=== PATIENT | female | born 1935 | race African-American/Black ===

== ENCOUNTER 2016-12-09 16:32 | Inpatient (IN) | payer MEDICARE, MEDICAID ==
[~2016-12-09] VITALS: Ht 152.4 cm; Wt 72.6 kg
[~2016-12-09 16:32] MED LIST: ALBUTEROL SULF8.5 GM INH; ALLERGY4 MG PO; AMLODIPINE BESYL5 MG ORAL; AZITHROMYCIN250 MG ORAL; BP MED; CALCIUM500 M2 PO; FLONASE1 SPRAYS NASAL; IBUPROFEN400 MG ORAL; METFORMIN HCL500 M1 ORAL; PROMETH-CODEIN 65 ML PO; ROBITUSSIN DM5 ML PO; SIMVASTATIN40 MG ORAL; TENORMIN25 MG ORAL; TRAMADOL HCL50 MG ORAL; VITAMIN D1000 UNI1 ORAL
[2016-12-09 16:50] VITALS: BP 156/46
--- NOTE | 2016-12-09 16:56 | Emergency Room Report ---
History of Present Illness General Chief Complaint: Vomiting Source: Patient Present Illness HPI Patient is a 81-year-old female who presented after having increased nausea and vomiting. Patient states over the past 2 days she's had increased spinning sensation worse with head movement. Patient stated that she felt like she was given a fall down. Patient denied any recent head trauma. She stated that she' s not had any previous history of strokes. Patient is type II diabetic. She denies any feeling of lightheadedness. She denied black or bloody stools she denied hematemesis. Allergies: Coded Allergies: No Known Allergies (Verified Allergy, Unknown, 06/05/11) Patient History Past Medical History: see triage record Now: No Reviewed Nursing Documentation: PMH: Agreed, PSxH: Agreed Nursing Documentation-PMH Past Medical History: No History, Except For Hx Hypertension: Yes Hx Diabetes: Yes - Type II Hx Cancer: No Hx Gastrointestinal Problems: No Hx Neurological Problems: No Review of Systems All Other Systems: negative except mentioned in HPI Physical Exam Vital Signs Date Time Temp Pulse Resp B/P Pulse Ox O2 Delivery O2 Flow Rate FiO2 12/09/16 16:38 98.1 68 16 129/64 100 Room Air Sp02 EP Interpretation: reviewed, normal General Appearance: normal inspection, well appearing, no apparent distress, alert, GCS 15 Head: atraumatic ENT: normal ENT inspection, hearing grossly normal, normal voice Neck: normal inspection, full range of motion, supple, no bony tend Respiratory: normal inspection, lungs clear, normal breath sounds, no respiratory distress, no retraction, no wheezing Cardiovascular #1: regular rate, rhythm, no edema Gastrointestinal: normal inspection, normal bowel sounds, non tender, soft, no guarding, no hernia Genitourinary: no CVA tenderness Musculoskeletal: normal inspection, back normal, normal range of motion Neurologic: normal inspection, alert, oriented x3, responsive, regulatory compliance director III-XII nml as tested, motor strength/tone normal, speech normal Psychiatric: normal inspection, judgement/insight normal, mood/affect normal Skin: normal inspection, normal color, no rash Medical Decision Making Diagnostic Impression: Primary Impression: Generalized weakness Additional Impressions: Unsteady gait Dehydration UTI (urinary tract infection) ER Course Patient presented for vertigo. Differential diagnosis included was not limited to CVA, vertebrobasilar insufficiency, myocardial infarction, benign positional vertigo, labyrinthitis, aspirin overdose among others. Because of complexity of patient's case laboratory testing and imaging studies were ordered. The patient was given IV Zofran as well as oral meclizine. A CT imaging of the head was ordered to exclude CVA.CT the head read by radiology showed atrophic changes without evident stroke. The patient was given antibiotics today urinary tract infection. Dr. Monica Degroot was contacted for inpatient management Labs Test 12/09/16 17:00 White Blood Count 3.8 K/UL (4.8-10.8) Red Blood Count 4.07 M/UL (4.20-5.40) Hemoglobin 12.0 G/DL (12.0-16.0) Hematocrit 37.2 % (37.0-47.0) Mean Corpuscular Volume 91 FL (80-99) Mean Corpuscular Hemoglobin 29.6 PG (27.0-31.0) Mean Corpuscular Hemoglobin Concent 32.4 G/DL (32.0-36.0) Red Cell Distribution Width 14.6 % (11.6-14.8) Platelet Count 173 K/UL (150-450) Mean Platelet Volume 9.0 FL (6.5-10.1) Neutrophils (%) (Auto) % (45.0-75.0) Lymphocytes (%) (Auto) % (20.0-45.0) Monocytes (%) (Auto) % (1.0-10.0) Eosinophils (%) (Auto) % (0.0-3.0) Basophils (%) (Auto) % (0.0-2.0) Differential Total Cells Counted 100 Neutrophils % (Manual) 48 % (45-75) Lymphocytes % (Manual) 27 % (20-45) Monocytes % (Manual) 24 % (1-10) Eosinophils % (Manual) 1 % (0-3) Basophils % (Manual) 0 % (0-2) Band Neutrophils 0 % (0-8) Platelet Estimate Adequate Platelet Morphology Normal Red Blood Cell Morphology Normal Urine Color Pale yellow Urine Appearance Clear Urine pH 5 (4.5-8.0) Urine Specific [place] 1.025 (1.005-1.035) Urine Protein 2+ (NEGATIVE) Urine Glucose (UA) Negative (NEGATIVE) Urine Ketones Negative (NEGATIVE) Urine Occult Blood 3+ (NEGATIVE) Urine Nitrite Negative (NEGATIVE) Urine Bilirubin Negative (NEGATIVE) Urine Urobilinogen Normal MG/DL (0.0-1.0) Urine Leukocyte Esterase 1+ (NEGATIVE) Urine RBC 2-4 /HPF (0 - 2) Urine WBC 2-4 /HPF (0 - 2) Urine Squamous Epithelial Cells Few /LPF (NONE/OCC) Urine Bacteria Few /HPF (NONE) Sodium Level 138 mEQ/L (135-145) Potassium Level 4.2 mEQ/L (3.4-4.9) Chloride Level 95 mEQ/L (98-107) Carbon Dioxide Level 28 mEQ/L (20-30) Anion Gap 15 (5-15) Blood Urea Nitrogen 20 mg/dL (7-23) Creatinine 0.7 mg/dL (0.5-0.9) Estimat Glomerular Filtration Rate mL/min (>60) Glucose Level 167 mg/dL (74-106) Calcium Level 9.6 mg/dL (8.6-10.2) Total Bilirubin 0.2 mg/dL (0.0-1.2) Aspartate Amino Transf (AST/SGOT) 17 U/L (5-40) Alanine Aminotransferase (ALT/SGPT) 11 U/L (3-33) Alkaline Phosphatase 67 U/L (35-104) Troponin I < 0.30 ng/mL (<=0.30) Total Protein 7.5 g/dL (6.6-8.7) Albumin 4.8 g/dL (3.5-5.2) Globulin 2.7 g/dL Albumin/Globulin Ratio 1.7 (1.0-2.7) Lipase 26 U/L (< 60) EKG Diagnostic Results Rate: normal Rhythm: NSR ST Segments: no acute changes Last Vital Signs Date Time Temp Pulse Resp B/P Pulse Ox O2 Delivery O2 Flow Rate FiO2 12/09/16 16:38 98.1 68 16 129/64 100 Room Air Status: unchanged Disposition: ADMITTED INPATIENT Condition: Magdaleno Rich Dec 09, 2016 16:56
[2016-12-09] MEDS ORDERED: NS 250 ML IVPB ONE (17:00)
[2016-12-09] MEDS ORDERED: Meclizine 25mg tab ORAL ONE (17:00)
[2016-12-09 17:41] LABS: MEAN CORPUSCULAR HEMOGLOBIN 29.6 PG (27.0-31.0); MEAN CORPUSCULAR HGB CONC 32.4 G/DL (32.0-36.0); MEAN CORPUSCULAR VOLUME 91 FL (80-99); PLATELET COUNT 173 K/UL (150-450); RED BLOOD COUNT 4.07 M/UL (4.20-5.40); RED CELL DISTRIBUTION WIDTH 14.6 % (11.6-14.8); WHITE BLOOD COUNT 3.8 K/UL (4.8-10.8)
[2016-12-09 17:44] LABS: APPEARANCE,URINE CLEAR; KETONES,URINE NEGATIVE (NEGATIVE); LEUKOCYTE ESTERASE ,URINE 1+ (NEGATIVE); NITRITE,URINE NEGATIVE (NEGATIVE); PH,URINE 5 (4.5-8.0); PROTEIN,URINE 2+ (NEGATIVE); UROBILINOGEN,URINE NORMAL MG/DL (0.0-1.0)
[2016-12-09 17:50] LABS: TROPONIN I < 0.30 ng/mL (<=0.30)
[2016-12-09 17:53] LABS: ALANINE AMINOTRANSFERASE 11 U/L (3-33); ALBUMIN/GLOBULIN RATIO 1.7 (1.0-2.7); ANION GAP 15 (5-15); ASPARTATE AMINO TRANSFERASE 17 U/L (5-40); BACTERIA,URINE FEW /HPF; CALCIUM 9.6 mg/dL (8.6-10.2); CARBON DIOXIDE 28 mEQ/L (20-30); CHLORIDE 95 mEQ/L (98-107); CREATININE 0.7 mg/dL (0.5-0.9); HEMOLYSIS 6; LIPASE 26 U/L (< 60); POTASSIUM 4.2 mEQ/L (3.4-4.9); SODIUM 138 mEQ/L (135-145); SQUAMOUS EPITHELIAL CELL,UR FEW /LPF (NONE/OCC); TOTAL PROTEIN 7.5 g/dL (6.6-8.7)
[2016-12-09 18:20] VITALS: BP 110/76
[2016-12-09 18:23] LABS: BAND NEUTROPHILS % (MANUAL) 0 % (0-8); BASOPHILS % (MANUAL) 0 % (0-2); EOSINOPHILS % (MANUAL) 1 % (0-3); LYMPHOCYTES % (MANUAL) 27 % (20-45); NEUTROPHILS % (MANUAL) 48 % (45-75); PLATELET ESTIMATE ADEQUATE; PLATELET MORPHOLOGY NORMAL; TOTAL CELLS COUNTED 100
[2016-12-09 20:15] VITALS: BP 145/64
[2016-12-09 21:25] VITALS: BP 129/51
[2016-12-09] MEDS ORDERED: LORazepam Inj 2mg/ml 1ml IV PRN (21:45)
[2016-12-09] MEDS ORDERED: Mylanta II UD 30ml ORAL PRN (21:45)
[2016-12-09] MEDS ORDERED: Miralax 17gm pkt ORAL PRN (21:45)
[2016-12-09] MEDS ORDERED: Morphine Sulfate 2mg/ml Inj IVP PRN (21:45)
[2016-12-09] MEDS ORDERED: Albuterol 90mcg Inhaler 8gm INH SCH (21:45)
[2016-12-09] MEDS ORDERED: Zolpidem 5mg tab ORAL PRN (21:45)
[2016-12-09 22:40] VITALS: BP 122/48
[2016-12-09] MEDS: Albuterol 90mcg Inhaler 8gm INH SCH (23:30)
[2016-12-10] VITALS: BP 109/51
[2016-12-10 04:00] VITALS: BP 115/55
[2016-12-10] MEDS: Albuterol 90mcg Inhaler 8gm INH SCH ×3 (05:30→17:30)
[2016-12-10 07:57] VITALS: BP 115/53
[2016-12-10] MEDS: Atenolol 25mg tab ORAL SCH (08:49)
[2016-12-10] MEDS: Heparin 5000 units/ml inj SUBQ SCH ×2 (08:53→20:14)
[2016-12-10] MEDS ORDERED: Atenolol 25mg tab ORAL SCH (09:00)
[2016-12-10 10:41] LABS: MEAN CORPUSCULAR HEMOGLOBIN 29.5 PG (27.0-31.0); MEAN CORPUSCULAR HGB CONC 32.3 G/DL (32.0-36.0); MEAN CORPUSCULAR VOLUME 92 FL (80-99); MEAN PLATELET VOLUME 8.9 FL (6.5-10.1); PLATELET COUNT 160 K/UL (150-450); RED BLOOD COUNT 3.67 M/UL (4.20-5.40); RED CELL DISTRIBUTION WIDTH 14.4 % (11.6-14.8); WHITE BLOOD COUNT 3.1 K/UL (4.8-10.8)
[2016-12-10 10:43] LABS: HEMOGLOBIN A1C 7.2 % (< 6.0)
[2016-12-10 10:44] LABS: ALANINE AMINOTRANSFERASE 10 U/L (3-33); ALBUMIN/GLOBULIN RATIO 1.6 (1.0-2.7); ANION GAP 14 (5-15); ASPARTATE AMINO TRANSFERASE 15 U/L (5-40); CALCIUM 8.9 mg/dL (8.6-10.2); CARBON DIOXIDE 26 mEQ/L (20-30); CHLORIDE 100 mEQ/L (98-107); CHOLESTEROL 166 mg/dL (< 200); CHOLESTEROL/HDL RATIO 2.1 (3.3-4.4); CREATININE 0.7 mg/dL (0.5-0.9); HEMOLYSIS 10; LDL CHOLESTEROL (CALC.) 71 mg/dL (60-99); POTASSIUM 3.9 mEQ/L (3.4-4.9); SODIUM 140 mEQ/L (135-145); TOTAL PROTEIN 6.5 g/dL (6.6-8.7)
--- NOTE | 2016-12-10 10:59 | Diagnostic Imaging Report ---
Indication: Headache Technique: Contiguous 5 mm thick transaxial imaging of the head obtained in a Siemens Sensation [address] scanner. Soft tissue and bone windows generated. Total Dose length Product (DLP): Of [address] Dose Index Volume (CTDIvol): 70.38 mGy Comparison: 06/05/11 Findings: There is mild prominence of the ventricles, basal cisterns, and cerebral sulci consistent with atrophy. Mild, nonspecific, white matter hypoattenuation is noted throughout the brain consistent with chronic small vessel disease. There is no midline shift, edema, acute hemorrhage, mass effect, or abnormal extra-axial fluid collections. Bones and extra osseous soft tissues are unremarkable. Impression: No acute intracranial bleed, mass effect or edema. Mild atrophy of the brain. Nonspecific white matter hypoattenuation probably due to chronic small vessel disease. [facility] has communicated the preliminary results to the Emergency Department. Their findings are largely concordant with this report. The CT scanner at [facility] is accredited by the [employer] and the scans are performed using protocols designed to limit radiation exposure to as low as reasonably achievable to attain images of sufficient resolution adequate for diagnostic evaluation.
--- NOTE | 2016-12-10 11:18 | History and Physical Report ---
DATE OF ADMISSION: 12/09/2016 Time: 7:00 a.m. CONSULTANTS: 1. Freddie Denney M.D. 2. Katie Neal M.D. 3. Ervin Gonsalez M.D. CHIEF COMPLAINT: Weakness and unsteady gait. HISTORY OF PRESENT ILLNESS: The patient is an 81-year-old female who lives at home presented to [place] ER last night with increased weakness and unsteady gait. She does have some dizziness and some vomiting and was diagnosed with above plus UTI and admitted to medical floor for further treatment. Currently, calm sitting in bed, not talking much. PAST MEDICAL HISTORY: Hypertension and diabetes. PAST SURGICAL HISTORY: Unknown. MEDICATIONS: Heparin, Norvasc, Tenormin , Proventil, Tylenol, morphine, Zofran, Mylanta, Ativan, Ambien, and MiraLAX. ALLERGIES: Denies. SOCIAL HISTORY: No smoking. No alcohol. No intravenous drug abuse. FAMILY HISTORY: Noncontributory. REVIEW OF SYSTEMS: Not available. PHYSICAL EXAMINATION: GENERAL: The patient is calm in bed, oriented x3, no acute distress. VITAL SIGNS: Temperature 97 degrees, pulse 69, respirations 18, and blood pressure 115/55. CARDIOVASCULAR: No murmur. LUNGS: Poor exchange. ABDOMEN: Positive bowel sounds. Nontender and nondistended. EXTREMITIES: No cyanosis, clubbing or edema. NEUROLOGIC: The patient moves all extremities, but slightly weak. LABORATORY DATA: White count 3.8, otherwise CBC is normal. BMP shows chloride 95 and glucose 167, otherwise BMP normal. Urinalysis, 3+ occult blood and 1+ leukocyte esterase. ASSESSMENT: 1. Weakness. 2. Unsteady gait. 3. Vomiting. 4. Vertigo. 5. Urinary tract infection. 6. Diabetes. 7. Hypertension. PLAN: Continue premedications. OT/PT and dietary evaluation. CBC and BMP in the morning. Blood pressure and blood sugar control. Antibiotics per Infectious Disease. Dr. Neal, Dr. Denney, and Dr. Gonsalez to consult. We will continue to follow this patient. Cj Degroot D.O. DR: Margarito JOB#: [id number] CC:
[2016-12-10 11:23] LABS: ANISOCYTOSIS 1+; BAND NEUTROPHILS % (MANUAL) 0 % (0-8); BASOPHILS % (MANUAL) 0 % (0-2); EOSINOPHILS % (MANUAL) 0 % (0-3); HYPOCHROMASIA 1+; LYMPHOCYTES % (MANUAL) 32 % (20-45); NEUTROPHILS % (MANUAL) 42 % (45-75); PLATELET ESTIMATE ADEQUATE; PLATELET MORPHOLOGY NORMAL; TOTAL CELLS COUNTED 100
[2016-12-10 11:48] VITALS: BP 103/59
--- NOTE | 2016-12-10 12:59 | Consultation ---
History of Present Illness General Date patient seen: Dec 10, 2016 Time patient seen: 12:30 Chief Complaint: Vomiting Referring physician: dr Degroot Reason for Consultation: in pt management Present Illness HPI 81-year-old female presented after having nausea with episode of vomiting. Emesis described by patient as food particles, no blood Vomiting happened after food intake denies diarrhea, abdominal pain, blood in stool Patient states over the past 2 days she's had increased spinning sensation worse with head movement., feels lightheaded Patient with hx of HTN and DM, Patient denied any recent head trauma, injury, falls Denied blackouts, loss of consciousness, denied chest pain, SOB reported cough for about a month using Albuterol without much relief no diagnosis of asthma, no hx of smoking no wheezing, no hemoptysis denied fevers, chills . Allergies: Coded Allergies: No Known Allergies (Verified Allergy, Unknown, 06/05/11) Medication History Scheduled Albuterol Sulfate* (Albuterol Sulfate Mdi*), 2 PUFF INH Q6H Amlodipine Besylate* (Amlodipine Besylate*), 5 MG ORAL DAILY Atenolol (Tenormin), 25 MG ORAL DAILY, (Reported) Chlorpheniramine Maleate (Allergy), 4 MG PO EVERY 6 HOURS Fluticasone Propionate (Fluticasone Propionate), 1 SPRAY NASAL TWICE A DAY Ibuprofen* (Motrin*), 400 MG ORAL THREE TIMES A DAY Metformin Hcl* (Metformin Hcl*), 500 MG ORAL DAILY, (Reported) Metformin Hcl* (Metformin Hcl*), 500 MG ORAL TWICE A DAY Promethazine HCl/Codeine (Prometh-Codein 6.25-10 mg/5 ml), 5 ML PO HS Simvastatin (Zocor), 40 MG ORAL BEDTIME, (Reported) Simvastatin (Zocor), 40 MG ORAL BEDTIME Tramadol Hcl* (Ultram*), 50 MG ORAL DAILY, (Reported) Scheduled PRN Guaifenesin/Dextromethorphan (Guaifenesin Dm Syrup), 5 ML PO Q8HR PRN for For Cough Miscellaneous Medications Calcium Carbonate (Calcium), 1 TAB PO, (Reported) [Bp Med], (Reported) Patient History Healthcare decision maker Resuscitation status Full Code Advanced Directive on File Review of Systems Constitutional: Reports: weakness Eye: Reports: no symptoms ENT: Reports: no symptoms Respiratory: Reports: see HPI Cardiovascular: Reports: other - HTN Gastrointestinal: Reports: constipation Genitourinary: Reports: no symptoms Musculoskeletal: Reports: muscle stiffness Skin: Reports: dryness Psychiatric: Reports: no symptoms Neurological: Reports: dizziness Endocrine: Reports: other - DM Hematologic/Lymphatic: Reports: no symptoms Physical Exam General Appearance: WD/WN, no apparent distress, alert Lines, tubes and drains: peripheral HEENT: normocephalic, atraumatic, anicteric, mucous membranes moist Neck: non-tender, supple Respiratory/Chest: chest wall non-tender, normal breath sounds - with moderate air exchange , no respiratory distress, no accessory muscle use Cardiovascular/Chest: normal rate, regular rhythm, no JVD Abdomen: normal bowel sounds, non tender, soft Extremities: no calf tenderness, normal capillary refill Neurologic: abnormal gait - unsteady , alert, responsive, normal mood/affect Musculoskeletal: normal muscle bulk Last 24 Hour Vital Signs Date Time Temp Pulse Resp B/P Pulse Ox O2 Delivery O2 Flow Rate FiO2 12/10/16 11:48 97.9 63 14 103/59 98 Room Air 12/10/16 11:41 68 18 98 Room Air 21 12/10/16 11:39 63 18 98 Room Air 21 12/10/16 09:57 Room Air 12/10/16 09:56 Room Air 12/10/16 08:49 75 115/53 12/10/16 08:49 75 115/53 12/10/16 07:57 97.5 75 15 115/53 96 Room Air 12/10/16 04:00 97.2 69 18 115/55 97 Room Air 12/10/16 00:00 97.7 69 20 109/51 96 Room Air 12/09/16 23:11 74 20 122/48 94 Room Air 12/09/16 22:40 98.3 74 20 122/48 94 Room Air 12/09/16 21:25 71 22 129/51 94 Room Air 12/09/16 20:15 98.3 75 29 145/64 98 Room Air 12/09/16 18:20 70 12 110/76 98 Room Air 12/09/16 16:50 65 23 156/46 98 Room Air 12/09/16 16:38 98.1 68 16 129/64 100 Room Air Intake and Output 12/09/16 12/10/16 19:00 07:00 Intake Total 250 ml 250 ml Balance 250 ml 250 ml Intake Oral 250 ml IV Total 250 ml # Voids 1 2 # Bowel Movements 1 Laboratory Tests Test 12/09/16 17:00 12/10/16 09:10 White Blood Count 3.8 K/UL (4.8-10.8) L 3.1 K/UL (4.8-10.8) L Red Blood Count 4.07 M/UL (4.20-5.40) L 3.67 M/UL (4.20-5.40) L Hemoglobin 12.0 G/DL (12.0-16.0) 10.8 G/DL (12.0-16.0) L Hematocrit 37.2 % (37.0-47.0) 33.5 % (37.0-47.0) L Mean Corpuscular Volume 91 FL (80-99) 92 FL (80-99) Mean Corpuscular Hemoglobin 29.6 PG (27.0-31.0) 29.5 PG (27.0-31.0) Mean Corpuscular Hemoglobin Concent 32.4 G/DL (32.0-36.0) 32.3 G/DL (32.0-36.0) Red Cell Distribution Width 14.6 % (11.6-14.8) 14.4 % (11.6-14.8) Platelet Count 173 K/UL (150-450) 160 K/UL (150-450) Mean Platelet Volume 9.0 FL (6.5-10.1) 8.9 FL (6.5-10.1) Neutrophils (%) (Auto) % (45.0-75.0) % (45.0-75.0) Lymphocytes (%) (Auto) % (20.0-45.0) % (20.0-45.0) Monocytes (%) (Auto) % (1.0-10.0) % (1.0-10.0) Eosinophils (%) (Auto) % (0.0-3.0) % (0.0-3.0) Basophils (%) (Auto) % (0.0-2.0) % (0.0-2.0) Differential Total Cells Counted 100 100 Neutrophils % (Manual) 48 % (45-75) 42 % (45-75) L Lymphocytes % (Manual) 27 % (20-45) 32 % (20-45) Monocytes % (Manual) 24 % (1-10) H 26 % (1-10) H Eosinophils % (Manual) 1 % (0-3) 0 % (0-3) Basophils % (Manual) 0 % (0-2) 0 % (0-2) Band Neutrophils 0 % (0-8) 0 % (0-8) Platelet Estimate Adequate Adequate Platelet Morphology Normal Normal Red Blood Cell Morphology Normal Urine Color Pale yellow Urine Appearance Clear Urine pH 5 (4.5-8.0) Urine Specific [place] 1.025 (1.005-1.035) Urine Protein 2+ (NEGATIVE) H Urine Glucose (UA) Negative (NEGATIVE) Urine Ketones Negative (NEGATIVE) Urine Occult Blood 3+ (NEGATIVE) H Urine Nitrite Negative (NEGATIVE) Urine Bilirubin Negative (NEGATIVE) Urine Urobilinogen Normal MG/DL (0.0-1.0) Urine Leukocyte Esterase 1+ (NEGATIVE) H Urine RBC 2-4 /HPF (0 - 2) H Urine WBC 2-4 /HPF (0 - 2) Urine Squamous Epithelial Cells Few /LPF (NONE/OCC) Urine Bacteria Few /HPF (NONE) Sodium Level 138 mEQ/L (135-145) 140 mEQ/L (135-145) Potassium Level 4.2 mEQ/L (3.4-4.9) 3.9 mEQ/L (3.4-4.9) Chloride Level 95 mEQ/L (98-107) L 100 mEQ/L (98-107) Carbon Dioxide Level 28 mEQ/L (20-30) 26 mEQ/L (20-30) Anion Gap 15 (5-15) 14 (5-15) Blood Urea Nitrogen 20 mg/dL (7-23) 19 mg/dL (7-23) Creatinine 0.7 mg/dL (0.5-0.9) 0.7 mg/dL (0.5-0.9) Estimat Glomerular Filtration Rate mL/min (>60) mL/min (>60) Glucose Level 167 mg/dL (74-106) H 176 mg/dL (74-106) H Calcium Level 9.6 mg/dL (8.6-10.2) 8.9 mg/dL (8.6-10.2) Total Bilirubin 0.2 mg/dL (0.0-1.2) 0.3 mg/dL (0.0-1.2) Aspartate Amino Transf (AST/SGOT) 17 U/L (5-40) 15 U/L (5-40) Alanine Aminotransferase (ALT/SGPT) 11 U/L (3-33) 10 U/L (3-33) Alkaline Phosphatase 67 U/L (35-104) 57 U/L (35-104) Troponin I < 0.30 ng/mL (<=0.30) Total Protein 7.5 g/dL (6.6-8.7) 6.5 g/dL (6.6-8.7) L Albumin 4.8 g/dL (3.5-5.2) 4.0 g/dL (3.5-5.2) Globulin 2.7 g/dL 2.5 g/dL Albumin/Globulin Ratio 1.7 (1.0-2.7) 1.6 (1.0-2.7) Lipase 26 U/L (< 60) Hypochromasia 1+ Anisocytosis 1+ Hemoglobin A1c 7.2 % (< 6.0) H Triglycerides Level 82 mg/dL (< 150) Cholesterol Level 166 mg/dL (< 200) LDL Cholesterol 71 mg/dL (60-99) HDL Cholesterol 79 mg/dL (> 60) H Cholesterol/HDL Ratio 2.1 (3.3-4.4) L Thyroid Stimulating Hormone (TSH) 1.030 uIU/mL (0.300-4.500) Height (Feet): 5 Height (Inches): 0.00 Weight (Pounds): 160 Medications Current Medications Medications (Trade) Dose Ordered Sig/Elva Route PRN Reason Start Time Stop Time Status Last Admin Dose Admin Acetaminophen (Tylenol) 650 mg Q4H PRN ORAL fever 12/09/16 21:45 01/08/17 21:44 Al Hydroxide/Mg Hydroxide (Mylanta II) 30 ml Q6H PRN ORAL dyspepsia 12/09/16 21:45 01/08/17 21:44 Albuterol Sulfate (Proventil MDI) 2 puff Q6H INH 12/09/16 23:30 01/08/17 21:44 12/10/16 11:39 Amlodipine Besylate (Norvasc) 5 mg DAILY ORAL 12/10/16 09:00 01/09/17 08:59 12/10/16 08:49 Atenolol (Tenormin) 25 mg DAILY ORAL 12/10/16 09:00 01/09/17 08:59 12/10/16 08:49 Dextrose (Dextrose 50%) STAT PRN IV Hypoglycemia 12/09/16 21:45 01/08/17 21:44 Heparin Sodium (Porcine) (Heparin 5000 units/ml) 5,000 units EVERY 12 HOURS SUBQ 12/10/16 09:00 01/09/17 08:59 12/10/16 08:53 Lorazepam (Ativan 2mg/ml 1ml) 0.5 mg Q4H PRN IV For Anxiety 12/09/16 21:45 12/16/16 21:44 Morphine Sulfate (Morphine Sulfate) 1 mg Q4H PRN IVP For Pain 12/09/16 21:45 12/16/16 21:44 Ondansetron HCl (Zofran) 4 mg Q6H PRN IVP Nausea & Vomiting 12/09/16 21:45 01/08/17 21:44 Polyethylene Glycol (Miralax) 17 gm HSPRN PRN ORAL Constipation 12/09/16 21:45 01/08/17 21:44 Zolpidem Tartrate (Ambien) 5 mg HSPRN PRN ORAL Insomnia 12/09/16 21:45 01/08/17 21:44 Assessment/Plan Assessment/Plan ASSESSMENT dehydration generalized weakness bronchitis, r/o PNA vertigo HTN DM mild anemia PLAN OF CARE MS floor VF O2 HHN prn CXR empiric abx sputum cx if able antitussive as need no evidence of UTI on UA Meclizine prn CT head negative BP management with CCB and BB, optimize as needed orthostatic BP in am consider neuro eval as per PMD discretion BS management with SS of insulin, [id number] at goal PT/OT/ST DVT prophylaxis pain management bowel regimen monitor HH if trend down, will initiate anemia workup case discussed and evaluated by supervising physician Hudson Fritz)Anais NP Dec 10, 2016 12:59
[2016-12-10 16:26] VITALS: BP 122/56
[2016-12-10] MEDS ORDERED: DuoNeb 0.5-3(2.5)mg/3ml neb HHN PRN (17:45)
[2016-12-10] MEDS ORDERED: Meclizine 25mg tab ORAL PRN (18:15)
[2016-12-10] MEDS: Promethazine/Codeine 5ml UD ORAL PRN (18:29)
[2016-12-10] MEDS ORDERED: Levofloxacin 500mg tab ORAL ONE (19:00)
[2016-12-10 20:00] VITALS: BP 101/50
[2016-12-10] MEDS: NovoLOG Insulin Flexpen SUBQ SCH (21:10)
[2016-12-11] VITALS: BP 111/58
[2016-12-11] MEDS: Promethazine/Codeine 5ml UD ORAL PRN ×2 (01:08→19:33)
[2016-12-11] MEDS: NovoLOG Insulin Flexpen SUBQ SCH ×4 (06:25→21:48)
[2016-12-11 06:31] LABS: MEAN CORPUSCULAR HGB CONC 32.8 G/DL (32.0-36.0); MEAN CORPUSCULAR VOLUME 91 FL (80-99); MEAN PLATELET VOLUME 8.6 FL (6.5-10.1); PLATELET COUNT 158 K/UL (150-450); RED BLOOD COUNT 3.63 M/UL (4.20-5.40); RED CELL DISTRIBUTION WIDTH 14.8 % (11.6-14.8); WHITE BLOOD COUNT 3.8 K/UL (4.8-10.8)
[2016-12-11 07:03] LABS: ANION GAP 13 (5-15); CALCIUM 9.1 mg/dL (8.6-10.2); CARBON DIOXIDE 30 mEQ/L (20-30); CHLORIDE 100 mEQ/L (98-107); CREATININE 0.8 mg/dL (0.5-0.9); HEMOLYSIS 11; POTASSIUM 4.4 mEQ/L (3.4-4.9); SODIUM 143 mEQ/L (135-145)
[2016-12-11 08:07] VITALS: BP 139/66
[2016-12-11] MEDS: Atenolol 25mg tab ORAL SCH (09:04)
[2016-12-11] MEDS: Heparin 5000 units/ml inj SUBQ SCH ×2 (09:10→21:49)
[2016-12-11 11:13] LABS: OTHERS PATHOLOGIST COMMENT
[2016-12-11 11:50] VITALS: BP 123/61
--- NOTE | 2016-12-11 11:59 | Neurology Progress Note ---
Objective Physical Exam Last Vital Signs Date Time Temp Pulse Resp B/P Pulse Ox O2 Delivery O2 Flow Rate FiO2 12/11/16 11:50 98.2 66 19 123/61 96 Room Air 12/10/16 19:16 21 Laboratory Tests Test 12/11/16 04:50 White Blood Count 3.8 K/UL (4.8-10.8) L Red Blood Count 3.63 M/UL (4.20-5.40) L Hemoglobin 10.9 G/DL (12.0-16.0) L Hematocrit 33.2 % (37.0-47.0) L Mean Corpuscular Volume 91 FL (80-99) Mean Corpuscular Hemoglobin 30.0 PG (27.0-31.0) Mean Corpuscular Hemoglobin Concent 32.8 G/DL (32.0-36.0) Red Cell Distribution Width 14.8 % (11.6-14.8) Platelet Count 158 K/UL (150-450) Mean Platelet Volume 8.6 FL (6.5-10.1) Neutrophils (%) (Auto) % (45.0-75.0) Lymphocytes (%) (Auto) % (20.0-45.0) Monocytes (%) (Auto) % (1.0-10.0) Eosinophils (%) (Auto) % (0.0-3.0) Basophils (%) (Auto) % (0.0-2.0) Sodium Level 143 mEQ/L (135-145) Potassium Level 4.4 mEQ/L (3.4-4.9) Chloride Level 100 mEQ/L (98-107) Carbon Dioxide Level 30 mEQ/L (20-30) Anion Gap 13 (5-15) Blood Urea Nitrogen 18 mg/dL (7-23) Creatinine 0.8 mg/dL (0.5-0.9) Estimat Glomerular Filtration Rate mL/min (>60) Glucose Level 154 mg/dL (74-106) H Calcium Level 9.1 mg/dL (8.6-10.2) Impression/Recommendations Problems: (1) Vertigo, benign positional Recommendations # [id number] DANICA MCCRACKEN Dec 11, 2016 11:59
--- NOTE | 2016-12-11 12:45 | Diagnostic Imaging Report ---
Indication: SOB Technique: One view of the chest Comparison: 07/21/2016 Findings: No acute infiltrates, effusions, or congestion. Tortuous calcified aorta. Normal heart size. Upper mediastinum unremarkable. There are mild degenerative changes right shoulder again demonstrated Impression: No acute process.
--- NOTE | 2016-12-11 14:14 | General Progress Note ---
Assessment/Plan Problem List: (1) Unsteady gait ICD Codes: R26.81 - Unsteadiness on feet SNOMED: 66906896, 520780647 (2) Vomiting ICD Codes: R11.10 - Vomiting, unspecified SNOMED: 925286628 (3) UTI (urinary tract infection) ICD Codes: N39.0 - Urinary tract infection, site not specified SNOMED: 10744355 (4) Diabetes mellitus ICD Codes: E11.9 - Type 2 diabetes mellitus without complications SNOMED: 46631999 (5) vertigo Status: stable, progressing, tolerating diet Assessment/Plan ot pt diet abx cbc bmp am Subjective Constitutional: Reports: weakness Allergies: Coded Allergies: No Known Allergies (Verified Allergy, Unknown, 06/05/11) All Systems: reviewed and negative except above Subjective calm in bed Objective Last 24 Hour Vital Signs Date Time Temp Pulse Resp B/P Pulse Ox O2 Delivery O2 Flow Rate FiO2 12/11/16 11:50 98.2 66 19 123/61 96 Room Air 12/11/16 09:04 74 139/66 12/11/16 09:03 74 139/66 12/11/16 08:07 98.1 74 19 139/66 96 Room Air 12/11/16 07:55 66 14 Room Air 12/11/16 05:50 70 72 78 12/11/16 04:00 Room Air 12/11/16 00:00 97.1 72 18 111/58 95 Room Air 12/10/16 20:00 98.1 66 19 101/50 96 Room Air 12/10/16 19:18 64 14 Room Air 12/10/16 19:17 Room Air 12/10/16 19:16 Room Air 21 12/10/16 16:26 99.7 67 15 122/56 98 Room Air Intake and Output 12/10/16 12/11/16 19:00 07:00 Intake Total 1450 ml 902 ml Balance 1450 ml 902 ml Intake Oral 1400 ml 352 ml IV Total 50 ml 550 ml # Voids 2 5 Laboratory Tests 12/11/16 04:50: White Blood Count 3.8L, Red Blood Count 3.63L, Hemoglobin 10.9L, Hematocrit 33.2L, Mean Corpuscular Volume 91, Mean Corpuscular Hemoglobin 30.0, Mean Corpuscular Hemoglobin Concent 32.8, Red Cell Distribution Width 14.8, Platelet Count 158, Mean Platelet Volume 8.6, Neutrophils (%) (Auto) , Lymphocytes (%) ( Auto) , Monocytes (%) (Auto) , Eosinophils (%) (Auto) , Basophils (%) (Auto) , Sodium Level 143, Potassium Level 4.4, Chloride Level 100, Carbon Dioxide Level 30, Anion Gap 13, Blood Urea Nitrogen 18, Creatinine 0.8, Estimat Glomerular Filtration Rate , Glucose Level 154H, Calcium Level 9.1 Height (Feet): 5 Height (Inches): 0.00 Weight (Pounds): 160 General Appearance: alert EENT: normal ENT inspection Neck: normal alignment Cardiovascular: normal peripheral pulses, normal rate, regular rhythm Respiratory/Chest: chest wall non-tender, lungs clear, normal breath sounds Abdomen: normal bowel sounds, non tender, soft Extremities: normal inspection Edema: no edema noted Arm (L), no edema noted Arm (R), no edema noted Leg (L), no edema noted Leg (R), no edema noted Pedal (L), no edema noted Pedal (R), no edema noted Generalized Neurologic: responsive, motor weakness Skin: normal pigmentation, warm/dry BRIDGET MORENO Dec 11, 2016 14:14
[2016-12-11 16:00] VITALS: BP 124/65
--- NOTE | 2016-12-11 16:44 | Pulmonology Progress Note ---
Assessment/Plan Problems: (1) vertigo (2) Unsteady gait (3) Vomiting (4) Diabetes mellitus Assessment/Plan improving pt/ot neuro evaluation all noted, meds, labs reveiwed dc planning Subjective ROS Limited/Unobtainable: No Interval Events: no new complains Allergies: Coded Allergies: No Known Allergies (Verified Allergy, Unknown, 06/05/11) Objective Last 24 Hour Vital Signs Date Time Temp Pulse Resp B/P Pulse Ox O2 Delivery O2 Flow Rate FiO2 12/11/16 16:00 98.1 67 20 124/65 97 Room Air 12/11/16 11:50 98.2 66 19 123/61 96 Room Air 12/11/16 09:04 74 139/66 12/11/16 09:03 74 139/66 12/11/16 08:07 98.1 74 19 139/66 96 Room Air 12/11/16 07:55 66 14 Room Air 12/11/16 05:50 70 72 78 12/11/16 04:00 Room Air 12/11/16 00:00 97.1 72 18 111/58 95 Room Air 12/10/16 20:00 98.1 66 19 101/50 96 Room Air 12/10/16 19:18 64 14 Room Air 12/10/16 19:17 Room Air 12/10/16 19:16 Room Air 21 Intake and Output 12/10/16 12/11/16 19:00 07:00 Intake Total 1450 ml 902 ml Balance 1450 ml 902 ml Intake Oral 1400 ml 352 ml IV Total 50 ml 550 ml # Voids 2 5 Objective General Appearance: WD/WN, no apparent distress, alert Lines, tubes and drains: peripheral HEENT: normocephalic, atraumatic, anicteric, mucous membranes moist Neck: non-tender, supple Respiratory/Chest: chest wall non-tender, normal breath sounds - with moderate air exchange , no respiratory distress, no accessory muscle use Cardiovascular/Chest: normal rate, regular rhythm, no JVD Abdomen: normal bowel sounds, non tender, soft Extremities: no calf tenderness, normal capillary refill Neurologic: abnormal gait - unsteady , alert, responsive, normal mood/affect Musculoskeletal: normal muscle bulk Laboratory Tests 12/11/16 04:50: White Blood Count 3.8L, Red Blood Count 3.63L, Hemoglobin 10.9L, Hematocrit 33.2L, Mean Corpuscular Volume 91, Mean Corpuscular Hemoglobin 30.0, Mean Corpuscular Hemoglobin Concent 32.8, Red Cell Distribution Width 14.8, Platelet Count 158, Mean Platelet Volume 8.6, Neutrophils (%) (Auto) , Lymphocytes (%) ( Auto) , Monocytes (%) (Auto) , Eosinophils (%) (Auto) , Basophils (%) (Auto) , Sodium Level 143, Potassium Level 4.4, Chloride Level 100, Carbon Dioxide Level 30, Anion Gap 13, Blood Urea Nitrogen 18, Creatinine 0.8, Estimat Glomerular Filtration Rate , Glucose Level 154H, Calcium Level 9.1 Current Medications Medications (Trade) Dose Ordered Sig/Elva Route PRN Reason Start Time Stop Time Status Last Admin Dose Admin Acetaminophen (Tylenol) 650 mg Q4H PRN ORAL fever 12/09/16 21:45 01/08/17 21:44 Al Hydroxide/Mg Hydroxide (Mylanta II) 30 ml Q6H PRN ORAL dyspepsia 12/09/16 21:45 01/08/17 21:44 Albuterol/ Ipratropium (DuoNeb 0.5-3(2.5)mg/3ml) 3 ml Q4H PRN HHN Shortness of Breath 12/10/16 17:45 12/15/16 17:44 Amlodipine Besylate (Norvasc) 5 mg DAILY ORAL 12/10/16 09:00 01/09/17 08:59 12/11/16 09:03 Atenolol 25 mg 25 mg DAILY ORAL 12/10/16 09:00 01/09/17 08:59 12/11/16 09:04 Dextrose (Dextrose 50%) STAT PRN IV Hypoglycemia 12/09/16 21:45 01/08/17 21:44 Heparin Sodium (Porcine) (Heparin 5000 units/ml) 5,000 units EVERY 12 HOURS SUBQ 12/10/16 09:00 01/09/17 08:59 12/11/16 09:10 Insulin Aspart (NovoLOG) BEFORE MEALS AND HS SUBQ 12/10/16 21:00 01/09/17 20:59 12/11/16 12:19 Levofloxacin (Levaquin) 250 mg Q24H ORAL 12/11/16 19:00 12/18/16 18:59 Lorazepam (Ativan 2mg/ml 1ml) 0.5 mg Q4H PRN IV For Anxiety 12/09/16 21:45 12/16/16 21:44 Meclizine HCl (Antivert) 25 mg Q6H PRN ORAL for dizziness 12/10/16 18:15 01/09/17 18:14 Morphine Sulfate (Morphine Sulfate) 1 mg Q4H PRN IVP For Pain 12/09/16 21:45 12/16/16 21:44 Ondansetron HCl (Zofran) 4 mg Q6H PRN IVP Nausea & Vomiting 12/09/16 21:45 01/08/17 21:44 Polyethylene Glycol (Miralax) 17 gm HSPRN PRN ORAL Constipation 12/09/16 21:45 01/08/17 21:44 Promethazine HCl/ Codeine (Phenergan with Codeine) 5 ml Q6H PRN ORAL For Cough 12/10/16 17:45 01/09/17 17:44 12/11/16 01:08 Sodium Chloride (0.45% NS 1000ml) 1,000 ml @ 50 mls/hr Q20H IV 12/10/16 18:00 01/09/17 17:59 12/10/16 18:26 Zolpidem Tartrate (Ambien) 5 mg HSPRN PRN ORAL Insomnia 12/09/16 21:45 01/08/17 21:44 CT CALLEJAS Dec 11, 2016 16:44
[2016-12-11 19:00] VITALS: BP 126/63
--- NOTE | 2016-12-11 20:48 | Consultation ---
DATE OF CONSULTATION: 12/11/2016 NEUROLOGICAL CONSULTATION: REQUESTING PHYSICIAN: Cj Degroot D.O. HISTORY OF PRESENT ILLNESS: The patient is an 81-year-old female seen in neurological consultation to evaluate new onset of intractable nausea, vomiting, and vertigo. The patient informed me that the last week, she noted when she turns her head to the side, she feels slight vertigo. She was not paying attention to this, but on day of admission, while walking with a friend she started developed nausea, she started developed vomiting, acute vertigo, unstable gait, pressure sensation in her head, and blurriness of vision. She had to lie down in bed felt slight improvement, but become extremely concerned that this may represent a stroke and with this she was sent into emergency room. On admission, vital signs were stable. She was afebrile with blood pressure 129/64. The patient was indicating in the emergency room that for the past two days she was increased spinning sensation, worse with head movement. She mentioned that she actually felt like she is going to fall down. She was given IV Zofran. Imaging studies included CT of the brain, which revealed no acute abnormalities. No midline shift. There was evidence of chronic small vessel disease and atrophy. The comparison with the previous study was done on 06/05/2011. Laboratory studies included CBC study with WBC 3.8, otherwise normal. Chemistry panel unremarkable except elevated blood sugar 167. Hemoglobin A1c was 7.2. Normal TSH, lipid panel, and liver function. The patient indicated that her symptoms actually resolved within one to two hours. The patient now recalled that she had a very similar episode six months ago when she developed vertigo, nausea, vomiting with symptoms subsiding while she is in still position. She was hospitalized, causes of her condition was not detected. PAST MEDICAL HISTORY: The patient has history of hypertension, diabetes, hyperlipidemia, and " allergic, cough". MEDICATIONS: The patient indicated treatment now include amlodipine, atenolol, ibuprofen, metformin, promethazine, simvastatin, and tramadol p.r.n. ALLERGIES: None reported. SOCIAL HISTORY: The patient is a . She lives alone in a supportive family. No alcohol. No drug abuse. Nonsmoker. FAMILY HISTORY: Noncontributory. REVIEW OF SYMPTOMS: Dry cough. Currently, no headache, no dizziness, no chest pain, no palpitations, no difficulties in ambulation. PHYSICAL EXAMINATION: GENERAL: The patient is a well-developed, well-nourished, pleasant lady, not in acute distress, lying comfortably in bed. VITAL SIGNS: Blood pressure 128/80 and respirations 14. HEENT: Head, normocephalic. No evidence of trauma. Eyes, ears, and throat are clear. NECK: Supple. No meningeal signs. MUSCULOSKELETAL: Examination unremarkable. There is no deformities. PERIPHERAL PULSES: A 1+ symmetric. MENTAL STATUS: Alert and oriented x3. Speech is fluent. No evidence of aphasia or apraxia. Cognition is normal. CRANIAL NERVES II: Pupils both responding to light and accommodation. Extraocular movement intact. No nystagmus. CRANIAL NERVES V: Normal corneal responses. CRANIAL NERVES VII: No facial asymmetry. CRANIAL NERVES VIII: Normal hearing. No positional vertigo with head turn. CRANIAL NERVES IX THROUGH XII: Tongue is in midline. Symmetric palate elevation. MOTOR EXAMINATION: Motor examination, normal muscle tone. Strength 5/5 in all extremities. No involuntary movement. Deep reflexes 1+ symmetric with downgoing toes on both sides. SENSORY EXAM: Normal in all modalities. Gait is slow, but stable. The patient indicates she is using cane for slight instability. IMPRESSION: 1. Recurrent benign positional vertigo. 2. 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 3. Hypertension. 4. Diabetes type 2. 5. Hyperlipidemia. DISCUSSION: The patient describes events which compatible with benign positional vertigo spontaneously resolving. Currently, she has no focal neurological deficit except mild ataxia very likely result of small vessel disease. The patient to use Antivert 12.5 mg p.r.n. only for vertigo. If symptoms persist, may need additional diagnostic studies including MRI of internal auditory canals. At this time, the patient is neurological stable and will be able to be discharged home. Thank you for allowing me to see this interesting patient in neurological consultation. Freddie Denney M.D. DR: Jeyson JOB#: [id number] CC:
[2016-12-12] VITALS: BP 121/79
[2016-12-12 04:00] VITALS: BP 137/60
[2016-12-12] MEDS: NovoLOG Insulin Flexpen SUBQ SCH ×3 (06:22→16:34)
[2016-12-12 07:06] LABS: ANION GAP 11 (5-15); CALCIUM 9.2 mg/dL (8.6-10.2); CARBON DIOXIDE 29 mEQ/L (20-30); CHLORIDE 101 mEQ/L (98-107); CREATININE 0.6 mg/dL (0.5-0.9); HEMOLYSIS 0; POTASSIUM 4.1 mEQ/L (3.4-4.9); SODIUM 141 mEQ/L (135-145)
[2016-12-12 07:15] LABS: MEAN CORPUSCULAR HEMOGLOBIN 29.8 PG (27.0-31.0); MEAN CORPUSCULAR HGB CONC 32.6 G/DL (32.0-36.0); MEAN CORPUSCULAR VOLUME 91 FL (80-99); MEAN PLATELET VOLUME 8.2 FL (6.5-10.1); PLATELET COUNT 162 K/UL (150-450); RED BLOOD COUNT 3.66 M/UL (4.20-5.40); RED CELL DISTRIBUTION WIDTH 14.7 % (11.6-14.8); WHITE BLOOD COUNT 3.8 K/UL (4.8-10.8)
[2016-12-12 08:02] VITALS: BP 147/55
[2016-12-12] MEDS: Heparin 5000 units/ml inj SUBQ SCH (08:37)
[2016-12-12] MEDS: Atenolol 25mg tab ORAL SCH (08:37)
[2016-12-12 08:54] LABS: BAND NEUTROPHILS % (MANUAL) 0 % (0-8); BASOPHILS % (MANUAL) 1 % (0-2); EOSINOPHILS % (MANUAL) 0 % (0-3); LYMPHOCYTES % (MANUAL) 63 % (20-45); NEUTROPHILS % (MANUAL) 21 % (45-75); PLATELET ESTIMATE ADEQUATE; PLATELET MORPHOLOGY NORMAL; TOTAL CELLS COUNTED 100
[2016-12-12 11:28] VITALS: BP 117/52
--- NOTE | 2016-12-12 11:33 | Cardiology Report ---
APPROVED REPORT EKG Measurement Heart [id number] Normal sinus rhythm Normal ECG
--- NOTE | 2016-12-12 13:09 | General Progress Note ---
Assessment/Plan Problem List: (1) Unsteady gait ICD Codes: R26.81 - Unsteadiness on feet SNOMED: 06190302, 147736575 (2) Vomiting ICD Codes: R11.10 - Vomiting, unspecified SNOMED: 461969995 (3) UTI (urinary tract infection) ICD Codes: N39.0 - Urinary tract infection, site not specified SNOMED: 69692402 (4) Diabetes mellitus ICD Codes: E11.9 - Type 2 diabetes mellitus without complications SNOMED: 93960174 (5) vertigo Status: stable, progressing, tolerating diet Assessment/Plan ot pt diet abx dc home w hh Subjective Constitutional: Reports: weakness Allergies: Coded Allergies: No Known Allergies (Verified Allergy, Unknown, 06/05/11) All Systems: reviewed and negative except above Subjective calm in bed feeling better wants to go home Objective Last 24 Hour Vital Signs Date Time Temp Pulse Resp B/P Pulse Ox O2 Delivery O2 Flow Rate FiO2 12/12/16 11:28 98.6 61 19 117/52 97 Room Air 12/12/16 08:37 71 147/55 12/12/16 08:37 71 147/55 12/12/16 08:02 98.2 71 19 147/55 98 Room Air 12/12/16 07:36 76 14 Room Air 12/12/16 04:00 97.7 65 20 137/60 96 Room Air 12/12/16 00:00 98.2 64 20 121/79 97 Room Air 12/11/16 19:00 98.1 66 20 126/63 94 Room Air 12/11/16 19:00 68 14 Room Air 12/11/16 16:00 98.1 67 20 124/65 97 Room Air Intake and Output 12/11/16 12/12/16 19:00 07:00 Intake Total 810 ml 490 ml Balance 810 ml 490 ml Intake Oral 560 ml 240 ml IV Total 250 ml 250 ml # Voids 3 7 # Bowel Movements 1 1 Laboratory Tests 12/12/16 06:00: White Blood Count 3.8L, Red Blood Count 3.66L, Hemoglobin 10.9L, Hematocrit 33.4L, Mean Corpuscular Volume 91, Mean Corpuscular Hemoglobin 29.8, Mean Corpuscular Hemoglobin Concent 32.6, Red Cell Distribution Width 14.7, Platelet Count 162, Mean Platelet Volume 8.2, Neutrophils (%) (Auto) , Lymphocytes (%) ( Auto) , Monocytes (%) (Auto) , Eosinophils (%) (Auto) , Basophils (%) (Auto) , Differential Total Cells Counted 100, Neutrophils % (Manual) 21L, Lymphocytes % (Manual) 63H, Monocytes % (Manual) 15H, Eosinophils % (Manual) 0, Basophils % ( Manual) 1, Band Neutrophils 0, Platelet Estimate Adequate, Platelet Morphology Normal, Red Blood Cell Morphology Normal, Sodium Level 141, Potassium Level 4.1 , Chloride Level 101, Carbon Dioxide Level 29, Anion Gap 11, Blood Urea Nitrogen 15, Creatinine 0.6, Estimat Glomerular Filtration Rate , Glucose Level 165H, Calcium Level 9.2 Height (Feet): 5 Height (Inches): 0.00 Weight (Pounds): 160 General Appearance: alert EENT: normal ENT inspection Neck: normal alignment Cardiovascular: normal peripheral pulses, normal rate, regular rhythm Respiratory/Chest: chest wall non-tender, lungs clear, normal breath sounds Abdomen: normal bowel sounds, non tender, soft Extremities: normal inspection Edema: no edema noted Arm (L), no edema noted Arm (R), no edema noted Leg (L), no edema noted Leg (R), no edema noted Pedal (L), no edema noted Pedal (R), no edema noted Generalized Neurologic: responsive, motor weakness Skin: normal pigmentation, warm/dry BRIDGET MORENO Dec 12, 2016 13:09
[2016-12-12 16:00] VITALS: BP 118/58
[2016-12-12] MEDS: Promethazine/Codeine 5ml UD ORAL PRN (16:29)
[2016-12-12] MEDS ORDERED: 1/2 NS 1000ml IV ONE ×2 (16:32→17:38)
--- NOTE | 2016-12-12 16:33 | Pulmonology Progress Note ---
Assessment/Plan Problems: (1) vertigo (2) Unsteady gait (3) Vomiting (4) Diabetes mellitus Assessment/Plan improving pt/ot neuro evaluation all noted, meds, labs reveiwed dc planning going home today Subjective ROS Limited/Unobtainable: No Constitutional: Reports: no symptoms HEENT: Repors: no symptoms Allergies: Coded Allergies: No Known Allergies (Verified Allergy, Unknown, 06/05/11) Objective Last 24 Hour Vital Signs Date Time Temp Pulse Resp B/P Pulse Ox O2 Delivery O2 Flow Rate FiO2 12/12/16 11:28 98.6 61 19 117/52 97 Room Air 12/12/16 08:37 71 147/55 12/12/16 08:37 71 147/55 12/12/16 08:02 98.2 71 19 147/55 98 Room Air 12/12/16 07:36 76 14 Room Air 12/12/16 04:00 97.7 65 20 137/60 96 Room Air 12/12/16 00:00 98.2 64 20 121/79 97 Room Air 12/11/16 19:00 98.1 66 20 126/63 94 Room Air 12/11/16 19:00 68 14 Room Air Intake and Output 12/11/16 12/12/16 19:00 07:00 Intake Total 810 ml 490 ml Balance 810 ml 490 ml Intake Oral 560 ml 240 ml IV Total 250 ml 250 ml # Voids 3 7 # Bowel Movements 1 1 Objective General Appearance: WD/WN, no apparent distress, alert Lines, tubes and drains: peripheral HEENT: normocephalic, atraumatic, anicteric, mucous membranes moist Neck: non-tender, supple Respiratory/Chest: chest wall non-tender, normal breath sounds - with moderate air exchange , no respiratory distress, no accessory muscle use Cardiovascular/Chest: normal rate, regular rhythm, no JVD Abdomen: normal bowel sounds, non tender, soft Extremities: no calf tenderness, normal capillary refill Neurologic: abnormal gait - unsteady , alert, responsive, normal mood/affect Musculoskeletal: normal muscle bulk Laboratory Tests 12/12/16 06:00: White Blood Count 3.8L, Red Blood Count 3.66L, Hemoglobin 10.9L, Hematocrit 33.4L, Mean Corpuscular Volume 91, Mean Corpuscular Hemoglobin 29.8, Mean Corpuscular Hemoglobin Concent 32.6, Red Cell Distribution Width 14.7, Platelet Count 162, Mean Platelet Volume 8.2, Neutrophils (%) (Auto) , Lymphocytes (%) ( Auto) , Monocytes (%) (Auto) , Eosinophils (%) (Auto) , Basophils (%) (Auto) , Differential Total Cells Counted 100, Neutrophils % (Manual) 21L, Lymphocytes % (Manual) 63H, Monocytes % (Manual) 15H, Eosinophils % (Manual) 0, Basophils % ( Manual) 1, Band Neutrophils 0, Platelet Estimate Adequate, Platelet Morphology Normal, Red Blood Cell Morphology Normal, Sodium Level 141, Potassium Level 4.1 , Chloride Level 101, Carbon Dioxide Level 29, Anion Gap 11, Blood Urea Nitrogen 15, Creatinine 0.6, Estimat Glomerular Filtration Rate , Glucose Level 165H, Calcium Level 9.2 Current Medications Medications (Trade) Dose Ordered Sig/Elva Route PRN Reason Start Time Stop Time Status Last Admin Dose Admin Acetaminophen (Tylenol) 650 mg Q4H PRN ORAL fever 12/09/16 21:45 01/08/17 21:44 Al Hydroxide/Mg Hydroxide (Mylanta II) 30 ml Q6H PRN ORAL dyspepsia 12/09/16 21:45 01/08/17 21:44 Albuterol/ Ipratropium (DuoNeb 0.5-3(2.5)mg/3ml) 3 ml Q4H PRN HHN Shortness of Breath 12/10/16 17:45 12/15/16 17:44 Amlodipine Besylate (Norvasc) 5 mg DAILY ORAL 12/10/16 09:00 01/09/17 08:59 12/12/16 08:37 Atenolol 25 mg 25 mg DAILY ORAL 12/10/16 09:00 01/09/17 08:59 12/12/16 08:37 Dextrose (Dextrose 50%) STAT PRN IV Hypoglycemia 12/09/16 21:45 01/08/17 21:44 Heparin Sodium (Porcine) (Heparin 5000 units/ml) 5,000 units EVERY 12 HOURS SUBQ 12/10/16 09:00 01/09/17 08:59 12/12/16 08:37 Insulin Aspart (NovoLOG) BEFORE MEALS AND HS SUBQ 12/10/16 21:00 01/09/17 20:59 12/12/16 12:22 Levofloxacin (Levaquin) 250 mg Q24H ORAL 12/11/16 19:00 12/18/16 18:59 12/11/16 19:32 Lorazepam (Ativan 2mg/ml 1ml) 0.5 mg Q4H PRN IV For Anxiety 12/09/16 21:45 12/16/16 21:44 Meclizine HCl (Antivert) 25 mg Q6H PRN ORAL for dizziness 12/10/16 18:15 01/09/17 18:14 Morphine Sulfate (Morphine Sulfate) 1 mg Q4H PRN IVP For Pain 12/09/16 21:45 12/16/16 21:44 Ondansetron HCl (Zofran) 4 mg Q6H PRN IVP Nausea & Vomiting 12/09/16 21:45 01/08/17 21:44 Polyethylene Glycol (Miralax) 17 gm HSPRN PRN ORAL Constipation 12/09/16 21:45 01/08/17 21:44 Promethazine HCl/ Codeine (Phenergan with Codeine) 5 ml Q6H PRN ORAL For Cough 12/10/16 17:45 01/09/17 17:44 12/12/16 16:29 Sodium Chloride (0.45% NS 1000ml) 1,000 ml @ 50 mls/hr Q20H IV 12/10/16 18:00 01/09/17 17:59 12/12/16 02:00 Zolpidem Tartrate (Ambien) 5 mg HSPRN PRN ORAL Insomnia 12/09/16 21:45 01/08/17 21:44 [address] CALLEJAS Dec 12, 2016 16:33
[2016-12-12] MEDS ORDERED: LEVAQUIN250 M1 ORAL (18:03)
--- NOTE | 2016-12-14 15:13 | Discharge Summary ---
Discharge Summary Hospital Course Date of Admission Dec 09, 2016 at 19:35 Date of Discharge Dec 12, 2016 at 18:45 Admitting Diagnosis generalized weakness, unsteady gait HPI Emma Arellano is a 81 year old female who was admitted on Dec 09, 2016 at 19:35 for Generalized Weakness, Unsteady Gait Hospital Course [id number] Discharge Discharge Disposition Patient was discharged to Home with Home Health(06) Discharge Diagnoses: Shagufta Casiano NP Dec 14, 2016 15:13
--- NOTE | 2016-12-14 23:58 | Discharge Summary 2 SIG ---
DATE OF ADMISSION: 12/09/2016 DATE OF DISCHARGE: 12/12/2016 CONSULTANTS: 1. Katie Neal M.D. 2. Freddie Denney M.D. BRIEF HOSPITAL COURSE: The patient is an 81-year-old female who presented to ED after increased nausea and vomiting over the past two days, and had increased spinning sensation, worse with head movement. On evaluation at ED, CT of the head showed no acute intracranial bleed, mass effect, or edema with mild atrophy of the brain and nonspecific chronic small vessel disease. Chest x-ray showed no acute process. Urinalysis showed +1 leukocyte esterase, 2 to 4 RBCs, and 2 to 4 WBC. The patient was placed on physical therapy and occupational therapy. Dr. Denney was consulted. The patient was assessed to have recurrent benign positional vertigo and was given Antivert 12.5 mg p.r.n. There was no focal neurological deficit except mild ataxia, which is very likely a result of small vessel disease. The patient felt better and was eventually discharged home with home health. FINAL DIAGNOSES: 1. Acute vertigo. 2. Vomiting. 3. Urinary tract infection. 4. Diabetes mellitus. 5. Hyperlipidemia. 6. Diabetes, type 2. 7. Hypertension. 8. Ischemic cerebrovascular disease with mild abnormal gait. 9. Recurrent benign positional vertigo. Cj Degroot D.O. I have been assigned to dictate discharge summary on this account and I was not involved in the patient's management. Shagufta Casiano N.P. DR: JEANNIE JOB#: [id number] CC: TADEO
== END 2016-12-12 18:45 | disposition home health service (06) | DRG 149 ==
LOC: EMR 17:12 → 4E 19:35 → EDBEDREQSVC 22:11 → EDBEDREQ 22:53 → EMR 23:17
DX: H81.10 Benign paroxysmal vertigo, unspecified ear (principal); N39.0 Urinary tract infection, site not specified; I67.82 Cerebral ischemia; D64.9 Anemia, unspecified; I10 Essential (primary) hypertension; E11.9 Type 2 diabetes mellitus without complications; E86.0 Dehydration; E78.5 Hyperlipidemia, unspecified; R27.0 Ataxia, unspecified
CPT/HCPCS: 36415; 70450; 71010; 80048; 80053; 80061; 81003; 82962; 83036; 83690; 84443; 84484; 85007; 85025; 93005; 94640; 94664; 97803; J1815; J2405

== ENCOUNTER 2017-05-14 16:11 | Inpatient (IN) | payer MEDICARE, MEDICAID ==
[~2017-05-14] VITALS: Ht 154.9 cm; Wt 72.6 kg
[~2017-05-14 16:11] MED LIST changes: +LEVAQUIN250 M1 ORAL
[2017-05-14 16:30] VITALS: BP 144/65
--- NOTE | 2017-05-14 16:44 | Emergency Room Report ---
History of Present Illness General Chief Complaint: Dizziness Source: Patient Present Illness HPI The patient presents with a headache that is severe. Began on Sunday. Last night she says that she couldn't see with her eyes. The headache is somewhat better today and also the visual disturbances still present but somewhat better. She states she is having difficulty seeing things on her right. The headache is on the left side of her head and is 8-10/10, pressure and sharp. Radiates towards the back of her head. She also feels tingling down the back of her neck. She has slight left leg weakness that she feels has been present before this event (H/O back surgery and walks with cane). She also has been vomiting and has nausea. The onset was acute and sudden. The patient has a history of vertigo. When she was seen for the in the past she didn't have a severe headache like she does now have. H/O HTN. Denies DM. High lipids. No CP, palpitations, URI, fever, dysuria, change in bowels, rashes. Allergies: Coded Allergies: No Known Allergies (Verified Allergy, Unknown, 06/05/11) Patient History Past Medical History: see triage record Past Surgical History: yoni, , other - back surgery Social History: Denies: smoking Social History Narrative at home by herself Last Menstrual Period: na Reviewed Nursing Documentation: PMH: Agreed, PSxH: Agreed Nursing Documentation-PM Past Medical History: No History, Except For Hx Hypertension: Yes Hx Diabetes: Yes Hx Cancer: No Hx Gastrointestinal Problems: No Hx Neurological Problems: No Review of Systems All Other Systems: negative except mentioned in HPI Physical Exam Vital Signs Date Time Temp Pulse Resp B/P Pulse Ox O2 Delivery O2 Flow Rate FiO2 05/14/17 16:20 98.8 55 18 144/65 98 Room Air Sp02 EP Interpretation: reviewed, normal General Appearance: well appearing, no apparent distress, GCS 15 Head: normocephalic, atraumatic Eyes: bilateral eye EOMI, bilateral eye PERRL, bilateral eye normal inspection , bilateral eye other - R visual field hemianopsia ENT: moist mucus membranes Neck: supple, no carotid bruits Respiratory: lungs clear, normal breath sounds Cardiovascular #1: regular rate, rhythm, no edema, other - no temporal artery tenderness Cardiovascular #2: 2+ radial (R) Gastrointestinal: normal inspection, normal bowel sounds, non tender, no mass, non-distended, overweight Musculoskeletal: back normal, gait/station normal - with limp, normal range of motion Neurologic: alert, oriented x3, grain elevator motor starter III-XII nml as tested, DTRs symmetric, sensory intact, cerebellar normal, speech normal, motor weakness - slight L lower leg, other - R visual field defect Psychiatric: mood/affect normal, anxious Reflexes: 2+ knee (R), 2+ knee (L) Skin: normal inspection, warm/dry Medical Decision Making Diagnostic Impression: Primary Impression: Occipital cortex infarction Additional Impressions: Headache Qualified Codes: R51 - Headache Vomiting Qualified Codes: R11.2 - Nausea with vomiting, unspecified Right homonymous hemianopsia ER Course Patient presents with severe headache since Sunday with a visual field cut. Differential includes bleed, mass, migraine variants, vasculitis, infarct amongst others. Evaluation will be with CT scan, labs including sedimentation rate from EKG. The patient will be on a airplane captain receive gentle IV hydration Zofran and fentanyl. EKG unremarkable. Labs unremarkable. CT with atrophy without bleed or mass. Patient presented to [facility] @ 17:50. Suggested MRI. Based on MRI with + infarct, cancel plan for transfer. Admit telemetry Dr. Degroot. Aspirin given. Repeated analgesia. Laboratory Tests Test 05/14/17 16:45 05/14/17 18:40 White Blood Count 4.3 K/UL (4.8-10.8) L Red Blood Count 3.66 M/UL (4.20-5.40) L Hemoglobin 11.7 G/DL (12.0-16.0) L Hematocrit 35.1 % (37.0-47.0) L Mean Corpuscular Volume 96 FL (80-99) Mean Corpuscular Hemoglobin 32.0 PG (27.0-31.0) H Mean Corpuscular Hemoglobin Concent 33.4 G/DL (32.0-36.0) Red Cell Distribution Width 13.2 % (11.6-14.8) Platelet Count 161 K/UL (150-450) Mean Platelet Volume 8.9 FL (6.5-10.1) Neutrophils (%) (Auto) % (45.0-75.0) Lymphocytes (%) (Auto) % (20.0-45.0) Monocytes (%) (Auto) % (1.0-10.0) Eosinophils (%) (Auto) % (0.0-3.0) Basophils (%) (Auto) % (0.0-2.0) Differential Total Cells Counted 100 Neutrophils % (Manual) 37 % (45-75) L Lymphocytes % (Manual) 45 % (20-45) Monocytes % (Manual) 15 % (1-10) H Eosinophils % (Manual) 2 % (0-3) Basophils % (Manual) 1 % (0-2) Band Neutrophils 0 % (0-8) Platelet Estimate Adequate Platelet Morphology Normal Hypochromasia 1+ Anisocytosis 1+ Erythrocyte Sedimentation Rate 34 MM/HR (0-42) Prothrombin Time 11.0 SEC (9.30-11.50) Prothrombin Time INR 1.1 (0.9-1.1) PTT 25 SEC (23-33) Sodium Level 139 mEQ/L (135-145) Potassium Level 3.8 mEQ/L (3.4-4.9) Chloride Level 99 mEQ/L (98-107) Carbon Dioxide Level 29 mEQ/L (20-30) Anion Gap 11 (5-15) Blood Urea Nitrogen 10 mg/dL (7-23) Creatinine 0.8 mg/dL (0.5-0.9) Estimate Glomerular Filtration Rate mL/min (>60) Glucose Level 167 mg/dL (74-106) H Calcium Level 9.5 mg/dL (8.6-10.2) Total Bilirubin 0.4 mg/dL (0.0-1.2) Aspartate Amino Transferase (AST) 18 U/L (5-40) Alanine Aminotransferase (ALT) 13 U/L (3-33) Alkaline Phosphatase 53 U/L (35-104) Total Creatine Kinase 58 U/L (26-140) Troponin I < 0.30 ng/mL (<=0.30) Pro-B-Type Natriuretic Peptide 171 pg/mL (0-450) Total Protein 7.5 g/dL (6.6-8.7) Albumin 4.9 g/dL (3.5-5.2) Globulin 2.6 g/dL Albumin/Globulin Ratio 1.8 (1.0-2.7) Urine Color Pale yellow Urine Appearance Clear Urine pH 5 (4.5-8.0) Urine Specific [place] 1.010 (1.005-1.035) Urine Protein Negative (NEGATIVE) Urine Glucose (UA) Negative (NEGATIVE) Urine Ketones Negative (NEGATIVE) Urine Occult Blood Negative (NEGATIVE) Urine Nitrite Negative (NEGATIVE) Urine Bilirubin Negative (NEGATIVE) Urine Urobilinogen Normal MG/DL (0.0-1.0) Urine Leukocyte Esterase 2+ (NEGATIVE) H Urine RBC 0-2 /HPF (0 - 2) Urine WBC 2-4 /HPF (0 - 2) Urine Squamous Epithelial Cells Few /LPF (NONE/OCC) Urine Bacteria Few /HPF (NONE) EKG Diagnostic Results Rate: bradycardiac ST Segments: no acute changes Rhythm Strip Diag. Results EP Interpretation: yes Rhythm: no PVC's, no ectopy, other - una Chest X-Ray Diagnostic Results Chest X-Ray Diagnostic Results : Chest X-Ray Ordered: Yes # of Views/Limited/Complete: 1 View Indication: Other EP Interpretation: Yes Interpretation: no consolidation, no effusion, no pneumothorax, other - scarring Impression: No acute disease Interpreting ER Provider: Electronically signed by Jimmy Myers MD CT/MRI/US Diagnostic Results CT/MRI/US Diagnostic Results #1: Imaging Test Ordered: head Impression no bleed, mass or edema CT/MRI/US Diagnostic Results #2: Imaging Test Ordered: MRI Impression L occipital lacunar infarct Last Vital Signs Date Time Temp Pulse Resp B/P Pulse Ox O2 Delivery O2 Flow Rate FiO2 05/14/17 22:47 52 22 143/45 95 Room Air 05/14/17 22:20 97.9 Status: improved Disposition: ADMITTED INPATIENT Condition: Serious Jimmy Myers M.D. May 14, 2017 16:44
[2017-05-14] MEDS ORDERED: fentaNYL 100 mcg/2 mL IV ONE ×3 (16:45→23:15)
[2017-05-14 17:10] LABS: MEAN CORPUSCULAR HGB CONC 33.4 G/DL (32.0-36.0); MEAN CORPUSCULAR VOLUME 96 FL (80-99); MEAN PLATELET VOLUME 8.9 FL (6.5-10.1); PLATELET COUNT 161 K/UL (150-450); RED BLOOD COUNT 3.66 M/UL (4.20-5.40); RED CELL DISTRIBUTION WIDTH 13.2 % (11.6-14.8); WHITE BLOOD COUNT 4.3 K/UL (4.8-10.8)
[2017-05-14 17:11] LABS: INR 1.1 (0.9-1.1)
[2017-05-14 17:21] LABS: ALANINE AMINOTRANSFERASE 13 U/L (3-33); ALBUMIN/GLOBULIN RATIO 1.8 (1.0-2.7); ANION GAP 11 (5-15); ASPARTATE AMINO TRANSFERASE 18 U/L (5-40); CALCIUM 9.5 mg/dL (8.6-10.2); CARBON DIOXIDE 29 mEQ/L (20-30); CHLORIDE 99 mEQ/L (98-107); CREATININE 0.8 mg/dL (0.5-0.9); HEMOLYSIS 3; POTASSIUM 3.8 mEQ/L (3.4-4.9); SODIUM 139 mEQ/L (135-145); TOTAL PROTEIN 7.5 g/dL (6.6-8.7)
[2017-05-14 17:30] VITALS: BP 135/55
[2017-05-14 17:30] LABS: TROPONIN I < 0.30 ng/mL (<=0.30)
[2017-05-14 17:50] LABS: ANISOCYTOSIS 1+; BASOPHILS % (MANUAL) 1 % (0-2); EOSINOPHILS % (MANUAL) 2 % (0-3); HYPOCHROMASIA 1+; LYMPHOCYTES % (MANUAL) 45 % (20-45); NEUTROPHILS % (MANUAL) 37 % (45-75); TOTAL CELLS COUNTED 100
[2017-05-14 17:51] LABS: BAND NEUTROPHILS % (MANUAL) 0 % (0-8); PLATELET ESTIMATE ADEQUATE; PLATELET MORPHOLOGY NORMAL
[2017-05-14 18:18] LABS: ERYTHROCYTE SEDIMENTATION RATE 34 MM/HR (0-42)
[2017-05-14 18:30] VITALS: BP 145/67
[2017-05-14 19:07] LABS: APPEARANCE,URINE CLEAR; KETONES,URINE NEGATIVE (NEGATIVE); LEUKOCYTE ESTERASE ,URINE 2+ (NEGATIVE); NITRITE,URINE NEGATIVE (NEGATIVE); PH,URINE 5 (4.5-8.0); PROTEIN,URINE NEGATIVE (NEGATIVE); UROBILINOGEN,URINE NORMAL MG/DL (0.0-1.0)
[2017-05-14 19:21] LABS: RBC,URINE 0-2 /HPF (0 - 2); SQUAMOUS EPITHELIAL CELL,UR FEW /LPF (NONE/OCC)
[2017-05-14 19:22] LABS: BACTERIA,URINE FEW /HPF
[2017-05-14 19:38] VITALS: BP 142/47
[2017-05-14] MEDS ORDERED: Mylanta II UD 30ml ORAL PRN (22:15)
[2017-05-14] MEDS ORDERED: LORazepam Inj 2mg/ml 1ml IV PRN (22:15)
[2017-05-14] MEDS ORDERED: Miralax 17gm pkt ORAL PRN (22:15)
[2017-05-14] MEDS ORDERED: Zolpidem 5mg tab ORAL PRN (22:15)
[2017-05-14 22:20] VITALS: BP 143/45
[2017-05-15 04:00] VITALS: BP 126/78
[2017-05-15] MEDS: NovoLOG Insulin Flexpen SUBQ SCH ×4 (06:45→21:25)
[2017-05-15 07:51] LABS: MEAN CORPUSCULAR HEMOGLOBIN 31.5 PG (27.0-31.0); MEAN CORPUSCULAR HGB CONC 32.6 G/DL (32.0-36.0); MEAN CORPUSCULAR VOLUME 97 FL (80-99); MEAN PLATELET VOLUME 8.4 FL (6.5-10.1); PLATELET COUNT 135 K/UL (150-450); RED BLOOD COUNT 3.47 M/UL (4.20-5.40); RED CELL DISTRIBUTION WIDTH 13.1 % (11.6-14.8); WHITE BLOOD COUNT 3.3 K/UL (4.8-10.8)
[2017-05-15 08:07] VITALS: BP 141/60
[2017-05-15 08:16] LABS: ALANINE AMINOTRANSFERASE 10 U/L (3-33); ALBUMIN/GLOBULIN RATIO 1.8 (1.0-2.7); ANION GAP 10 (5-15); ASPARTATE AMINO TRANSFERASE 15 U/L (5-40); CALCIUM 8.8 mg/dL (8.6-10.2); CARBON DIOXIDE 27 mEQ/L (20-30); CHLORIDE 107 mEQ/L (98-107); CHOLESTEROL 167 mg/dL (< 200); CHOLESTEROL/HDL RATIO 2.5 (3.3-4.4); CREATININE 0.6 mg/dL (0.5-0.9); HEMOLYSIS 5; LDL CHOLESTEROL (CALC.) 77 mg/dL (60-99); SODIUM 144 mEQ/L (135-145); TOTAL PROTEIN 6.2 g/dL (6.6-8.7)
[2017-05-15 10:15] LABS: BASOPHILS % (MANUAL) 1 % (0-2)
[2017-05-15 10:16] LABS: BAND NEUTROPHILS % (MANUAL) 0 % (0-8); EOSINOPHILS % (MANUAL) 0 % (0-3); LYMPHOCYTES % (MANUAL) 51 % (20-45); NEUTROPHILS % (MANUAL) 27 % (45-75); PLATELET ESTIMATE DECREASED; PLATELET MORPHOLOGY NORMAL; TOTAL CELLS COUNTED 100
[2017-05-15] MEDS: Atenolol 25mg tab ORAL SCH (10:41)
--- NOTE | 2017-05-15 10:49 | Diagnostic Imaging Report ---
Indications: Headache, dizziness Technique: Sagittal and axial T1 weighted FLAIR, axial T2-weighted fat saturated fast spin echo propeller, T2-weighted FLAIR, T2*-weighted gradient echo, and diffusion sequences of the brain were performed without IV gadolinium administration. Findings: Comparison: Noncontrast CT head 05/14/17 Questionable 5 mm focus of restricted diffusion subcortical white matter left occipital lobe (5-14). No associated T1 or T2 signal change. The millimeters circumscribed focus of signal change in or directly adjacent to right superior colliculus, T1 hypointense, T2 spin echo hypointense, T2 FLAIR hyperintense, prominent gradient echo susceptibility artifact, no restricted diffusion. Confluent T2 signal hyperintensity bilateral periventricular white matter. Multiple additional foci of similar signal change scattered throughout bilateral deep and subcortical white matter, without associated restricted diffusion. Ventricles, cisterns, sulci are mildly, diffusely prominent. No evidence of mass effect, midline shift, hydrocephalus, or increased intracranial pressure. No additional restricted diffusion. Central vascular flow voids are preserved. IMPRESSION: Small lesion in/adjacent to right superior colliculus as described, most likely dermoid or lipoma. Very questionable acute to subacute lacunar infarct left occipital lobe Multifocal bilateral cerebral periventricular and deepwhite matter T2 signal hyperintensity, nonspecific, likely chronic microvascular ischemic in nature Atrophy This correlates with Dr. Mahmood's preliminary report.
[2017-05-15] MEDS: Heparin 5000 units/ml inj SUBQ SCH ×2 (10:57→21:24)
--- NOTE | 2017-05-15 11:35 | Diagnostic Imaging Report ---
Indications: Headache, dizziness Technique: Continuous helical CT imaging of the brain was performed with automatic exposure control on a Siemens sensation [address] scanner. Axial and coronal images were reconstructed at 5 mm slice thickness and interval. CTDI volume(s): 70 mGy Total DLP: 1245 mGy-cm Findings: Comparison: None Confluent low attenuation is present in the bilateral periventricular white matter. Millimeters circumscribed fat attenuation nodule is present in the right paramesencephalic cistern adjacent to the right superior colliculus. There is suggestion of a punctate calcific focus in its periphery. Ventricles, cisterns, and sulci are diffusely prominent. No evidence of mass or hemorrhage, mass effect, midline shift, hydrocephalus, or increased intracranial pressure. Bone window images are unremarkable. Visualized paranasal sinuses and mastoid air cells are clear. IMPRESSION: No evidence of acute intracranial pathology . Early/subtle acute abnormalities may be missed, however. If clinically indicated, MRI of the brain without and with gadolinium may be of benefit in further evaluation. Small dermoid versus lipoma adjacent to right superior colliculus. Bilateral cerebral periventricular white matter low attenuation, nonspecific, likely chronic microvascular ischemic in nature Atrophy This correlates with preliminary report generated overnight by Dr. Mahmood. The CT scanner at [facility] is accredited by the [employer] and the scans are performed using protocols designed to limit radiation exposure to as low as reasonably achievable to attain images of sufficient resolution adequate for diagnostic evaluation.
[2017-05-15 11:45] VITALS: BP 164/76
--- NOTE | 2017-05-15 12:24 | Consultation ---
History of Present Illness General Date patient seen: May 15, 2017 Chief Complaint: Dizziness Reason for Consultation: inpatient management Present Illness HPI 81 year old female with Hx of HTN, vertigo presented with a headache that is severe. Last night she says that she couldn't see with her eyes. The headache is on the left side of her head and is 8-10/10, pressure and sharp. Radiates towards the back of her head. She also feels tingling down the back of her neck. She also has been vomiting and has nausea. She had a MRI of brain showing occipital infarct. She is admitted for further work up. Allergies: Coded Allergies: No Known Allergies (Verified Allergy, Unknown, 06/05/11) Medication History Scheduled Albuterol Sulfate* (Albuterol Sulfate Mdi*), 2 PUFF INH Q6H Amlodipine Besylate* (Amlodipine Besylate*), 5 MG ORAL DAILY Atenolol (Tenormin), 25 MG ORAL DAILY, (Reported) Chlorpheniramine Maleate (Allergy), 4 MG PO EVERY 6 HOURS Fluticasone Propionate (Fluticasone Propionate), 1 SPRAY NASAL TWICE A DAY Ibuprofen* (Motrin*), 400 MG ORAL THREE TIMES A DAY Levofloxacin* (Levaquin*), 250 MG ORAL DAILY, (Reported) Metformin Hcl* (Metformin Hcl*), 500 MG ORAL DAILY, (Reported) Metformin Hcl* (Metformin Hcl*), 500 MG ORAL TWICE A DAY Promethazine HCl/Codeine (Prometh-Codein 6.25-10 mg/5 ml), 5 ML PO HS Simvastatin (Zocor), 40 MG ORAL BEDTIME, (Reported) Simvastatin (Zocor), 40 MG ORAL BEDTIME Tramadol Hcl* (Ultram*), 50 MG ORAL DAILY, (Reported) Scheduled PRN Guaifenesin/Dextromethorphan (Guaifenesin Dm Syrup), 5 ML PO Q8HR PRN for For Cough Miscellaneous Medications Calcium Carbonate (Calcium), 1 TAB PO, (Reported) [Bp Med], (Reported) Patient History Healthcare decision maker Resuscitation status Full Code Advanced Directive on File Past Medical/Surgical History Past Medical/Surgical History: (1) HTN (hypertension) (2) Unsteady gait Review of Systems All Other Systems: negative except mentioned in HPI Physical Exam General Appearance: WD/WN Lines, tubes and drains: peripheral HEENT: normocephalic, atraumatic Neck: non-tender, normal alignment Respiratory/Chest: chest wall non-tender, lungs clear Cardiovascular/Chest: normal peripheral pulses, normal rate Abdomen: normal bowel sounds, non tender Genitourinary/Rectal: normal genital exam Extremities: normal range of motion Skin Exam: normal pigmentation Last 24 Hour Vital Signs Date Time Temp Pulse Resp B/P Pulse Ox O2 Delivery O2 Flow Rate FiO2 05/15/17 11:45 97.5 73 18 164/76 97 Room Air 05/15/17 10:50 70 141/60 05/15/17 10:41 70 141/60 05/15/17 08:07 97.7 70 18 141/60 95 Room Air 05/15/17 04:00 97.3 55 20 126/78 95 Room Air 05/15/17 04:00 54 05/14/17 22:47 52 22 143/45 95 Room Air 05/14/17 22:20 97.9 52 143/45 22 Room Air 05/14/17 21:40 98.0 05/14/17 19:38 98.0 66 17 142/47 97 Room Air 05/14/17 18:30 58 19 145/67 97 Room Air 05/14/17 17:55 98.8 05/14/17 17:30 60 20 135/55 95 Room Air 05/14/17 16:30 98.8 55 18 144/65 98 Room Air 05/14/17 16:20 98.8 55 18 144/65 98 Room Air Intake and Output 05/14/17 05/15/17 19:00 07:00 Intake Total 300 ml Output Total 0 ml Balance 300 ml IV Total 300 ml Output Urine Total 0 ml # Voids 3 # Bowel Movements 1 Laboratory Tests Test 05/14/17 16:45 05/14/17 18:40 05/15/17 07:05 White Blood Count 4.3 K/UL (4.8-10.8) L 3.3 K/UL (4.8-10.8) L Red Blood Count 3.66 M/UL (4.20-5.40) L 3.47 M/UL (4.20-5.40) L Hemoglobin 11.7 G/DL (12.0-16.0) L 11.0 G/DL (12.0-16.0) L Hematocrit 35.1 % (37.0-47.0) L 33.6 % (37.0-47.0) L Mean Corpuscular Volume 96 FL (80-99) 97 FL (80-99) Mean Corpuscular Hemoglobin 32.0 PG (27.0-31.0) H 31.5 PG (27.0-31.0) H Mean Corpuscular Hemoglobin Concent 33.4 G/DL (32.0-36.0) 32.6 G/DL (32.0-36.0) Red Cell Distribution Width 13.2 % (11.6-14.8) 13.1 % (11.6-14.8) Platelet Count 161 K/UL (150-450) 135 K/UL (150-450) L Mean Platelet Volume 8.9 FL (6.5-10.1) 8.4 FL (6.5-10.1) Neutrophils (%) (Auto) % (45.0-75.0) % (45.0-75.0) Lymphocytes (%) (Auto) % (20.0-45.0) % (20.0-45.0) Monocytes (%) (Auto) % (1.0-10.0) % (1.0-10.0) Eosinophils (%) (Auto) % (0.0-3.0) % (0.0-3.0) Basophils (%) (Auto) % (0.0-2.0) % (0.0-2.0) Differential Total Cells Counted 100 100 Neutrophils % (Manual) 37 % (45-75) L 27 % (45-75) L Lymphocytes % (Manual) 45 % (20-45) 51 % (20-45) H Monocytes % (Manual) 15 % (1-10) H 21 % (1-10) H Eosinophils % (Manual) 2 % (0-3) 0 % (0-3) Basophils % (Manual) 1 % (0-2) 1 % (0-2) Band Neutrophils 0 % (0-8) 0 % (0-8) Platelet Estimate Adequate Decreased L Platelet Morphology Normal Normal Hypochromasia 1+ Anisocytosis 1+ Erythrocyte Sedimentation Rate 34 MM/HR (0-42) Prothrombin Time 11.0 SEC (9.30-11.50) Prothromb Time International Ratio 1.1 (0.9-1.1) Activated Partial Thromboplast Time 25 SEC (23-33) Sodium Level 139 mEQ/L (135-145) 144 mEQ/L (135-145) Potassium Level 3.8 mEQ/L (3.4-4.9) 4.0 mEQ/L (3.4-4.9) Chloride Level 99 mEQ/L (98-107) 107 mEQ/L (98-107) Carbon Dioxide Level 29 mEQ/L (20-30) 27 mEQ/L (20-30) Anion Gap 11 (5-15) 10 (5-15) Blood Urea Nitrogen 10 mg/dL (7-23) 13 mg/dL (7-23) Creatinine 0.8 mg/dL (0.5-0.9) 0.6 mg/dL (0.5-0.9) Estimat Glomerular Filtration Rate mL/min (>60) mL/min (>60) Glucose Level 167 mg/dL (74-106) H 156 mg/dL (74-106) H Calcium Level 9.5 mg/dL (8.6-10.2) 8.8 mg/dL (8.6-10.2) Total Bilirubin 0.4 mg/dL (0.0-1.2) 0.2 mg/dL (0.0-1.2) Aspartate Amino Transf (AST/SGOT) 18 U/L (5-40) 15 U/L (5-40) Alanine Aminotransferase (ALT/SGPT) 13 U/L (3-33) 10 U/L (3-33) Alkaline Phosphatase 53 U/L (35-104) 47 U/L (35-104) Total Creatine Kinase 58 U/L (26-140) Troponin I < 0.30 ng/mL (<=0.30) Pro-B-Type Natriuretic Peptide 171 pg/mL (0-450) Total Protein 7.5 g/dL (6.6-8.7) 6.2 g/dL (6.6-8.7) L Albumin 4.9 g/dL (3.5-5.2) 4.0 g/dL (3.5-5.2) Globulin 2.6 g/dL 2.2 g/dL Albumin/Globulin Ratio 1.8 (1.0-2.7) 1.8 (1.0-2.7) Urine Color Pale yellow Urine Appearance Clear Urine pH 5 (4.5-8.0) Urine Specific [place] 1.010 (1.005-1.035) Urine Protein Negative (NEGATIVE) Urine Glucose (UA) Negative (NEGATIVE) Urine Ketones Negative (NEGATIVE) Urine Occult Blood Negative (NEGATIVE) Urine Nitrite Negative (NEGATIVE) Urine Bilirubin Negative (NEGATIVE) Urine Urobilinogen Normal MG/DL (0.0-1.0) Urine Leukocyte Esterase 2+ (NEGATIVE) H Urine RBC 0-2 /HPF (0 - 2) Urine WBC 2-4 /HPF (0 - 2) Urine Squamous Epithelial Cells Few /LPF (NONE/OCC) Urine Bacteria Few /HPF (NONE) Red Blood Cell Morphology Normal Triglycerides Level 117 mg/dL (< 150) Cholesterol Level 167 mg/dL (< 200) LDL Cholesterol 77 mg/dL (60-99) HDL Cholesterol 67 mg/dL (> 60) H Cholesterol/HDL Ratio 2.5 (3.3-4.4) L Height (Feet): 5 Height (Inches): 1.00 Weight (Pounds): 160 Medications Current Medications Medications (Trade) Dose Ordered Sig/Elva Route PRN Reason Start Time Stop Time Status Last Admin Dose Admin Acetaminophen (Tylenol) 650 mg Q4H PRN ORAL fever 05/14/17 22:15 06/13/17 22:14 Al Hydroxide/Mg Hydroxide (Mylanta II) 30 ml Q6H PRN ORAL dyspepsia 05/14/17 22:15 06/13/17 22:14 Amlodipine Besylate (Norvasc) 5 mg DAILY ORAL 05/15/17 09:00 06/14/17 08:59 05/15/17 10:50 Atenolol (Tenormin) 25 mg DAILY ORAL 05/15/17 09:00 06/14/17 08:59 05/15/17 10:41 Dextrose (Dextrose 50%) STAT PRN IV Hypoglycemia 05/14/17 22:15 06/13/17 22:14 Heparin Sodium (Porcine) (Heparin 5000 units/ml) 5,000 units EVERY 12 HOURS SUBQ 05/15/17 09:00 9/21/17 08:59 05/15/17 10:57 Insulin Aspart (NovoLOG) BEFORE MEALS AND HS SUBQ 05/15/17 06:30 06/14/17 06:29 05/15/17 06:45 Lorazepam (Ativan 2mg/ml 1ml) 0.5 mg Q4H PRN IV For Anxiety 05/14/17 22:15 05/21/17 22:14 Morphine Sulfate (Morphine Sulfate) 1 mg Q4H PRN IVP For Pain 05/14/17 22:15 05/21/17 22:14 Ondansetron HCl (Zofran) 4 mg Q6H PRN IVP Nausea & Vomiting 05/14/17 22:15 06/13/17 22:14 Polyethylene Glycol (Miralax) 17 gm HSPRN PRN ORAL Constipation 05/14/17 22:15 06/13/17 22:14 Sodium Chloride (Sodium Chloride 1000ml bag) 1,000 ml @ 150 mls/hr Q6H40M IV 05/14/17 16:45 06/13/17 16:44 05/15/17 06:41 Zolpidem Tartrate (Ambien) 5 mg HSPRN PRN ORAL Insomnia 05/14/17 22:15 06/13/17 22:14 Assessment/Plan Problem List: (1) Occipital cortex infarction ICD Codes: I63.9 - Cerebral infarction, unspecified SNOMED: 142088140 (2) HTN (hypertension) ICD Codes: I10 - Essential (primary) hypertension SNOMED: 55569895 (3) Dizziness ICD Codes: R42 - Dizziness and giddiness SNOMED: 493188965, 189059649 (4) vertigo Assessment/Plan neuro evaluation monitor bp pt/ot adjust BP meds dvt prophylaxis echo doppler of carotid artery CT CALLEJAS May 15, 2017 12:24
[2017-05-15 15:43] VITALS: BP 120/55
--- NOTE | 2017-05-15 17:17 | Neurology Progress Note ---
Objective Physical Exam Last Vital Signs Date Time Temp Pulse Resp B/P Pulse Ox O2 Delivery O2 Flow Rate FiO2 05/15/17 15:43 97.2 56 18 120/55 96 Room Air Laboratory Tests Test 05/14/17 18:40 05/15/17 07:05 Urine Color Pale yellow Urine Appearance Clear Urine pH 5 (4.5-8.0) Urine Specific [place] 1.010 (1.005-1.035) Urine Protein Negative (NEGATIVE) Urine Glucose (UA) Negative (NEGATIVE) Urine Ketones Negative (NEGATIVE) Urine Occult Blood Negative (NEGATIVE) Urine Nitrite Negative (NEGATIVE) Urine Bilirubin Negative (NEGATIVE) Urine Urobilinogen Normal MG/DL (0.0-1.0) Urine Leukocyte Esterase 2+ (NEGATIVE) H Urine RBC 0-2 /HPF (0 - 2) Urine WBC 2-4 /HPF (0 - 2) Urine Squamous Epithelial Cells Few /LPF (NONE/OCC) Urine Bacteria Few /HPF (NONE) White Blood Count 3.3 K/UL (4.8-10.8) L Red Blood Count 3.47 M/UL (4.20-5.40) L Hemoglobin 11.0 G/DL (12.0-16.0) L Hematocrit 33.6 % (37.0-47.0) L Mean Corpuscular Volume 97 FL (80-99) Mean Corpuscular Hemoglobin 31.5 PG (27.0-31.0) H Mean Corpuscular Hemoglobin Concent 32.6 G/DL (32.0-36.0) Red Cell Distribution Width 13.1 % (11.6-14.8) Platelet Count 135 K/UL (150-450) L Mean Platelet Volume 8.4 FL (6.5-10.1) Neutrophils (%) (Auto) % (45.0-75.0) Lymphocytes (%) (Auto) % (20.0-45.0) Monocytes (%) (Auto) % (1.0-10.0) Eosinophils (%) (Auto) % (0.0-3.0) Basophils (%) (Auto) % (0.0-2.0) Differential Total Cells Counted 100 Neutrophils % (Manual) 27 % (45-75) L Lymphocytes % (Manual) 51 % (20-45) H Monocytes % (Manual) 21 % (1-10) H Eosinophils % (Manual) 0 % (0-3) Basophils % (Manual) 1 % (0-2) Band Neutrophils 0 % (0-8) Platelet Estimate Decreased L Platelet Morphology Normal Red Blood Cell Morphology Normal Sodium Level 144 mEQ/L (135-145) Potassium Level 4.0 mEQ/L (3.4-4.9) Chloride Level 107 mEQ/L (98-107) Carbon Dioxide Level 27 mEQ/L (20-30) Anion Gap 10 (5-15) Blood Urea Nitrogen 13 mg/dL (7-23) Creatinine 0.6 mg/dL (0.5-0.9) Estimat Glomerular Filtration Rate mL/min (>60) Glucose Level 156 mg/dL (74-106) H Calcium Level 8.8 mg/dL (8.6-10.2) Total Bilirubin 0.2 mg/dL (0.0-1.2) Aspartate Amino Transf (AST/SGOT) 15 U/L (5-40) Alanine Aminotransferase (ALT/SGPT) 10 U/L (3-33) Alkaline Phosphatase 47 U/L (35-104) Total Protein 6.2 g/dL (6.6-8.7) L Albumin 4.0 g/dL (3.5-5.2) Globulin 2.2 g/dL Albumin/Globulin Ratio 1.8 (1.0-2.7) Triglycerides Level 117 mg/dL (< 150) Cholesterol Level 167 mg/dL (< 200) LDL Cholesterol 77 mg/dL (60-99) HDL Cholesterol 67 mg/dL (> 60) H Cholesterol/HDL Ratio 2.5 (3.3-4.4) L Impression/Recommendations Recommendations # [id number] DANICA MCCRACKEN May 15, 2017 17:17
[2017-05-15 17:51] LABS: URIC ACID 3.9 mg/dL (3.0-7.5)
[2017-05-15 17:52] LABS: HEMOLYSIS 2; IRON 65 ug/dL (37-145); TOTAL IRON BINDING CAPACITY 392 ug/dL (250-400)
[2017-05-15 18:01] LABS: FERRITIN 12 ng/mL (13-150)
[2017-05-15 20:00] VITALS: BP 146/64
[2017-05-15 21:18] LABS: PATH BLOOD SMEAR/OMC SENT TO PATHOLOGIST
--- NOTE | 2017-05-15 22:25 | Infectious Diseases Prog Note ---
Assessment/Plan Problems: (1) UTI (urinary tract infection) Assessment & Plan: will send urine culture, hold off antibiotics, since she is not symptomatic (2) Right homonymous hemianopsia Assessment & Plan: due to occipital infarcts, neurology is following (3) Occipital cortex infarction Assessment & Plan: continue aspirin, check lipid panel, neurology is following Subjective Allergies: Coded Allergies: No Known Allergies (Verified Allergy, Unknown, 06/05/11) Objective Vital Signs Last 24 Hour Vital Signs Date Time Temp Pulse Resp B/P Pulse Ox O2 Delivery O2 Flow Rate FiO2 05/15/17 20:00 97.7 65 20 146/64 94 Room Air 05/15/17 16:00 56 05/15/17 15:43 97.2 56 18 120/55 96 Room Air 05/15/17 12:00 56 05/15/17 11:45 97.5 73 18 164/76 97 Room Air 05/15/17 10:50 70 141/60 05/15/17 10:41 70 141/60 05/15/17 08:07 97.7 70 18 141/60 95 Room Air 05/15/17 08:00 54 05/15/17 04:00 97.3 55 20 126/78 95 Room Air 05/15/17 04:00 54 05/14/17 22:47 52 22 143/45 95 Room Air Height (Feet): 5 Height (Inches): 1.00 Weight (Pounds): 160 Laboratory Tests Test 05/15/17 07:05 05/15/17 17:10 White Blood Count 3.3 K/UL (4.8-10.8) L Red Blood Count 3.47 M/UL (4.20-5.40) L Hemoglobin 11.0 G/DL (12.0-16.0) L Hematocrit 33.6 % (37.0-47.0) L Mean Corpuscular Volume 97 FL (80-99) Mean Corpuscular Hemoglobin 31.5 PG (27.0-31.0) H Mean Corpuscular Hemoglobin Concent 32.6 G/DL (32.0-36.0) Red Cell Distribution Width 13.1 % (11.6-14.8) Platelet Count 135 K/UL (150-450) L Mean Platelet Volume 8.4 FL (6.5-10.1) Neutrophils (%) (Auto) % (45.0-75.0) Lymphocytes (%) (Auto) % (20.0-45.0) Monocytes (%) (Auto) % (1.0-10.0) Eosinophils (%) (Auto) % (0.0-3.0) Basophils (%) (Auto) % (0.0-2.0) Differential Total Cells Counted 100 Neutrophils % (Manual) 27 % (45-75) L Lymphocytes % (Manual) 51 % (20-45) H Monocytes % (Manual) 21 % (1-10) H Eosinophils % (Manual) 0 % (0-3) Basophils % (Manual) 1 % (0-2) Band Neutrophils 0 % (0-8) Platelet Estimate Decreased L Platelet Morphology Normal Red Blood Cell Morphology Normal Sodium Level 144 mEQ/L (135-145) Potassium Level 4.0 mEQ/L (3.4-4.9) Chloride Level 107 mEQ/L (98-107) Carbon Dioxide Level 27 mEQ/L (20-30) Anion Gap 10 (5-15) Blood Urea Nitrogen 13 mg/dL (7-23) Creatinine 0.6 mg/dL (0.5-0.9) Estimat Glomerular Filtration Rate mL/min (>60) Glucose Level 156 mg/dL (74-106) H Calcium Level 8.8 mg/dL (8.6-10.2) Total Bilirubin 0.2 mg/dL (0.0-1.2) < 0.2 mg/dL (0.0-1.2) Aspartate Amino Transf (AST/SGOT) 15 U/L (5-40) Alanine Aminotransferase (ALT/SGPT) 10 U/L (3-33) Alkaline Phosphatase 47 U/L (35-104) Total Protein 6.2 g/dL (6.6-8.7) L Albumin 4.0 g/dL (3.5-5.2) Globulin 2.2 g/dL Albumin/Globulin Ratio 1.8 (1.0-2.7) Triglycerides Level 117 mg/dL (< 150) Cholesterol Level 167 mg/dL (< 200) LDL Cholesterol 77 mg/dL (60-99) HDL Cholesterol 67 mg/dL (> 60) H Cholesterol/HDL Ratio 2.5 (3.3-4.4) L Haptoglobin < 29 mg/dL (30-200) L Fibrinogen 371 mg/dL (200-400) Uric Acid 3.9 mg/dL (3.0-7.5) Iron Level 65 ug/dL (37-145) Total Iron Binding Capacity 392 ug/dL (250-400) Percent Iron Saturation 17 % (15-50) Unsaturated Iron Binding 327 ug/dL (112-346) Ferritin 12 ng/mL (13-150) L Vitamin B12 Level 533 pg/mL (211-946) Thyroid Stimulating Hormone (TSH) 0.910 uIU/mL (0.300-4.500) Heparin-PF4 Antibody Screen Pending Hepatitis A IgM Antibody Pending Hepatitis B Surface Antigen Pending Hepatitis B Core IgM Antibody Pending Hepatitis C Antibody Pending HIV (1&2) Antibody Rapid Negative (NEGATIVE) Current Medications Medications (Trade) Dose Ordered Sig/Elva Route PRN Reason Start Time Stop Time Status Last Admin Dose Admin Acetaminophen (Tylenol) 650 mg Q4H PRN ORAL fever 05/14/17 22:15 06/13/17 22:14 Al Hydroxide/Mg Hydroxide (Mylanta II) 30 ml Q6H PRN ORAL dyspepsia 05/14/17 22:15 06/13/17 22:14 Amlodipine Besylate (Norvasc) 5 mg DAILY ORAL 05/15/17 09:00 06/14/17 08:59 05/15/17 10:50 Atenolol (Tenormin) 25 mg DAILY ORAL 05/15/17 09:00 06/14/17 08:59 05/15/17 10:41 Dextrose (Dextrose 50%) STAT PRN IV Hypoglycemia 05/14/17 22:15 06/13/17 22:14 Heparin Sodium (Porcine) (Heparin 5000 units/ml) 5,000 units EVERY 12 HOURS SUBQ 05/15/17 09:00 06/14/17 08:59 05/15/17 21:24 Insulin Aspart (NovoLOG) BEFORE MEALS AND HS SUBQ 05/15/17 06:30 06/14/17 06:29 05/15/17 21:25 Lorazepam (Ativan 2mg/ml 1ml) 0.5 mg Q4H PRN IV For Anxiety 05/14/17 22:15 05/21/17 22:14 Morphine Sulfate (Morphine Sulfate) 1 mg Q4H PRN IVP For Pain 05/14/17 22:15 05/21/17 22:14 Ondansetron HCl (Zofran) 4 mg Q6H PRN IVP Nausea & Vomiting 05/14/17 22:15 06/13/17 22:14 Polyethylene Glycol (Miralax) 17 gm HSPRN PRN ORAL Constipation 05/14/17 22:15 06/13/17 22:14 Zolpidem Tartrate (Ambien) 5 mg HSPRN PRN ORAL Insomnia 05/14/17 22:15 06/13/17 22:14 Ervin Gonsalez M.D. May 15, 2017 22:25
--- NOTE | 2017-05-15 23:30 | History and Physical Report ---
DATE OF ADMISSION: 05/14/2017 TIME SEEN: At 3 p.m. ATTENDING PHYSICIAN: Cj Degroot D.O. CONSULTANTS: 1. Katie Neal M.D. 2. Freddie Denney M.D. 3. . CHIEF COMPLAINT: Headache x2 days with blurry vision. BRIEF HISTORY: This is an 81-year-old female who lives at home, presents to [facility] with a history of increased headache for two days, getting worse, blurry vision both sides, diagnosed with occipital infarct, admitted to the telemetry for further care. Currently, calm in bed, slight headaches, slight blurry vision, no complaints. REVIEW OF SYSTEMS: No chest pain. No shortness of breath. No nausea, vomiting, or diarrhea. PAST MEDICAL HISTORY: Diabetes and hypertension. PAST SURGICAL HISTORY: Gallbladder. ALLERGIES: Denied. MEDICATIONS: Include Norvasc, Tenormin, NovoLog, Tylenol, morphine, MiraLax, Zofran, Ambien, Ativan, and Mylanta. SOCIAL HISTORY: No smoking. No alcohol. No intravenous drug use. FAMILY HISTORY: Noncontributory. PHYSICAL EXAMINATION: GENERAL: Calm in bed, oriented x3, no acute distress. VITAL SIGNS: Temperature is 97 degrees, pulse 56, respirations 18, and blood pressure 120/55. CARDIOVASCULAR: No murmur. LUNGS: Distant and clear. ABDOMEN: Positive bowel sounds. Nontender and nondistended. EXTREMITIES: No cyanosis, clubbing, or edema. NEUROLOGIC: The patient moves all extremities, slightly weak. LABORATORY DATA: Labs at this time show a white count of 3.3, hemoglobin and hematocrit 11/33, and platelets 135,000. BMP shows glucose 156, otherwise normal. INR is 1.1. Urinalysis, 2+ leukocyte esterase. ASSESSMENT: 1. Headache. 2. Occipital infarct. 3. Blurry vision. 4. Diabetes. 5. Hypertension. 6. Pancytopenia. 7. Urinary tract infection. PLAN: Continue premedications. OT/PT and dietary evaluation. CBC and BMP in the morning. Resume home medications. Blood pressure and blood sugar control. Pain control. Dr. Neal, Dr. Denney, , and Dr. Cochran to consult. We will continue to follow this patient. Cj Degroot D.O. DR: CRISTOBAL JOB#: [id number] CC:
[2017-05-16] VITALS (7 sets, daily range): BP systolic 117–133; BP diastolic 40–66
--- NOTE | 2017-05-16 01:00 | Consultation ---
DATE OF CONSULTATION: 05/15/2017 NEUROLOGICAL CONSULTATION CONSULTING PHYSICIAN: Freddie Denney M.D. REQUESTING PHYSICIAN: Cj Degroot D.O. HISTORY OF PRESENT ILLNESS: This is an 81-year-old female seen in neurological consultation to evaluate new onset of a visual abnormalities, severe headache, and possible stroke. According to the patient, a few days ago on Sunday, she developed rapidly progressive severe headaches mainly in the vertex region but in addition she developed a significant blurriness in her right eye, she was testing herself and was noted that her left eye was seeing well, but right eye she could see a shadow only. This was gradually improving but still remaining with residual blurriness to right eye. Headaches, she was brought to the emergency room complaining of severe headache which was on a scale of 1 to 10 from 8 to 10, the patient also complained of tingling sensation down the occipital region, she suspected slight left lower extremity weakness, which she dates back to the time of her low back surgery since then occasionally using cane. She was admitted and she also complains of nausea and episodes of vomiting. The patient denies any previous similar episodes. Her blood pressure on admission 144/65, heart rate of 56. During examination, I felt that the patient had a right homonymous hemianopsia. CAT scan of the brain revealed ischemic cerebrovascular disease. Then MRI of the brain was requested, this revealed what seems minor acute lacunar infarct, left occipital lobe with a multifocal bilateral cerebral periventricular and deep white matter signal hyperintensities compatible with chronic microvascular ischemic disease. There was a small lesion probable dermoid or lipoma on the right superior area. No mass effect. Laboratory work included mild anemia, hemoglobin 11.7, hematocrit 35.1. Coagulation panel was normal. Urinalysis 2+ leukocyte esterase. Chemistry panel was unremarkable except blood sugar 167. PAST MEDICAL HISTORY: Hypertension, poorly controlled, diabetes, hyperlipidemia, coronary artery disease, and chronic low back pain required surgical treatment, unaware of having previous strokes or transient ischemic attack. MEDICATIONS: Treatment prior to admission included amlodipine, albuterol, calcium, ibuprofen, Levaquin, metformin, Promethazine, Zocor, and tramadol. FAMILY HISTORY: Noncontributory. SOCIAL HISTORY: Lives alone and her daughter helping her. Although, the patient states that she is able to take care of herself with all activities of daily living, using cane when necessary. REVIEW OF SYSTEMS: Blurriness of right eye, mild headache. Headache is now stopped. She denies chest pain or palpitations. No respiratory difficulties. Denies abdominal pain or discomfort. No urine or bowel incontinence. Admits somewhat wobbly gait chronic. PHYSICAL EXAMINATION: GENERAL: A well-developed, moderately obese, healthy-appearing lady not in acute distress. VITAL SIGNS: Now stable. Blood pressure 120/55 and temperature 97.2. HEENT: Head, normocephalic. No evidence of trauma. Eyes, ears, and throat are clear. NECK: Supple. No meningeal signs. MUSCULOSKELETAL: Unremarkable. No deformities. Peripheral pulses 1+ symmetric. MENTAL STATUS: She is full alert and oriented x3 with no evidence of aphasia or apraxia. Cognitive function normal. CRANIAL NERVE II: Pupils both responding to light and accommodation, visual acuity, reduced in the right, visual gurrola blurry outlines. Unable to identify hemianopia. CRANIAL NERVE V: Normal corneal responses. CRANIAL NERVE VII: No facial asymmetry. CRANIAL NERVE VIII: Normal hearing. MENTAL STATUS: Within normal limits. MOTOR EXAMINATION: Normal muscle tone and strength 5/5 in all extremities. No involuntary movements. Deep tendon reflexes 1+ symmetric with downgoing toes on both sides. SENSORY EXAMINATION: Normal to pinprick light touch. Gait appears stable, but somewhat wobbly on turns. IMPRESSION: 1. Acute left cerebellar lacunar stroke with an initial right homonymous hemianopia and severe headache. Sarcoma, improving. 2. Extensive ischemic cerebrovascular disease, probably hypertensive angiopathy. 3. Hypertension. 4. Diabetes type 2. 5. Hyperlipidemia. 6. Status post lumbar spine surgery. RECOMMENDATIONS: 1. Start on aspirin 81 mg daily. 2. Carotid duplex study. 3. Continue with statins. 4. Use of cane for ambulation. 5. Ophthalmology evaluation as outpatient. Thank you for allowing me to see this interesting patient in neurological consultation. Freddie Denney M.D. DR: HUMAIRA JOB#: [id number] CC:
--- NOTE | 2017-05-16 04:21 | Consultation ---
DATE OF CONSULTATION: 05/15/2017 HEMATOLOGY/ONCOLOGY CONSULTATION CONSULTING PHYSICIAN: Nakul Tejeda M.D. REQUESTING PHYSICIAN: Cj Degroot D.O. REASON FOR CONSULTATION: Management of pancytopenia. IDENTIFICATION DATA: Dear Dr. Cj Degroot: The patient is a pleasant 81-year-old female with a past medical history significant for hypertension, history of vertigo, at this time presents with headache, which is severe. She states that she could not see with her eyes. Headache is left-sided, 8/10. Feels tightening on the back of her back. She has been having some nausea and vomiting. MRI showed occipital infarct. Neurology service was consulted. The patient has been to [facility] since 2008. I have reviewed her record and noted to be pancytopenic at this time. Therefore, Hematology service was consulted. She has never had a hepatitis or HIV panel sent, which have been ordered at this time. She is currently without any fevers or chills. PAST MEDICAL HISTORY: Hypertension, headache, thrombocytopenia as noted in the past. The patient has 08 had leukopenia since 2009. The patient's platelet count has decreased to 135,000. This is only recent change and hemoglobin has been between 10 and 12. MEDICATIONS: , metformin, simvastatin, and tramadol. ALLERGIES: No known drug allergies. REVIEW OF SYSTEMS: Constitutional: No fever, chills, or night sweats. Skin: No rash, bumps, or itching. HEENT: No headache, hearing or vision changes. Breasts: No lumps, pain, or discharge. Pulmonary: No cough, sputum, or shortness of breath. Gastrointestinal: No nausea, vomiting, or diarrhea. Genitourinary: No dysuria, frequency, or urgency. Musculoskeletal: No joint swelling, muscle pain, or trauma. PHYSICAL EXAMINATION: GENERAL: The patient is in no acute distress. VITAL SIGNS: Temperature 98 degrees Fahrenheit, pulse of 82, respiratory rate 12, blood pressure 164/76, and pulse oximetry 97% on room air. PULMONARY: Decreased breath sounds. CARDIOVASCULAR: Regular rhythm and rate . No S3 or S4. ABDOMEN: Soft, nontender, and nondistended. EXTREMITIES: There is 1+ edema. LABORATORY DATA: WBC of 6.3, hemoglobin 11, hematocrit 35, and platelet count 135,000. IMAGING: Head and brain MRI have been reviewed. Brain MRI shows small lesion adjacent to superior likely lipoma. ASSESSMENT AND PLAN: 1. Pancytopenia. Given the patient's age, this is concerning for potential myelodysplastic syndrome. The patient's thrombocytopenia is new onset as is leukopenia. The patient may benefit from bone marrow biopsy, however, this can be done as an outpatient and we will schedule outpatient followup. Bone marrow biopsy can be scheduled as an outpatient. 2. Anemia secondary to chronic disease. Anemia workup has been ordered. 3. infarction, treating by Neurology service. 4. Hypertension, currently better controlled. 5. Dizziness and vertigo, potentially secondary to stroke. I appreciate the consultation. Nakul Tejeda M.D. DR: REX JOB#: [id number] CC:
[2017-05-16] MEDS: NovoLOG Insulin Flexpen SUBQ SCH ×4 (06:14→21:12)
[2017-05-16 07:33] LABS: MEAN CORPUSCULAR HEMOGLOBIN 31.9 PG (27.0-31.0); MEAN CORPUSCULAR HGB CONC 33.6 G/DL (32.0-36.0); MEAN CORPUSCULAR VOLUME 95 FL (80-99); MEAN PLATELET VOLUME 8.5 FL (6.5-10.1); PLATELET COUNT 160 K/UL (150-450); RED BLOOD COUNT 3.82 M/UL (4.20-5.40); WHITE BLOOD COUNT 3.3 K/UL (4.8-10.8)
[2017-05-16 07:38] LABS: ANION GAP 11 (5-15); CALCIUM 9.6 mg/dL (8.6-10.2); CARBON DIOXIDE 30 mEQ/L (20-30); CHLORIDE 101 mEQ/L (98-107); CREATININE 0.6 mg/dL (0.5-0.9); HEMOLYSIS 5; POTASSIUM 3.6 mEQ/L (3.4-4.9); SODIUM 142 mEQ/L (135-145)
--- NOTE | 2017-05-16 07:48 | Diagnostic Imaging Report ---
Indications: Shortness of breath Technique: Portable AP chest Findings: Comparison: 12/11/2016 Cardiac silhouette remains normal in size. Pulmonary vasculature remains within normal limits. Linear densities persist in both lung bases. Lungs and pleura remain otherwise clear. Mild calcification of the aortic arch, thoracic vertebral osteophytes again noted. IMPRESSION: No evidence of acute disease, unchanged Stable chronic changes as described
[2017-05-16] MEDS: Atenolol 25mg tab ORAL SCH (08:18)
[2017-05-16] MEDS: Heparin 5000 units/ml inj SUBQ SCH ×2 (08:20→21:11)
[2017-05-16 08:55] LABS: BAND NEUTROPHILS % (MANUAL) 1 % (0-8); BASOPHILS % (MANUAL) 0 % (0-2); EOSINOPHILS % (MANUAL) 0 % (0-3); LYMPHOCYTES % (MANUAL) 65 % (20-45); NEUTROPHILS % (MANUAL) 21 % (45-75); PLATELET ESTIMATE ADEQUATE; PLATELET MORPHOLOGY NORMAL; TOTAL CELLS COUNTED 100
--- NOTE | 2017-05-16 12:21 | Pulmonology Progress Note ---
Assessment/Plan Problems: (1) Occipital cortex infarction (2) HTN (hypertension) (3) Dizziness (4) vertigo Assessment/Plan Neuro and Ophthalmology consult pt/ot monitor BP telemetry pt/ot Subjective ROS Limited/Unobtainable: No Constitutional: Reports: no symptoms Allergies: Coded Allergies: No Known Allergies (Verified Allergy, Unknown, 06/05/11) Objective Last 24 Hour Vital Signs Date Time Temp Pulse Resp B/P (MAP) Pulse Ox O2 Delivery O2 Flow Rate FiO2 05/16/17 11:29 97.7 54 18 123/51 95 Room Air 05/16/17 08:18 69 133/57 05/16/17 08:18 69 133/57 05/16/17 08:00 66 05/16/17 07:52 97.7 69 18 133/57 96 Room Air 05/16/17 04:00 97.0 60 19 120/40 99 Room Air 05/16/17 04:00 66 05/16/17 00:00 97.0 61 20 122/41 95 Room Air 05/16/17 00:00 59 05/15/17 20:00 58 05/15/17 20:00 97.7 65 20 146/64 94 Room Air 05/15/17 16:00 56 05/15/17 15:43 97.2 56 18 120/55 96 Room Air Intake and Output 05/16/17 05/17/17 19:00 07:00 Intake Total 120 ml Balance 120 ml Intake Oral 120 ml # Voids 1 General Appearance: WD/WN, no acute distress HEENT: normocephalic, atraumatic Respiratory/Chest: chest wall non-tender, lungs clear Breasts: no masses Cardiovascular: normal peripheral pulses, no JVD Abdomen: normal bowel sounds, soft, non tender Genitourinary: normal external genitalia Extremities: no cyanosis Skin: no lesions Neurologic/Psychiatric: manager business systems II-XII grossly normal Laboratory Tests 05/15/17 17:10: Haptoglobin < 29L, Fibrinogen 371, Uric Acid 3.9, Iron Level 65, Total Iron Binding Capacity 392, Percent Iron Saturation 17, Unsaturated Iron Binding 327, Ferritin 12L, Total Bilirubin < 0.2, Vitamin B12 Level 533, Thyroid Stimulating Hormone (TSH) 0.910, Heparin-PF4 Antibody Screen [Pending], Hepatitis A IgM Antibody Negative, Hepatitis B Surface Antigen Negative, Hepatitis B Core IgM Antibody Negative, Hepatitis C Antibody <0.1, HIV (1&2) Antibody Rapid Negative 05/16/17 06:50: White Blood Count 3.3L, Red Blood Count 3.82L, Hemoglobin 12.2, Hematocrit 36.4L , Mean Corpuscular Volume 95, Mean Corpuscular Hemoglobin 31.9H, Mean Corpuscular Hemoglobin Concent 33.6, Red Cell Distribution Width 13.0, Platelet Count 160, Mean Platelet Volume 8.5, Neutrophils (%) (Auto) , Lymphocytes (%) ( Auto) , Monocytes (%) (Auto) , Eosinophils (%) (Auto) , Basophils (%) (Auto) , Differential Total Cells Counted 100, Neutrophils % (Manual) 21L, Lymphocytes % (Manual) 65H, Monocytes % (Manual) 13H, Eosinophils % (Manual) 0, Basophils % ( Manual) 0, Band Neutrophils 1, Platelet Estimate Adequate, Platelet Morphology Normal, Red Blood Cell Morphology Normal, Sodium Level 142, Potassium Level 3.6 , Chloride Level 101, Carbon Dioxide Level 30, Anion Gap 11, Blood Urea Nitrogen 9, Creatinine 0.6, Estimat Glomerular Filtration Rate , Glucose Level 143H, Calcium Level 9.6 Current Medications Medications (Trade) Dose Ordered Sig/Elva Route PRN Reason Start Time Stop Time Status Last Admin Dose Admin Acetaminophen (Tylenol) 650 mg Q4H PRN ORAL fever 05/14/17 22:15 06/13/17 22:14 Al Hydroxide/Mg Hydroxide (Mylanta II) 30 ml Q6H PRN ORAL dyspepsia 05/14/17 22:15 06/13/17 22:14 Amlodipine Besylate (Norvasc) 5 mg DAILY ORAL 05/15/17 09:00 06/14/17 08:59 05/16/17 08:18 Atenolol (Tenormin) 25 mg DAILY ORAL 05/15/17 09:00 06/14/17 08:59 05/16/17 08:18 Dextrose (Dextrose 50%) STAT PRN IV Hypoglycemia 05/14/17 22:15 06/13/17 22:14 Heparin Sodium (Porcine) (Heparin 5000 units/ml) 5,000 units EVERY 12 HOURS SUBQ 05/15/17 09:00 06/14/17 08:59 05/16/17 08:20 Insulin Aspart (NovoLOG) BEFORE MEALS AND HS SUBQ 05/15/17 06:30 06/14/17 06:29 05/16/17 11:00 Lorazepam (Ativan 2mg/ml 1ml) 0.5 mg Q4H PRN IV For Anxiety 05/14/17 22:15 05/21/17 22:14 Morphine Sulfate (Morphine Sulfate) 1 mg Q4H PRN IVP For Pain 05/14/17 22:15 05/21/17 22:14 Ondansetron HCl (Zofran) 4 mg Q6H PRN IVP Nausea & Vomiting 05/14/17 22:15 06/13/17 22:14 Polyethylene Glycol (Miralax) 17 gm HSPRN PRN ORAL Constipation 05/14/17 22:15 06/13/17 22:14 Zolpidem Tartrate (Ambien) 5 mg HSPRN PRN ORAL Insomnia 05/14/17 22:15 06/13/17 22:14 CT CALLEJAS May 16, 2017 12:21
--- NOTE | 2017-05-16 13:13 | Consultation ---
Consult Note Consult Note Ophthalmology Inpatient Consultation Referring Physician: Cj Degroot Reason for Consultation: blurred vision History of the present illness: The patient is an 81-year-old woman who reports a headache and right sided blurring of her vision beginning Sunday05/12/17. This continued the following day prompting her to present to the Emergency Room. She notes that her vision and headache have improved since being admitted to the hospital, though her vision is not yet back to her baseline. Past medical Hx: Type 2 Diabetes mellitus Hx of cataract surgery OU Current Medications Medications (Trade) Dose Ordered Sig/Elva Route PRN Reason Start Time Stop Time Status Last Admin Dose Admin Acetaminophen (Tylenol) 650 mg Q4H PRN ORAL fever 05/14/17 22:15 06/13/17 22:14 Al Hydroxide/Mg Hydroxide (Mylanta II) 30 ml Q6H PRN ORAL dyspepsia 05/14/17 22:15 06/13/17 22:14 Amlodipine Besylate (Norvasc) 5 mg DAILY ORAL 05/15/17 09:00 06/14/17 08:59 05/16/17 08:18 Atenolol (Tenormin) 25 mg DAILY ORAL 05/15/17 09:00 06/14/17 08:59 05/16/17 08:18 Dextrose (Dextrose 50%) STAT PRN IV Hypoglycemia 05/14/17 22:15 06/13/17 22:14 Heparin Sodium (Porcine) (Heparin 5000 units/ml) 5,000 units EVERY 12 HOURS SUBQ 05/15/17 09:00 06/14/17 08:59 05/16/17 08:20 Insulin Aspart (NovoLOG) BEFORE MEALS AND HS SUBQ 05/15/17 06:30 06/14/17 06:29 05/16/17 11:00 Lorazepam (Ativan 2mg/ml 1ml) 0.5 mg Q4H PRN IV For Anxiety 05/14/17 22:15 05/21/17 22:14 Morphine Sulfate (Morphine Sulfate) 1 mg Q4H PRN IVP For Pain 05/14/17 22:15 05/21/17 22:14 Ondansetron HCl (Zofran) 4 mg Q6H PRN IVP Nausea & Vomiting 05/14/17 22:15 06/13/17 22:14 Polyethylene Glycol (Miralax) 17 gm HSPRN PRN ORAL Constipation 05/14/17 22:15 06/13/17 22:14 Zolpidem Tartrate (Ambien) 5 mg HSPRN PRN ORAL Insomnia 05/14/17 22:15 06/13/17 22:14 Allergies: NKDA Family History: non-contributory Social 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 Visual Acuity at near with correction: OD: J3 = ~20/40 OS: J5 = ~20/50 Intraocular pressure (Schiotz): OD: 12 mmHg OS: 12 mmHg Pupils: equal, round and reactive to light, without afferent pupillary defect in either eye Extra-ocular motility: full OU Confrontational visual gurrola: full to finger counting OU Anterior Segments: External: normal lids and orbits OU Conjunctivae: white and quiet OU Cornea: Clear OU Anterior Chambers: Deep and Quiet OU Irides: Round and flat OU Lenses: posterior chamber intraocular lens implant OU Dilated Fundus Examination (phenylephrine 2.5%/tropicamide 1%): Vitreous: Araya ring OD, Clear OS Optic Nerves: Sharp OU, C/D 0.6 OU Vessels: Normal course and caliber OU Maculae: Flat OU Periphery: Few peripheral drusen noted OD; normal OS Extended Ophthalmoscopy was performed documenting the above retinal findings. Studies: MRI brain - left cerebellar lacunar stroke . Assessment/Plan Impression: 1. left cerebellar lacunar stroke 2. Posterior vitreous detachment OD, likely chronic 3. Pseudophakia OU Assessment and Plan: Ms. Arellano is an 81-year-old woman admitted for management of an acute stroke. She initially had experienced visual changes on her right side which have improved. This is likely explained by her stroke. There were no Hollenhorst plaques noted on fundus examination. - management of stroke per neurology - Recommend outpatient Ophthalmology follow-up upon discharge - please call with any questions Thank you very much for this consultation Chris Blanca M.D. [phone] CHRIS BLANCA May 16, 2017 13:13
--- NOTE | 2017-05-16 15:07 | General Progress Note ---
Assessment/Plan Problem List: (1) HTN (hypertension) ICD Codes: I10 - Essential (primary) hypertension SNOMED: 98801425 (2) Diabetes mellitus ICD Codes: E11.9 - Type 2 diabetes mellitus without complications SNOMED: 87410996 (3) vertigo (4) Headache ICD Codes: R51 - Headache SNOMED: 72361098 Qualifiers: Qualified Codes: R51 - Headache (5) UTI (urinary tract infection) ICD Codes: N39.0 - Urinary tract infection, site not specified SNOMED: 79140859 Status: stable, progressing, tolerating diet Assessment/Plan ot pt diet abx cbc bmp am aru eval Subjective Constitutional: Reports: weakness Allergies: Coded Allergies: No Known Allergies (Verified Allergy, Unknown, 06/05/11) All Systems: reviewed and negative except above Subjective sleepy calm Objective Last 24 Hour Vital Signs Date Time Temp Pulse Resp B/P (MAP) Pulse Ox O2 Delivery O2 Flow Rate FiO2 05/16/17 12:00 69 05/16/17 11:29 97.7 54 18 123/51 95 Room Air 05/16/17 08:18 69 133/57 05/16/17 08:18 69 133/57 05/16/17 08:00 66 05/16/17 07:52 97.7 69 18 133/57 96 Room Air 05/16/17 04:00 97.0 60 19 120/40 99 Room Air 05/16/17 04:00 66 05/16/17 00:00 97.0 61 20 122/41 95 Room Air 05/16/17 00:00 59 05/15/17 20:00 58 05/15/17 20:00 97.7 65 20 146/64 94 Room Air 05/15/17 16:00 56 05/15/17 15:43 97.2 56 18 120/55 96 Room Air Intake and Output 05/16/17 05/17/17 19:00 07:00 Intake Total 120 ml Balance 120 ml Intake Oral 120 ml # Voids 1 Laboratory Tests 05/15/17 17:10: Haptoglobin < 29L, Fibrinogen 371, Uric Acid 3.9, Iron Level 65, Total Iron Binding Capacity 392, Percent Iron Saturation 17, Unsaturated Iron Binding 327, Ferritin 12L, Total Bilirubin < 0.2, Vitamin B12 Level 533, Thyroid Stimulating Hormone (TSH) 0.910, Heparin-PF4 Antibody Screen [Pending], Hepatitis A IgM Antibody Negative, Hepatitis B Surface Antigen Negative, Hepatitis B Core IgM Antibody Negative, Hepatitis C Antibody <0.1, HIV (1&2) Antibody Rapid Negative 05/16/17 06:50: White Blood Count 3.3L, Red Blood Count 3.82L, Hemoglobin 12.2, Hematocrit 36.4L , Mean Corpuscular Volume 95, Mean Corpuscular Hemoglobin 31.9H, Mean Corpuscular Hemoglobin Concent 33.6, Red Cell Distribution Width 13.0, Platelet Count 160, Mean Platelet Volume 8.5, Neutrophils (%) (Auto) , Lymphocytes (%) ( Auto) , Monocytes (%) (Auto) , Eosinophils (%) (Auto) , Basophils (%) (Auto) , Differential Total Cells Counted 100, Neutrophils % (Manual) 21L, Lymphocytes % (Manual) 65H, Monocytes % (Manual) 13H, Eosinophils % (Manual) 0, Basophils % ( Manual) 0, Band Neutrophils 1, Platelet Estimate Adequate, Platelet Morphology Normal, Red Blood Cell Morphology Normal, Sodium Level 142, Potassium Level 3.6 , Chloride Level 101, Carbon Dioxide Level 30, Anion Gap 11, Blood Urea Nitrogen 9, Creatinine 0.6, Estimat Glomerular Filtration Rate , Glucose Level 143H, Calcium Level 9.6 Height (Feet): 5 Height (Inches): 1.00 Weight (Pounds): 160 General Appearance: lethargic EENT: normal ENT inspection Neck: normal alignment Cardiovascular: normal peripheral pulses, normal rate, regular rhythm Respiratory/Chest: chest wall non-tender, lungs clear, normal breath sounds Abdomen: normal bowel sounds, non tender, soft Extremities: normal inspection Edema: no edema noted Arm (L), no edema noted Arm (R), no edema noted Leg (L), no edema noted Leg (R), no edema noted Pedal (L), no edema noted Pedal (R), no edema noted Generalized Neurologic: responsive, motor weakness Skin: normal pigmentation, warm/dry BRIDGET MORENO May 16, 2017 15:07
--- NOTE | 2017-05-16 15:38 | Cardiology Report ---
APPROVED REPORT EKG Measurement Heart [id number] Sinus bradycardia Low voltage QRS Borderline ECG
--- NOTE | 2017-05-16 20:19 | General Progress Note ---
Assessment/Plan Assessment/Plan 1. Pancytopenia. Given the patient's age, this is concerning for potential myelodysplastic syndrome. The patient's thrombocytopenia is new onset as is leukopenia. --> recommend bone marrow biopsy as outpatient. 2. Anemia secondary to chronic disease. --> resolved 4. Hypertension, currently better controlled. 5. Dizziness and vertigo --> neurology service following Subjective Constitutional: Reports: no symptoms HEENT: Reports: no symptoms Cardiovascular: Reports: no symptoms Respiratory: Reports: no symptoms Gastrointestinal/Abdominal: Reports: no symptoms Genitourinary: Reports: no symptoms Neurologic/Psychiatric: Reports: no symptoms Endocrine: Reports: no symptoms Hematologic/Lymphatic: Reports: no symptoms Allergies: Coded Allergies: No Known Allergies (Verified Allergy, Unknown, 06/05/11) Subjective sleepy Objective Last 24 Hour Vital Signs Date Time Temp Pulse Resp B/P (MAP) Pulse Ox O2 Delivery O2 Flow Rate FiO2 05/16/17 19:49 98.6 64 18 117/54 98 Room Air 05/16/17 16:00 57 05/16/17 15:41 98.1 51 18 130/66 97 Room Air 05/16/17 12:00 69 05/16/17 11:29 97.7 54 18 123/51 95 Room Air 05/16/17 08:18 69 133/57 05/16/17 08:18 69 133/57 05/16/17 08:00 66 05/16/17 07:52 97.7 69 18 133/57 96 Room Air 05/16/17 04:00 97.0 60 19 120/40 99 Room Air 05/16/17 04:00 66 05/16/17 00:00 97.0 61 20 122/41 95 Room Air 05/16/17 00:00 59 Intake and Output 05/16/17 05/17/17 19:00 07:00 Intake Total 360 ml Balance 360 ml Intake Oral 360 ml # Voids 3 Laboratory Tests 05/16/17 06:50: White Blood Count 3.3L, Red Blood Count 3.82L, Hemoglobin 12.2, Hematocrit 36.4L , Mean Corpuscular Volume 95, Mean Corpuscular Hemoglobin 31.9H, Mean Corpuscular Hemoglobin Concent 33.6, Red Cell Distribution Width 13.0, Platelet Count 160, Mean Platelet Volume 8.5, Neutrophils (%) (Auto) , Lymphocytes (%) ( Auto) , Monocytes (%) (Auto) , Eosinophils (%) (Auto) , Basophils (%) (Auto) , Differential Total Cells Counted 100, Neutrophils % (Manual) 21L, Lymphocytes % (Manual) 65H, Monocytes % (Manual) 13H, Eosinophils % (Manual) 0, Basophils % ( Manual) 0, Band Neutrophils 1, Platelet Estimate Adequate, Platelet Morphology Normal, Red Blood Cell Morphology Normal, Sodium Level 142, Potassium Level 3.6 , Chloride Level 101, Carbon Dioxide Level 30, Anion Gap 11, Blood Urea Nitrogen 9, Creatinine 0.6, Estimat Glomerular Filtration Rate , Glucose Level 143H, Calcium Level 9.6 Height (Feet): 5 Height (Inches): 1.00 Weight (Pounds): 160 General Appearance: no apparent distress Neck: normal inspection Cardiovascular: normal peripheral pulses Respiratory/Chest: no accessory muscle use Neurologic: normal mood/affect Nakul Tejeda May 16, 2017 20:19
[2017-05-17 03:46] VITALS: BP 131/45
[2017-05-17] MEDS: NovoLOG Insulin Flexpen SUBQ SCH ×4 (06:11→21:14)
--- NOTE | 2017-05-17 06:15 | Consultation ---
DATE OF CONSULTATION: INFECTIOUS DISEASE CONSULTATION REQUESTING PHYSICIAN: Cj Degroot D.O. REASON FOR CONSULTATION: Possible urinary tract infection, recommendation for antibiotics treatment. HISTORY OF PRESENT ILLNESS: The patient is an 81-year-old female with past medical history of hypertension and hyperlipidemia, presented to [facility] with severe headache, which started on Sunday. The patient also had blurry vision and were unable to see with her eyes. Headache became worse with visual disturbance, so she was brought in to the [facility] emergency room for evaluation since she was having difficulty seeing things on her right side. Her headache was improving at the time when she presented. The patient had workup including head CT, which was negative for any bleeding. Urinalysis showed possible infection. So, I was consulted by the primary provider for antibiotics treatment and further management. PAST MEDICAL HISTORY: Significant for hypertension, diabetes, and hyperlipidemia. PAST SURGICAL HISTORY: She had cholecystectomy and and back surgery. MEDICATIONS: She is on Norvasc, atenolol, NovoLog, Tylenol, MiraLAX, Zofran, Ambien, and Ativan. ALLERGIES: No known drug allergy. 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 Denied using any drugs, tobacco, or alcohol. REVIEW OF SYSTEMS: A 12-point system reviewed were all negative. PHYSICAL EXAMINATION: GENERAL: The patient is an elderly female, up in bed, dizzy, lightheaded, not in acute distress. VITAL SIGNS: Temperature 97.7 degrees, pulse 54, respirations 18, blood pressure 123/51, and saturation 95% on room air. HEENT: Normocephalic and atraumatic. Pupils are reactive to light. Moist oral mucosa. NECK: Supple. No lymphadenopathy. CARDIOVASCULAR: Regular rate and rhythm. LUNGS: Clear bilaterally. ABDOMEN: Soft, nontender, and nondistended. EXTREMITIES: No edema or cyanosis. LABORATORY AND DIAGNOSTIC DATA: Labs showed white count of 3.3, hemoglobin of 12.2, and platelet count of 160,000. BUN of 9 and creatinine of 0.6. Urinalysis showed +2 leukocyte esterase, WBC 2-4, and few bacteria. Serology was negative for hepatitis and HIV. Imaging, MRI of the brain showed acute versus subacute lacunar infarct, left occipital lobe, multifocal bilateral cerebral periventricular and deep white matter T2 signal hyperintensity, nonspecific, likely chronic microvascular ischemic in nature, and atrophy. Chest x-ray showed no evidence of acute disease. Head CT showed no evidence of acute intracranial pathology, early subtle acute abnormalities may be missed, however, if clinically indicated MRI of the brain maybe beneficial. ASSESSMENT AND RECOMMENDATION: 1. Possible urinary tract infection. We will send urine culture. Keep off antibiotics for now since she is not symptomatic. 2. 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 Recommend aspirin and statins. Neurology is following. 3. Occipital stroke. Continue aspirin and statin. Neurology is following. Ervin Gonsalez M.D. DR: DIRK JOB#: [id number] CC:
[2017-05-17 07:03] LABS: ANION GAP 13 (5-15); CALCIUM 9.4 mg/dL (8.6-10.2); CARBON DIOXIDE 29 mEQ/L (20-30); CHLORIDE 95 mEQ/L (98-107); CREATININE 0.7 mg/dL (0.5-0.9); HEMOLYSIS 1; POTASSIUM 3.5 mEQ/L (3.4-4.9); SODIUM 137 mEQ/L (135-145)
[2017-05-17 07:10] LABS: BASOPHILS % (AUTO) 0.5 % (0.0-2.0); LYMPHOCYTES % (AUTO) 4.3 % (20.0-45.0); MEAN CORPUSCULAR HEMOGLOBIN 31.1 PG (27.0-31.0); MEAN CORPUSCULAR HGB CONC 32.9 G/DL (32.0-36.0); MEAN CORPUSCULAR VOLUME 95 FL (80-99); MEAN PLATELET VOLUME 9.9 FL (6.5-10.1); MONOCYTES % (AUTO) 14.3 % (1.0-10.0); NEUTROPHILS % (AUTO) 80.9 % (45.0-75.0); PLATELET COUNT 167 K/UL (150-450); RED BLOOD COUNT 3.89 M/UL (4.20-5.40); RED CELL DISTRIBUTION WIDTH 13.1 % (11.6-14.8); WHITE BLOOD COUNT 12.6 K/UL (4.8-10.8)
[2017-05-17 08:04] VITALS: BP 113/48
[2017-05-17] MEDS: Atenolol 25mg tab ORAL SCH (08:23)
[2017-05-17] MEDS: Heparin 5000 units/ml inj SUBQ SCH ×2 (08:28→21:13)
[2017-05-17] MEDS: Morphine Sulfate 2mg/ml Inj IVP PRN ×2 (10:51→18:36)
[2017-05-17 12:12] VITALS: BP 144/56
--- NOTE | 2017-05-17 13:22 | Pulmonology Progress Note ---
Assessment/Plan Problems: (1) Occipital cortex infarction (2) HTN (hypertension) (3) Dizziness (4) vertigo Assessment/Plan still c/o head ache med/surg Neuro and Ophthalmology consult pt/ot monitor BP dc to acute rehab. pt/ot Subjective ROS Limited/Unobtainable: No Constitutional: Reports: no symptoms HEENT: Repors: no symptoms Allergies: Coded Allergies: No Known Allergies (Verified Allergy, Unknown, 06/05/11) Objective Last 24 Hour Vital Signs Date Time Temp Pulse Resp B/P (MAP) Pulse Ox O2 Delivery O2 Flow Rate FiO2 05/17/17 12:12 98.4 63 21 144/56 95 Room Air 05/17/17 12:00 61 05/17/17 11:21 97.7 05/17/17 08:23 70 113/48 05/17/17 08:23 80 113/48 05/17/17 08:04 97.7 80 20 113/48 97 Room Air 05/17/17 08:00 83 05/17/17 04:00 76 05/17/17 03:46 98.8 68 18 131/45 94 Room Air 05/17/17 00:00 60 05/16/17 23:50 98.4 57 19 124/51 97 Room Air 05/16/17 20:00 62 05/16/17 19:49 98.6 64 18 117/54 98 Room Air 05/16/17 16:00 57 05/16/17 15:41 98.1 51 18 130/66 97 Room Air Intake and Output 05/17/17 05/18/17 19:00 07:00 Intake Total 480 ml Balance 480 ml Intake Oral 480 ml General Appearance: WD/WN HEENT: normocephalic, atraumatic Respiratory/Chest: chest wall non-tender, lungs clear Breasts: no masses Cardiovascular: normal peripheral pulses Abdomen: normal bowel sounds, soft, non tender Extremities: no clubbing Skin: no lesions Neurologic/Psychiatric: necktie turner II-XII grossly normal Laboratory Tests 05/17/17 06:00: White Blood Count 12.6#H, Red Blood Count 3.89L, Hemoglobin 12.1, Hematocrit 36.8L, Mean Corpuscular Volume 95, Mean Corpuscular Hemoglobin 31.1H, Mean Corpuscular Hemoglobin Concent 32.9, Red Cell Distribution Width 13.1, Platelet Count 167, Mean Platelet Volume 9.9, Neutrophils (%) (Auto) 80.9H, Lymphocytes ( %) (Auto) 4.3L, Monocytes (%) (Auto) 14.3H, Eosinophils (%) (Auto) 0.0, Basophils (%) (Auto) 0.5, Sodium Level 137, Potassium Level 3.5, Chloride Level 95L, Carbon Dioxide Level 29, Anion Gap 13, Blood Urea Nitrogen 14, Creatinine 0.7, Estimat Glomerular Filtration Rate , Glucose Level 190H, Calcium Level 9.4 Current Medications Medications (Trade) Dose Ordered Sig/Elva Route PRN Reason Start Time Stop Time Status Last Admin Dose Admin Acetaminophen (Tylenol) 650 mg Q4H PRN ORAL fever 05/14/17 22:15 06/13/17 22:14 05/16/17 21:22 Al Hydroxide/Mg Hydroxide (Mylanta II) 30 ml Q6H PRN ORAL dyspepsia 05/14/17 22:15 06/13/17 22:14 Amlodipine Besylate (Norvasc) 5 mg DAILY ORAL 05/15/17 09:00 06/14/17 08:59 05/17/17 08:23 Atenolol (Tenormin) 25 mg DAILY ORAL 05/15/17 09:00 06/14/17 08:59 05/17/17 08:23 Dextrose (Dextrose 50%) STAT PRN IV Hypoglycemia 05/14/17 22:15 06/13/17 22:14 Heparin Sodium (Porcine) (Heparin 5000 units/ml) 5,000 units EVERY 12 HOURS SUBQ 05/15/17 09:00 06/14/17 08:59 05/17/17 08:28 Insulin Aspart (NovoLOG) BEFORE MEALS AND HS SUBQ 05/15/17 06:30 06/14/17 06:29 05/17/17 11:39 Lorazepam (Ativan 2mg/ml 1ml) 0.5 mg Q4H PRN IV For Anxiety 05/14/17 22:15 05/21/17 22:14 Morphine Sulfate (Morphine Sulfate) 1 mg Q4H PRN IVP For Pain 05/14/17 22:15 05/21/17 22:14 05/17/17 10:51 Ondansetron HCl (Zofran) 4 mg Q6H PRN IVP Nausea & Vomiting 05/14/17 22:15 06/13/17 22:14 Polyethylene Glycol (Miralax) 17 gm HSPRN PRN ORAL Constipation 05/14/17 22:15 06/13/17 22:14 05/16/17 21:09 Zolpidem Tartrate (Ambien) 5 mg HSPRN PRN ORAL Insomnia 05/14/17 22:15 06/13/17 22:14 CT CALLEJAS May 17, 2017 13:22
--- NOTE | 2017-05-17 13:39 | Diagnostic Imaging Report ---
APPROVED REPORT CPT Code: 06907 Vascular Symptoms Sensory Deficit, Comments: Left-sided headache, visual disturbances, especially on the right side. Brain MRI 05/14/2017. Doppler Spectral Velocity Analysis RightLeft dICA82/23 cm/otCOJ177/25 cm/s mICA89/20 cm/oeCKI707/24 cm/s pICA92/19 cm/yhXVU503/25 cm/s ECA82/4 cm/oAZZ534/8 cm/s dCCA81/13 cm/nnWVL548/27 cm/s mCCA95/13 cm/smCCA84/15 cm/s sGVE307/16 cm/spCCA94/14 cm/s Vert.52/8 cm/sVert.75/26 cm/s Right ICA/CCA ratio0.7Left ICA/CCA ratio0.9 RIGHT SIDE: CCA/BULB- Imaging reveals irregular, minimal plaque in the carotid bulb and carotid artery, extending into the proximal ICA. The degree of stenosis is minimal (20%-30%). ECA - Imaging reveals no significant plaque in the mid to distal internal and external carotid arteries. VERTEBRAL - The vertebral artery is patent, without evidence of stenosis or steal. The right proximal CCA shows tortuosity. LEFT SIDE: CCA/BULB- Imaging reveals irregular, minimal plaque in the carotid bulb and external carotid arteries. VERTEBRAL - The vertebral artery is patent, without evidence of stenosis or steal. The left CCA, carotid bifurcation, ICA and ECA vessels are tortuous.
--- NOTE | 2017-05-17 14:44 | Diagnostic Imaging Report ---
Indication: Dyspnea Comparison: 05/14/17 A single view chest radiograph was obtained. Findings: The lungs are clear. The heart is borderline enlarged. Bones are slightly osteopenic. Aorta is mildly calcified. Impression: No acute disease
--- NOTE | 2017-05-17 14:49 | General Progress Note ---
Assessment/Plan Problem List: (1) HTN (hypertension) ICD Codes: I10 - Essential (primary) hypertension SNOMED: 36696825 (2) Diabetes mellitus ICD Codes: E11.9 - Type 2 diabetes mellitus without complications SNOMED: 98542846 (3) vertigo (4) Headache ICD Codes: R51 - Headache SNOMED: 20959989 Qualifiers: Qualified Codes: R51 - Headache (5) UTI (urinary tract infection) ICD Codes: N39.0 - Urinary tract infection, site not specified SNOMED: 12871591 Status: stable, progressing, tolerating diet Assessment/Plan ot pt diet abx cbc bmp am aru eval Subjective Constitutional: Reports: weakness Allergies: Coded Allergies: No Known Allergies (Verified Allergy, Unknown, 06/05/11) All Systems: reviewed and negative except above Subjective sleepy calm weak Objective Last 24 Hour Vital Signs Date Time Temp Pulse Resp B/P (MAP) Pulse Ox O2 Delivery O2 Flow Rate FiO2 05/17/17 12:12 98.4 63 21 144/56 95 Room Air 05/17/17 12:00 61 05/17/17 11:21 97.7 05/17/17 08:23 70 113/48 05/17/17 08:23 80 113/48 05/17/17 08:04 97.7 80 20 113/48 97 Room Air 05/17/17 08:00 83 05/17/17 04:00 76 05/17/17 03:46 98.8 68 18 131/45 94 Room Air 05/17/17 00:00 60 05/16/17 23:50 98.4 57 19 124/51 97 Room Air 05/16/17 20:00 62 05/16/17 19:49 98.6 64 18 117/54 98 Room Air 05/16/17 16:00 57 05/16/17 15:41 98.1 51 18 130/66 97 Room Air Intake and Output 05/17/17 05/18/17 19:00 07:00 Intake Total 480 ml Balance 480 ml Intake Oral 480 ml Laboratory Tests 05/17/17 06:00: White Blood Count 12.6#H, Red Blood Count 3.89L, Hemoglobin 12.1, Hematocrit 36.8L, Mean Corpuscular Volume 95, Mean Corpuscular Hemoglobin 31.1H, Mean Corpuscular Hemoglobin Concent 32.9, Red Cell Distribution Width 13.1, Platelet Count 167, Mean Platelet Volume 9.9, Neutrophils (%) (Auto) 80.9H, Lymphocytes ( %) (Auto) 4.3L, Monocytes (%) (Auto) 14.3H, Eosinophils (%) (Auto) 0.0, Basophils (%) (Auto) 0.5, Sodium Level 137, Potassium Level 3.5, Chloride Level 95L, Carbon Dioxide Level 29, Anion Gap 13, Blood Urea Nitrogen 14, Creatinine 0.7, Estimat Glomerular Filtration Rate , Glucose Level 190H, Calcium Level 9.4 Height (Feet): 5 Height (Inches): 1.00 Weight (Pounds): 160 General Appearance: lethargic EENT: normal ENT inspection Neck: normal alignment Cardiovascular: normal peripheral pulses, normal rate, regular rhythm Respiratory/Chest: chest wall non-tender, lungs clear, normal breath sounds Abdomen: normal bowel sounds, non tender, soft Extremities: normal inspection Edema: no edema noted Arm (L), no edema noted Arm (R), no edema noted Leg (L), no edema noted Leg (R), no edema noted Pedal (L), no edema noted Pedal (R), no edema noted Generalized Neurologic: responsive, motor weakness Skin: normal pigmentation, warm/dry BRIDGET MORENO May 17, 2017 14:49
--- NOTE | 2017-05-17 15:52 | Infectious Diseases Prog Note ---
Assessment/Plan Problems: (1) Sepsis Assessment & Plan: with fever and leukocytosis, unclear source, will send blood culture and urine culture, and start cefepime with vancomycin empirically (2) UTI (urinary tract infection) Assessment & Plan: will send urine culture, and start cefepime empiricaly (3) Right homonymous hemianopsia Assessment & Plan: due to occipital infarcts, neurology is following (4) Occipital cortex infarction Assessment & Plan: continue aspirin, check lipid panel, neurology is following Subjective Constitutional: Reports: fever, chills, fatigue HEENT: Reports: no symptoms Respiratory: Reports: no symptoms Breasts: Reports: no symptoms Cardiovascular: Reports: no symptoms Gastrointestinal/Abdominal: Reports: no symptoms Genitourinary: Reports: no symptoms Neurologic: Reports: weakness, other - blurry vision Psychiatric: Reports: no symptoms Skin: Reports: no symptoms Endocrine: Reports: no symptoms Hematologic: Reports: no symptoms Allergies: Coded Allergies: No Known Allergies (Verified Allergy, Unknown, 06/05/11) Objective Vital Signs Last 24 Hour Vital Signs Date Time Temp Pulse Resp B/P (MAP) Pulse Ox O2 Delivery O2 Flow Rate FiO2 05/17/17 12:12 98.4 63 21 144/56 95 Room Air 05/17/17 12:00 61 05/17/17 11:21 97.7 05/17/17 08:23 70 113/48 05/17/17 08:23 80 113/48 05/17/17 08:04 97.7 80 20 113/48 97 Room Air 05/17/17 08:00 83 05/17/17 04:00 76 05/17/17 03:46 98.8 68 18 131/45 94 Room Air 05/17/17 00:00 60 05/16/17 23:50 98.4 57 19 124/51 97 Room Air 05/16/17 20:00 62 05/16/17 19:49 98.6 64 18 117/54 98 Room Air 05/16/17 16:00 57 Height (Feet): 5 Height (Inches): 1.00 Weight (Pounds): 160 General Appearance: WD/WN, no acute distress HEENT: normocephalic, atraumatic, anicteric, mucous membranes moist, PERRL Respiratory/Chest: chest wall non-tender, lungs clear, normal breath sounds, no respiratory distress, no accessory muscle use Cardiovascular: normal peripheral pulses, normal rate, regular rhythm Abdomen: normal bowel sounds, soft, non tender, no organomegaly, non distended Extremities: no cyanosis, no clubbing Skin: no rash, no lesions Laboratory Tests Test 05/17/17 06:00 White Blood Count 12.6 K/UL (4.8-10.8) #H Red Blood Count 3.89 M/UL (4.20-5.40) L Hemoglobin 12.1 G/DL (12.0-16.0) Hematocrit 36.8 % (37.0-47.0) L Mean Corpuscular Volume 95 FL (80-99) Mean Corpuscular Hemoglobin 31.1 PG (27.0-31.0) H Mean Corpuscular Hemoglobin Concent 32.9 G/DL (32.0-36.0) Red Cell Distribution Width 13.1 % (11.6-14.8) Platelet Count 167 K/UL (150-450) Mean Platelet Volume 9.9 FL (6.5-10.1) Neutrophils (%) (Auto) 80.9 % (45.0-75.0) H Lymphocytes (%) (Auto) 4.3 % (20.0-45.0) L Monocytes (%) (Auto) 14.3 % (1.0-10.0) H Eosinophils (%) (Auto) 0.0 % (0.0-3.0) Basophils (%) (Auto) 0.5 % (0.0-2.0) Sodium Level 137 mEQ/L (135-145) Potassium Level 3.5 mEQ/L (3.4-4.9) Chloride Level 95 mEQ/L (98-107) L Carbon Dioxide Level 29 mEQ/L (20-30) Anion Gap 13 (5-15) Blood Urea Nitrogen 14 mg/dL (7-23) Creatinine 0.7 mg/dL (0.5-0.9) Estimat Glomerular Filtration Rate mL/min (>60) Glucose Level 190 mg/dL (74-106) H Calcium Level 9.4 mg/dL (8.6-10.2) Current Medications Medications (Trade) Dose Ordered Sig/Elva Route PRN Reason Start Time Stop Time Status Last Admin Dose Admin Acetaminophen (Tylenol) 650 mg Q4H PRN ORAL fever 05/14/17 22:15 06/13/17 22:14 05/16/17 21:22 Al Hydroxide/Mg Hydroxide (Mylanta II) 30 ml Q6H PRN ORAL dyspepsia 05/14/17 22:15 06/13/17 22:14 Amlodipine Besylate (Norvasc) 5 mg DAILY ORAL 05/15/17 09:00 06/14/17 08:59 05/17/17 08:23 Atenolol (Tenormin) 25 mg DAILY ORAL 05/15/17 09:00 06/14/17 08:59 05/17/17 08:23 Dextrose (Dextrose 50%) STAT PRN IV Hypoglycemia 05/14/17 22:15 06/13/17 22:14 Heparin Sodium (Porcine) (Heparin 5000 units/ml) 5,000 units EVERY 12 HOURS SUBQ 05/15/17 09:00 06/14/17 08:59 05/17/17 08:28 Insulin Aspart (NovoLOG) BEFORE MEALS AND HS SUBQ 05/15/17 06:30 06/14/17 06:29 05/17/17 11:39 Lorazepam (Ativan 2mg/ml 1ml) 0.5 mg Q4H PRN IV For Anxiety 05/14/17 22:15 05/21/17 22:14 Morphine Sulfate (Morphine Sulfate) 1 mg Q4H PRN IVP For Pain 05/14/17 22:15 05/21/17 22:14 05/17/17 10:51 Ondansetron HCl (Zofran) 4 mg Q6H PRN IVP Nausea & Vomiting 05/14/17 22:15 06/13/17 22:14 Polyethylene Glycol (Miralax) 17 gm HSPRN PRN ORAL Constipation 05/14/17 22:15 06/13/17 22:14 05/16/17 21:09 Zolpidem Tartrate (Ambien) 5 mg QHS ORAL 05/17/17 21:00 05/24/17 20:59 Ervin Gonsalez M.D. May 17, 2017 15:52
[2017-05-17] MEDS ORDERED: Cefepime HCl 2 GM in D5W 110 ML IVPB ONE (17:30)
[2017-05-17] MEDS ORDERED: Vancomycin 1gm in D5W 275ml IVPB ONE (18:00)
[2017-05-17] MEDS ORDERED: Vancomycin 1gm in D5W 275ml IVPB SCH (18:00)
--- NOTE | 2017-05-17 18:23 | General Progress Note ---
Assessment/Plan Assessment/Plan 1. Pancytopenia. Given the patient's age, this is concerning for potential myelodysplastic syndrome. --> recommend bone marrow biopsy as outpatient. 2. Anemia secondary to chronic disease. --> resolved 3. Leukocytosis 2/2 sepsis 4. Hypertension, currently better controlled. 5. Carotid artery plaques --> outpatient vascular surgery follow up 6. Dizziness and vertigo --> neurology service following Subjective Constitutional: Reports: no symptoms HEENT: Reports: no symptoms Cardiovascular: Reports: no symptoms Respiratory: Reports: no symptoms Gastrointestinal/Abdominal: Reports: no symptoms Genitourinary: Reports: no symptoms Neurologic/Psychiatric: Reports: no symptoms Endocrine: Reports: no symptoms Hematologic/Lymphatic: Reports: no symptoms Allergies: Coded Allergies: No Known Allergies (Verified Allergy, Unknown, 06/05/11) Subjective febrile, sleepy Objective Last 24 Hour Vital Signs Date Time Temp Pulse Resp B/P (MAP) Pulse Ox O2 Delivery O2 Flow Rate FiO2 05/17/17 12:12 98.4 63 21 144/56 95 Room Air 05/17/17 12:00 61 05/17/17 11:21 97.7 05/17/17 08:23 70 113/48 05/17/17 08:23 80 113/48 05/17/17 08:04 97.7 80 20 113/48 97 Room Air 05/17/17 08:00 83 05/17/17 04:00 76 05/17/17 03:46 98.8 68 18 131/45 94 Room Air 05/17/17 00:00 60 05/16/17 23:50 98.4 57 19 124/51 97 Room Air 05/16/17 20:00 62 05/16/17 19:49 98.6 64 18 117/54 98 Room Air Intake and Output 05/17/17 05/18/17 19:00 07:00 Intake Total 480 ml Balance 480 ml Intake Oral 480 ml Laboratory Tests 05/17/17 06:00: White Blood Count 12.6#H, Red Blood Count 3.89L, Hemoglobin 12.1, Hematocrit 36.8L, Mean Corpuscular Volume 95, Mean Corpuscular Hemoglobin 31.1H, Mean Corpuscular Hemoglobin Concent 32.9, Red Cell Distribution Width 13.1, Platelet Count 167, Mean Platelet Volume 9.9, Neutrophils (%) (Auto) 80.9H, Lymphocytes ( %) (Auto) 4.3L, Monocytes (%) (Auto) 14.3H, Eosinophils (%) (Auto) 0.0, Basophils (%) (Auto) 0.5, Sodium Level 137, Potassium Level 3.5, Chloride Level 95L, Carbon Dioxide Level 29, Anion Gap 13, Blood Urea Nitrogen 14, Creatinine 0.7, Estimat Glomerular Filtration Rate , Glucose Level 190H, Calcium Level 9.4 Height (Feet): 5 Height (Inches): 1.00 Weight (Pounds): 160 General Appearance: no apparent distress EENT: normal ENT inspection Neck: normal alignment Respiratory/Chest: chest wall non-tender Neurologic: labeler II-XII grossly normal Nakul Tejeda May 17, 2017 18:23
[2017-05-17] MEDS ORDERED: Morphine Sulfate 2mg/ml Inj IVP PRN (19:30)
[2017-05-17] MEDS ORDERED: LORazepam Inj 2mg/ml 1ml IV PRN (19:30)
[2017-05-17] MEDS ORDERED: Mylanta II UD 30ml ORAL PRN (19:30)
[2017-05-17] MEDS ORDERED: Miralax 17gm pkt ORAL PRN (19:30)
[2017-05-17 20:25] VITALS: BP 131/54
[2017-05-17] MEDS ORDERED: Zolpidem 5mg tab ORAL SCH ×2 (21:00)
[2017-05-18 00:22] VITALS: BP 104/45
[2017-05-18 04:00] VITALS: BP 110/70
[2017-05-18 06:10] LABS: MEAN CORPUSCULAR HEMOGLOBIN 32.6 PG (27.0-31.0); MEAN CORPUSCULAR HGB CONC 34.3 G/DL (32.0-36.0); MEAN CORPUSCULAR VOLUME 95 FL (80-99); MEAN PLATELET VOLUME 10.4 FL (6.5-10.1); PLATELET COUNT 154 K/UL (150-450); RED BLOOD COUNT 3.63 M/UL (4.20-5.40); RED CELL DISTRIBUTION WIDTH 13.2 % (11.6-14.8); WHITE BLOOD COUNT 6.2 K/UL (4.8-10.8)
[2017-05-18] MEDS: NovoLOG Insulin Flexpen SUBQ SCH ×3 (06:28→16:30)
[2017-05-18 06:35] LABS: ANION GAP 14 (5-15); CALCIUM 9.1 mg/dL (8.6-10.2); CARBON DIOXIDE 26 mEQ/L (20-30); CHLORIDE 99 mEQ/L (98-107); CREATININE 0.8 mg/dL (0.5-0.9); HEMOLYSIS 1; POTASSIUM 3.8 mEQ/L (3.4-4.9); SODIUM 139 mEQ/L (135-145)
[2017-05-18 08:00] VITALS: BP 99/52
--- NOTE | 2017-05-18 08:10 | Pulmonology Progress Note ---
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 OU PLAN OF CARE [facility] floor transferred from [facility] CT head no acute IC pathology but MRI brain c/w acute left lacunar stroke neuro follows Carotid duplex 20-30% on the right side no plague ECG SR Lipid panel stable continue ASA and statin PT/OT fall precautions leukocytosis resolved, fever last night, but currently;y afebrile empiric abx urine cx pending, CXR no acute cardiopulmonary disease DVT prophylaxis ophth eval noted and appreciated ; outpt fup with tank setter BP management with CCB and BB, stable BS management with SS of insulin acute ARU eval case discussed and evaluated by supervising physician Subjective Allergies: Coded Allergies: No Known Allergies (Verified Allergy, Unknown, 06/05/11) Subjective fever last night-102.6, currently afebrile denies cough, SOB. burning on urination ambulated with PT with cane Objective Last 24 Hour Vital Signs Date Time Temp Pulse Resp B/P (MAP) Pulse Ox O2 Delivery O2 Flow Rate FiO2 05/18/17 04:00 98.2 70 18 110/70 98 Room Air 05/18/17 00:22 98.5 65 18 104/45 99 Room Air 05/17/17 22:11 99.7 05/17/17 22:11 99.7 05/17/17 20:25 102.6 71 19 131/54 94 Room Air 05/17/17 12:12 98.4 63 21 144/56 95 Room Air 05/17/17 12:00 61 05/17/17 11:21 97.7 05/17/17 08:23 70 113/48 05/17/17 08:23 80 113/48 05/17/17 08:04 97.7 80 20 113/48 97 Room Air General Appearance: WD/WN, no acute distress, other - A/A/O x 4 AA female in NAD HEENT: normocephalic, atraumatic, anicteric Respiratory/Chest: lungs clear, chest wall tender Cardiovascular: normal rate, regular rhythm, no JVD Abdomen: normal bowel sounds, soft, non tender, non distended Genitourinary: normal external genitalia Extremities: no edema, pedal pulses normal Neurologic/Psychiatric: no motor/sensory deficits, abnormal gait - unsteady , alert, oriented x 3, responsive Musculoskeletal: atrophy - BLE Laboratory Tests 05/18/17 05:10: White Blood Count 6.2#, Red Blood Count 3.63L, Hemoglobin 11.8L, Hematocrit 34.5L, Mean Corpuscular Volume 95, Mean Corpuscular Hemoglobin 32.6H, Mean Corpuscular Hemoglobin Concent 34.3, Red Cell Distribution Width 13.2, Platelet Count 154, Mean Platelet Volume 10.4H, Neutrophils (%) (Auto) , Lymphocytes (%) (Auto) , Monocytes (%) (Auto) , Eosinophils (%) (Auto) , Basophils (%) (Auto) , Sodium Level 139, Potassium Level 3.8, Chloride Level 99, Carbon Dioxide Level 26, Anion Gap 14, Blood Urea Nitrogen 13, Creatinine 0.8, Estimat Glomerular Filtration Rate , Glucose Level 141H, Calcium Level 9.1 Current Medications Medications (Trade) Dose Ordered Sig/Elva Route PRN Reason Start Time Stop Time Status Last Admin Dose Admin Acetaminophen (Tylenol) 650 mg Q4H PRN ORAL fever 05/17/17 19:30 06/13/17 19:29 05/17/17 21:12 Al Hydroxide/Mg Hydroxide (Mylanta II) 30 ml Q6H PRN ORAL dyspepsia 05/17/17 19:30 06/13/17 19:29 Amlodipine Besylate (Norvasc) 5 mg DAILY ORAL 05/18/17 09:00 06/14/17 08:59 Atenolol (Tenormin) 25 mg DAILY ORAL 05/18/17 09:00 06/14/17 08:59 Cefepime HCl 1 gm/ Dextrose 55 ml @ 110 mls/hr Q24H IVPB 05/18/17 18:00 05/25/17 17:59 Dextrose (Dextrose 50%) STAT PRN IV Hypoglycemia 05/17/17 19:30 06/13/17 19:29 Heparin Sodium (Porcine) (Heparin 5000 units/ml) 5,000 units EVERY 12 HOURS SUBQ 05/17/17 21:00 06/14/17 08:59 05/17/17 21:13 Insulin Aspart (NovoLOG) BEFORE MEALS AND HS SUBQ 05/17/17 21:00 06/14/17 06:29 05/18/17 06:28 Lorazepam (Ativan 2mg/ml 1ml) 0.5 mg Q4H PRN IV For Anxiety 05/17/17 19:30 05/21/17 19:29 Morphine Sulfate (Morphine Sulfate) 1 mg Q4H PRN IVP For Pain 05/17/17 19:30 05/21/17 19:29 Ondansetron HCl (Zofran) 4 mg Q6H PRN IVP Nausea & Vomiting 05/17/17 19:30 06/13/17 19:29 Polyethylene Glycol (Miralax) 17 gm HSPRN PRN ORAL Constipation 05/17/17 19:30 06/13/17 19:29 Vancomycin HCl (Vanco rx to dose) 1 ea DAILY PRN MISC Per rx protocol 05/18/17 09:00 06/16/17 15:59 Vancomycin/Sodium Chloride 250 ml @ 166.667 mls/hr Q24H IVPB 05/18/17 18:00 05/23/17 17:59 Zolpidem Tartrate (Ambien) 5 mg QHS ORAL 05/17/17 21:00 05/24/17 20:59 05/17/17 22:21 Hudson (Nate)Anais NP May 18, 2017 08:10
[2017-05-18] MEDS: Heparin 5000 units/ml inj SUBQ SCH (09:00)
[2017-05-18] MEDS ORDERED: Atenolol 25mg tab ORAL SCH (09:00)
[2017-05-18 11:27] LABS: OTHERS PATHOLOGIST COMMENT
[2017-05-18 11:27] LABS: OTHERS PATHOLOGIST COMMENT
[2017-05-18 12:00] VITALS: BP 107/50
--- NOTE | 2017-05-18 14:46 | General Progress Note ---
Assessment/Plan Problem List: (1) HTN (hypertension) ICD Codes: I10 - Essential (primary) hypertension SNOMED: 91768607 (2) Diabetes mellitus ICD Codes: E11.9 - Type 2 diabetes mellitus without complications SNOMED: 36661665 (3) vertigo (4) Headache ICD Codes: R51 - Headache SNOMED: 96628778 Qualifiers: Qualified Codes: R51 - Headache (5) UTI (urinary tract infection) ICD Codes: N39.0 - Urinary tract infection, site not specified SNOMED: 45076028 Status: stable, progressing, tolerating diet Assessment/Plan ot pt diet abx brot aru transfer Subjective Constitutional: Reports: weakness Allergies: Coded Allergies: No Known Allergies (Verified Allergy, Unknown, 06/05/11) All Systems: reviewed and negative except above Subjective sleepy calm weak Objective Last 24 Hour Vital Signs Date Time Temp Pulse Resp B/P (MAP) Pulse Ox O2 Delivery O2 Flow Rate FiO2 05/18/17 12:00 99.1 64 20 107/50 98 Room Air 05/18/17 09:00 73 99/52 05/18/17 09:00 73 99/52 05/18/17 08:00 99.2 73 18 99/52 96 Room Air 05/18/17 04:00 98.2 70 18 110/70 98 Room Air 05/18/17 00:22 98.5 65 18 104/45 99 Room Air 05/17/17 22:11 99.7 05/17/17 22:11 99.7 05/17/17 20:25 102.6 71 19 131/54 94 Room Air Intake and Output 05/18/17 05/19/17 19:00 07:00 Intake Total 240 ml Balance 240 ml Intake Oral 240 ml # Voids 1 # Bowel Movements 1 Laboratory Tests 05/18/17 05:10: White Blood Count 6.2#, Red Blood Count 3.63L, Hemoglobin 11.8L, Hematocrit 34.5L, Mean Corpuscular Volume 95, Mean Corpuscular Hemoglobin 32.6H, Mean Corpuscular Hemoglobin Concent 34.3, Red Cell Distribution Width 13.2, Platelet Count 154, Mean Platelet Volume 10.4H, Neutrophils (%) (Auto) , Lymphocytes (%) (Auto) , Monocytes (%) (Auto) , Eosinophils (%) (Auto) , Basophils (%) (Auto) , Sodium Level 139, Potassium Level 3.8, Chloride Level 99, Carbon Dioxide Level 26, Anion Gap 14, Blood Urea Nitrogen 13, Creatinine 0.8, Estimat Glomerular Filtration Rate , Glucose Level 141H, Calcium Level 9.1 Height (Feet): 5 Height (Inches): 1.00 Weight (Pounds): 160 General Appearance: lethargic EENT: normal ENT inspection Neck: normal alignment Cardiovascular: normal peripheral pulses, normal rate, regular rhythm Respiratory/Chest: chest wall non-tender, lungs clear, normal breath sounds Abdomen: normal bowel sounds, non tender, soft Extremities: normal inspection Edema: no edema noted Arm (L), no edema noted Arm (R), no edema noted Leg (L), no edema noted Leg (R), no edema noted Pedal (L), no edema noted Pedal (R), no edema noted Generalized Neurologic: responsive, motor weakness Skin: normal pigmentation, warm/dry BRIDGET MORENO May 18, 2017 14:46
[2017-05-18 16:00] VITALS: BP 133/46
--- NOTE | 2017-05-18 17:22 | General Progress Note ---
Assessment/Plan Assessment/Plan 1. Pancytopenia. Given the patient's age, this is concerning for potential myelodysplastic syndrome. --> recommend bone marrow biopsy as outpatient. 2. Anemia secondary to chronic disease. --> continue to monitor counts 3. Leukocytosis 2/2 sepsis 4. Hypertension, currently better controlled. 5. Carotid artery plaques --> outpatient vascular surgery follow up 6. Dizziness and vertigo --> neurology service following Subjective Constitutional: Reports: no symptoms HEENT: Reports: no symptoms Cardiovascular: Reports: no symptoms Respiratory: Reports: no symptoms Gastrointestinal/Abdominal: Reports: no symptoms Genitourinary: Reports: no symptoms Neurologic/Psychiatric: Reports: no symptoms Endocrine: Reports: no symptoms Hematologic/Lymphatic: Reports: no symptoms Allergies: Coded Allergies: No Known Allergies (Verified Allergy, Unknown, 06/05/11) Subjective fever last night Objective Last 24 Hour Vital Signs Date Time Temp Pulse Resp B/P (MAP) Pulse Ox O2 Delivery O2 Flow Rate FiO2 05/18/17 16:00 99.7 66 20 133/46 99 Room Air 05/18/17 12:00 99.1 64 20 107/50 98 Room Air 05/18/17 09:00 73 99/52 05/18/17 09:00 73 99/52 05/18/17 08:00 99.2 73 18 99/52 96 Room Air 05/18/17 04:00 98.2 70 18 110/70 98 Room Air 05/18/17 00:22 98.5 65 18 104/45 99 Room Air 05/17/17 22:11 99.7 05/17/17 22:11 99.7 05/17/17 20:25 102.6 71 19 131/54 94 Room Air Intake and Output 05/18/17 05/19/17 19:00 07:00 Intake Total 420 ml Balance 420 ml Intake Oral 420 ml # Voids 3 # Bowel Movements 1 Laboratory Tests 05/18/17 05:10: White Blood Count 6.2#, Red Blood Count 3.63L, Hemoglobin 11.8L, Hematocrit 34.5L, Mean Corpuscular Volume 95, Mean Corpuscular Hemoglobin 32.6H, Mean Corpuscular Hemoglobin Concent 34.3, Red Cell Distribution Width 13.2, Platelet Count 154, Mean Platelet Volume 10.4H, Neutrophils (%) (Auto) , Lymphocytes (%) (Auto) , Monocytes (%) (Auto) , Eosinophils (%) (Auto) , Basophils (%) (Auto) , Sodium Level 139, Potassium Level 3.8, Chloride Level 99, Carbon Dioxide Level 26, Anion Gap 14, Blood Urea Nitrogen 13, Creatinine 0.8, Estimat Glomerular Filtration Rate , Glucose Level 141H, Calcium Level 9.1 Height (Feet): 5 Height (Inches): 1.00 Weight (Pounds): 160 General Appearance: no apparent distress EENT: normal ENT inspection Neck: normal alignment Cardiovascular: regular rhythm Neurologic: hypoid gear tester II-XII grossly normal Skin: warm/dry Nakul Tejeda May 18, 2017 17:22
[2017-05-18] MEDS ORDERED: Vancomycin 750mg/NS 250ml 250 ML IVPB SCH (18:00)
[2017-05-18] MEDS ORDERED: Vancomycin 750mg/NS 250ml IVPB SCH (18:00)
[2017-05-18] MEDS ORDERED: Cefepime 1gm in D5W 55ml IVPB SCH (18:00)
[2017-05-18] MEDS ORDERED: Cefepime HCl 1 GM in D5W 55 ML IVPB SCH (18:00)
[2017-05-18] MEDS ORDERED: Vancomycin 1 GM in D5W 275 ML IVPB ONE (18:00)
--- NOTE | 2017-05-18 18:24 | Infectious Diseases Prog Note ---
Assessment/Plan Problems: (1) Sepsis Assessment & Plan: with fever and leukocytosis, unclear source, await blood culture and urine culture, and continue cefepime with vancomycin empirically (2) UTI (urinary tract infection) Assessment & Plan: await urine culture, and continue cefepime empiricaly (3) Right homonymous hemianopsia Assessment & Plan: due to occipital infarcts, neurology is following (4) Occipital cortex infarction Assessment & Plan: continue aspirin, check lipid panel, neurology is following Subjective Constitutional: Reports: fever HEENT: Reports: visual change Respiratory: Reports: no symptoms Breasts: Reports: no symptoms Cardiovascular: Reports: no symptoms Gastrointestinal/Abdominal: Reports: no symptoms Genitourinary: Reports: no symptoms Neurologic: Reports: headache, weakness Psychiatric: Reports: no symptoms Skin: Reports: no symptoms Endocrine: Reports: no symptoms Hematologic: Reports: no symptoms Allergies: Coded Allergies: No Known Allergies (Verified Allergy, Unknown, 06/05/11) Objective Vital Signs Last 24 Hour Vital Signs Date Time Temp Pulse Resp B/P (MAP) Pulse Ox O2 Delivery O2 Flow Rate FiO2 05/18/17 16:00 99.7 66 20 133/46 99 Room Air 05/18/17 12:00 99.1 64 20 107/50 98 Room Air 05/18/17 09:00 73 99/52 05/18/17 09:00 73 99/52 05/18/17 08:00 99.2 73 18 99/52 96 Room Air 05/18/17 04:00 98.2 70 18 110/70 98 Room Air 05/18/17 00:22 98.5 65 18 104/45 99 Room Air 05/17/17 22:11 99.7 05/17/17 22:11 99.7 05/17/17 20:25 102.6 71 19 131/54 94 Room Air Height (Feet): 5 Height (Inches): 1.00 Weight (Pounds): 160 General Appearance: WD/WN, no acute distress HEENT: normocephalic, atraumatic, anicteric, mucous membranes moist, PERRL Respiratory/Chest: chest wall non-tender, lungs clear, normal breath sounds, no respiratory distress, no accessory muscle use Cardiovascular: normal peripheral pulses, normal rate, regular rhythm, regularly irregular, no gallop/murmur, no JVD Abdomen: normal bowel sounds, soft, non tender, no organomegaly, non distended , no mass Extremities: no cyanosis, no clubbing Skin: no rash, no lesions Microbiology Date/Time Source Procedure Growth Status 05/17/17 14:50 Urine,Clean Catch Urine Culture - Preliminary Resulted Laboratory Tests Test 05/18/17 05:10 White Blood Count 6.2 K/UL (4.8-10.8) # Red Blood Count 3.63 M/UL (4.20-5.40) L Hemoglobin 11.8 G/DL (12.0-16.0) L Hematocrit 34.5 % (37.0-47.0) L Mean Corpuscular Volume 95 FL (80-99) Mean Corpuscular Hemoglobin 32.6 PG (27.0-31.0) H Mean Corpuscular Hemoglobin Concent 34.3 G/DL (32.0-36.0) Red Cell Distribution Width 13.2 % (11.6-14.8) Platelet Count 154 K/UL (150-450) Mean Platelet Volume 10.4 FL (6.5-10.1) H Neutrophils (%) (Auto) % (45.0-75.0) Lymphocytes (%) (Auto) % (20.0-45.0) Monocytes (%) (Auto) % (1.0-10.0) Eosinophils (%) (Auto) % (0.0-3.0) Basophils (%) (Auto) % (0.0-2.0) Sodium Level 139 mEQ/L (135-145) Potassium Level 3.8 mEQ/L (3.4-4.9) Chloride Level 99 mEQ/L (98-107) Carbon Dioxide Level 26 mEQ/L (20-30) Anion Gap 14 (5-15) Blood Urea Nitrogen 13 mg/dL (7-23) Creatinine 0.8 mg/dL (0.5-0.9) Estimat Glomerular Filtration Rate mL/min (>60) Glucose Level 141 mg/dL (74-106) H Calcium Level 9.1 mg/dL (8.6-10.2) Current Medications Medications (Trade) Dose Ordered Sig/Elva Route PRN Reason Start Time Stop Time Status Last Admin Dose Admin Acetaminophen (Tylenol) 650 mg Q4H PRN ORAL fever 05/17/17 19:30 06/13/17 19:29 05/17/17 21:12 Al Hydroxide/Mg Hydroxide (Mylanta II) 30 ml Q6H PRN ORAL dyspepsia 05/17/17 19:30 06/13/17 19:29 Amlodipine Besylate (Norvasc) 5 mg DAILY ORAL 05/18/17 09:00 06/14/17 08:59 Atenolol (Tenormin) 25 mg DAILY ORAL 05/18/17 09:00 06/14/17 08:59 Cefepime HCl 1 gm/ Dextrose 55 ml @ 110 mls/hr Q24H IVPB 05/18/17 18:00 05/25/17 17:59 05/18/17 17:08 Dextrose (Dextrose 50%) STAT PRN IV Hypoglycemia 05/17/17 19:30 06/13/17 19:29 Heparin Sodium (Porcine) (Heparin 5000 units/ml) 5,000 units EVERY 12 HOURS SUBQ 05/17/17 21:00 06/14/17 08:59 05/17/17 21:13 Insulin Aspart (NovoLOG) BEFORE MEALS AND HS SUBQ 05/17/17 21:00 06/14/17 06:29 05/18/17 12:04 Lorazepam (Ativan 2mg/ml 1ml) 0.5 mg Q4H PRN IV For Anxiety 05/17/17 19:30 05/21/17 19:29 Morphine Sulfate (Morphine Sulfate) 1 mg Q4H PRN IVP For Pain 05/17/17 19:30 05/21/17 19:29 Ondansetron HCl (Zofran) 4 mg Q6H PRN IVP Nausea & Vomiting 05/17/17 19:30 06/13/17 19:29 Polyethylene Glycol (Miralax) 17 gm HSPRN PRN ORAL Constipation 05/17/17 19:30 06/13/17 19:29 Vancomycin HCl (Vanco rx to dose) 1 ea DAILY PRN MISC Per rx protocol 05/18/17 09:00 06/16/17 15:59 Vancomycin/Sodium Chloride 250 ml @ 166.667 mls/hr Q24H IVPB 05/18/17 18:00 05/23/17 17:59 Zolpidem Tartrate (Ambien) 5 mg QHS ORAL 05/17/17 21:00 05/24/17 20:59 05/17/17 22:21 Ervin Gonsalez M.D. May 18, 2017 18:24
[2017-05-18] MEDS ORDERED: TYLENOL650 MG/20. ORAL (18:51)
[2017-05-18] MEDS ORDERED: MYLANTA II30 ML ORAL (18:53)
[2017-05-18] MEDS ORDERED: MYLANTA30 M1 ORAL (18:55)
[2017-05-18] MEDS ORDERED: HEPARIN SO5000 UNIT2 SUBQ (18:56)
[2017-05-18] MEDS ORDERED: CEFEPIME-D1 GM/50 ML IVPB (18:56)
[2017-05-18] MEDS ORDERED: LORAZEPAM2 MG/1 M3 IV ×2 (18:58→18:59)
[2017-05-18] MEDS ORDERED: MORPHINE 22 MG/1 ML IV (19:00)
[2017-05-18] MEDS ORDERED: ZOFRAN4 M1 ORAL (19:01)
[2017-05-18] MEDS ORDERED: AMBIEN5 MG ORAL (19:02)
[2017-05-18] MEDS ORDERED: MIRALAX17 G2 ORAL (19:02)
[2017-05-18] MEDS ORDERED: VANCOMYCIN1 GM/2502 IVPB (19:06)
[2017-05-18] MEDS ORDERED: NOVOLOG100 UNIT/4 SQ (19:10)
[2017-05-21] MEDS ORDERED: LIPITOR10 MG ORAL (10:54)
--- NOTE | 2017-05-21 10:54 | Discharge Summary ---
Discharge Summary Hospital Course Date of Admission May 14, 2017 at 21:45 Date of Discharge May 18, 2017 at 20:05 Admitting Diagnosis occipital CVA HPI Emma Arellano is a 81 year old female who was admitted on May 14, 2017 at 21:45 for Occipital Cerebrovascular Accident Hospital Course dc summary #[id number] Discharge Medications New Medications: Atorvastatin Calcium* (Lipitor*) 10 Mg Tablet 10 MG ORAL BEDTIME, #30 TAB Continued Medications: Acetaminophen (Acetaminophen) 650 Mg/20.3 Ml Solution 650 MG ORAL Q4HR PRN for Prn Headache/Temp > 101, ML 0 Refills Al Hydroxide/mg Hydroxide (Mag-Al Liquid) 30 Ml Oral.susp 30 ML ORAL Q6HR PRN for prn for dyspepsia, ML Amlodipine Besylate* (Amlodipine Besylate*) 5 Mg Tablet 5 MG ORAL DAILY, #30 TAB Atenolol (Tenormin) 25 Mg Tab 25 MG ORAL DAILY, TAB Heparin Sod (Porcine) (Heparin Sodium*) 5 000/1 Ml Vial 5000 UNITS SUBQ EVERY 12 HOURS, VIAL Insulin Aspart (Novolog) 100 Unit/1 Ml Cartridge 100 UNIT SQ AC+HS Levofloxacin* (Levaquin*) 250 Mg Tablet 250 MG ORAL DAILY for 5 Days, TAB Lorazepam (Lorazepam) 2 Mg/1 Ml Syringe 0.5 MG IV Q4H PRN for prn for anxiety, EA Morphine Sulfate* (Morphine Sulfate*) 2 Mg/1 Ml Cartridge 1 MG IV PRN PRN for q4h for pain, EA Ondansetron (Zofran) 4 Mg Tablet 4 MG ORAL Q6H PRN for Nausea & Vomiting, TAB Polyethylene Glycol 3350* (Miralax*) 17 Gm Powd.pack 17 GM ORAL DAILY for prn for constipation, PACKET Zolpidem Tartrate* (Ambien*) 5 Mg Tablet 5 MG ORAL BEDTIME, TAB Discharge Condition Upon Discharge: stable Discharge Disposition Patient was discharged to SNF/Subacute Facility(03) Discharge Diagnoses: Hudson (Vanchtein)Anais NP May 21, 2017 10:54
== END 2017-05-18 20:05 | disposition short-term general hospital (02) | DRG 65 ==
LOC: EMR 16:45 → 2E 21:45 → EDBEDREQ 21:52 → 2E 23:36 → 3E 05-17 17:40
DX: I63.8 Other cerebral infarction (principal); D61.818 Other pancytopenia; N39.0 Urinary tract infection, site not specified; H43.811 Vitreous degeneration, right eye; H53.461 Homonymous bilateral field defects, right side; I10 Essential (primary) hypertension; R11.2 Nausea with vomiting, unspecified; D46.9 Myelodysplastic syndrome, unspecified; R51 Headache; R42 Dizziness and giddiness; E78.5 Hyperlipidemia, unspecified; E11.9 Type 2 diabetes mellitus without complications; I25.10 Atherosclerotic heart disease of native coronary artery without angina pectoris; I99.8 Other disorder of circulatory system; D63.8 Anemia in other chronic diseases classified elsewhere; Z96.1 Presence of intraocular lens; H53.9 Unspecified visual disturbance
CPT/HCPCS: 36415; 70450; 70551; 71010; 80048; 80053; 80061; 81003; 82247; 82550; 82607; 82728; 82962; 83010; 83540; 83550; 83880; 84443; 84484; 84550; 85007; 85025; 85060; 85384; 85610; 85651; 85730; 86703; 86705; 86709; 86803; 87040; 87086; 87340; 93005; 93880; 97803; J1815; J2405

== ENCOUNTER 2018-09-08 13:17 | Emergency (ER) | payer MEDICARE, MEDICAID ==
[~2018-09-08] VITALS: Ht 152.4 cm; Wt 70.3 kg
[~2018-09-08 13:17] MED LIST changes: +AMBIEN5 MG ORAL; +CEFEPIME-D1 GM/50 ML IVPB; +HEPARIN SO5000 UNIT2 SUBQ; +LIPITOR10 MG ORAL; +LORAZEPAM2 MG/1 M3 IV; +MIRALAX17 G2 ORAL; +MORPHINE 22 MG/1 ML IV; +MYLANTA II30 ML ORAL; +MYLANTA30 M1 ORAL; +NOVOLOG100 UNIT/4 SQ; +TYLENOL650 MG/20. ORAL; +VANCOMYCIN1 GM/2502 IVPB; +ZOFRAN4 M1 ORAL
[2018-09-08 13:34] VITALS: BP 177/73
[2018-09-08] MEDS ORDERED: BANOPHEN50 MG PO (13:34)
[2018-09-08] MEDS ORDERED: ASPIRIN81 MG ORAL (13:34)
--- NOTE | 2018-09-08 14:01 | Emergency Room Report ---
History of Present Illness General Chief Complaint: Pain Source: Patient Present Illness HPI 83-year-old female with significant history of hypertension and diabetes controlled with amlodipine, atenolol, metformin, here complaining of not taking her blood pressure medication or diabetes medication for whole month as [place] was [place] of state. She denies chest pain, dizziness, vision changes, headache, nausea or vomiting. She further reports she was sitting in a class for 10 hours and was unable to elevate her leg. She does have chronic leg pain. Denies injury or fall. She complains of 10 out of 10 pain in left hip and left upper thigh muscle radiating all the way down to her left foot. Ice tingling and numbness. Has taken her tramadol with minimal improvement. Denies tenderness and feeling of heavy legs. Able to move her toes however with change of position her pain worsens. Patient reports the only way that she does not feel the pain is when she is supine. Walking, changing position from standing to sitting, sitting can increase her pain.denies bowel or bladder incontinence. Denies saddle paresthesia Allergies: Coded Allergies: No Known Allergies (Verified Allergy, Unknown, 06/05/11) Patient History Past Medical History: see triage record Past Surgical History: unable to obtain Pertinent Family History: none Now: No Immunizations: UTD Reviewed Nursing Documentation: PMH: Agreed; PSxH: Agreed Nursing Documentation-PM Past Medical History: No History, Except For Hx Hypertension: Yes Hx Diabetes: Yes Hx Cancer: No Hx Gastrointestinal Problems: No Hx Neurological Problems: No Hx Dizziness: Yes Review of Systems All Other Systems: negative except mentioned in HPI Physical Exam Vital Signs Date Time Temp Pulse Resp B/P (MAP) Pulse Ox O2 Delivery O2 Flow Rate FiO2 09/08/18 13:24 99.3 64 18 177/73 98 Room Air Sp02 EP Interpretation: reviewed, normal General Appearance: normal inspection, well appearing, no apparent distress, alert Head: normocephalic Eyes: bilateral eye normal inspection, bilateral eye PERRL ENT: normal ENT inspection, normal pharynx Neck: normal inspection, full range of motion, supple Respiratory: normal inspection, lungs clear, no rhonchi, no wheezing Cardiovascular #1: normal inspection, no edema, no gallop, no murmur, no rub Cardiovascular #2: 2+ femoral (R), 2+ femoral (L), 2+ dorsalis pedis (R), 2+ dorsalis pedis (L) Gastrointestinal: normal inspection, non tender, soft Rectal: deferred Genitourinary: deferred Musculoskeletal: digits/nails normal, non-tender, no calf tenderness, pelvis stable, decreased range of motion - left pelvic and left thigh, tender - left thigh muscle Neurologic: normal inspection, alert, oriented x3, responsive Psychiatric: normal inspection, judgement/insight normal Skin: normal inspection, normal color, no rash, warm/dry Lymphatic: normal inspection, no adenopathy Medical Decision Making PA Attestation All diagnoses and treatment plans were reviewed and discussed with supervising physician Lucia Diagnostic Impression: Primary Impression: Sciatica Additional Impressions: HTN (hypertension) Diabetes Medication refill ER Course 83-year-old female with significant history of hypertension and diabetes controlled with amlodipine, atenolol, metformin, here complaining of not taking her blood pressure medication or diabetes medication for whole month as she was traveling out of state. She denies chest pain, dizziness, vision changes, headache, nausea or vomiting. She further reports she was sitting in a class for 10 hours and was unable to elevate her leg. She does have chronic leg pain. Denies injury or fall. She complains of 10 out of 10 pain in left hip and left upper thigh muscle radiating all the way down to her left foot. Ice tingling and numbness. Has taken her tramadol with minimal improvement. Denies tenderness and feeling of heavy legs. Able to move her toes however with change of position her pain worsens. Patient reports the only way that she does not feel the pain is when she is supine. Walking, changing position from standing to sitting, sitting can increase her pain.denies bowel or bladder incontinence. Denies saddle paresthesia Ddx considered but are not limited to sciatica, hip compression, uncontrolled hypertension, uncontrolled diabetes, [place] Vital signs: are WNL, pt. is afebrile H&PE are most consistent with uncontrolled hypertension, uncontrolled diabetes, sciatica ORDERS: CBC, CMP, UA, Accu-Chek, EKG, CT of pelvic contrast, d-dimer ED INTERVENTIONS: None required at this time. DISCHARGE: At this time pt. is stable for d/c to home. Will provide printed patient care instructions, and any necessary prescriptions. Care plan and follow up instructions have been discussed with the patient prior to discharge. accu check: 99, D-dimber 0.72 EKG Diagnostic Results Rate: bradycardiac ST Segments: no acute changes ASA given to the pt in ED: No CT/MRI/US Diagnostic Results CT/MRI/US Diagnostic Results : Imaging Test Ordered: CT pelvis no contrast, LLE venous doppler Impression CT PELVIS Without Contrast: Comparison made to CT of the hips and pelvis dated 01/20/16 No evidence of acute fracture or dislocation in hips or pelvis. Mild degenerative narrowing in bilateral hip joints. Degenerative changes in bilateral SI joints. Incidental note of subcentimeter pneumocysts adjacent to bilateral SI joints. Degenerative disc space loss, vacuum disc phenomenon, and endplate osteophytes in the lower lumbar spine and lumbosacral junction. Stable appearance of a 2.3 x 1.2 cm sclerotic lesion in the right iliac bone, likely a bone island. Atherosclerotic calcifications throughout the abdominal aorta and its proximal branches. No abnormal dilatation. No acute intrapelvic findings. US VENOUS LEFT LOWER EXTREMITY: No evidence of DVT in the left lower extremity Last Vital Signs Date Time Temp Pulse Resp B/P (MAP) Pulse Ox O2 Delivery O2 Flow Rate FiO2 09/08/18 13:34 99.3 18 177/73 98 Room Air 09/08/18 13:24 64 Disposition: HOME, SELF-CARE Condition: Stable Scripts Acetaminophen* (TYLENOL EXTRA STRENGTH*) 500 Mg Tablet 500 MG ORAL Q6H PRN for Mild Pain/Temp > 100.5, #30 TAB 0 Refills Prov: Hipolito Slater 09/08/18 Metformin Hcl* (METFORMIN HCL*) 500 Mg Tablet 500 MG ORAL TWICE A DAY, #60 TAB Prov: Hipolito Slater 09/08/18 Amlodipine Besylate (Norvasc) 5 Mg Tablet 5 MG ORAL DAILY, #30 TAB Prov: Hipolito Slater 09/08/18 Atenolol* (TENORMIN*) 25 Mg Tablet 25 MG ORAL DAILY, #30 TAB Prov: Hipolito Slater 09/08/18 Patient Instructions: Diabetes Mellitus and Food, Hypertension, [id number], Sciatica, [id number] Additional Instructions: take medication as directed, follow with primary care provider for further assessment and refill of medication, avoid strenuous physical activity, Hipolito Slater Sep 08, 2018 14:01
[2018-09-08 14:20] LABS: HEMOGLOBIN 11.7 G/DL (12.0-16.0); MEAN CORPUSCULAR VOLUME 88 FL (80-99); PLATELET COUNT 150 K/UL (150-450); RED BLOOD COUNT 3.85 M/UL (4.20-5.40); RED CELL DISTRIBUTION WIDTH 12.6 % (11.6-14.8); WHITE BLOOD COUNT 3.1 K/UL (4.8-10.8)
[2018-09-08 14:32] LABS: ANION GAP 9 mmol/L (5-15); BLOOD UREA NITROGEN 12 mg/dL (7-18); CALCIUM 9.5 MG/DL (8.5-10.1); CARBON DIOXIDE 30 MMOL/L (21-32); CHLORIDE 104 MMOL/L (98-107); CREATININE 0.6 MG/DL (0.55-1.30); POTASSIUM 3.8 MMOL/L (3.5-5.1); SODIUM 143 MMOL/L (136-145)
[2018-09-08 14:36] LABS: ALANINE AMINOTRANSFERASE 18 U/L (12-78); ALBUMIN 4.1 G/DL (3.4-5.0); ALKALINE PHOSPHATASE 65 U/L (46-116); ASPARTATE AMINO TRANSFERASE 17 U/L (15-37); BILIRUBIN,TOTAL 0.4 MG/DL (0.2-1.0)
[2018-09-08 14:43] LABS: APPEARANCE,URINE CLEAR; BILIRUBIN, URINE NEGATIVE (NEGATIVE); COLOR,URINE PALE YELLOW; GLUCOSE, URINE (UA) NEGATIVE (NEGATIVE); KETONES,URINE NEGATIVE (NEGATIVE); LEUKOCYTE ESTERASE ,URINE 2+ (NEGATIVE); NITRITE,URINE NEGATIVE (NEGATIVE); PH,URINE 8 (4.5-8.0); PROTEIN,URINE NEGATIVE (NEGATIVE); UROBILINOGEN,URINE NORMAL MG/DL (0.0-1.0)
[2018-09-08] MEDS ORDERED: TYLENOL EXTRA500 MG ORAL (16:35)
[2018-09-08] MEDS ORDERED: NORVASC5 MG ORAL (16:35)
[2018-09-08] MEDS ORDERED: METFORMIN HCL500 M1 ORAL (16:35)
[2018-09-08] MEDS ORDERED: ATENOLOL25 MG ORAL (16:35)
[2018-09-08 16:45] VITALS: BP 161/76
--- NOTE | 2018-09-09 08:48 | Diagnostic Imaging Report ---
Indication: 10 out of 10 pain in the left hip Technique: Noncontrast spiral acquisitions obtained through the pelvis. Multiplanar reconstructions generated. Total dose length product 492.26 mGycm. CTDIvol(s) 14.93 mGy. Dose reduction achieved using automated exposure control Comparison: 01/20/2016 Findings: There are degenerative changes of the lumbosacral junction as well as of the bilateral sacroiliac joints. The hip joint spaces are preserved. A lucent lesion is seen in the left posterior acetabulum. This measures 17 mm in diameter. 2.4 cm diameter osteosclerotic lesion is seen in the right iliac wing. Smaller sclerotic lesions are seen in the left side of the sacrum and in the right ischium. All of these findings are evident on the previous exam. No acute fractures. No dislocations. The pelvic viscera are unremarkable. Impression: No evidence of acute bony trauma Multiple osteosclerotic lesions, unchanged from 01/12/2016 and therefore presumably representing benign bone islands Lucency in the posterior left acetabulum, unchanged and most likely an area of physiologic rarefaction related to osteoporotic change Degenerative changes, as described This agrees with the preliminary interpretation provided overnight by [facility]. The CT scanner at [facility] is accredited by the [employer] and the scans are performed using protocols designed to limit radiation exposure to as low as reasonably achievable to attain images of sufficient resolution adequate for diagnostic evaluation.
--- NOTE | 2018-09-09 09:23 | Diagnostic Imaging Report ---
Indication: Left lower extremity pain Technique: Grayscale duplex images of the left lower extremity veins Comparison: none Findings: Grayscale and duplex images demonstrate no evidence of intraluminal thrombus. Normal phasic Doppler waveforms, demonstrating no evidence of valvular insufficiency. Normal compressibility of all deep veins. Impression: Negative for deep venous thrombosis This agrees with the preliminary interpretation provided overnight by [facility].
== END 2018-09-08 16:45 | disposition home or self-care (01) ==
LOC: EMR 14:22
DX: M54.32 Sciatica, left side (principal); E11.9 Type 2 diabetes mellitus without complications; I10 Essential (primary) hypertension; M79.605 Pain in left leg; Z76.0 Encounter for issue of repeat prescription
CPT/HCPCS: 36415; 72192; 80053; 81001; 82962; 85007; 85025; 85379; 93005; 93971; 99284

== ENCOUNTER 2019-03-01 13:52 | Inpatient (IN) | payer MEDICARE, MEDICAID ==
[~2019-03-01] VITALS: Ht 152.4 cm; Wt 66.5 kg
[~2019-03-01 13:52] MED LIST changes: +ASPIRIN81 MG ORAL; +ATENOLOL25 MG ORAL; +BANOPHEN50 MG PO; +NORVASC5 MG ORAL; +TYLENOL EXTRA500 MG ORAL
[2019-03-01 14:00] VITALS: BP 129/60
[2019-03-01] MEDS ORDERED: UNOBMED (14:00)
--- NOTE | 2019-03-01 14:00 | NUR ---
ED Nurse Note: pt walked in to ER c/o dizziness and weakness. pt denied pain. pt aao x4 and ambulatory with a cane. skin clean and intact. calm and cooperative. pt denied N/V/D. per pt, she has had vertigo in the past. pt stated "the world is spinning."
[2019-03-01] MEDS ORDERED: Meclizine 25mg tab ORAL ONE (14:30)
--- NOTE | 2019-03-01 14:34 | Emergency Room Report ---
History of Present Illness General Chief Complaint: Dizziness Source: Patient, Medical Record Present Illness HPI Patient is an 83-year-old female presents after increased dizziness. Patient reports having increased nausea and vomiting worsening with head movements. She is reports having similar episodes in the past. She reports having some increased nausea as well as vomiting without any blood. Patient states that she had an episode similarly in the past but had run out of the medication that she was using. She reports having worsening dizziness after moving her head. Patient reports having some epigastric discomfort. She denies any fever. Allergies: Coded Allergies: No Known Allergies (Verified Allergy, Unknown, 06/05/11) Patient History Reviewed Nursing Documentation: PMH: Agreed; PSxH: Agreed Nursing Documentation-PMH Past Medical History: No History, Except For Hx Hypertension: Yes Hx Diabetes: Yes Hx Cancer: No Hx Gastrointestinal Problems: No Hx Neurological Problems: No Hx Dizziness: Yes Review of Systems All Other Systems: negative except mentioned in HPI Physical Exam Vital Signs Date Time Temp Pulse Resp B/P (MAP) Pulse Ox O2 Delivery O2 Flow Rate FiO2 03/01/19 13:58 98.2 87 18 134/52 (79) 96 Room Air Sp02 EP Interpretation: reviewed, normal General Appearance: normal inspection, well appearing, no apparent distress, alert, GCS 15 Head: atraumatic ENT: normal ENT inspection, hearing grossly normal, normal voice Neck: normal inspection, full range of motion, supple, no bony tend Respiratory: normal inspection, lungs clear, normal breath sounds, no respiratory distress, no retraction, no wheezing Cardiovascular #1: regular rate, rhythm, no edema Gastrointestinal: normal inspection, normal bowel sounds, non tender, soft, no guarding, no hernia Genitourinary: no CVA tenderness Musculoskeletal: normal inspection, back normal, normal range of motion Neurologic: normal inspection, alert, responsive, speech normal Psychiatric: normal inspection, judgement/insight normal, mood/affect normal Skin: normal inspection, normal color, no rash Medical Decision Making Diagnostic Impression: Primary Impression: Sinusitis, acute Additional Impressions: Vertigo, benign positional Bilateral arm weakness ER Course Patient presented for increased dizziness. Differential diagnosis include was not limited to arrhythmia, benign positional vertigo, myocardial infarction, among others. Because of complexity of patient's case laboratory testing and imaging studies were ordered. CT imaging of the head read by radiology showed partial sinus opacification. Patient was noted to have no evidence of acute CVA or intracranial hemorrhage. EKG interpreted by me showed sinus bradycardia without acute ST or T wave changes. Patient was noted to have bilateral arm paresthesias. She does not have any evidence of acute CVA on physical exam. Patient was noted to have persistent paresthesias. Dr. Cj prieto was contacted for inpatient management due to primary care physician Labs Test 03/01/19 15:00 03/01/19 17:00 White Blood Count 3.7 K/UL (4.8-10.8) Red Blood Count 3.59 M/UL (4.20-5.40) Hemoglobin 11.1 G/DL (12.0-16.0) Hematocrit 33.2 % (37.0-47.0) Mean Corpuscular Volume 93 FL (80-99) Mean Corpuscular Hemoglobin 30.9 PG (27.0-31.0) Mean Corpuscular Hemoglobin Concent 33.4 G/DL (32.0-36.0) Red Cell Distribution Width 13.0 % (11.6-14.8) Platelet Count 130 K/UL (150-450) Mean Platelet Volume 8.8 FL (6.5-10.1) Neutrophils (%) (Auto) 38.4 % (45.0-75.0) Lymphocytes (%) (Auto) 41.2 % (20.0-45.0) Monocytes (%) (Auto) 17.3 % (1.0-10.0) Eosinophils (%) (Auto) 0.4 % (0.0-3.0) Basophils (%) (Auto) 2.8 % (0.0-2.0) Sodium Level 139 MMOL/L (136-145) Potassium Level 4.7 MMOL/L (3.5-5.1) Chloride Level 104 MMOL/L (98-107) Carbon Dioxide Level 26 MMOL/L (21-32) Anion Gap 9 mmol/L (5-15) Blood Urea Nitrogen 20 mg/dL (7-18) Creatinine 0.7 MG/DL (0.55-1.30) Estimat Glomerular Filtration Rate mL/min (>60) Glucose Level 103 MG/DL (74-106) Calcium Level 9.2 MG/DL (8.5-10.1) Total Bilirubin 0.4 MG/DL (0.2-1.0) Aspartate Amino Transf (AST/SGOT) 30 U/L (15-37) Alanine Aminotransferase (ALT/SGPT) 20 U/L (12-78) Alkaline Phosphatase 53 U/L (46-116) Troponin I 0.000 ng/mL (0.000-0.056) Total Protein 7.3 G/DL (6.4-8.2) Albumin 3.9 G/DL (3.4-5.0) Globulin 3.4 g/dL Albumin/Globulin Ratio 1.1 (1.0-2.7) Lipase 98 U/L (73-393) Thyroid Stimulating Hormone (TSH) 1.833 uiU/mL (0.358-3.740) Last Vital Signs Date Time Temp Pulse Resp B/P (MAP) Pulse Ox O2 Delivery O2 Flow Rate FiO2 03/01/19 13:58 98.2 87 18 134/52 (79) 96 Room Air Status: improved Disposition: ADMITTED INPATIENT Condition: Stable Magdaleno Barnes MD Mar 01, 2019 14:34
--- NOTE | 2019-03-01 14:45 | NUR ---
ED Nurse Note: pt went down to CT scan in stable condition.
--- NOTE | 2019-03-01 15:01 | NUR ---
ED Nurse Note: pt came back from CT scan in stable condition.
[2019-03-01 15:13] LABS: BASOPHILS % (AUTO) 2.8 % (0.0-2.0); EOSINOPHILS % (AUTO) 0.4 % (0.0-3.0); HEMATOCRIT 33.2 % (37.0-47.0); HEMOGLOBIN 11.1 G/DL (12.0-16.0); LYMPHOCYTES % (AUTO) 41.2 % (20.0-45.0); MEAN CORPUSCULAR VOLUME 93 FL (80-99); MONOCYTES % (AUTO) 17.3 % (1.0-10.0); NEUTROPHILS % (AUTO) 38.4 % (45.0-75.0); PLATELET COUNT 130 K/UL (150-450); RED BLOOD COUNT 3.59 M/UL (4.20-5.40); WHITE BLOOD COUNT 3.7 K/UL (4.8-10.8)
[2019-03-01 15:41] LABS: ANION GAP 9 mmol/L (5-15); BLOOD UREA NITROGEN 20 mg/dL (7-18); CALCIUM 9.2 MG/DL (8.5-10.1); CARBON DIOXIDE 26 MMOL/L (21-32); CHLORIDE 104 MMOL/L (98-107); CREATININE 0.7 MG/DL (0.55-1.30); POTASSIUM 4.7 MMOL/L (3.5-5.1); SODIUM 139 MMOL/L (136-145)
--- NOTE | 2019-03-01 15:43 | Diagnostic Imaging Report ---
History: DIZZY Exam: CT HEAD Without Contrast Technique more: CTDI is 70.38 mGy and DLP is 1333 mGy-cm. Technique more: One or more of the following dose reduction techniques were used: automated exposure control, adjustment of the mA and/or kV according to patient size, use of iterative reconstruction technique. Comparison: None available FINDINGS: No intracranial hemorrhage, mass effect or CT evidence of acute infarct. The ventricles are within limits and midline. Mild patchy white matter low attenuation may represent chronic small vessel ischemic change. Partially imaged right maxillary sinus incompletely filled by air-fluid level with appearance of some inspissated partially imaged material. The mastoids and orbits appear within limits. Bilateral parasellar carotid heavy calcification. IMPRESSION: No intracranial hemorrhage, mass effect or CT evidence of acute infarct. May follow-up with nonemergent MRI as warranted. Air-fluid level near completely opacifying partially imaged right maxillary sinus, correlate for possible acute on chronic sinusitis.
[2019-03-01 15:50] LABS: ALANINE AMINOTRANSFERASE 20 U/L (12-78); ALBUMIN 3.9 G/DL (3.4-5.0); ALBUMIN/GLOBULIN RATIO 1.1 (1.0-2.7); ALKALINE PHOSPHATASE 53 U/L (46-116); ASPARTATE AMINO TRANSFERASE 30 U/L (15-37); BILIRUBIN,TOTAL 0.4 MG/DL (0.2-1.0)
[2019-03-01 16:00] VITALS: BP 122/71
[2019-03-01 17:49] VITALS: BP 104/72
[2019-03-01 17:56] LABS: APPEARANCE,URINE CLEAR; BILIRUBIN, URINE NEGATIVE (NEGATIVE); GLUCOSE, URINE (UA) NEGATIVE (NEGATIVE); KETONES,URINE NEGATIVE (NEGATIVE); LEUKOCYTE ESTERASE ,URINE 3+ (NEGATIVE); NITRITE,URINE NEGATIVE (NEGATIVE); PH,URINE 6 (4.5-8.0); PROTEIN,URINE NEGATIVE (NEGATIVE); UROBILINOGEN,URINE 1 MG/DL (0.0-1.0)
[2019-03-01 17:58] LABS: COLOR,URINE YELLOW
--- NOTE | 2019-03-01 18:46 | NUR ---
ED Nurse Note: Report given to Ziggy. Doctor to doctor report not done. will transfer pt after doctor report.
--- NOTE | 2019-03-01 19:05 | NUR ---
ED Nurse Note: per ERMD, pt can be transferred now.
--- NOTE | 2019-03-01 19:15 | NUR ---
ED Nurse Note: pt left unit with 2 RNs in stable condition.
--- NOTE | 2019-03-01 19:45 | NUR ---
NURSE NOTES: Received patient from Al Chavez RN. Patient on room air with no signs of distress. Patient is talking and sitting up in bed. Bed is at its lowest portion and call light is in reach. Will continue to monitor.
[2019-03-01 20:00] VITALS: BP 114/59
[2019-03-01] MEDS ORDERED: LORazepam Inj 2mg/ml 1ml IV PRN (20:00)
[2019-03-01] MEDS ORDERED: Morphine Sulfate 2mg/ml Inj(IV/IM USE ONLY) IVP PRN (20:00)
[2019-03-01] MEDS ORDERED: Miralax 17gm pkt ORAL PRN (20:00)
[2019-03-01] MEDS: LORazepam Inj 2mg/ml 1ml IV SCH (20:40)
[2019-03-01] MEDS: Heparin 5000 units/ml inj SUBQ SCH (20:41)
[2019-03-01] MEDS: NovoLOG Insulin Flexpen SUBQ SCH (21:37)
[2019-03-02] MEDS: LORazepam Inj 2mg/ml 1ml IV SCH ×6 (00:19→20:00)
--- NOTE | 2019-03-02 04:30 | NUR ---
NURSE NOTES: Lorazepam late because the medication refrigerator is empty. [employer] notified and waiting for reply.
[2019-03-02] MEDS: NovoLOG Insulin Flexpen SUBQ SCH ×4 (06:22→21:00)
[2019-03-02 07:13] LABS: HEMATOCRIT 32.1 % (37.0-47.0); HEMOGLOBIN 10.8 G/DL (12.0-16.0); MEAN CORPUSCULAR VOLUME 93 FL (80-99); PLATELET COUNT 132 K/UL (150-450); RED BLOOD COUNT 3.46 M/UL (4.20-5.40); RED CELL DISTRIBUTION WIDTH 13.2 % (11.6-14.8)
--- NOTE | 2019-03-02 07:32 | NUR ---
HAND-OFF: Report given to Ivory SULLIVAN.
[2019-03-02 07:35] LABS: ALANINE AMINOTRANSFERASE 13 U/L (12-78); ALBUMIN 3.5 G/DL (3.4-5.0); ALBUMIN/GLOBULIN RATIO 1.1 (1.0-2.7); ALKALINE PHOSPHATASE 61 U/L (46-116); ANION GAP 6 mmol/L (5-15); ASPARTATE AMINO TRANSFERASE 12 U/L (15-37); BILIRUBIN,TOTAL 0.2 MG/DL (0.2-1.0); BLOOD UREA NITROGEN 19 mg/dL (7-18); CARBON DIOXIDE 30 MMOL/L (21-32); CHLORIDE 106 MMOL/L (98-107); CHOLESTEROL 154 MG/DL (< 200); CREATININE 0.6 MG/DL (0.55-1.30); HDL CHOLESTEROL 69 MG/DL (40-60); POTASSIUM 3.6 MMOL/L (3.5-5.1); SODIUM 142 MMOL/L (136-145); TRIGLYCERIDES 64 MG/DL (30-150)
--- NOTE | 2019-03-02 07:59 | NUR ---
NURSE NOTES: Patient is alert and oriented. No reports of discomfort. Patient is on room air. Patient assisted with breakfast set up. Will continue to monitor.
[2019-03-02 08:00] VITALS: BP_SYST 129; BP_SYST 137; BP_DIAS 59; BP_DIAS 60
[2019-03-02] MEDS: Heparin 5000 units/ml inj SUBQ SCH ×2 (09:00→20:45)
[2019-03-02] MEDS: Atenolol 25mg tab ORAL SCH (09:16)
[2019-03-02 12:00] VITALS: BP 129/59
[2019-03-02] MEDS: Aspirin EC 81mg tab ORAL SCH (13:23)
--- NOTE | 2019-03-02 14:25 | Consultation ---
History of Present Illness General Date patient seen: Mar 02, 2019 Chief Complaint: Dizziness Present Illness HPI 83-year-old female with PMHx of HTN, DM, presented to ER with CC of dizziness, nausea and vomiting worsening with head movements. Patient states that she had an episode similarly in the past but had run out of the medication that she was using. She reports having worsening dizziness after moving her head. Patient reports having some epigastric discomfort. She is admitted to telemetry for further evaluation. Allergies: Coded Allergies: No Known Allergies (Verified Allergy, Unknown, 06/05/11) Medication History Scheduled Al Hydroxide/mg Hydroxide (Mag-Al Plus Suspension), 30 ML ORAL Q6HR, (Reported) Albuterol Sulfate* (Albuterol Sulfate Mdi*), 2 PUFF INH Q6H Amlodipine Besylate (Norvasc), 5 MG ORAL DAILY Amlodipine Besylate* (Amlodipine Besylate*), 5 MG ORAL DAILY Aspirin* (Aspirin*), 81 MG ORAL DAILY, (Reported) Atenolol (Tenormin), 25 MG ORAL DAILY, (Reported) Atenolol* (Tenormin*), 25 MG ORAL DAILY Atorvastatin Calcium* (Lipitor*), 10 MG ORAL BEDTIME Chlorpheniramine Maleate (Allergy), 4 MG PO EVERY 6 HOURS Fluticasone Propionate (Fluticasone Propionate), 1 SPRAY NASAL TWICE A DAY Heparin Sod (Porcine) (Heparin Sodium*), 5,000 UNITS SUBQ EVERY 12 HOURS, ( Reported) Ibuprofen* (Motrin*), 400 MG ORAL THREE TIMES A DAY Insulin Aspart (Novolog), 100 UNIT SQ AC+HS, (Reported) Levofloxacin* (Levaquin*), 250 MG ORAL DAILY, (Reported) Lorazepam (Lorazepam), 0.5 MG IV Q4H, (Reported) Metformin Hcl* (Metformin Hcl*), 500 MG ORAL DAILY, (Reported) Metformin Hcl* (Metformin Hcl*), 500 MG ORAL TWICE A DAY Metformin Hcl* (Metformin Hcl*), 500 MG ORAL TWICE A DAY Polyethylene Glycol 3350* (Miralax*), 17 GM ORAL DAILY, (Reported) Promethazine HCl/Codeine (Prometh-Codein 6.25-10 mg/5 ml), 5 ML PO HS Simvastatin (Zocor), 40 MG ORAL BEDTIME, (Reported) Simvastatin (Zocor), 40 MG ORAL BEDTIME Tramadol Hcl* (Ultram*), 50 MG ORAL DAILY, (Reported) Zolpidem Tartrate* (Ambien*), 5 MG ORAL BEDTIME, (Reported) Scheduled PRN Acetaminophen (Acetaminophen), 650 MG ORAL Q4HR PRN for Prn Headache/Temp > 101, (Reported) Acetaminophen* (Tylenol Extra Strength*), 500 MG ORAL Q6H PRN for Mild Pain/ Temp > 100.5 Al Hydroxide/mg Hydroxide (Mag-Al Liquid), 30 ML ORAL Q6HR PRN for prn for dyspepsia, (Reported) Guaifenesin/Dextromethorphan (Guaifenesin Dm Syrup), 5 ML PO Q8HR PRN for For Cough Lorazepam (Lorazepam), 0.5 MG IV Q4H PRN for prn for anxiety, (Reported) Morphine Sulfate* (Morphine Sulfate*), 1 MG IV PRN PRN for q4h for pain, ( Reported) Ondansetron (Zofran), 4 MG ORAL Q6H PRN for Nausea & Vomiting, (Reported) Miscellaneous Medications Calcium Carbonate (Calcium), 1 TAB PO, (Reported) Diphenhydramine Hcl (Banophen), 50 MG PO, (Reported) Unable to Obtain Medications (Unable To Obtain Meds), (Reported) [Bp Med], (Reported) Patient History Healthcare decision maker Emma Arellano Resuscitation status Full Code Advanced Directive on File Past Medical/Surgical History Past Medical/Surgical History: (1) Vertigo, benign positional (2) HTN (hypertension) (3) Diabetes mellitus (4) Unsteady gait Review of Systems All Other Systems: negative except mentioned in HPI Physical Exam General Appearance: WD/WN Lines, tubes and drains: peripheral HEENT: normocephalic, atraumatic Neck: non-tender, normal alignment, limited range of motion Respiratory/Chest: chest wall non-tender, lungs clear Breasts: no masses Abdomen: normal bowel sounds Genitourinary/Rectal: normal genital exam Extremities: normal range of motion 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 grossly normal Last 24 Hour Vital Signs Date Time Temp Pulse Resp B/P (MAP) Pulse Ox O2 Delivery O2 Flow Rate FiO2 03/02/19 12:00 98.4 60 18 129/59 (82) 99 03/02/19 09:16 71 137/60 03/02/19 09:16 71 137/60 03/02/19 08:30 Room Air 03/02/19 08:00 72 03/02/19 08:00 98.8 71 18 137/60 (85) 95 03/02/19 04:00 59 03/01/19 20:00 Room Air 03/01/19 20:00 98.8 67 18 114/59 (77) 98 03/01/19 19:15 97.8 73 18 122/84 98 Room Air 03/01/19 17:49 97.6 85 18 104/72 96 Room Air 03/01/19 16:00 98.0 82 18 122/71 96 Room Air Intake and Output 03/01/19 03/02/19 19:00 07:00 Intake Total 1250 ml 0 ml Balance 1250 ml 0 ml Intake Oral 250 ml 0 ml IV Total 1000 ml # Voids 1 1 Laboratory Tests Test 03/01/19 15:00 03/01/19 17:00 03/02/19 05:31 White Blood Count 3.7 K/UL (4.8-10.8) L 3.0 K/UL (4.8-10.8) L Red Blood Count 3.59 M/UL (4.20-5.40) L 3.46 M/UL (4.20-5.40) L Hemoglobin 11.1 G/DL (12.0-16.0) L 10.8 G/DL (12.0-16.0) L Hematocrit 33.2 % (37.0-47.0) L 32.1 % (37.0-47.0) L Mean Corpuscular Volume 93 FL (80-99) 93 FL (80-99) Mean Corpuscular Hemoglobin 30.9 PG (27.0-31.0) 31.1 PG (27.0-31.0) H Mean Corpuscular Hemoglobin Concent 33.4 G/DL (32.0-36.0) 33.6 G/DL (32.0-36.0) Red Cell Distribution Width 13.0 % (11.6-14.8) 13.2 % (11.6-14.8) Platelet Count 130 K/UL (150-450) L 132 K/UL (150-450) L Mean Platelet Volume 8.8 FL (6.5-10.1) 9.1 FL (6.5-10.1) Neutrophils (%) (Auto) 38.4 % (45.0-75.0) L % (45.0-75.0) Lymphocytes (%) (Auto) 41.2 % (20.0-45.0) % (20.0-45.0) Monocytes (%) (Auto) 17.3 % (1.0-10.0) H % (1.0-10.0) Eosinophils (%) (Auto) 0.4 % (0.0-3.0) % (0.0-3.0) Basophils (%) (Auto) 2.8 % (0.0-2.0) H % (0.0-2.0) Sodium Level 139 MMOL/L (136-145) 142 MMOL/L (136-145) Potassium Level 4.7 MMOL/L (3.5-5.1) 3.6 MMOL/L (3.5-5.1) Chloride Level 104 MMOL/L (98-107) 106 MMOL/L (98-107) Carbon Dioxide Level 26 MMOL/L (21-32) 30 MMOL/L (21-32) Anion Gap 9 mmol/L (5-15) 6 mmol/L (5-15) Blood Urea Nitrogen 20 mg/dL (7-18) H 19 mg/dL (7-18) H Creatinine 0.7 MG/DL (0.55-1.30) 0.6 MG/DL (0.55-1.30) Estimat Glomerular Filtration Rate mL/min (>60) mL/min (>60) Glucose Level 103 MG/DL (74-106) 95 MG/DL (74-106) Calcium Level 9.2 MG/DL (8.5-10.1) 9.0 MG/DL (8.5-10.1) Total Bilirubin 0.4 MG/DL (0.2-1.0) 0.2 MG/DL (0.2-1.0) Aspartate Amino Transf (AST/SGOT) 30 U/L (15-37) 12 U/L (15-37) L Alanine Aminotransferase (ALT/SGPT) 20 U/L (12-78) 13 U/L (12-78) Alkaline Phosphatase 53 U/L (46-116) 61 U/L (46-116) Troponin I 0.000 ng/mL (0.000-0.056) 0.000 ng/mL (0.000-0.056) Total Protein 7.3 G/DL (6.4-8.2) 6.7 G/DL (6.4-8.2) Albumin 3.9 G/DL (3.4-5.0) 3.5 G/DL (3.4-5.0) Globulin 3.4 g/dL 3.2 g/dL Albumin/Globulin Ratio 1.1 (1.0-2.7) 1.1 (1.0-2.7) Lipase 98 U/L (73-393) Thyroid Stimulating Hormone (TSH) 1.833 uiU/mL (0.358-3.740) Urine Color Yellow Urine Appearance Clear Urine pH 6 (4.5-8.0) Urine Specific [place] 1.015 (1.005-1.035) Urine Protein Negative (NEGATIVE) Urine Glucose (UA) Negative (NEGATIVE) Urine Ketones Negative (NEGATIVE) Urine Blood Negative (NEGATIVE) Urine Nitrite Negative (NEGATIVE) Urine Bilirubin Negative (NEGATIVE) Urine Urobilinogen 1 MG/DL (0.0-1.0) H Urine Leukocyte Esterase 3+ (NEGATIVE) H Urine RBC 0-2 /HPF (0 - 2) Urine WBC 2-4 /HPF (0 - 2) Urine Squamous Epithelial Cells Few /LPF (NONE/OCC) Urine Bacteria Occasional /HPF (NONE) Differential Total Cells Counted 100 Neutrophils % (Manual) 27 % (45-75) L Lymphocytes % (Manual) 57 % (20-45) H Monocytes % (Manual) 16 % (1-10) H Eosinophils % (Manual) 0 % (0-3) Basophils % (Manual) 0 % (0-2) Band Neutrophils 0 % (0-8) Platelet Estimate Decreased L Platelet Morphology Normal Red Blood Cell Morphology Normal Triglycerides Level 64 MG/DL (30-150) Cholesterol Level 154 MG/DL (< 200) LDL Cholesterol 69 mg/dL (<100) HDL Cholesterol 69 MG/DL (40-60) H Cholesterol/HDL Ratio 2.2 (3.3-4.4) L Height (Feet): 5 Weight (Pounds): 147 Medications Current Medications Medications (Trade) Dose Ordered Sig/Elva Route PRN Reason Start Time Stop Time Status Last Admin Dose Admin Acetaminophen (Tylenol) 650 mg Q4H PRN ORAL fever 03/01/19 20:00 03/31/19 19:59 Amlodipine Besylate (Norvasc) 5 mg DAILY ORAL 03/02/19 09:00 04/01/19 08:59 03/02/19 09:16 Aspirin (Ecotrin) 81 mg DAILY ORAL 03/02/19 13:00 04/01/19 12:59 03/02/19 13:23 Atenolol (Tenormin) 25 mg DAILY ORAL 03/02/19 09:00 04/01/19 08:59 03/02/19 09:16 Atorvastatin Calcium (Lipitor) 20 mg BEDTIME ORAL 03/02/19 21:00 04/01/19 20:59 Dextrose (Dextrose 50%) 25 ml Q30M PRN IV Hypoglycemia 03/01/19 20:00 03/31/19 19:59 Dextrose (Dextrose 50%) 50 ml Q30M PRN IV Hypoglycemia 03/01/19 20:00 03/31/19 19:59 Heparin Sodium (Porcine) (Heparin 5000 units/ml) 5,000 units EVERY 12 HOURS SUBQ 03/01/19 21:00 03/31/19 20:59 03/01/19 20:41 Insulin Aspart (NovoLOG) BEFORE MEALS AND HS SUBQ 03/01/19 21:00 03/31/19 20:59 03/02/19 12:06 Lorazepam (Ativan 2mg/ml 1ml) 0.5 mg Q4H IV 03/01/19 20:00 03/08/19 19:59 03/02/19 12:05 Lorazepam (Ativan 2mg/ml 1ml) 0.5 mg Q4H PRN IV For Anxiety 03/01/19 20:00 03/08/19 19:59 Morphine Sulfate (Morphine Sulfate) 1 mg Q4H PRN IVP For Pain 03/01/19 20:00 03/08/19 19:59 Ondansetron HCl (Zofran) 4 mg Q6H PRN IVP Nausea & Vomiting 03/01/19 20:00 03/31/19 19:59 Polyethylene Glycol (Miralax) 17 gm HSPRN PRN ORAL Constipation 03/01/19 20:00 03/31/19 19:59 Zolpidem Tartrate (Ambien) 5 mg HSPRN PRN ORAL Insomnia 03/01/19 20:00 03/08/19 19:59 Assessment/Plan Problem List: (1) Vertigo, benign positional ICD Codes: H81.10 - Benign paroxysmal vertigo, unspecified ear SNOMED: 072762786 (2) Acute encephalopathy ICD Codes: G93.40 - Encephalopathy, unspecified SNOMED: 87045333, 964555226 (3) Unsteady gait ICD Codes: R26.81 - Unsteadiness on feet SNOMED: 12262051, 821669030 (4) Diabetes mellitus ICD Codes: E11.9 - Type 2 diabetes mellitus without complications SNOMED: 33694027 (5) HTN (hypertension) ICD Codes: I10 - Essential (primary) hypertension SNOMED: 51211595 Assessment/Plan: telemetry monitoring rule out arrhythmias symptomatic treatment neurology evaluation sliding scale diabetic diet dvt prophylaxis. Katie Neal MD Mar 02, 2019 14:24
[2019-03-02 16:00] VITALS: BP 129/62
--- NOTE | 2019-03-02 16:43 | Consultation ---
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 Patient states that she had an episode similarly in the past but had run out of the medication that she was using. She reports having worsening dizziness after moving her head. Neurology is called to evaluate her symptoms of dizziness and bilateral upper extremity (hand numbness). Allergies: Coded Allergies: No Known Allergies (Verified Allergy, Unknown, 06/05/11) Medication History Scheduled Al Hydroxide/mg Hydroxide (Mag-Al Plus Suspension), 30 ML ORAL Q6HR, (Reported) Albuterol Sulfate* (Albuterol Sulfate Mdi*), 2 PUFF INH Q6H Amlodipine Besylate (Norvasc), 5 MG ORAL DAILY Amlodipine Besylate* (Amlodipine Besylate*), 5 MG ORAL DAILY Aspirin* (Aspirin*), 81 MG ORAL DAILY, (Reported) Atenolol (Tenormin), 25 MG ORAL DAILY, (Reported) Atenolol* (Tenormin*), 25 MG ORAL DAILY Atorvastatin Calcium* (Lipitor*), 10 MG ORAL BEDTIME Chlorpheniramine Maleate (Allergy), 4 MG PO EVERY 6 HOURS Fluticasone Propionate (Fluticasone Propionate), 1 SPRAY NASAL TWICE A DAY Heparin Sod (Porcine) (Heparin Sodium*), 5,000 UNITS SUBQ EVERY 12 HOURS, ( Reported) Ibuprofen* (Motrin*), 400 MG ORAL THREE TIMES A DAY Insulin Aspart (Novolog), 100 UNIT SQ AC+HS, (Reported) Levofloxacin* (Levaquin*), 250 MG ORAL DAILY, (Reported) Lorazepam (Lorazepam), 0.5 MG IV Q4H, (Reported) Metformin Hcl* (Metformin Hcl*), 500 MG ORAL DAILY, (Reported) Metformin Hcl* (Metformin Hcl*), 500 MG ORAL TWICE A DAY Metformin Hcl* (Metformin Hcl*), 500 MG ORAL TWICE A DAY Polyethylene Glycol 3350* (Miralax*), 17 GM ORAL DAILY, (Reported) Promethazine HCl/Codeine (Prometh-Codein 6.25-10 mg/5 ml), 5 ML PO HS Simvastatin (Zocor), 40 MG ORAL BEDTIME, (Reported) Simvastatin (Zocor), 40 MG ORAL BEDTIME Tramadol Hcl* (Ultram*), 50 MG ORAL DAILY, (Reported) Zolpidem Tartrate* (Ambien*), 5 MG ORAL BEDTIME, (Reported) Scheduled PRN Acetaminophen (Acetaminophen), 650 MG ORAL Q4HR PRN for Prn Headache/Temp > 101, (Reported) Acetaminophen* (Tylenol Extra Strength*), 500 MG ORAL Q6H PRN for Mild Pain/ Temp > 100.5 Al Hydroxide/mg Hydroxide (Mag-Al Liquid), 30 ML ORAL Q6HR PRN for prn for dyspepsia, (Reported) Guaifenesin/Dextromethorphan (Guaifenesin Dm Syrup), 5 ML PO Q8HR PRN for For Cough Lorazepam (Lorazepam), 0.5 MG IV Q4H PRN for prn for anxiety, (Reported) Morphine Sulfate* (Morphine Sulfate*), 1 MG IV PRN PRN for q4h for pain, ( Reported) Ondansetron (Zofran), 4 MG ORAL Q6H PRN for Nausea & Vomiting, (Reported) Miscellaneous Medications Calcium Carbonate (Calcium), 1 TAB PO, (Reported) Diphenhydramine Hcl (Banophen), 50 MG PO, (Reported) Unable to Obtain Medications (Unable To Obtain Meds), (Reported) [Bp Med], (Reported) Patient History Limited by: medical condition History Provided By: Patient, Family Member, Medical Record Healthcare decision maker Emma Arellano Resuscitation status Full Code Advanced Directive on File Past Medical/Surgical History Past Medical/Surgical History: (1) Hyperlipidemia (2) History of CVA (cerebrovascular accident) without residual deficits Physical Exam General Appearance: WD/WN, alert, moderate distress, alert oriented x3 Lines, tubes and drains: peripheral HEENT: normocephalic, atraumatic, anicteric, mucous membranes moist, PERRL, EOMI, pharynx normal, supple, no JVD Neck: normal alignment, muscle spasm Respiratory/Chest: normal breath sounds, no respiratory distress, no accessory muscle use Cardiovascular/Chest: normal peripheral pulses, no JVD Extremities: non-tender, normal inspection, no calf tenderness, normal capillary refill, non-pitting, no edema, no cyanosis Skin Exam: normal pigmentation, warm/dry, no diaphoresis Neurologic: alert, oriented x 3, responsive, normal mood/affect, motor weakness , sensory deficit, pronator drift Musculoskeletal: normal muscle bulk, no effusion Physical Exam Narrative Bilateral upper extremities with hand numbness, clumsiness No nystagmus on exam, Jacques Hallpike negative Romberg positive. LUE weakness 4/5, dysmetria Last 24 Hour Vital Signs Date Time Temp Pulse Resp B/P (MAP) Pulse Ox O2 Delivery O2 Flow Rate FiO2 03/02/19 16:00 99.1 62 18 129/62 (84) 97 03/02/19 12:00 62 03/02/19 12:00 98.4 60 18 129/59 (82) 99 03/02/19 09:16 71 137/60 03/02/19 09:16 71 137/60 03/02/19 08:30 Room Air 03/02/19 08:00 72 03/02/19 08:00 98.8 71 18 137/60 (85) 95 03/02/19 04:00 59 03/01/19 20:00 Room Air 03/01/19 20:00 98.8 67 18 114/59 (77) 98 03/01/19 19:15 97.8 73 18 122/84 98 Room Air 03/01/19 17:49 97.6 85 18 104/72 96 Room Air Intake and Output 03/01/19 03/02/19 19:00 07:00 Intake Total 1250 ml 0 ml Balance 1250 ml 0 ml Intake Oral 250 ml 0 ml IV Total 1000 ml # Voids 1 1 Laboratory Tests Test 03/01/19 17:00 03/02/19 05:31 Urine Color Yellow Urine Appearance Clear Urine pH 6 (4.5-8.0) Urine Specific [place] 1.015 (1.005-1.035) Urine Protein Negative (NEGATIVE) Urine Glucose (UA) Negative (NEGATIVE) Urine Ketones Negative (NEGATIVE) Urine Blood Negative (NEGATIVE) Urine Nitrite Negative (NEGATIVE) Urine Bilirubin Negative (NEGATIVE) Urine Urobilinogen 1 MG/DL (0.0-1.0) H Urine Leukocyte Esterase 3+ (NEGATIVE) H Urine RBC 0-2 /HPF (0 - 2) Urine WBC 2-4 /HPF (0 - 2) Urine Squamous Epithelial Cells Few /LPF (NONE/OCC) Urine Bacteria Occasional /HPF (NONE) White Blood Count 3.0 K/UL (4.8-10.8) L Red Blood Count 3.46 M/UL (4.20-5.40) L Hemoglobin 10.8 G/DL (12.0-16.0) L Hematocrit 32.1 % (37.0-47.0) L Mean Corpuscular Volume 93 FL (80-99) Mean Corpuscular Hemoglobin 31.1 PG (27.0-31.0) H Mean Corpuscular Hemoglobin Concent 33.6 G/DL (32.0-36.0) Red Cell Distribution Width 13.2 % (11.6-14.8) Platelet Count 132 K/UL (150-450) L Mean Platelet Volume 9.1 FL (6.5-10.1) Neutrophils (%) (Auto) % (45.0-75.0) Lymphocytes (%) (Auto) % (20.0-45.0) Monocytes (%) (Auto) % (1.0-10.0) Eosinophils (%) (Auto) % (0.0-3.0) Basophils (%) (Auto) % (0.0-2.0) Differential Total Cells Counted 100 Neutrophils % (Manual) 27 % (45-75) L Lymphocytes % (Manual) 57 % (20-45) H Monocytes % (Manual) 16 % (1-10) H Eosinophils % (Manual) 0 % (0-3) Basophils % (Manual) 0 % (0-2) Band Neutrophils 0 % (0-8) Platelet Estimate Decreased L Platelet Morphology Normal Red Blood Cell Morphology Normal Sodium Level 142 MMOL/L (136-145) Potassium Level 3.6 MMOL/L (3.5-5.1) Chloride Level 106 MMOL/L (98-107) Carbon Dioxide Level 30 MMOL/L (21-32) Anion Gap 6 mmol/L (5-15) Blood Urea Nitrogen 19 mg/dL (7-18) H Creatinine 0.6 MG/DL (0.55-1.30) Estimat Glomerular Filtration Rate mL/min (>60) Glucose Level 95 MG/DL (74-106) Calcium Level 9.0 MG/DL (8.5-10.1) Total Bilirubin 0.2 MG/DL (0.2-1.0) Aspartate Amino Transf (AST/SGOT) 12 U/L (15-37) L Alanine Aminotransferase (ALT/SGPT) 13 U/L (12-78) Alkaline Phosphatase 61 U/L (46-116) Troponin I 0.000 ng/mL (0.000-0.056) Total Protein 6.7 G/DL (6.4-8.2) Albumin 3.5 G/DL (3.4-5.0) Globulin 3.2 g/dL Albumin/Globulin Ratio 1.1 (1.0-2.7) Triglycerides Level 64 MG/DL (30-150) Cholesterol Level 154 MG/DL (< 200) LDL Cholesterol 69 mg/dL (<100) HDL Cholesterol 69 MG/DL (40-60) H Cholesterol/HDL Ratio 2.2 (3.3-4.4) L Height (Feet): 5 Weight (Pounds): 147 Medications Current Medications Medications (Trade) Dose Ordered Sig/Elva Route PRN Reason Start Time Stop Time Status Last Admin Dose Admin Acetaminophen (Tylenol) 650 mg Q4H PRN ORAL fever 03/01/19 20:00 03/31/19 19:59 Amlodipine Besylate (Norvasc) 5 mg DAILY ORAL 03/02/19 09:00 04/01/19 08:59 03/02/19 09:16 Aspirin (Ecotrin) 81 mg DAILY ORAL 03/02/19 13:00 04/01/19 12:59 03/02/19 13:23 Atenolol (Tenormin) 25 mg DAILY ORAL 03/02/19 09:00 04/01/19 08:59 03/02/19 09:16 Atorvastatin Calcium (Lipitor) 20 mg BEDTIME ORAL 03/02/19 21:00 04/01/19 20:59 Dextrose (Dextrose 50%) 25 ml Q30M PRN IV Hypoglycemia 03/01/19 20:00 03/31/19 19:59 Dextrose (Dextrose 50%) 50 ml Q30M PRN IV Hypoglycemia 03/01/19 20:00 03/31/19 19:59 Heparin Sodium (Porcine) (Heparin 5000 units/ml) 5,000 units EVERY 12 HOURS SUBQ 03/01/19 21:00 03/31/19 20:59 03/01/19 20:41 Insulin Aspart (NovoLOG) BEFORE MEALS AND HS SUBQ 03/01/19 21:00 03/31/19 20:59 03/02/19 12:06 Lorazepam (Ativan 2mg/ml 1ml) 0.5 mg Q4H IV 03/01/19 20:00 03/08/19 19:59 03/02/19 12:05 Lorazepam (Ativan 2mg/ml 1ml) 0.5 mg Q4H PRN IV For Anxiety 03/01/19 20:00 03/08/19 19:59 Morphine Sulfate (Morphine Sulfate) 1 mg Q4H PRN IVP For Pain 03/01/19 20:00 03/08/19 19:59 Ondansetron HCl (Zofran) 4 mg Q6H PRN IVP Nausea & Vomiting 03/01/19 20:00 03/31/19 19:59 Polyethylene Glycol (Miralax) 17 gm HSPRN PRN ORAL Constipation 03/01/19 20:00 03/31/19 19:59 Zolpidem Tartrate (Ambien) 5 mg HSPRN PRN ORAL Insomnia 03/01/19 20:00 03/08/19 19:59 Assessment/Plan Status: not improved Assessment/Plan: SBP<140 with IV hydralazine to keep this down Q4 Neuro obs Speech Evaluation with ST MRI Brain w/o contrast - has a hx of recent stroke and need to know if she has had another acute infarct CT C Spine - she has numb hands bilaterally IV hydration please Maintain normoglycemia with ISS Heme/Onc for investigation of low blood counts? Can also affect neurological status TTE Na 135-145 PT/OT EVal MEclizine 25mg PO TID PRN/ Scheduled as patient needs it Neck spasm - will trial Baclofen Chantel Escamilla N.P. Mar 02, 2019 16:43
--- NOTE | 2019-03-02 18:30 | Consultation ---
DATE OF CONSULTATION: 03/02/2019 CARDIOLOGY CONSULTATION CONSULTING PHYSICIAN: Irvin Escobar M.D. REFERRING PHYSICIAN: Cj Degroot D.O. REASON FOR CONSULTATION: Management of dizziness and lightheadedness from Cardiology standpoint. HISTORY OF PRESENT ILLNESS: This is a very unfortunate 83-year-old female, who comes from home after she started to experience dizziness and lightheadedness with associated nausea and vomiting, which is more exacerbated by head movements. The patient is a very poor historian and is not clear whether she has had any vertiginous events as well. At the time of arrival to the hospital, blood pressure was 134/52 mmHg and pulse was 87. Her cardiovascular history is significant for hypertension, diabetes mellitus. Her 12-lead electrocardiogram at the time of arrival to the hospital revealed sinus bradycardia at the rate of 56 with left axis deviation and normal QT interval, but no acute ischemic features. She was found to have mild thrombocytopenia with platelet count of 130,000 and the laboratory finding. Her electrolytes were within normal limits and BUN creatinine was 20 and 0.7 respectively. Her first troponin I level was 0. The patient was admitted to telemetry for further evaluation and management. Cardiology consultation was made at the request of Dr. Degroot. CT scan of head in the emergency department showed no intracranial hemorrhage, mass effect, or CT evidence of acute infarct. PAST MEDICAL HISTORY: Diabetes mellitus, hypertension, and prior history of presyncope/dizziness. PAST SURGERIES: None. MEDICATIONS: List of medications at home includes acetaminophen 650 q.4 h. p.r.n. headache, Mag-Al Plus suspension 30 mL q.6 hours, albuterol inhaler 2 puffs every 6.h., Norvasc 5 mg daily, aspirin 81 mg daily, Tenormin 25 mg daily, Lipitor 10 mg p.o. at bedtime, calcium carbonate 1 tablet daily, chlorpheniramine maleate allergy 4 mg p.o. q.6 hours, Banophen 50 mg daily, fluticasone propionate 1 spray nasal twice a day, guaifenesin 5 mL q.hours p.r.n. cough, heparin sodium 5000 units subcutaneous q.12 hours, Motrin 400 mg three times a day, NovoLog insulin 100 units subcutaneous q. before meals and at bedtime, Levaquin 250 mg p.o. daily for 5 days, lorazepam 0.5 mg intravenous q.4 hours p.r.n. anxiety, metformin 500 mg daily, morphine sulfate 1 mg intravenous p.r.n. pain, Zofran 4 mg q.6 hours p.r.n. nausea and vomiting, MiraLAX 17 g p.o. daily, simvastatin 4 mg p.o. at bedtime, tramadol 50 mg p.o. daily, and zolpidem 5 mg p.o. at bedtime p.r.n. insomnia. ALLERGIES: No known drug allergies. FAMILY HISTORY: No premature coronary artery disease in the first-degree relatives. REVIEW OF SYSTEMS: HEENT: Complains of numbness of the head as well as dizziness, but no loss of consciousness. CONSTITUTIONAL: Denies any fever, chills, night sweats, or weight loss. CARDIOVASCULAR: Denies any chest pain, shortness of breath, PND, orthopnea, or leg swelling. Positive presyncope. PULMONARY: Denies any cough, hemoptysis, or wheezing. GASTROINTESTINAL: Had nausea and vomiting, but no abdominal pain. No gastrointestinal bleed. GENITOURINARY: Denies any hematuria, dysuria, or incontinence. NEUROLOGY: Positive for presyncope, but no signs of lateralization. No sensory or motor deficit or altered speech. PHYSICAL EXAMINATION: VITAL SIGNS: Blood pressure was 134/52, pulse of 87, respiration of 18, temperature 98.2 degrees Fahrenheit, and O2 saturation of 96% on room air. GENERAL: The patient is a very unfortunate 83-year-old female, in no apparent respiratory distress. Alert and oriented x4. HEENT: Atraumatic and normocephalic. Anicteric. Pupils are equal, round, and reactive to light and accommodation. Extraocular muscles intact. NECK: JVP less than 5 cm. No carotid bruit. Carotid upstroke is 2+ bilaterally. CARDIOVASCULAR: Normal S1, S2. Regular rate and rhythm. No murmurs, gallops, or rubs. PMI is at fourth intercostal space in the midclavicular line. LUNGS: Clear to auscultation bilaterally. ABDOMEN: Soft, nontender, and nondistended. No hepatosplenomegaly. Positive bowel sounds. EXTREMITIES: No evidence of edema, clubbing, or cyanosis. LABORATORY FINDINGS: WBC 3.7, hemoglobin 11.1, hematocrit 33.2, and platelet count is 130,000. Chemistry showed sodium 139, potassium is 4.7, chloride 104, bicarbonate 26, BUN 20, creatinine 0.7, glucose 103, and calcium 9.2. Troponin I x1 negative. Triglycerides 64. LDL was 69, HDL of 69, and total cholesterol is 154. TSH is 1.8. ASSESSMENT AND PLAN: This is a very unfortunate 83-year-old female, who is seen in Cardiology consultation. 1. Presyncope. This could have multiple etiologies from inner ear and increased pressure of indolence to problems with reflex, benign positional vertigo, or less common causes cardiogenic including chronotropic incompetence. A 12-lead electrocardiogram shows sinus rhythm. However, the patient's heart rate has been noticed as high as 70 beats per minute. Third troponin I level is negative. We will obtain another troponin I level to rule out acute myocardial infarction. A 2D echocardiography will be done to assess LV systolic and diastolic function. Further therapeutic and diagnostic decision will be based on the results of the above tests. 2. History of hypertension. We will continue with combination of metformin and atenolol. Blood pressure is currently well controlled. 3. History of diabetes mellitus. The patient will benefit from combination of aspirin and atorvastatin. We will add both regimen. I would like to thank, Dr. Degroot, for allowing me to participate in the care of this patient. Irvin Escobar M.D. DR: SD JOB#: [id number] CC:
[2019-03-02] MEDS ORDERED: Meclizine 25mg tab ORAL PRN (19:00)
--- NOTE | 2019-03-02 19:00 | NUR ---
NURSE NOTES: Patient reports dizziness. Neurologist STOCK SAW OPERATOR made rounds and was notified. New orders received.
--- NOTE | 2019-03-02 19:24 | NUR ---
HAND-OFF: Report given to LAURIE Sanchez.
--- NOTE | 2019-03-02 19:30 | NUR ---
NURSE NOTES: Report received from Malcolm Doyle RN. Pt is resting in bed in stable condition. Pt is AOx4 and on room air. Breathing is even and unlabored. No acute distress noted. IV site is R hand #[id number] and is asymptomatic, patent, and intact. Fall precautions noted to be in place. Bed is placed in lowest position with brake engaged, side rails up x3, and bed alarm on. Call light and side table placed within reach. Will continue to monitor.
[2019-03-02 20:00] VITALS: BP 132/60
[2019-03-02] MEDS: Atorvastatin 20mg tab ORAL SCH (22:36)
[2019-03-02] MEDS: Zolpidem 5mg tab ORAL PRN (22:36)
[2019-03-03] VITALS: BP 129/73
[2019-03-03] MEDS: LORazepam Inj 2mg/ml 1ml IV SCH ×7 (01:00→23:42)
--- NOTE | 2019-03-03 01:15 | History and Physical Report ---
DATE OF ADMISSION: 03/01/2019 TIME SEEN: 6 p.m. CONSULTANTS: 1. Katie Neal M.D. 2. Irvin Escobar M.D. 3. Scott Serrato M.D. CHIEF COMPLAINT: Dizziness, weakness, and arm numbness. BRIEF HISTORY: This is an 83-year-old female who lives at home, who comes to my office monthly with a friend to [place]. On the way back, became very weak and dizzy, room was spinning, slight nausea. No vomiting. She is complaining of left arm numbness as well and weakness. The patient came to [place], diagnosed with above, and admitted to telemetry for further care. Currently, feeling better, slightly weak. No complaint. REVIEW OF SYSTEMS: No chest pain. No shortness of breath. Slight nausea. No vomiting or diarrhea. PAST MEDICAL HISTORY: Diabetes, hypertension. PAST SURGICAL HISTORY: Back surgery and gallbladder. MEDICATIONS: Include Lipitor, Ecotrin, Norvasc, Tenormin, NovoLog, Ativan, Tylenol, morphine, Zofran, and lorazepam. ALLERGIES: Denies. SOCIAL HISTORY: No smoking. No alcohol. No intravenous drug abuse. FAMILY HISTORY: Noncontributory. PHYSICAL EXAMINATION: GENERAL: Calm in bed, oriented x3, no acute distress. VITAL SIGNS: Temperature 99 degrees, pulse 50, respirations 18, and blood pressure 129/62. CARDIOVASCULAR: No murmur. LUNGS: Distant and clear. ABDOMEN: Bowel sounds positive. Nontender and nondistended. EXTREMITIES: Show no cyanosis or edema. NEUROLOGIC: The patient moves all extremities, slightly weak. LABORATORY AND DIAGNOSTIC DATA: Show white count 3.0, hemoglobin and hematocrit 10/32, and platelets 132,000. BUN 19. Troponin 0.00. Urinalysis shows 3+ leukocyte esterase. ASSESSMENT: Dizziness, weakness, vertigo, nausea, diabetes, hypertension, urinary tract infection, and pancytopenia. PLAN: 1. PT/OT. 2. Blood pressure control. 3. Blood sugar control. 4. Dietary followup. 5. Cardiology and neuro followup. 6. We will add Hematology and Infectious Diseases for antibiotics. 7. CBC and BMP in the morning. Cj Degroot D.O. DR: Komal JOB#: [id number] CC:
[2019-03-03 04:00] VITALS: BP 149/65
[2019-03-03] MEDS: NovoLOG Insulin Flexpen SUBQ SCH ×4 (06:23→21:21)
--- NOTE | 2019-03-03 06:57 | Consultation ---
History of Present Illness General Chief Complaint: Dizziness Reason for Consultation: Weakness, BUE numbness, vertigo, non focal, allneg Present Illness Allergies: Coded Allergies: No Known Allergies (Verified Allergy, Unknown, 06/05/11) Medication History Scheduled Al Hydroxide/mg Hydroxide (Mag-Al Plus Suspension), 30 ML ORAL Q6HR, (Reported) Albuterol Sulfate* (Albuterol Sulfate Mdi*), 2 PUFF INH Q6H Amlodipine Besylate (Norvasc), 5 MG ORAL DAILY Amlodipine Besylate* (Amlodipine Besylate*), 5 MG ORAL DAILY Aspirin* (Aspirin*), 81 MG ORAL DAILY, (Reported) Atenolol (Tenormin), 25 MG ORAL DAILY, (Reported) Atenolol* (Tenormin*), 25 MG ORAL DAILY Atorvastatin Calcium* (Lipitor*), 10 MG ORAL BEDTIME Chlorpheniramine Maleate (Allergy), 4 MG PO EVERY 6 HOURS Fluticasone Propionate (Fluticasone Propionate), 1 SPRAY NASAL TWICE A DAY Heparin Sod (Porcine) (Heparin Sodium*), 5,000 UNITS SUBQ EVERY 12 HOURS, ( Reported) Ibuprofen* (Motrin*), 400 MG ORAL THREE TIMES A DAY Insulin Aspart (Novolog), 100 UNIT SQ AC+HS, (Reported) Levofloxacin* (Levaquin*), 250 MG ORAL DAILY, (Reported) Lorazepam (Lorazepam), 0.5 MG IV Q4H, (Reported) Metformin Hcl* (Metformin Hcl*), 500 MG ORAL DAILY, (Reported) Metformin Hcl* (Metformin Hcl*), 500 MG ORAL TWICE A DAY Metformin Hcl* (Metformin Hcl*), 500 MG ORAL TWICE A DAY Polyethylene Glycol 3350* (Miralax*), 17 GM ORAL DAILY, (Reported) Promethazine HCl/Codeine (Prometh-Codein 6.25-10 mg/5 ml), 5 ML PO HS Simvastatin (Zocor), 40 MG ORAL BEDTIME, (Reported) Simvastatin (Zocor), 40 MG ORAL BEDTIME Tramadol Hcl* (Ultram*), 50 MG ORAL DAILY, (Reported) Zolpidem Tartrate* (Ambien*), 5 MG ORAL BEDTIME, (Reported) Scheduled PRN Acetaminophen (Acetaminophen), 650 MG ORAL Q4HR PRN for Prn Headache/Temp > 101, (Reported) Acetaminophen* (Tylenol Extra Strength*), 500 MG ORAL Q6H PRN for Mild Pain/ Temp > 100.5 Al Hydroxide/mg Hydroxide (Mag-Al Liquid), 30 ML ORAL Q6HR PRN for prn for dyspepsia, (Reported) Guaifenesin/Dextromethorphan (Guaifenesin Dm Syrup), 5 ML PO Q8HR PRN for For Cough Lorazepam (Lorazepam), 0.5 MG IV Q4H PRN for prn for anxiety, (Reported) Morphine Sulfate* (Morphine Sulfate*), 1 MG IV PRN PRN for q4h for pain, ( Reported) Ondansetron (Zofran), 4 MG ORAL Q6H PRN for Nausea & Vomiting, (Reported) Miscellaneous Medications Calcium Carbonate (Calcium), 1 TAB PO, (Reported) Diphenhydramine Hcl (Banophen), 50 MG PO, (Reported) Unable to Obtain Medications (Unable To Obtain Meds), (Reported) [Bp Med], (Reported) Patient History Healthcare decision maker Emma Arellano Resuscitation status Full Code Advanced Directive on File Physical Exam Last 24 Hour Vital Signs Date Time Temp Pulse Resp B/P (MAP) Pulse Ox O2 Delivery O2 Flow Rate FiO2 03/03/19 04:00 97.7 65 18 149/65 (93) 95 03/03/19 04:00 62 03/03/19 00:00 60 03/03/19 00:00 96.8 69 18 129/73 (91) 97 03/02/19 21:00 Room Air 03/02/19 20:00 97.6 63 18 132/60 (84) 97 03/02/19 20:00 58 03/02/19 16:00 99.1 62 18 129/62 (84) 97 03/02/19 16:00 58 03/02/19 12:00 62 03/02/19 12:00 98.4 60 18 129/59 (82) 99 03/02/19 09:16 71 137/60 03/02/19 09:16 71 137/60 03/02/19 08:30 Room Air 03/02/19 08:00 72 03/02/19 08:00 98.8 71 18 137/60 (85) 95 Intake and Output 03/02/19 03/03/19 19:00 07:00 Intake Total 720 ml 120 ml Output Total 800 ml Balance -80 ml 120 ml Intake Oral 720 ml 120 ml Output Urine Total 800 ml # Voids 3 # Bowel Movements 1 Height (Feet): 5 Weight (Pounds): 147 Medications Current Medications Medications (Trade) Dose Ordered Sig/Elva Route PRN Reason Start Time Stop Time Status Last Admin Dose Admin Acetaminophen (Tylenol) 650 mg Q4H PRN ORAL fever 03/01/19 20:00 03/31/19 19:59 Amlodipine Besylate (Norvasc) 5 mg DAILY ORAL 03/02/19 09:00 04/01/19 08:59 03/02/19 09:16 Aspirin (Ecotrin) 81 mg DAILY ORAL 03/02/19 13:00 04/01/19 12:59 03/02/19 13:23 Atenolol (Tenormin) 25 mg DAILY ORAL 03/02/19 09:00 04/01/19 08:59 03/02/19 09:16 Atorvastatin Calcium (Lipitor) 20 mg BEDTIME ORAL 03/02/19 21:00 04/01/19 20:59 03/02/19 22:36 Dextrose (Dextrose 50%) 25 ml Q30M PRN IV Hypoglycemia 03/01/19 20:00 03/31/19 19:59 Dextrose (Dextrose 50%) 50 ml Q30M PRN IV Hypoglycemia 03/01/19 20:00 03/31/19 19:59 Heparin Sodium (Porcine) (Heparin 5000 units/ml) 5,000 units EVERY 12 HOURS SUBQ 03/01/19 21:00 03/31/19 20:59 03/01/19 20:41 Insulin Aspart (NovoLOG) BEFORE MEALS AND HS SUBQ 03/01/19 21:00 03/31/19 20:59 03/02/19 17:11 Lorazepam (Ativan 2mg/ml 1ml) 0.5 mg Q4H IV 03/01/19 20:00 03/08/19 19:59 03/03/19 04:55 Lorazepam (Ativan 2mg/ml 1ml) 0.5 mg Q4H PRN IV For Anxiety 03/01/19 20:00 03/08/19 19:59 Meclizine HCl (Antivert) 25 mg Q8H PRN ORAL for dizziness 03/02/19 19:00 04/01/19 18:59 03/03/19 05:39 Morphine Sulfate (Morphine Sulfate) 1 mg Q4H PRN IVP For Pain 03/01/19 20:00 03/08/19 19:59 Ondansetron HCl (Zofran) 4 mg Q6H PRN IVP Nausea & Vomiting 03/01/19 20:00 03/31/19 19:59 Polyethylene Glycol (Miralax) 17 gm HSPRN PRN ORAL Constipation 03/01/19 20:00 03/31/19 19:59 Zolpidem Tartrate (Ambien) 5 mg HSPRN PRN ORAL Insomnia 03/01/19 20:00 03/08/19 19:59 03/02/19 22:36 Assessment/Plan Assessment/Plan: HISTORY OF PRESENT ILLNESS: This is an 83-year-old female Presented to her doctors office for complaints of weakness and dizzy, room was spinning, slight nausea as well as experiencing left arm numbness as well and weakness The patient arrived to [facility]. Upon lab work she had low wbc count, low plt and hgb 10. We were consulted for pancytopenia. REVIEW OF SYSTEMS: No chest pain. No shortness of breath. Slight nausea. No vomiting or diarrhea. PAST MEDICAL HISTORY: Diabetes, hypertension. PAST SURGICAL HISTORY: Back surgery and gallbladder. MEDICATIONS: Include Lipitor, Ecotrin, Norvasc, Tenormin, NovoLog, Ativan, Tylenol, morphine, Zofran, and lorazepam. ALLERGIES: Denies. SOCIAL HISTORY: No smoking. No alcohol. No intravenous drug abuse. FAMILY HISTORY: Noncontributory. PHYSICAL EXAMINATION: GENERAL: Calm in bed, oriented x3, no acute distress. VITAL SIGNS: Reviewed CARDIOVASCULAR: No murmur. LUNGS: Distant and clear. ABDOMEN: Bowel sounds positive. Nontender and nondistended. EXTREMITIES: Show no cyanosis or edema. NEUROLOGIC: The patient moves all extremities, slightly weak. LABORATORY AND DIAGNOSTIC DATA:white count 3.0, hemoglobin and hematocrit 10/32 , and platelets 132,000. BUN 19. Troponin 0.00. Urinalysis shows 3+ leukocyte esterase. ASSESSMENT AND REC'S: 1. Pancytopenia --> Order US Abd to r/o hsm/ cirrhosis --> Order peripheral smear for blasts/schistocytes 2. Dizziness/ Vertigo 3. Weakness 4 Nnausea 5. Diabetes --> moniotr BS levels. 6. hypertension, 7. Urinary tract infection. THE TIME OF THE NOTE DOES NOT NECESSARILY CORRESPOND TO THE TIME THE PATIENT WAS SEEN. GREATLY APPRECIATE CONSULTATION. Kika Tse NP Mar 03, 2019 06:57
--- NOTE | 2019-03-03 07:17 | NUR ---
HAND-OFF: Report given to Malcolm Doyle RN. Pt is resting in bed in stable condition. No acute distress noted. Endorsed plan of care.
--- NOTE | 2019-03-03 07:42 | NUR ---
NURSE NOTES: Patient is alert and oriented. Patient is on room air. No reports of dizziness at the moment. Patient is eating breakfast. Side rails are up x2, bed is locked, in lowest position, and call light is within reach. Will continue to monitor.
[2019-03-03 08:00] VITALS: BP 145/59
--- NOTE | 2019-03-03 08:35 | General Progress Note ---
Assessment/Plan Problem List: (1) Unsteady gait ICD Codes: R26.81 - Unsteadiness on feet SNOMED: 08256097, 761932877 (2) UTI (urinary tract infection) ICD Codes: N39.0 - Urinary tract infection, site not specified SNOMED: 97122383 (3) Diabetes mellitus ICD Codes: E11.9 - Type 2 diabetes mellitus without complications SNOMED: 31781500 (4) HTN (hypertension) ICD Codes: I10 - Essential (primary) hypertension SNOMED: 62184347 (5) Vertigo, benign positional ICD Codes: H81.10 - Benign paroxysmal vertigo, unspecified ear SNOMED: 146964572 Status: stable, progressing Assessment/Plan: pt diet abx cardio neuro eval cbc bmp am Subjective Constitutional: Reports: weakness Allergies: Coded Allergies: No Known Allergies (Verified Allergy, Unknown, 06/05/11) All Systems: reviewed and negative except above Subjective sleepy calm Objective Last 24 Hour Vital Signs Date Time Temp Pulse Resp B/P (MAP) Pulse Ox O2 Delivery O2 Flow Rate FiO2 03/03/19 04:00 97.7 65 18 149/65 (93) 95 03/03/19 04:00 62 03/03/19 00:00 60 03/03/19 00:00 96.8 69 18 129/73 (91) 97 03/02/19 21:00 Room Air 03/02/19 20:00 97.6 63 18 132/60 (84) 97 03/02/19 20:00 58 03/02/19 16:00 99.1 62 18 129/62 (84) 97 03/02/19 16:00 58 03/02/19 12:00 62 03/02/19 12:00 98.4 60 18 129/59 (82) 99 03/02/19 09:16 71 137/60 03/02/19 09:16 71 137/60 Intake and Output 03/02/19 03/03/19 18:59 06:59 Intake Total 720 ml 120 ml Output Total 800 ml Balance -80 ml 120 ml Intake Oral 720 ml 120 ml Output Urine Total 800 ml # Voids 3 # Bowel Movements 1 Height (Feet): 5 Weight (Pounds): 147 General Appearance: lethargic EENT: normal ENT inspection Neck: normal alignment Cardiovascular: normal peripheral pulses, normal rate, regular rhythm Respiratory/Chest: chest wall non-tender, lungs clear, normal breath sounds Abdomen: normal bowel sounds, non tender, soft Extremities: normal inspection Edema: no edema noted Arm (L), no edema noted Arm (R), no edema noted Leg (L), no edema noted Leg (R), no edema noted Pedal (L), no edema noted Pedal (R), no edema noted Generalized Neurologic: responsive, motor weakness Skin: normal pigmentation, warm/dry Cj Degroot DO Mar 03, 2019 08:35
[2019-03-03] MEDS: Heparin 5000 units/ml inj SUBQ SCH ×2 (09:00→21:00)
[2019-03-03 09:05] LABS: BASOPHILS % (AUTO) 1.8 % (0.0-2.0); EOSINOPHILS % (AUTO) 0.7 % (0.0-3.0); HEMATOCRIT 34.5 % (37.0-47.0); HEMOGLOBIN 11.5 G/DL (12.0-16.0); MEAN CORPUSCULAR VOLUME 92 FL (80-99); MONOCYTES % (AUTO) 18.4 % (1.0-10.0); NEUTROPHILS % (AUTO) 36.1 % (45.0-75.0); PLATELET COUNT 139 K/UL (150-450); RED BLOOD COUNT 3.77 M/UL (4.20-5.40); RED CELL DISTRIBUTION WIDTH 13.1 % (11.6-14.8); WHITE BLOOD COUNT 3.7 K/UL (4.8-10.8)
[2019-03-03] MEDS: Aspirin EC 81mg tab ORAL SCH (09:16)
[2019-03-03] MEDS: Atenolol 25mg tab ORAL SCH (09:16)
[2019-03-03 09:23] LABS: ANION GAP 9 mmol/L (5-15); BLOOD UREA NITROGEN 15 mg/dL (7-18); CALCIUM 9.5 MG/DL (8.5-10.1); CARBON DIOXIDE 27 MMOL/L (21-32); CHLORIDE 102 MMOL/L (98-107); CREATININE 0.7 MG/DL (0.55-1.30); POTASSIUM 3.5 MMOL/L (3.5-5.1); SODIUM 138 MMOL/L (136-145)
--- NOTE | 2019-03-03 09:52 | NUR ---
*-* NO INSURANCE INFORMATION IN THE BAR UNABLE TO SEND CLINICALS OR REVIEWS *-*
--- NOTE | 2019-03-03 10:19 | NUR ---
MRI BRAIN COMPLETED
[2019-03-03 12:00] VITALS: BP 119/59
--- NOTE | 2019-03-03 13:15 | Diagnostic Imaging Report ---
Indication: Dizziness Technique: The head was imaged in a 1.5 Paz magnet. Sequences obtained include sagittal and axial T1 FLAIR, axial T2 fast spin echo with fat saturation, axial T2 FLAIR, diffusion and ADC map. Comparison: CT head noncontrast 03/01/2019 There is a faint focus of diffusion restriction measuring less than 1 cm within the right karla/midbrain junction. This is consistent with acute to subacute CVA. There is faint T2 hyperintense edema associated with the infarct. No mass effect. Basal cisterns and fourth ventricle appear normal. There is generalized atrophy of the brain present with prominence of the sulci ventricles and basal cisterns. There is periventricular T2 hyperintense signal consistent chronic small vessel disease. Posterior to the right superior colliculus, there is a ovoid 6 x 4 mm lesion that shows intense T1 brightness (short T1 signal), that saturates out on T2 fat sat images and is compatible with macroscopic fat. This is corroborated on the CT examination which shows an area of fat attenuation. This is consistent with a lipoma and in retrospect seen on multiple prior CT examinations. There is no mass effect or evidence of hemorrhage. No subdural collections or other extra-axial collections are identified. Osseous structures are unremarkable. There is heterogeneous signal in the right maxillary sinus consistent with sinusitis. 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 Minimal edema. No mass effect. 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 Generalized atrophy of the brain Chronic small vessel ischemia involving periventricular white matter. Right maxillary sinusitis Critical value communication. Findings were discussed via telephone with the charge nurse on 2 E at 1:09pm, 03/03/2019.. Dr. Lara will be notified of the results [place].
--- NOTE | 2019-03-03 13:26 | NUR ---
CHARGE NURSE NOTES: Dr Lopez called from radiology to report a small infarct in the Right [place]. Cahntel Escamilla NP was called and and a message left on voice mail.
--- NOTE | 2019-03-03 13:37 | Neurology Progress Note ---
Interim History Interim History ROS Limited/Unobtainable: No Complaints: Dizziness Events: This visit was conducted on March 03, [address] Scott Serrato. Review of Systems Neuro Review of Systems Dizziness persists, MRI pending, Meclizine not given yet. Objective Physical Exam Last Vital Signs Date Time Temp Pulse Resp B/P (MAP) Pulse Ox O2 Delivery O2 Flow Rate FiO2 03/03/19 12:00 97.8 58 22 119/59 (79) 99 03/03/19 08:00 Room Air Laboratory Tests Test 03/03/19 07:54 White Blood Count 3.7 K/UL (4.8-10.8) L Red Blood Count 3.77 M/UL (4.20-5.40) L Hemoglobin 11.5 G/DL (12.0-16.0) L Hematocrit 34.5 % (37.0-47.0) L Mean Corpuscular Volume 92 FL (80-99) Mean Corpuscular Hemoglobin 30.7 PG (27.0-31.0) Mean Corpuscular Hemoglobin Concent 33.4 G/DL (32.0-36.0) Red Cell Distribution Width 13.1 % (11.6-14.8) Platelet Count 139 K/UL (150-450) L Mean Platelet Volume 9.3 FL (6.5-10.1) Neutrophils (%) (Auto) 36.1 % (45.0-75.0) L Lymphocytes (%) (Auto) 43.0 % (20.0-45.0) Monocytes (%) (Auto) 18.4 % (1.0-10.0) H Eosinophils (%) (Auto) 0.7 % (0.0-3.0) Basophils (%) (Auto) 1.8 % (0.0-2.0) Sodium Level 138 MMOL/L (136-145) Potassium Level 3.5 MMOL/L (3.5-5.1) Chloride Level 102 MMOL/L (98-107) Carbon Dioxide Level 27 MMOL/L (21-32) Anion Gap 9 mmol/L (5-15) Blood Urea Nitrogen 15 mg/dL (7-18) Creatinine 0.7 MG/DL (0.55-1.30) Estimat Glomerular Filtration Rate mL/min (>60) Glucose Level 210 MG/DL (74-106) #H Calcium Level 9.5 MG/DL (8.5-10.1) Hepatitis A IgM Antibody Pending Hepatitis B Surface Antigen Pending Hepatitis B Core IgM Antibody Pending Hepatitis C Antibody Pending HIV (1&2) Antibody Rapid Negative (NEGATIVE) General: well developed, well nourished Head: normocophalic Neck: other - Mild rigidity and decreased ROM, flexion/ extension EENT: benign Neurologic Exam Mental Status: awake, alert, oriented x4, normal cognition, good mathematical skills, normal recent memory, normal remote memory, preserved visuospatial function Speech: normal speech, no dysarthia Language: normal language, no aphasia Cranial Nerve II: fundus normal, visual gurrola, no papilledema Cranial Nerves III, IV, : PERRLA, EOMI, pupils Cranial Nerve V: normal facial sensations, temporales function normal, masseters function normal, pterygoids function normal Cranial Nerve VII: no facial asymmetry, normal facial expressions Cranial Nerve VIII: normal hearing, no nystagmus Cranial Nerve IX: normal palate elevation, gag response Cranial Nerve X: no voice hoarseness Cranial Nerve XI: SCM symmetric, trapezii function normal Cranial Nerve XII: tongue midline, no tongue atrophy/fasciculations Motor System: normal muscle tone, strength 5/5, no involuntary movement, no muscle wasting Sensory: normal position sense, normal graphesthesia, other Coordination: normal finger to nose bilaterally, normal heel to jaeger bilaterally, negative Romberg test Deep Tendon Reflexes: 2+ bicep (L), 2+ bicep (R), 2+ tricep (L), 2+ tricep (R) , 2+ brachioradialis (L), 2+ brachioradialis (R), 2+ knee (L), 2+ knee (R), 2+ ankle (L), 2+ ankle (R) Stance: normal, other Gait: stable, normal regular, other Objective Bilateral hand numbness, mild left arm/ leg weakness. LUE/LLE 4/5, RLE/RUE 5/5. No nystagmus on exam. No tremor one exam. Imaging [facility] [address] [facility]. [place] , [place] [id number] , fax [phone] Vladimir Eddy M.D. Biometric Fingerprinting Technician Patient : LUMASRISOFIA EVERETT Referring Physician: Chantel Escamilla N.P. ID Number: [id number] Service Date: 03/03/19 : 1935 Report Date: 03/03/19 Gender: F Accession No.: [id number] Location: 2E Procedure: MRI Brain no Contrast Indication: Dizziness Technique: The head was imaged in a 1.5 Paz magnet. Sequences obtained include sagittal and axial T1 FLAIR, axial T2 fast spin echo with fat saturation, axial T2 FLAIR, diffusion and ADC map. Comparison: CT head noncontrast 03/01/2019 There is a faint focus of diffusion restriction measuring less than 1 cm within the right karla/midbrain junction. This is consistent with acute to subacute CVA. There is faint T2 hyperintense edema associated with the infarct. No mass effect. Basal cisterns and fourth ventricle appear normal. There is generalized atrophy of the brain present with prominence of the sulci ventricles and basal cisterns. There is periventricular T2 hyperintense signal consistent chronic small vessel disease. Posterior to the right superior colliculus, there is a ovoid 6 x 4 mm lesion that shows intense T1 brightness (short T1 signal), that saturates out on T2 fat sat images and is compatible with macroscopic fat. This is corroborated on the CT examination which shows an area of fat attenuation. This is consistent with a lipoma and in retrospect seen on multiple prior CT examinations. There is no mass effect or evidence of hemorrhage. No subdural collections or other extra-axial collections are identified. Osseous structures are unremarkable. There is heterogeneous signal in the right maxillary sinus consistent with sinusitis. 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 Minimal edema. No mass effect. 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 Generalized atrophy of the brain Chronic small vessel ischemia involving periventricular white matter. Right maxillary sinusitis Critical value communication. Findings were discussed via telephone with the charge nurse on 2 E at 1:09pm, 03/03/2019.. Dr. Lara will be notified of the results [place]. 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 This is possibly same as recent stroke with recrudescence of symptoms in present of viral syndrome (4) Bacteremia (5) Viral syndrome (6) Unsteady gait (7) UTI (urinary tract infection) (8) Diabetes mellitus (9) Sepsis (10) HTN (hypertension) (11) Sinusitis, acute (12) Vertigo, benign positional Status: stable, progressing Recommendations SBP<140 with IV hydralazine to keep this down Q4 Neuro obs CTA Head/ Neck for investigation of vasculature and causes on pontine infarct with apparent recrudescence of symptoms. TTE Na 135-145 PT/OT EVal MEclizine 25mg PO TID PRN/ Scheduled as patient needs it Neck spasm - can trial Baclofen Chantel Escamilla N.P. Mar 03, 2019 13:37
[2019-03-03] MEDS ORDERED: Isovue-300 100ml vial INJ PRN (13:45)
[2019-03-03] MEDS ORDERED: Isovue-370 150ml vial INJ PRN (13:45)
--- NOTE | 2019-03-03 14:26 | NUR ---
CASE MANAGEMENT:REVIEW 83 YR OLD FEMALE FROM HOME TO ER CC: DIZZINESS, HEAD SPINNING AND NAUSEA SI: ACUTE SINUSITIS. VERTIGO. BUE WEAKNESS 98.3 87 18 134/52 96% ON RA H/H-11.1/33.2 BUN+20 IS: 500CC NS BOLUS MECLIZINE PO CT HEAD : TO TELEMETRY PLAN: NEURO CHECKS Q4HRS 03/03/19 SI: ACUTE ENCEPHALOPATHY 97.8 58 22 119/59 99% ON RA IS: LIPITOR PO QHS ASA PO QD NORVASC PO QD ATENOLOL PO QD HEPARIN SQ Q12 : TELEMETRY STATUS DCP: FROM HOME
--- NOTE | 2019-03-03 14:39 | NUR ---
P.T NOTE: P.T EVALUATION COMPLETED AND TREATMENT INITIATED. PLEASE REFER TO P.T EVALUATION FOR CURRENT FUNCTIONAL STATUS. PATIENT IS ALERT, O X 4 , PLEASANT AND COOPERATIVE.PATIENT PRESENTED PAIN IN THE ACROSS THE LOWER BACK AND HIPS AND GENERALIZED WEAKNESS AFFECTING OVERALL MOBILITY AND SAFETY. PATIENT CURRENTLY REQUIRES MIN A X 1 FOR BED MOBILITY, TRANSFERS AND GAIT USING THE FWW. SKILLED P.T SERVICE IS WARRANTED TO IMPROVE STRENGTH AND FUNCTIONAL MOBILITY INDEPENDENCE DURING STAY. RECOMMEND SNF FOR SHORT TERM REHAB VS HOME P.T. DEPENDING ON PROGRESS. Addendum: 03/03/19 at 1440 by JUS PATEL PT Amended: Links added.
--- NOTE | 2019-03-03 14:40 | Diagnostic Imaging Report ---
Indication: Abdominal pain Technique: Grayscale and duplex Doppler imaging of the abdomen performed. Comparison: None Findings: The liver is slightly heterogeneous. Doppler interrogation of the main portal vein shows patency with hepatopedal, monophasic flow. There is no biliary ductal dilitation identified. The CBD measures 10 mm. The gallbladder is nonvisualized. There are no gallstones or wall thickening identified. Sonographic monet's sign was negative per technologist. The demonstrated part of the pancreas, aorta and IVC show no abnormalities. Both kidneys appear unremarkable. There is no hydronephrosis. The spleen is normal in size, contour and echogenicity. There is no free fluid identified. IMPRESSION: Slightly heterogeneous liver nonspecific. Correlate for chronic disease. CBD slightly prominent but may be normal given prior cholecystectomy and advanced age. Correlate clinically.
[2019-03-03 16:00] VITALS: BP 136/65
--- NOTE | 2019-03-03 19:30 | NUR ---
NURSE NOTES: Report received from Malcolm Doyle RN. Pt is resting in bed in stable condition. Pt is AOx4. Pt is on room air and breathing is even and unlabored. No acute distress noted. IV site is R hand #20g and is asymptomatic, patent, and intact. Bed is placed in lowest position with brake engaged, side rails up x3, and bed alarm on. Call light and side table placed within reach. Family is at bedside. Discussion with patient and family members regarding consent for CTA of chest/head. Will continue to monitor patient.
[2019-03-03 20:00] VITALS: BP 102/59
[2019-03-03] MEDS: Atorvastatin 20mg tab ORAL SCH (21:17)
[2019-03-04] VITALS: BP 104/60
[2019-03-04] MEDS: LORazepam Inj 2mg/ml 1ml IV SCH ×4 (03:40→15:38)
[2019-03-04 04:00] VITALS: BP 108/61
--- NOTE | 2019-03-04 04:27 | NUR ---
NURSE NOTES: WELL SERVICE PUMP EQUIPMENT OPERATOR Cherin at bedside and updated on pt condition. CTA head to be done today. Orthostatic vitals intervention added QS and as needed if dizziness noted. Will endorsed to AM shift RN. Orthostatic vitals intervention added.
[2019-03-04 06:25] LABS: HEMATOCRIT 35.4 % (37.0-47.0); HEMOGLOBIN 11.9 G/DL (12.0-16.0); MEAN CORPUSCULAR VOLUME 92 FL (80-99); PLATELET COUNT 159 K/UL (150-450); RED BLOOD COUNT 3.85 M/UL (4.20-5.40); WHITE BLOOD COUNT 3.8 K/UL (4.8-10.8)
[2019-03-04] MEDS: NovoLOG Insulin Flexpen SUBQ SCH ×4 (06:27→20:49)
[2019-03-04 06:40] LABS: ANION GAP 7 mmol/L (5-15); BLOOD UREA NITROGEN 22 mg/dL (7-18); CALCIUM 9.7 MG/DL (8.5-10.1); CARBON DIOXIDE 29 MMOL/L (21-32); CHLORIDE 104 MMOL/L (98-107); CREATININE 0.6 MG/DL (0.55-1.30); POTASSIUM 3.7 MMOL/L (3.5-5.1); SODIUM 140 MMOL/L (136-145)
--- NOTE | 2019-03-04 07:29 | NUR ---
HAND-OFF: Report given to Andrew Jones RN. Pt is resting in bed in stable condition. No acute distress noted. Endorsed plan of care.
--- NOTE | 2019-03-04 07:34 | NUR ---
NURSE NOTES: Received report from LAURIE Sanchez. Pt is lying comfortably in semi-fowlers. No signs of distress noted. A+Ox4, denies pain/SOB. IV site is patent and intact. Respirations are even and unlabored on room air. Bed is at lowest position, brakes engaged, siderails x2, bed alarm on, and call light within reach. Pt is in stable condition at this time; will continue to monitor.
[2019-03-04 08:00] VITALS: BP 131/53
[2019-03-04] MEDS: Atenolol 25mg tab ORAL SCH (09:17)
[2019-03-04] MEDS: Aspirin EC 81mg tab ORAL SCH (09:18)
[2019-03-04] MEDS: Heparin 5000 units/ml inj SUBQ SCH ×2 (09:24→20:48)
--- NOTE | 2019-03-04 11:03 | Pulmonology Progress Note ---
Assessment/Plan Problems: (1) Vertigo, benign positional (2) Acute encephalopathy (3) Unsteady gait (4) Diabetes mellitus (5) HTN (hypertension) Assessment/Plan doing better telemetry reviewed f/u cardio and neuro recommendations sliding scale diabetic diet pt/ot dvt prophylaxis Subjective Interval Events: late note for 03/03 Allergies: Coded Allergies: No Known Allergies (Verified Allergy, Unknown, 06/05/11) Objective Last 24 Hour Vital Signs Date Time Temp Pulse Resp B/P (MAP) Pulse Ox O2 Delivery O2 Flow Rate FiO2 03/04/19 09:51 77 74 86 03/04/19 09:17 74 131/53 03/04/19 09:17 74 131/53 03/04/19 08:00 98.8 74 18 131/53 (79) 96 03/04/19 04:00 63 03/04/19 04:00 98.4 65 18 108/61 (77) 100 03/04/19 00:00 98.6 64 18 104/60 (75) 100 03/04/19 00:00 64 03/03/19 21:00 Room Air 03/03/19 20:00 98.2 62 20 102/59 (73) 100 03/03/19 20:00 64 03/03/19 16:00 97.3 62 21 136/65 (88) 96 03/03/19 16:00 60 03/03/19 12:00 58 03/03/19 12:00 97.8 58 22 119/59 (79) 99 Intake and Output 03/03/19 03/04/19 18:59 06:59 # Voids 1 2 General Appearance: WD/WN HEENT: normocephalic, atraumatic, anicteric Respiratory/Chest: chest wall non-tender, lungs clear Abdomen: normal bowel sounds, non distended Extremities: no cyanosis Skin: no rash Laboratory Tests 03/04/19 05:30: White Blood Count 3.8L, Red Blood Count 3.85L, Hemoglobin 11.9L, Hematocrit 35.4L, Mean Corpuscular Volume 92, Mean Corpuscular Hemoglobin 30.8, Mean Corpuscular Hemoglobin Concent 33.5, Red Cell Distribution Width 13.0, Platelet Count 159, Mean Platelet Volume 8.8, Neutrophils (%) (Auto) , Lymphocytes (%) ( Auto) , Monocytes (%) (Auto) , Eosinophils (%) (Auto) , Basophils (%) (Auto) , Sodium Level 140, Potassium Level 3.7, Chloride Level 104, Carbon Dioxide Level 29, Anion Gap 7, Blood Urea Nitrogen 22H, Creatinine 0.6, Estimat Glomerular Filtration Rate , Glucose Level 101#, Calcium Level 9.7 Current Medications Medications (Trade) Dose Ordered Sig/Elva Route PRN Reason Start Time Stop Time Status Last Admin Dose Admin Acetaminophen (Tylenol) 650 mg Q4H PRN ORAL fever 03/01/19 20:00 03/31/19 19:59 Amlodipine Besylate (Norvasc) 5 mg DAILY ORAL 03/02/19 09:00 04/01/19 08:59 03/04/19 09:17 Aspirin (Ecotrin) 81 mg DAILY ORAL 03/02/19 13:00 04/01/19 12:59 03/04/19 09:18 Atenolol (Tenormin) 25 mg DAILY ORAL 03/02/19 09:00 04/01/19 08:59 03/04/19 09:17 Atorvastatin Calcium (Lipitor) 20 mg BEDTIME ORAL 03/02/19 21:00 04/01/19 20:59 03/03/19 21:17 Dextrose (Dextrose 50%) 25 ml Q30M PRN IV Hypoglycemia 03/01/19 20:00 03/31/19 19:59 Dextrose (Dextrose 50%) 50 ml Q30M PRN IV Hypoglycemia 03/01/19 20:00 03/31/19 19:59 Heparin Sodium (Porcine) (Heparin 5000 units/ml) 5,000 units EVERY 12 HOURS SUBQ 03/01/19 21:00 03/31/19 20:59 03/04/19 09:24 Insulin Aspart (NovoLOG) BEFORE MEALS AND HS SUBQ 03/01/19 21:00 03/31/19 20:59 03/03/19 21:21 Iopamidol (Isovue-300 100ml) 100 ml NOW PRN INJ Radiology Procedure 03/03/19 13:45 03/05/19 13:34 Iopamidol (Isovue-370 150ml) 150 ml NOW PRN INJ Radiology Procedure 03/03/19 13:45 03/05/19 13:34 Lorazepam (Ativan 2mg/ml 1ml) 0.5 mg Q4H IV 03/01/19 20:00 03/08/19 19:59 03/03/19 04:55 Lorazepam (Ativan 2mg/ml 1ml) 0.5 mg Q4H PRN IV For Anxiety 03/01/19 20:00 03/08/19 19:59 Meclizine HCl (Antivert) 25 mg Q8H PRN ORAL for dizziness 03/02/19 19:00 04/01/19 18:59 03/03/19 05:39 Morphine Sulfate (Morphine Sulfate) 1 mg Q4H PRN IVP For Pain 03/01/19 20:00 03/08/19 19:59 03/03/19 10:56 Ondansetron HCl (Zofran) 4 mg Q6H PRN IVP Nausea & Vomiting 03/01/19 20:00 03/31/19 19:59 Polyethylene Glycol (Miralax) 17 gm HSPRN PRN ORAL Constipation 03/01/19 20:00 03/31/19 19:59 Zolpidem Tartrate (Ambien) 5 mg HSPRN PRN ORAL Insomnia 03/01/19 20:00 03/08/19 19:59 03/02/19 22:36 Katie Neal MD Mar 04, 2019 11:03
--- NOTE | 2019-03-04 11:04 | Pulmonology Progress Note ---
Assessment/Plan Problems: (1) Vertigo, benign positional (2) Acute encephalopathy (3) Unsteady gait (4) Diabetes mellitus (5) HTN (hypertension) Assessment/Plan all reviewed doing better telemetry reviewed f/u cardio and neuro recommendations sliding scale diabetic diet pt/ot dvt prophylaxis dc planning Subjective ROS Limited/Unobtainable: No Constitutional: Reports: no symptoms HEENT: Repors: no symptoms Respiratory: Reports: no symptoms Allergies: Coded Allergies: No Known Allergies (Verified Allergy, Unknown, 06/05/11) Objective Last 24 Hour Vital Signs Date Time Temp Pulse Resp B/P (MAP) Pulse Ox O2 Delivery O2 Flow Rate FiO2 03/04/19 09:51 77 74 86 03/04/19 09:17 74 131/53 03/04/19 09:17 74 131/53 03/04/19 08:00 98.8 74 18 131/53 (79) 96 03/04/19 04:00 63 03/04/19 04:00 98.4 65 18 108/61 (77) 100 03/04/19 00:00 98.6 64 18 104/60 (75) 100 03/04/19 00:00 64 03/03/19 21:00 Room Air 03/03/19 20:00 98.2 62 20 102/59 (73) 100 03/03/19 20:00 64 03/03/19 16:00 97.3 62 21 136/65 (88) 96 03/03/19 16:00 60 03/03/19 12:00 58 03/03/19 12:00 97.8 58 22 119/59 (79) 99 Intake and Output 03/03/19 03/04/19 18:59 06:59 # Voids 1 2 General Appearance: WD/WN HEENT: normocephalic, anicteric Respiratory/Chest: chest wall non-tender, lungs clear Breasts: no masses Cardiovascular: normal rate, regularly irregular Abdomen: normal bowel sounds, non distended, no scars Extremities: no cyanosis Skin: no rash Laboratory Tests 03/04/19 05:30: White Blood Count 3.8L, Red Blood Count 3.85L, Hemoglobin 11.9L, Hematocrit 35.4L, Mean Corpuscular Volume 92, Mean Corpuscular Hemoglobin 30.8, Mean Corpuscular Hemoglobin Concent 33.5, Red Cell Distribution Width 13.0, Platelet Count 159, Mean Platelet Volume 8.8, Neutrophils (%) (Auto) , Lymphocytes (%) ( Auto) , Monocytes (%) (Auto) , Eosinophils (%) (Auto) , Basophils (%) (Auto) , Sodium Level 140, Potassium Level 3.7, Chloride Level 104, Carbon Dioxide Level 29, Anion Gap 7, Blood Urea Nitrogen 22H, Creatinine 0.6, Estimat Glomerular Filtration Rate , Glucose Level 101#, Calcium Level 9.7 Current Medications Medications (Trade) Dose Ordered Sig/Elva Route PRN Reason Start Time Stop Time Status Last Admin Dose Admin Acetaminophen (Tylenol) 650 mg Q4H PRN ORAL fever 03/01/19 20:00 03/31/19 19:59 Amlodipine Besylate (Norvasc) 5 mg DAILY ORAL 03/02/19 09:00 04/01/19 08:59 03/04/19 09:17 Aspirin (Ecotrin) 81 mg DAILY ORAL 03/02/19 13:00 04/01/19 12:59 03/04/19 09:18 Atenolol (Tenormin) 25 mg DAILY ORAL 03/02/19 09:00 04/01/19 08:59 03/04/19 09:17 Atorvastatin Calcium (Lipitor) 20 mg BEDTIME ORAL 03/02/19 21:00 04/01/19 20:59 03/03/19 21:17 Dextrose (Dextrose 50%) 25 ml Q30M PRN IV Hypoglycemia 03/01/19 20:00 03/31/19 19:59 Dextrose (Dextrose 50%) 50 ml Q30M PRN IV Hypoglycemia 03/01/19 20:00 03/31/19 19:59 Heparin Sodium (Porcine) (Heparin 5000 units/ml) 5,000 units EVERY 12 HOURS SUBQ 03/01/19 21:00 03/31/19 20:59 03/04/19 09:24 Insulin Aspart (NovoLOG) BEFORE MEALS AND HS SUBQ 03/01/19 21:00 03/31/19 20:59 03/03/19 21:21 Iopamidol (Isovue-300 100ml) 100 ml NOW PRN INJ Radiology Procedure 03/03/19 13:45 03/05/19 13:34 Iopamidol (Isovue-370 150ml) 150 ml NOW PRN INJ Radiology Procedure 03/03/19 13:45 03/05/19 13:34 Lorazepam (Ativan 2mg/ml 1ml) 0.5 mg Q4H IV 03/01/19 20:00 03/08/19 19:59 03/03/19 04:55 Lorazepam (Ativan 2mg/ml 1ml) 0.5 mg Q4H PRN IV For Anxiety 03/01/19 20:00 03/08/19 19:59 Meclizine HCl (Antivert) 25 mg Q8H PRN ORAL for dizziness 03/02/19 19:00 04/01/19 18:59 03/03/19 05:39 Morphine Sulfate (Morphine Sulfate) 1 mg Q4H PRN IVP For Pain 03/01/19 20:00 03/08/19 19:59 03/03/19 10:56 Ondansetron HCl (Zofran) 4 mg Q6H PRN IVP Nausea & Vomiting 03/01/19 20:00 03/31/19 19:59 Polyethylene Glycol (Miralax) 17 gm HSPRN PRN ORAL Constipation 03/01/19 20:00 03/31/19 19:59 Zolpidem Tartrate (Ambien) 5 mg HSPRN PRN ORAL Insomnia 03/01/19 20:00 03/08/19 19:59 03/02/19 22:36 Katie Neal MD Mar 04, 2019 11:04
[2019-03-04 11:48] VITALS: BP 100/60
[2019-03-04] MEDS ORDERED: Isovue-370 150ml vial INJ PRN (13:00)
--- NOTE | 2019-03-04 13:29 | Hematology/Onc Progress Note ---
Assessment/Plan Assessment/Plan ASSESSMENT AND RECOMMENDATIONS # Pancytopenia -- multiple etiologies could be related to underlying liver disease --> peripheral smear has been ordered and does not show significant abnormalities --> Medications have been reviewed --> Continue to monitor for improvement, trend cbc --> Hep panel pending and HIV negative --> US abd: Slightly heterogeneous liver nonspecific. Correlate for chronic disease. CBD slightly prominent but may be normal given prior cholecystectomy and advanced age. Correlate clinically. --> reverse isolation if ANC is <2000 --> Give neupogen if ANC <1000 --> Transfuse if hgb <7, with 1 unit prbc --> consider bone marrow biopsy if no other causes are found --> wbc trend: 3.8 # Dizziness/ Vertigo # Weakness # Nausea # Diabetes --> moniotr BS levels. # Hypertension, # Urinary tract infection. THE TIME OF THE NOTE DOES NOT NECESSARILY CORRESPOND TO THE TIME THE PATIENT WAS SEEN. GREATLY APPRECIATE CONSULTATION. Subjective Hematologic/Lymphatic: Reports: anemia Allergies: Coded Allergies: No Known Allergies (Verified Allergy, Unknown, 06/05/11) All Systems: reviewed and negative except above Subjective 03/04: Pt awake and alert. No acute events. Hgb stable. Objective Objective Current Medications Medications (Trade) Dose Ordered Sig/Elva Route PRN Reason Start Time Stop Time Status Last Admin Dose Admin Acetaminophen (Tylenol) 650 mg Q4H PRN ORAL fever 03/01/19 20:00 03/31/19 19:59 Amlodipine Besylate (Norvasc) 5 mg DAILY ORAL 03/02/19 09:00 04/01/19 08:59 03/04/19 09:17 Aspirin (Ecotrin) 81 mg DAILY ORAL 03/02/19 13:00 04/01/19 12:59 03/04/19 09:18 Atenolol (Tenormin) 25 mg DAILY ORAL 03/02/19 09:00 04/01/19 08:59 03/04/19 09:17 Atorvastatin Calcium (Lipitor) 20 mg BEDTIME ORAL 03/02/19 21:00 04/01/19 20:59 03/03/19 21:17 Dextrose (Dextrose 50%) 25 ml Q30M PRN IV Hypoglycemia 03/01/19 20:00 03/31/19 19:59 Dextrose (Dextrose 50%) 50 ml Q30M PRN IV Hypoglycemia 03/01/19 20:00 03/31/19 19:59 Heparin Sodium (Porcine) (Heparin 5000 units/ml) 5,000 units EVERY 12 HOURS SUBQ 03/01/19 21:00 03/31/19 20:59 03/04/19 09:24 Insulin Aspart (NovoLOG) BEFORE MEALS AND HS SUBQ 03/01/19 21:00 03/31/19 20:59 03/03/19 21:21 Iopamidol (Isovue-300 100ml) 100 ml NOW PRN INJ Radiology Procedure 03/03/19 13:45 03/05/19 13:34 Iopamidol (Isovue-370 150ml) 150 ml NOW PRN INJ Radiology Procedure 03/03/19 13:45 03/05/19 13:34 Lorazepam (Ativan 2mg/ml 1ml) 0.5 mg Q4H IV 03/01/19 20:00 03/08/19 19:59 03/03/19 04:55 Lorazepam (Ativan 2mg/ml 1ml) 0.5 mg Q4H PRN IV For Anxiety 03/01/19 20:00 03/08/19 19:59 Meclizine HCl (Antivert) 25 mg Q8H PRN ORAL for dizziness 03/02/19 19:00 04/01/19 18:59 03/03/19 05:39 Morphine Sulfate (Morphine Sulfate) 1 mg Q4H PRN IVP For Pain 03/01/19 20:00 03/08/19 19:59 03/03/19 10:56 Ondansetron HCl (Zofran) 4 mg Q6H PRN IVP Nausea & Vomiting 03/01/19 20:00 03/31/19 19:59 Polyethylene Glycol (Miralax) 17 gm HSPRN PRN ORAL Constipation 03/01/19 20:00 03/31/19 19:59 Zolpidem Tartrate (Ambien) 5 mg HSPRN PRN ORAL Insomnia 03/01/19 20:00 03/08/19 19:59 03/02/19 22:36 Last 24 Hour Vital Signs Date Time Temp Pulse Resp B/P (MAP) Pulse Ox O2 Delivery O2 Flow Rate FiO2 03/04/19 11:48 97.8 64 18 100/60 (73) 95 03/04/19 09:51 77 74 86 03/04/19 09:17 74 131/53 03/04/19 09:17 74 131/53 03/04/19 09:00 Room Air 03/04/19 08:00 98.8 74 18 131/53 (79) 96 03/04/19 04:00 63 03/04/19 04:00 98.4 65 18 108/61 (77) 100 03/04/19 00:00 98.6 64 18 104/60 (75) 100 03/04/19 00:00 64 03/03/19 21:00 Room Air 03/03/19 20:00 98.2 62 20 102/59 (73) 100 03/03/19 20:00 64 03/03/19 16:00 97.3 62 21 136/65 (88) 96 03/03/19 16:00 60 03/03/19 12:00 58 03/03/19 12:00 97.8 58 22 119/59 (79) 99 03/03/19 09:17 73 145/59 03/03/19 09:16 73 145/59 03/03/19 08:00 98.1 73 20 145/59 (87) 95 03/03/19 08:00 71 03/03/19 08:00 Room Air 03/03/19 04:00 97.7 65 18 149/65 (93) 95 03/03/19 04:00 62 03/03/19 00:00 60 03/03/19 00:00 96.8 69 18 129/73 (91) 97 03/02/19 21:00 Room Air 03/02/19 20:00 97.6 63 18 132/60 (84) 97 03/02/19 20:00 58 03/02/19 16:00 99.1 62 18 129/62 (84) 97 03/02/19 16:00 58 Intake and Output 03/03/19 03/04/19 18:59 06:59 # Voids 1 2 Labs Test 03/01/19 15:00 03/01/19 17:00 03/02/19 05:31 03/03/19 07:54 White Blood Count 3.7 K/UL (4.8-10.8) 3.0 K/UL (4.8-10.8) 3.7 K/UL (4.8-10.8) Red Blood Count 3.59 M/UL (4.20-5.40) 3.46 M/UL (4.20-5.40) 3.77 M/UL (4.20-5.40) Hemoglobin 11.1 G/DL (12.0-16.0) 10.8 G/DL (12.0-16.0) 11.5 G/DL (12.0-16.0) Hematocrit 33.2 % (37.0-47.0) 32.1 % (37.0-47.0) 34.5 % (37.0-47.0) Mean Corpuscular Volume 93 FL (80-99) 93 FL (80-99) 92 FL (80-99) Mean Corpuscular Hemoglobin 30.9 PG (27.0-31.0) 31.1 PG (27.0-31.0) 30.7 PG (27.0-31.0) Mean Corpuscular Hemoglobin Concent 33.4 G/DL (32.0-36.0) 33.6 G/DL (32.0-36.0) 33.4 G/DL (32.0-36.0) Red Cell Distribution Width 13.0 % (11.6-14.8) 13.2 % (11.6-14.8) 13.1 % (11.6-14.8) Platelet Count 130 K/UL (150-450) 132 K/UL (150-450) 139 K/UL (150-450) Mean Platelet Volume 8.8 FL (6.5-10.1) 9.1 FL (6.5-10.1) 9.3 FL (6.5-10.1) Neutrophils (%) (Auto) 38.4 % (45.0-75.0) % (45.0-75.0) 36.1 % (45.0-75.0) Lymphocytes (%) (Auto) 41.2 % (20.0-45.0) % (20.0-45.0) 43.0 % (20.0-45.0) Monocytes (%) (Auto) 17.3 % (1.0-10.0) % (1.0-10.0) 18.4 % (1.0-10.0) Eosinophils (%) (Auto) 0.4 % (0.0-3.0) % (0.0-3.0) 0.7 % (0.0-3.0) Basophils (%) (Auto) 2.8 % (0.0-2.0) % (0.0-2.0) 1.8 % (0.0-2.0) Sodium Level 139 MMOL/L (136-145) 142 MMOL/L (136-145) 138 MMOL/L (136-145) Potassium Level 4.7 MMOL/L (3.5-5.1) 3.6 MMOL/L (3.5-5.1) 3.5 MMOL/L (3.5-5.1) Chloride Level 104 MMOL/L (98-107) 106 MMOL/L (98-107) 102 MMOL/L (98-107) Carbon Dioxide Level 26 MMOL/L (21-32) 30 MMOL/L (21-32) 27 MMOL/L (21-32) Anion Gap 9 mmol/L (5-15) 6 mmol/L (5-15) 9 mmol/L (5-15) Blood Urea Nitrogen 20 mg/dL (7-18) 19 mg/dL (7-18) 15 mg/dL (7-18) Creatinine 0.7 MG/DL (0.55-1.30) 0.6 MG/DL (0.55-1.30) 0.7 MG/DL (0.55-1.30) Estimat Glomerular Filtration Rate mL/min (>60) mL/min (>60) mL/min (>60) Glucose Level 103 MG/DL (74-106) 95 MG/DL (74-106) 210 MG/DL (74-106) Calcium Level 9.2 MG/DL (8.5-10.1) 9.0 MG/DL (8.5-10.1) 9.5 MG/DL (8.5-10.1) Total Bilirubin 0.4 MG/DL (0.2-1.0) 0.2 MG/DL (0.2-1.0) Aspartate Amino Transf (AST/SGOT) 30 U/L (15-37) 12 U/L (15-37) Alanine Aminotransferase (ALT/SGPT) 20 U/L (12-78) 13 U/L (12-78) Alkaline Phosphatase 53 U/L (46-116) 61 U/L (46-116) Troponin I 0.000 ng/mL (0.000-0.056) 0.000 ng/mL (0.000-0.056) Total Protein 7.3 G/DL (6.4-8.2) 6.7 G/DL (6.4-8.2) Albumin 3.9 G/DL (3.4-5.0) 3.5 G/DL (3.4-5.0) Globulin 3.4 g/dL 3.2 g/dL Albumin/Globulin Ratio 1.1 (1.0-2.7) 1.1 (1.0-2.7) Lipase 98 U/L (73-393) Thyroid Stimulating Hormone (TSH) 1.833 uiU/mL (0.358-3.740) Urine Color Yellow Urine Appearance Clear Urine pH 6 (4.5-8.0) Urine Specific Ferdinand 1.015 (1.005-1.035) Urine Protein Negative (NEGATIVE) Urine Glucose (UA) Negative (NEGATIVE) Urine Ketones Negative (NEGATIVE) Urine Blood Negative (NEGATIVE) Urine Nitrite Negative (NEGATIVE) Urine Bilirubin Negative (NEGATIVE) Urine Urobilinogen 1 MG/DL (0.0-1.0) Urine Leukocyte Esterase 3+ (NEGATIVE) Urine RBC 0-2 /HPF (0 - 2) Urine WBC 2-4 /HPF (0 - 2) Urine Squamous Epithelial Cells Few /LPF (NONE/OCC) Urine Bacteria Occasional /HPF (NONE) Differential Total Cells Counted 100 Neutrophils % (Manual) 27 % (45-75) Lymphocytes % (Manual) 57 % (20-45) Monocytes % (Manual) 16 % (1-10) Eosinophils % (Manual) 0 % (0-3) Basophils % (Manual) 0 % (0-2) Band Neutrophils 0 % (0-8) Platelet Estimate Decreased Platelet Morphology Normal Red Blood Cell Morphology Normal Triglycerides Level 64 MG/DL (30-150) Cholesterol Level 154 MG/DL (< 200) LDL Cholesterol 69 mg/dL (<100) HDL Cholesterol 69 MG/DL (40-60) Cholesterol/HDL Ratio 2.2 (3.3-4.4) HIV (1&2) Antibody Rapid Negative (NEGATIVE) Test 03/04/19 05:30 White Blood Count 3.8 K/UL (4.8-10.8) Red Blood Count 3.85 M/UL (4.20-5.40) Hemoglobin 11.9 G/DL (12.0-16.0) Hematocrit 35.4 % (37.0-47.0) Mean Corpuscular Volume 92 FL (80-99) Mean Corpuscular Hemoglobin 30.8 PG (27.0-31.0) Mean Corpuscular Hemoglobin Concent 33.5 G/DL (32.0-36.0) Red Cell Distribution Width 13.0 % (11.6-14.8) Platelet Count 159 K/UL (150-450) Mean Platelet Volume 8.8 FL (6.5-10.1) Neutrophils (%) (Auto) % (45.0-75.0) Lymphocytes (%) (Auto) % (20.0-45.0) Monocytes (%) (Auto) % (1.0-10.0) Eosinophils (%) (Auto) % (0.0-3.0) Basophils (%) (Auto) % (0.0-2.0) Sodium Level 140 MMOL/L (136-145) Potassium Level 3.7 MMOL/L (3.5-5.1) Chloride Level 104 MMOL/L (98-107) Carbon Dioxide Level 29 MMOL/L (21-32) Anion Gap 7 mmol/L (5-15) Blood Urea Nitrogen 22 mg/dL (7-18) Creatinine 0.6 MG/DL (0.55-1.30) Estimat Glomerular Filtration Rate mL/min (>60) Glucose Level 101 MG/DL (74-106) Calcium Level 9.7 MG/DL (8.5-10.1) Height (Feet): 5 Weight (Pounds): 147 Objective General Appearance: WD/WN HEENT: normocephalic, anicteric Respiratory/Chest: chest wall non-tender, lungs clear Breasts: no masses Cardiovascular: normal rate, regularly irregular Abdomen: normal bowel sounds, non distended, no scars Extremities: no cyanosis Skin: no rash Nakul Tejeda MD Mar 04, 2019 13:29
--- NOTE | 2019-03-04 13:31 | Cardiology Report ---
APPROVED REPORT EXAM: Two-dimensional and M-mode echocardiogram with Doppler and color Doppler. INDICATION Bradycardia M-Mode DIMENSIONS IVSd1.6 (0.7-1.1cm)Left Atrium (MM)3.6 (1.6-4.0cm) LVDd3.3 (3.5-5.6cm)Aortic Root2.5 (2.0-3.7cm) PWd1.2 (0.7-1.1cm)Aortic Cusp Exc.1.7 (1.5-2.0cm) LVDs1.5 (2.5-4.0cm) PWs1.8 cm Normal left ventricular chamber size, systolic function and wall motion. Left ventricular ejection fraction estimated to be 65-70 %. Mild left ventricular hypertrophy. No evidence of pericardial effusion. All other cardiac chamber sizes are within normal limits. Focal aortic valve sclerosis with adequate cusp excursion. Mildly thickened mitral valve leaflets with normal excursion. Mild mitral annulus and aortic root calcification. Normal pulmonic valve structure. Normal tricuspid valve structure. IVC is normal in size with physiological collapse. A color flow and spectral Doppler study was performed and revealed: No aortic regurgitation. Trace mitral regurgitation. Mitral diastolic velocities suggest mild left ventricular diastolic dysfunction (Grade I). Mild tricuspid regurgitation. Tricuspid systolic velocities suggests peak right ventricular systolic pressure of 66 mmHg, consistent with severe pulmonary hypertension. Mild pulmonic regurgitation present.
--- NOTE | 2019-03-04 14:16 | General Progress Note ---
Assessment/Plan Problem List: (1) Unsteady gait ICD Codes: R26.81 - Unsteadiness on feet SNOMED: 62086718, 063251415 (2) UTI (urinary tract infection) ICD Codes: N39.0 - Urinary tract infection, site not specified SNOMED: 94319155 (3) Diabetes mellitus ICD Codes: E11.9 - Type 2 diabetes mellitus without complications SNOMED: 25283753 (4) HTN (hypertension) ICD Codes: I10 - Essential (primary) hypertension SNOMED: 34525401 (5) Vertigo, benign positional ICD Codes: H81.10 - Benign paroxysmal vertigo, unspecified ear SNOMED: 914578518 Status: stable, progressing Assessment/Plan: pt diet abx cardio neuro eval cbc bmp am dc plan w hh if clear Subjective Constitutional: Reports: weakness Allergies: Coded Allergies: No Known Allergies (Verified Allergy, Unknown, 06/05/11) All Systems: reviewed and negative except above Subjective sleepy calm Objective Last 24 Hour Vital Signs Date Time Temp Pulse Resp B/P (MAP) Pulse Ox O2 Delivery O2 Flow Rate FiO2 03/04/19 12:00 63 03/04/19 11:48 97.8 64 18 100/60 (73) 95 03/04/19 09:51 77 74 86 03/04/19 09:17 74 131/53 03/04/19 09:17 74 131/53 03/04/19 09:00 Room Air 03/04/19 08:00 98.8 74 18 131/53 (79) 96 03/04/19 08:00 69 03/04/19 04:00 63 03/04/19 04:00 98.4 65 18 108/61 (77) 100 03/04/19 00:00 98.6 64 18 104/60 (75) 100 03/04/19 00:00 64 03/03/19 21:00 Room Air 03/03/19 20:00 98.2 62 20 102/59 (73) 100 03/03/19 20:00 64 03/03/19 16:00 97.3 62 21 136/65 (88) 96 03/03/19 16:00 60 Intake and Output 03/03/19 03/04/19 18:59 06:59 # Voids 1 2 Laboratory Tests 03/04/19 05:30: White Blood Count 3.8L, Red Blood Count 3.85L, Hemoglobin 11.9L, Hematocrit 35.4L, Mean Corpuscular Volume 92, Mean Corpuscular Hemoglobin 30.8, Mean Corpuscular Hemoglobin Concent 33.5, Red Cell Distribution Width 13.0, Platelet Count 159, Mean Platelet Volume 8.8, Neutrophils (%) (Auto) , Lymphocytes (%) ( Auto) , Monocytes (%) (Auto) , Eosinophils (%) (Auto) , Basophils (%) (Auto) , Sodium Level 140, Potassium Level 3.7, Chloride Level 104, Carbon Dioxide Level 29, Anion Gap 7, Blood Urea Nitrogen 22H, Creatinine 0.6, Estimat Glomerular Filtration Rate , Glucose Level 101#, Calcium Level 9.7 Height (Feet): 5 Weight (Pounds): 147 General Appearance: lethargic EENT: normal ENT inspection Neck: normal alignment Cardiovascular: normal peripheral pulses, normal rate, regular rhythm Respiratory/Chest: chest wall non-tender, lungs clear, normal breath sounds Abdomen: normal bowel sounds, non tender, soft Extremities: normal inspection Edema: no edema noted Arm (L), no edema noted Arm (R), no edema noted Leg (L), no edema noted Leg (R), no edema noted Pedal (L), no edema noted Pedal (R), no edema noted Generalized Neurologic: responsive, motor weakness Skin: normal pigmentation, warm/dry Cj Degroot DO Mar 04, 2019 14:16
--- NOTE | 2019-03-04 15:06 | Cardiology Report ---
APPROVED REPORT EKG Measurement Heart [id number] Sinus bradycardia Low voltage QRS Borderline ECG
--- NOTE | 2019-03-04 15:08 | NUR ---
NURSE NOTES: Let Chantel Escamilla NP and Dr. Escobar know that patient will be discharged pending clearance by neuro and cardio. Dr. Escobar cleared the patient. Francine said she is not cleared from neuro standpoint.
[2019-03-04 15:54] VITALS: BP 103/53
--- NOTE | 2019-03-04 17:02 | Diagnostic Imaging Report ---
Indication: CVA and focal weakness. Technique: Continuous helical transaxial imaging of the neck was obtained from the aortic arch to the skull base during rapid intravenous contrast administration. Arterial phase of enhancement obtained. Coronal 2-D reformats were also obtained and maximum intensity projection images in multiple planes. Study obtained in a Siemens sensation [address] Automatic Exposure Control was utilized. Total Dose length Product (DLP): Refer to CT cervical mGycm CT Dose Index Volume (CTDIvol): Refer to CT cervical mGy Comparison: None Findings: CTA NECK: Aortic arch vessels: At the origin of the right subclavian artery which is at the bifurcation of the brachiocephalic artery into the right common carotid artery and subclavian artery, there is dense calcific plaque present. The origin stenosis appears severe and probably greater than 70-80%. The remainder of the visualized distal portion of the right subclavian artery is widely patent. Right extracranial carotid artery: The right common carotid artery is patent. There is some plaque at the terminus of the right common carotid artery involving the proximal right ICA. Degree of stenosis is probably about 50%. The plaque is heavily calcified. Correlation with duplex Doppler sonography is recommended. Left extracranial carotid artery: On the left side, the common carotid artery appears patent although there is some calcific plaque at the origin of the vessel. There is bifurcation plaque with calcification extending into the ICA estimated at 50%. Again, correlation with duplex Doppler sonography is recommended. There is also a dense calcific plaque at the origin of the external carotid artery. There is no visualized high-grade stenosis or occlusion of the vertebral arteries. The left vertebral artery appears larger. CTA HEAD: No high-grade stenosis or occlusion of the any of the major intracranial arteries and the anterior and posterior circulation identified. The intracranial portions of both ICAs demonstrate mural calcification consistent with atherosclerotic disease but does show no significant stenosis. No aneurysm identified. Bilateral cataract surgery noted. Opacification of the right maxillary sinus demonstrated. Generalized atrophy of the brain noted. No mass effect or edema or midline shift identified. No evidence of acute intracranial hemorrhage. 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 Evaluation limited by dense calcification of the plaque. Moderate calcific plaque at the origins of both internal carotid arteries estimated at 50-60%. Mild atherosclerotic disease involving intracranial petrous/cavernous internal carotid arteries without high-grade stenosis or occlusion on the CTA of the head. Mild generalized atrophy of the brain. Evidence of chronic small vessel disease involving white matter tracts. Previous lens replacement/cataract surgery. Right maxillary sinusitis. Cervical spondylosis. This is discussed in further detail on the CT cervical spine. The CT scanner at [facility] is accredited by the [employer] and the scans are performed using dose optimization techniques as appropriate to a performed exam including Automatic Exposure control.
--- NOTE | 2019-03-04 17:05 | Diagnostic Imaging Report ---
Indication: Neck pain. Technique: Continuous helical imaging of the cervical spine was obtained transaxially from the skull base to the upper thoracic spine. 2-D coronal and sagittal reformatted images were obtained. Automatic Exposure Control was utilized. Total Dose length Product (DLP): [address] Dose Index Volume (CTDIvol): 16.5 x 2, 70.38 x 2, 115.53, 52.35, 0.17 x 2 mGy Comparison: None Findings: There is no acute fracture or malalignment identified. There is no soft tissue swelling identified. Moderate uncovertebral arthritis is demonstrated at multiple levels. Most of the intervertebral discs show moderate to severe narrowing and endplate and uncovertebral osteophytes. Multilevel foraminal stenosis noted. There is loss of cervical lordosis with reversal present. Minimal anterolisthesis at C3-4 noted. Incidental 2.2 cm left thyroid mass demonstrated. This is probably partially cystic. Other smaller hypodensities are noted within the thyroid gland bilaterally. Arterial vascular disease is present and this is discussed further in the CTA head and neck. Impression: No acute injury Moderate to severe spondylosis Other incidental findings as above The CT scanner at [facility] is accredited by the [employer] and the scans are performed using dose optimization techniques as appropriate to a performed exam including Automatic Exposure control.
--- NOTE | 2019-03-04 19:28 | NUR ---
HAND-OFF: Report given to LAURIE Sanchez. Pt is in stable condition; plan of care endorsed.
--- NOTE | 2019-03-04 19:30 | NUR ---
NURSE NOTES: Report received from Andrew Jones RN. Pt is resting in bed in stable condition. Pt is awake, alert, and oriented x4. Pt is on room air and breathing is even and unlabored. No acute distress noted. IV site is R hand #20g and L AC #20g; both sites are asymptomatic, patent, and intact. Fall precautions noted to be in place. Bed is in lowest position with brake engaged, side rails up x3, and bed alarm on. Call light and side table placed within reach. Will continue to monitor.
[2019-03-04 20:00] VITALS: BP 131/55
[2019-03-04] MEDS: Zolpidem 5mg tab ORAL PRN (20:44)
[2019-03-04] MEDS: Atorvastatin 20mg tab ORAL SCH (20:44)
--- NOTE | 2019-03-04 23:59 | Neurology Progress Note ---
Interim History Interim History ROS Limited/Unobtainable: No Objective Physical Exam Last Vital Signs Date Time Temp Pulse Resp B/P (MAP) Pulse Ox O2 Delivery O2 Flow Rate FiO2 03/04/19 16:00 65 03/04/19 15:54 97.3 18 103/53 (70) 96 03/04/19 09:00 Room Air Laboratory Tests Test 03/04/19 05:30 White Blood Count 3.8 K/UL (4.8-10.8) L Red Blood Count 3.85 M/UL (4.20-5.40) L Hemoglobin 11.9 G/DL (12.0-16.0) L Hematocrit 35.4 % (37.0-47.0) L Mean Corpuscular Volume 92 FL (80-99) Mean Corpuscular Hemoglobin 30.8 PG (27.0-31.0) Mean Corpuscular Hemoglobin Concent 33.5 G/DL (32.0-36.0) Red Cell Distribution Width 13.0 % (11.6-14.8) Platelet Count 159 K/UL (150-450) Mean Platelet Volume 8.8 FL (6.5-10.1) Neutrophils (%) (Auto) % (45.0-75.0) Lymphocytes (%) (Auto) % (20.0-45.0) Monocytes (%) (Auto) % (1.0-10.0) Eosinophils (%) (Auto) % (0.0-3.0) Basophils (%) (Auto) % (0.0-2.0) Sodium Level 140 MMOL/L (136-145) Potassium Level 3.7 MMOL/L (3.5-5.1) Chloride Level 104 MMOL/L (98-107) Carbon Dioxide Level 29 MMOL/L (21-32) Anion Gap 7 mmol/L (5-15) Blood Urea Nitrogen 22 mg/dL (7-18) H Creatinine 0.6 MG/DL (0.55-1.30) Estimat Glomerular Filtration Rate mL/min (>60) Glucose Level 101 MG/DL (74-106) # Calcium Level 9.7 MG/DL (8.5-10.1) General: well developed, well nourished Head: normocophalic Neck: no rigidity EENT: benign Neurologic Exam Mental Status: awake, alert, oriented x4, normal cognition, good mathematical skills, normal recent memory, normal remote memory, preserved visuospatial function Speech: normal speech, no dysarthia Language: normal language, no aphasia Cranial Nerve II: fundus normal, visual gurrola, no papilledema Cranial Nerves III, IV, : PERRLA, EOMI, pupils Cranial Nerve V: normal facial sensations, temporales function normal, masseters function normal, pterygoids function normal Cranial Nerve VII: normal facial expressions Cranial Nerve VIII: normal hearing, no nystagmus Cranial Nerve IX: normal palate elevation, gag response Cranial Nerve X: no voice hoarseness Cranial Nerve XI: SCM symmetric, trapezii function normal Cranial Nerve XII: tongue midline, no tongue atrophy/fasciculations Motor System: normal muscle tone, no involuntary movement, no muscle wasting Sensory: normal pinprick, normal light touch, normal position sense, normal graphesthesia, other - Improved numbness, increased sensation in hands bilaterally and waning of dizziness symptoms. Coordination: normal finger to nose bilaterally, normal heel to jaeger bilaterally, negative Romberg test Deep Tendon Reflexes: 2+ bicep (L), 2+ bicep (R), 2+ tricep (L), 2+ tricep (R) , 2+ brachioradialis (L), 2+ brachioradialis (R), 2+ knee (L), 2+ knee (R), 2+ ankle (L), 2+ ankle (R) Stance: normal Gait: stable, normal regular, heel + toe gait Objective Vertigo decreased and left upper extremity / leg weakness today , hand sensation improving Imaging [facility] [address] [facility] [place] [address] [phone], fax [phone] Vladimir Eddy M.D. [employer] Patient : SOFIA PEREZ Referring Physician: Chantel Escamilla N.P. ID Number: [id number] Service Date: 03/04/19 : 1935 Report Date: 03/04/19 Gender: F Accession No.: [id number] Location: Procedure: CTA Head wo/w Contrast Indication: CVA and focal weakness. Technique: Continuous helical transaxial imaging of the neck was obtained from the aortic arch to the skull base during rapid intravenous contrast administration. Arterial phase of enhancement obtained. Coronal 2-D reformats were also obtained and maximum intensity projection images in multiple planes. Study obtained in a Siemens sensation [address] Automatic Exposure Control was utilized. Total Dose length Product (DLP): Refer to CT cervical mGycm CT Dose Index Volume (CTDIvol): Refer to CT cervical mGy Comparison: None Findings: CTA NECK: Aortic arch vessels: At the origin of the right subclavian artery which is at the bifurcation of the brachiocephalic artery into the right common carotid artery and subclavian artery, there is dense calcific plaque present. The origin stenosis appears severe and probably greater than 70-80%. The remainder of the visualized distal portion of the right subclavian artery is widely patent. Right extracranial carotid artery: The right common carotid artery is patent. There is some plaque at the terminus of the right common carotid artery involving the proximal right ICA. Degree of stenosis is probably about 50%. The plaque is heavily calcified. Correlation with duplex Doppler sonography is recommended. Left extracranial carotid artery: On the left side, the common carotid artery appears patent although there is some calcific plaque at the origin of the vessel. There is bifurcation plaque with calcification extending into the ICA estimated at 50%. Again, correlation with duplex Doppler sonography is recommended. There is also a dense calcific plaque at the origin of the external carotid artery. There is no visualized high-grade stenosis or occlusion of the vertebral arteries. The left vertebral artery appears larger. CTA HEAD: No high-grade stenosis or occlusion of the any of the major intracranial arteries and the anterior and posterior circulation identified. The intracranial portions of both ICAs demonstrate mural calcification consistent with atherosclerotic disease but does show no significant stenosis. No aneurysm identified. Bilateral cataract surgery noted. Opacification of the right maxillary sinus demonstrated. Generalized atrophy of the brain noted. No mass effect or edema or midline shift identified. No evidence of acute intracranial hemorrhage. 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 Evaluation limited by dense calcification of the plaque. Moderate calcific plaque at the origins of both internal carotid arteries estimated at 50-60%. Mild atherosclerotic disease involving intracranial petrous/cavernous internal carotid arteries without high-grade stenosis or occlusion on the CTA of the head. Mild generalized atrophy of the brain. Evidence of chronic small vessel disease involving white matter tracts. Previous lens replacement/cataract surgery. Right maxillary sinusitis. Cervical spondylosis. This is discussed in further detail on the CT cervical spine. The CT scanner at is accredited by the [employer] and the scans are performed using dose optimization techniques as appropriate to a performed exam including Automatic Exposure control. Dictated By: Simon Cohen MD Electronically Signed By: Simon Cohen MD Signed Date/Time 03/04/19 8148 CC: Chantel Escamilla N.P.; Cj Degroot DO Impression/Recommendations Problems: (1) Acute encephalopathy (2) Hyperlipidemia (3) History of CVA (cerebrovascular accident) without residual deficits Assessment & Plan: Recent MRI showing Pontine infarct - subacute to acute. This is possibly same as recent stroke with recrudescence of symptoms in present of viral syndrome (4) Bacteremia (5) Viral syndrome (6) Unsteady gait (7) UTI (urinary tract infection) (8) Diabetes mellitus (9) Sepsis (10) HTN (hypertension) (11) Sinusitis, acute (12) Vertigo, benign positional (13) Right pontine cerebrovascular accident Status: stable, progressing Recommendations SBP<140 with IV hydralazine to keep this down Q4 Neuro obs Consider starting Plavix with Aspirin Maintain normoglycemia with ISS Bilateral Carotid Doppler to better characterize high grade of carotid stenosis TTE Na 135-145 PT/OT EVal MEclizine 25mg PO TID PRN/ Scheduled as patient needs it Neck spasm - will trial Baclofen prn Chantel Escamilla N.P. Mar 04, 2019 23:59
[2019-03-05] VITALS: BP 136/57
[2019-03-05 04:00] VITALS: BP 122/60
[2019-03-05] MEDS: NovoLOG Insulin Flexpen SUBQ SCH ×4 (06:12→21:14)
[2019-03-05 07:07] LABS: BASOPHILS % (AUTO) 2.4 % (0.0-2.0); EOSINOPHILS % (AUTO) 0.7 % (0.0-3.0); HEMATOCRIT 35.4 % (37.0-47.0); MEAN CORPUSCULAR VOLUME 92 FL (80-99); MONOCYTES % (AUTO) 14.5 % (1.0-10.0); NEUTROPHILS % (AUTO) 32.5 % (45.0-75.0); PLATELET COUNT 169 K/UL (150-450); RED BLOOD COUNT 3.83 M/UL (4.20-5.40); RED CELL DISTRIBUTION WIDTH 13.4 % (11.6-14.8); WHITE BLOOD COUNT 3.7 K/UL (4.8-10.8)
--- NOTE | 2019-03-05 07:10 | NUR ---
NURSE NOTES: I received the patient awake and resting in bed. Patient alert and oriented x4. Patient's bed in the lowest and locked position and call light within reach. Patient does not display any signs of distress or SOB. I will continue to monitor the patient and implement care.
[2019-03-05 07:14] LABS: ANION GAP 8 mmol/L (5-15); BLOOD UREA NITROGEN 22 mg/dL (7-18); CALCIUM 9.6 MG/DL (8.5-10.1); CARBON DIOXIDE 28 MMOL/L (21-32); CHLORIDE 103 MMOL/L (98-107); CREATININE 0.5 MG/DL (0.55-1.30); POTASSIUM 3.7 MMOL/L (3.5-5.1); SODIUM 139 MMOL/L (136-145)
--- NOTE | 2019-03-05 07:29 | NUR ---
HAND-OFF: Report given to John Benjamin RN. Pt is resting in bed in stable condition. No acute distress noted. Endorsed plan of care.
[2019-03-05 08:00] VITALS: BP 120/61
--- NOTE | 2019-03-05 08:21 | General Progress Note ---
Assessment/Plan Problem List: (1) Unsteady gait ICD Codes: R26.81 - Unsteadiness on feet SNOMED: 99619705, 324067881 (2) UTI (urinary tract infection) ICD Codes: N39.0 - Urinary tract infection, site not specified SNOMED: 06292775 (3) Diabetes mellitus ICD Codes: E11.9 - Type 2 diabetes mellitus without complications SNOMED: 41603270 (4) HTN (hypertension) ICD Codes: I10 - Essential (primary) hypertension SNOMED: 10130332 (5) Vertigo, benign positional ICD Codes: H81.10 - Benign paroxysmal vertigo, unspecified ear SNOMED: 039893771 Status: stable, progressing Assessment/Plan: pt diet abx cardio neuro eval dc w hh if clear Subjective Constitutional: Reports: weakness Allergies: Coded Allergies: No Known Allergies (Verified Allergy, Unknown, 06/05/11) All Systems: reviewed and negative except above Subjective sleepy calm Objective Last 24 Hour Vital Signs Date Time Temp Pulse Resp B/P (MAP) Pulse Ox O2 Delivery O2 Flow Rate FiO2 03/05/19 04:00 64 03/05/19 04:00 98.5 59 18 122/60 (80) 97 03/05/19 00:00 98.4 64 18 136/57 (83) 96 03/05/19 00:00 61 03/04/19 21:00 Room Air 03/04/19 21:00 59 68 74 03/04/19 20:00 61 03/04/19 20:00 98.8 74 18 131/55 (80) 96 03/04/19 16:00 65 03/04/19 15:54 97.3 61 18 103/53 (70) 96 03/04/19 12:00 63 03/04/19 11:48 97.8 64 18 100/60 (73) 95 03/04/19 09:51 77 74 86 03/04/19 09:17 74 131/53 03/04/19 09:17 74 131/53 03/04/19 09:00 Room Air Intake and Output 03/04/19 03/05/19 19:00 07:00 Intake Total 730 ml Output Total 500 ml 400 ml Balance 230 ml -400 ml Intake Oral 730 ml Output Urine Total 500 ml 400 ml # Voids 3 # Bowel Movements 1 1 Laboratory Tests 03/05/19 06:22: White Blood Count 3.7L, Red Blood Count 3.83L, Hemoglobin 12.0, Hematocrit 35.4L , Mean Corpuscular Volume 92, Mean Corpuscular Hemoglobin 31.3H, Mean Corpuscular Hemoglobin Concent 33.8, Red Cell Distribution Width 13.4, Platelet Count 169, Mean Platelet Volume 9.3, Neutrophils (%) (Auto) 32.5L, Lymphocytes ( %) (Auto) 50.0H, Monocytes (%) (Auto) 14.5H, Eosinophils (%) (Auto) 0.7, Basophils (%) (Auto) 2.4H, Sodium Level 139, Potassium Level 3.7, Chloride Level 103, Carbon Dioxide Level 28, Anion Gap 8, Blood Urea Nitrogen 22H, Creatinine 0.5L, Estimat Glomerular Filtration Rate , Glucose Level 134H, Calcium Level 9.6 Height (Feet): 5 Weight (Pounds): 146 General Appearance: alert EENT: normal ENT inspection Neck: normal alignment Cardiovascular: normal peripheral pulses, normal rate, regular rhythm Respiratory/Chest: chest wall non-tender, lungs clear, normal breath sounds Abdomen: normal bowel sounds, non tender, soft Extremities: normal inspection Edema: no edema noted Arm (L), no edema noted Arm (R), no edema noted Leg (L), no edema noted Leg (R), no edema noted Pedal (L), no edema noted Pedal (R), no edema noted Generalized Neurologic: responsive, motor weakness Skin: normal pigmentation, warm/dry Cj Degroot DO Mar 05, 2019 08:21
--- NOTE | 2019-03-05 08:55 | Hematology/Onc Progress Note ---
Assessment/Plan Assessment/Plan ASSESSMENT AND RECOMMENDATIONS # Pancytopenia -- multiple etiologies could be related to underlying liver disease --> peripheral smear has been ordered and does not show significant abnormalities --> Medications have been reviewed --> Continue to monitor for improvement, trend cbc --> Hep panel pending and HIV negative --> US abd: Slightly heterogeneous liver nonspecific. Correlate for chronic disease. CBD slightly prominent but may be normal given prior cholecystectomy and advanced age. Correlate clinically. --> reverse isolation if ANC is <2000 --> Give neupogen if ANC <1000 --> Transfuse if hgb <7, with 1 unit prbc --> consider bone marrow biopsy if no other causes are found --> wbc trend: 3.8-->3.7 # Dizziness/ Vertigo # Weakness # Nausea # Diabetes --> moniotr BS levels. # Hypertension, # Urinary tract infection. THE TIME OF THE NOTE DOES NOT NECESSARILY CORRESPOND TO THE TIME THE PATIENT WAS SEEN. GREATLY APPRECIATE CONSULTATION. Subjective Allergies: Coded Allergies: No Known Allergies (Verified Allergy, Unknown, 06/05/11) Subjective 03/04: Pt awake and alert. No acute events. Hgb stable. 03/05: Pt awake and resting in bed. Pt does not display any signs of distress or SOB. Objective Objective Current Medications Medications (Trade) Dose Ordered Sig/Elva Route PRN Reason Start Time Stop Time Status Last Admin Dose Admin Acetaminophen (Tylenol) 650 mg Q4H PRN ORAL fever 03/01/19 20:00 03/31/19 19:59 Amlodipine Besylate (Norvasc) 5 mg DAILY ORAL 03/02/19 09:00 04/01/19 08:59 03/04/19 09:17 Aspirin (Ecotrin) 81 mg DAILY ORAL 03/02/19 13:00 04/01/19 12:59 03/04/19 09:18 Atenolol (Tenormin) 25 mg DAILY ORAL 03/02/19 09:00 04/01/19 08:59 03/04/19 09:17 Atorvastatin Calcium (Lipitor) 20 mg BEDTIME ORAL 03/02/19 21:00 04/01/19 20:59 03/04/19 20:44 Dextrose (Dextrose 50%) 25 ml Q30M PRN IV Hypoglycemia 03/01/19 20:00 03/31/19 19:59 Dextrose (Dextrose 50%) 50 ml Q30M PRN IV Hypoglycemia 03/01/19 20:00 03/31/19 19:59 Heparin Sodium (Porcine) (Heparin 5000 units/ml) 5,000 units EVERY 12 HOURS SUBQ 03/01/19 21:00 03/31/19 20:59 03/04/19 20:48 Insulin Aspart (NovoLOG) BEFORE MEALS AND HS SUBQ 03/01/19 21:00 03/31/19 20:59 03/04/19 16:45 Iopamidol (Isovue-300 100ml) 100 ml NOW PRN INJ Radiology Procedure 03/03/19 13:45 03/05/19 13:34 Iopamidol (Isovue-370 150ml) 150 ml NOW PRN INJ Radiology Procedure 03/03/19 13:45 03/05/19 13:34 Lorazepam (Ativan 2mg/ml 1ml) 0.5 mg Q4H PRN IV For Anxiety 03/01/19 20:00 03/08/19 19:59 Meclizine HCl (Antivert) 25 mg Q8H PRN ORAL for dizziness 03/02/19 19:00 04/01/19 18:59 03/03/19 05:39 Morphine Sulfate (Morphine Sulfate) 1 mg Q4H PRN IVP For Pain 03/01/19 20:00 03/08/19 19:59 03/03/19 10:56 Ondansetron HCl (Zofran) 4 mg Q6H PRN IVP Nausea & Vomiting 03/01/19 20:00 03/31/19 19:59 Polyethylene Glycol (Miralax) 17 gm HSPRN PRN ORAL Constipation 03/01/19 20:00 03/31/19 19:59 Zolpidem Tartrate (Ambien) 5 mg HSPRN PRN ORAL Insomnia 03/01/19 20:00 03/08/19 19:59 03/04/19 20:44 Last 24 Hour Vital Signs Date Time Temp Pulse Resp B/P (MAP) Pulse Ox O2 Delivery O2 Flow Rate FiO2 03/05/19 08:00 99.6 72 18 120/61 (80) 92 03/05/19 04:00 64 03/05/19 04:00 98.5 59 18 122/60 (80) 97 03/05/19 00:00 98.4 64 18 136/57 (83) 96 03/05/19 00:00 61 03/04/19 21:00 Room Air 03/04/19 21:00 59 68 74 03/04/19 20:00 61 03/04/19 20:00 98.8 74 18 131/55 (80) 96 03/04/19 16:00 65 03/04/19 15:54 97.3 61 18 103/53 (70) 96 03/04/19 12:00 63 03/04/19 11:48 97.8 64 18 100/60 (73) 95 03/04/19 09:51 77 74 86 03/04/19 09:17 74 131/53 03/04/19 09:17 74 131/53 03/04/19 09:00 Room Air 03/04/19 08:00 98.8 74 18 131/53 (79) 96 03/04/19 08:00 69 03/04/19 04:00 63 03/04/19 04:00 98.4 65 18 108/61 (77) 100 03/04/19 00:00 98.6 64 18 104/60 (75) 100 03/04/19 00:00 64 03/03/19 21:00 Room Air 03/03/19 20:00 98.2 62 20 102/59 (73) 100 03/03/19 20:00 64 03/03/19 16:00 97.3 62 21 136/65 (88) 96 03/03/19 16:00 60 03/03/19 12:00 58 03/03/19 12:00 97.8 58 22 119/59 (79) 99 03/03/19 09:17 73 145/59 03/03/19 09:16 73 145/59 Intake and Output 03/04/19 03/05/19 19:00 07:00 Intake Total 730 ml Output Total 500 ml 400 ml Balance 230 ml -400 ml Intake Oral 730 ml Output Urine Total 500 ml 400 ml # Voids 3 # Bowel Movements 1 1 Labs Test 03/03/19 07:54 03/04/19 05:30 03/05/19 06:22 White Blood Count 3.7 K/UL (4.8-10.8) 3.8 K/UL (4.8-10.8) 3.7 K/UL (4.8-10.8) Red Blood Count 3.77 M/UL (4.20-5.40) 3.85 M/UL (4.20-5.40) 3.83 M/UL (4.20-5.40) Hemoglobin 11.5 G/DL (12.0-16.0) 11.9 G/DL (12.0-16.0) 12.0 G/DL (12.0-16.0) Hematocrit 34.5 % (37.0-47.0) 35.4 % (37.0-47.0) 35.4 % (37.0-47.0) Mean Corpuscular Volume 92 FL (80-99) 92 FL (80-99) 92 FL (80-99) Mean Corpuscular Hemoglobin 30.7 PG (27.0-31.0) 30.8 PG (27.0-31.0) 31.3 PG (27.0-31.0) Mean Corpuscular Hemoglobin Concent 33.4 G/DL (32.0-36.0) 33.5 G/DL (32.0-36.0) 33.8 G/DL (32.0-36.0) Red Cell Distribution Width 13.1 % (11.6-14.8) 13.0 % (11.6-14.8) 13.4 % (11.6-14.8) Platelet Count 139 K/UL (150-450) 159 K/UL (150-450) 169 K/UL (150-450) Mean Platelet Volume 9.3 FL (6.5-10.1) 8.8 FL (6.5-10.1) 9.3 FL (6.5-10.1) Neutrophils (%) (Auto) 36.1 % (45.0-75.0) % (45.0-75.0) 32.5 % (45.0-75.0) Lymphocytes (%) (Auto) 43.0 % (20.0-45.0) % (20.0-45.0) 50.0 % (20.0-45.0) Monocytes (%) (Auto) 18.4 % (1.0-10.0) % (1.0-10.0) 14.5 % (1.0-10.0) Eosinophils (%) (Auto) 0.7 % (0.0-3.0) % (0.0-3.0) 0.7 % (0.0-3.0) Basophils (%) (Auto) 1.8 % (0.0-2.0) % (0.0-2.0) 2.4 % (0.0-2.0) Sodium Level 138 MMOL/L (136-145) 140 MMOL/L (136-145) 139 MMOL/L (136-145) Potassium Level 3.5 MMOL/L (3.5-5.1) 3.7 MMOL/L (3.5-5.1) 3.7 MMOL/L (3.5-5.1) Chloride Level 102 MMOL/L (98-107) 104 MMOL/L (98-107) 103 MMOL/L (98-107) Carbon Dioxide Level 27 MMOL/L (21-32) 29 MMOL/L (21-32) 28 MMOL/L (21-32) Anion Gap 9 mmol/L (5-15) 7 mmol/L (5-15) 8 mmol/L (5-15) Blood Urea Nitrogen 15 mg/dL (7-18) 22 mg/dL (7-18) 22 mg/dL (7-18) Creatinine 0.7 MG/DL (0.55-1.30) 0.6 MG/DL (0.55-1.30) 0.5 MG/DL (0.55-1.30) Estimat Glomerular Filtration Rate mL/min (>60) mL/min (>60) mL/min (>60) Glucose Level 210 MG/DL (74-106) 101 MG/DL (74-106) 134 MG/DL (74-106) Calcium Level 9.5 MG/DL (8.5-10.1) 9.7 MG/DL (8.5-10.1) 9.6 MG/DL (8.5-10.1) Hepatitis A IgM Antibody Negative (Negative) Hepatitis B Surface Antigen Negative (Negative) Hepatitis B Core IgM Antibody Negative (Negative) Hepatitis C Antibody <0.1 s/co ratio HIV (1&2) Antibody Rapid Negative (NEGATIVE) Height (Feet): 5 Weight (Pounds): 146 Objective General Appearance: WD/WN HEENT: normocephalic, anicteric Respiratory/Chest: chest wall non-tender, lungs clear Breasts: no masses Cardiovascular: normal rate, regularly irregular Abdomen: normal bowel sounds, non distended, no scars Extremities: no cyanosis Skin: no rash Nakul Tejeda MD Mar 05, 2019 08:55
[2019-03-05] MEDS: Atenolol 25mg tab ORAL SCH (08:56)
[2019-03-05] MEDS: Aspirin EC 81mg tab ORAL SCH (08:56)
[2019-03-05] MEDS: Heparin 5000 units/ml inj SUBQ SCH ×2 (08:58→20:49)
--- NOTE | 2019-03-05 11:03 | Pulmonology Progress Note ---
Assessment/Plan Problems: (1) Vertigo, benign positional (2) Acute encephalopathy (3) Unsteady gait (4) Diabetes mellitus (5) HTN (hypertension) Assessment/Plan all reviewed doing better telemetry reviewed f/u cardio and neuro recommendations sliding scale diabetic diet pt/ot dvt prophylaxis dc planning Subjective ROS Limited/Unobtainable: No Interval Events: no more dizzines Constitutional: Reports: no symptoms HEENT: Repors: no symptoms Allergies: Coded Allergies: No Known Allergies (Verified Allergy, Unknown, 06/05/11) Objective Last 24 Hour Vital Signs Date Time Temp Pulse Resp B/P (MAP) Pulse Ox O2 Delivery O2 Flow Rate FiO2 03/05/19 09:00 Room Air 03/05/19 08:56 72 120/61 03/05/19 08:56 72 120/61 03/05/19 08:00 99.6 72 18 120/61 (80) 92 03/05/19 07:56 73 03/05/19 04:00 64 03/05/19 04:00 98.5 59 18 122/60 (80) 97 03/05/19 00:00 98.4 64 18 136/57 (83) 96 03/05/19 00:00 61 03/04/19 21:00 Room Air 03/04/19 21:00 59 68 74 03/04/19 20:00 61 03/04/19 20:00 98.8 74 18 131/55 (80) 96 03/04/19 16:00 65 03/04/19 15:54 97.3 61 18 103/53 (70) 96 03/04/19 12:00 63 03/04/19 11:48 97.8 64 18 100/60 (73) 95 Intake and Output 03/04/19 03/05/19 19:00 07:00 Intake Total 730 ml Output Total 500 ml 400 ml Balance 230 ml -400 ml Intake Oral 730 ml Output Urine Total 500 ml 400 ml # Voids 3 # Bowel Movements 1 1 General Appearance: WD/WN HEENT: normocephalic, atraumatic Respiratory/Chest: chest wall non-tender, lungs clear, normal breath sounds Cardiovascular: normal peripheral pulses, normal rate Abdomen: normal bowel sounds, soft, non tender Skin: no ulcers Neurologic/Psychiatric: lab[employer] II-XII grossly normal Laboratory Tests 03/05/19 06:22: White Blood Count 3.7L, Red Blood Count 3.83L, Hemoglobin 12.0, Hematocrit 35.4L , Mean Corpuscular Volume 92, Mean Corpuscular Hemoglobin 31.3H, Mean Corpuscular Hemoglobin Concent 33.8, Red Cell Distribution Width 13.4, Platelet Count 169, Mean Platelet Volume 9.3, Neutrophils (%) (Auto) 32.5L, Lymphocytes ( %) (Auto) 50.0H, Monocytes (%) (Auto) 14.5H, Eosinophils (%) (Auto) 0.7, Basophils (%) (Auto) 2.4H, Sodium Level 139, Potassium Level 3.7, Chloride Level 103, Carbon Dioxide Level 28, Anion Gap 8, Blood Urea Nitrogen 22H, Creatinine 0.5L, Estimat Glomerular Filtration Rate , Glucose Level 134H, Calcium Level 9.6 Current Medications Medications (Trade) Dose Ordered Sig/Elva Route PRN Reason Start Time Stop Time Status Last Admin Dose Admin Acetaminophen (Tylenol) 650 mg Q4H PRN ORAL fever 03/01/19 20:00 03/31/19 19:59 Amlodipine Besylate (Norvasc) 5 mg DAILY ORAL 03/02/19 09:00 04/01/19 08:59 03/05/19 08:56 Aspirin (Ecotrin) 81 mg DAILY ORAL 03/02/19 13:00 04/01/19 12:59 03/05/19 08:56 Atenolol (Tenormin) 25 mg DAILY ORAL 03/02/19 09:00 04/01/19 08:59 03/05/19 08:56 Atorvastatin Calcium (Lipitor) 20 mg BEDTIME ORAL 03/02/19 21:00 04/01/19 20:59 03/04/19 20:44 Dextrose (Dextrose 50%) 25 ml Q30M PRN IV Hypoglycemia 03/01/19 20:00 03/31/19 19:59 Dextrose (Dextrose 50%) 50 ml Q30M PRN IV Hypoglycemia 03/01/19 20:00 03/31/19 19:59 Heparin Sodium (Porcine) (Heparin 5000 units/ml) 5,000 units EVERY 12 HOURS SUBQ 03/01/19 21:00 03/31/19 20:59 03/05/19 08:58 Insulin Aspart (NovoLOG) BEFORE MEALS AND HS SUBQ 03/01/19 21:00 03/31/19 20:59 03/04/19 16:45 Iopamidol (Isovue-300 100ml) 100 ml NOW PRN INJ Radiology Procedure 03/03/19 13:45 03/05/19 13:34 Iopamidol (Isovue-370 150ml) 150 ml NOW PRN INJ Radiology Procedure 03/03/19 13:45 03/05/19 13:34 Lorazepam (Ativan 2mg/ml 1ml) 0.5 mg Q4H PRN IV For Anxiety 03/01/19 20:00 03/08/19 19:59 Meclizine HCl (Antivert) 25 mg Q8H PRN ORAL for dizziness 03/02/19 19:00 04/01/19 18:59 03/03/19 05:39 Morphine Sulfate (Morphine Sulfate) 1 mg Q4H PRN IVP For Pain 03/01/19 20:00 03/08/19 19:59 03/03/19 10:56 Ondansetron HCl (Zofran) 4 mg Q6H PRN IVP Nausea & Vomiting 03/01/19 20:00 03/31/19 19:59 Polyethylene Glycol (Miralax) 17 gm HSPRN PRN ORAL Constipation 03/01/19 20:00 03/31/19 19:59 Zolpidem Tartrate (Ambien) 5 mg HSPRN PRN ORAL Insomnia 03/01/19 20:00 03/08/19 19:59 03/04/19 20:44 Katie Neal MD Mar 05, 2019 11:03
[2019-03-05 12:00] VITALS: BP 95/50
--- NOTE | 2019-03-05 13:05 | NUR ---
DISCHARGE PLANNING PLAN IS FOR PATIENT TO RETURN HOME PATIENT HAS BEEN REFERRED TO [facility] T: [phone] F: [phone] F: [phone] BEDSIDE NURSE CAN DISCHARGE PATIENT AT ANYTIME
[2019-03-05 16:00] VITALS: BP 151/62
--- NOTE | 2019-03-05 19:14 | NUR ---
HAND-OFF: Report given to LAURIE Hagan.
--- NOTE | 2019-03-05 19:15 | NUR ---
NURSE NOTES: Received report from John Benjamin RN. Patient in bed AAO X4 with family at bedside, no complaints of acute pain or discomfort at this time and kept clean, dry, and comfortable. IV line intact and patent SL with continuous cardiac monitoring per protocol. Able to ambulate with assist using cane at bedside or with staff, BRP privilege offered. Safety precaution in place; siderails X3 up, call light within reach, bed in lowest position, brakes and alarm on at all times. Needs and wants anticipated and attended, will continue plan of care and monitor for any changes noted. DC order active, pending Neuro clearance.
--- NOTE | 2019-03-05 19:32 | Cardiology Progress Note ---
Assessment/Plan Assessment/Plan 1. Presyncope, normal LV systolic function, however, there is severe pulmonary HTN by echo with no RA/RV dilation, possibly benefit from outpatient right heart catheterization. 2. History of hypertension, continue amlodipine and atenolol. 3. History of diabetes mellitus. Continue ASA and atorvastatin. Subjective Subjective Sinus rhythm at rate of 63. Objective Last 24 Hour Vital Signs Date Time Temp Pulse Resp B/P (MAP) Pulse Ox O2 Delivery O2 Flow Rate FiO2 03/05/19 16:00 98.2 63 20 151/62 (91) 96 03/05/19 15:34 67 03/05/19 12:00 99.3 66 18 95/50 (65) 97 03/05/19 11:49 62 03/05/19 09:00 Room Air 03/05/19 09:00 66 63 68 03/05/19 08:56 72 120/61 03/05/19 08:56 72 120/61 03/05/19 08:00 99.6 72 18 120/61 (80) 92 03/05/19 07:56 73 03/05/19 04:00 64 03/05/19 04:00 98.5 59 18 122/60 (80) 97 03/05/19 00:00 98.4 64 18 136/57 (83) 96 03/05/19 00:00 61 03/04/19 21:00 Room Air 03/04/19 21:00 59 68 74 03/04/19 20:00 61 03/04/19 20:00 98.8 74 18 131/55 (80) 96 Intake and Output 03/04/19 03/05/19 18:59 06:59 Intake Total 730 ml Output Total 500 ml 400 ml Balance 230 ml -400 ml Intake Oral 730 ml Output Urine Total 500 ml 400 ml # Voids 3 # Bowel Movements 1 1 2D Echo: LVEF 65%, Mild LVH, RVSP 66mmHg, Grade I LVDD Laboratory Tests Test 03/05/19 06:22 White Blood Count 3.7 K/UL (4.8-10.8) L Red Blood Count 3.83 M/UL (4.20-5.40) L Hemoglobin 12.0 G/DL (12.0-16.0) Hematocrit 35.4 % (37.0-47.0) L Mean Corpuscular Volume 92 FL (80-99) Mean Corpuscular Hemoglobin 31.3 PG (27.0-31.0) H Mean Corpuscular Hemoglobin Concent 33.8 G/DL (32.0-36.0) Red Cell Distribution Width 13.4 % (11.6-14.8) Platelet Count 169 K/UL (150-450) Mean Platelet Volume 9.3 FL (6.5-10.1) Neutrophils (%) (Auto) 32.5 % (45.0-75.0) L Lymphocytes (%) (Auto) 50.0 % (20.0-45.0) H Monocytes (%) (Auto) 14.5 % (1.0-10.0) H Eosinophils (%) (Auto) 0.7 % (0.0-3.0) Basophils (%) (Auto) 2.4 % (0.0-2.0) H Sodium Level 139 MMOL/L (136-145) Potassium Level 3.7 MMOL/L (3.5-5.1) Chloride Level 103 MMOL/L (98-107) Carbon Dioxide Level 28 MMOL/L (21-32) Anion Gap 8 mmol/L (5-15) Blood Urea Nitrogen 22 mg/dL (7-18) H Creatinine 0.5 MG/DL (0.55-1.30) L Estimat Glomerular Filtration Rate mL/min (>60) Glucose Level 134 MG/DL (74-106) H Calcium Level 9.6 MG/DL (8.5-10.1) Objective HEENT: Atraumatic and normocephalic. Anicteric. Pupils are equal, round, and reactive to light and accommodation. Extraocular muscles intact. NECK: JVP less than 5 cm. No carotid bruit. Carotid upstroke is 2+ bilaterally. CARDIOVASCULAR: Normal S1, S2. Regular rate and rhythm. No murmurs, gallops, or rubs. PMI is at fourth intercostal space in the midclavicular line. LUNGS: Clear to auscultation bilaterally. ABDOMEN: Soft, nontender, and nondistended. No hepatosplenomegaly. Positive bowel sounds. EXTREMITIES: No evidence of edema, clubbing, or cyanosis. Irvin Escobar MD Mar 05, 2019 19:32
[2019-03-05 20:00] VITALS: BP 125/50
[2019-03-05] MEDS: Atorvastatin 20mg tab ORAL SCH (20:47)
--- NOTE | 2019-03-05 20:50 | Neurology Progress Note ---
Interim History Interim History ROS Limited/Unobtainable: No Complaints: Pontine infarct Events: Resolution of hand numbness and dizziness symptoms. Interim History This visit was performed on March 05, [address] Scott Serrato. Review of Systems All Systems: reviewed and negative except above Objective Physical Exam Last Vital Signs Date Time Temp Pulse Resp B/P (MAP) Pulse Ox O2 Delivery O2 Flow Rate FiO2 03/05/19 16:00 98.2 63 20 151/62 (91) 96 03/05/19 09:00 Room Air Laboratory Tests Test 03/05/19 06:22 White Blood Count 3.7 K/UL (4.8-10.8) L Red Blood Count 3.83 M/UL (4.20-5.40) L Hemoglobin 12.0 G/DL (12.0-16.0) Hematocrit 35.4 % (37.0-47.0) L Mean Corpuscular Volume 92 FL (80-99) Mean Corpuscular Hemoglobin 31.3 PG (27.0-31.0) H Mean Corpuscular Hemoglobin Concent 33.8 G/DL (32.0-36.0) Red Cell Distribution Width 13.4 % (11.6-14.8) Platelet Count 169 K/UL (150-450) Mean Platelet Volume 9.3 FL (6.5-10.1) Neutrophils (%) (Auto) 32.5 % (45.0-75.0) L Lymphocytes (%) (Auto) 50.0 % (20.0-45.0) H Monocytes (%) (Auto) 14.5 % (1.0-10.0) H Eosinophils (%) (Auto) 0.7 % (0.0-3.0) Basophils (%) (Auto) 2.4 % (0.0-2.0) H Sodium Level 139 MMOL/L (136-145) Potassium Level 3.7 MMOL/L (3.5-5.1) Chloride Level 103 MMOL/L (98-107) Carbon Dioxide Level 28 MMOL/L (21-32) Anion Gap 8 mmol/L (5-15) Blood Urea Nitrogen 22 mg/dL (7-18) H Creatinine 0.5 MG/DL (0.55-1.30) L Estimat Glomerular Filtration Rate mL/min (>60) Glucose Level 134 MG/DL (74-106) H Calcium Level 9.6 MG/DL (8.5-10.1) General: well developed, well nourished Head: normocophalic Neck: no rigidity EENT: benign Neurologic Exam Mental Status: awake, alert, oriented x4, normal cognition, good mathematical skills, normal recent memory, normal remote memory, preserved visuospatial function Speech: normal speech, no dysarthia Language: normal language, no aphasia Cranial Nerve II: fundus normal, visual gurrola, no papilledema Cranial Nerves III, IV, : PERRLA, EOMI, pupils Cranial Nerve V: normal facial sensations, temporales function normal, masseters function normal, pterygoids function normal Cranial Nerve VII: no facial asymmetry, normal facial expressions Cranial Nerve VIII: normal hearing, no nystagmus Cranial Nerve IX: normal palate elevation, gag response Cranial Nerve X: no voice hoarseness Cranial Nerve XI: SCM symmetric, trapezii function normal Cranial Nerve XII: tongue midline, no tongue atrophy/fasciculations Motor System: normal muscle tone, no involuntary movement, no muscle wasting Sensory: normal pinprick, normal light touch, normal position sense, normal graphesthesia Coordination: normal finger to nose bilaterally, normal heel to jaeger bilaterally, negative Romberg test Deep Tendon Reflexes: 2+ bicep (L), 2+ bicep (R), 2+ tricep (L), 2+ tricep (R) , 2+ brachioradialis (L), 2+ brachioradialis (R), 2+ knee (L), 2+ knee (R), 2+ ankle (L), 2+ ankle (R) Stance: normal Gait: stable, normal regular, heel + toe gait Objective Her vertigo has resolved, improved with Meclizine. She still has subtle left sided weakness but her facial asymmetry has improved. Impression/Recommendations Problems: (1) Acute encephalopathy (2) Hyperlipidemia (3) History of CVA (cerebrovascular accident) without residual deficits Assessment & Plan: Recent MRI showing Pontine infarct - subacute to acute. This is possibly same as recent stroke with recrudescence of symptoms in present of viral syndrome (4) Right pontine cerebrovascular accident (5) Bacteremia (6) Viral syndrome (7) Unsteady gait (8) UTI (urinary tract infection) (9) Diabetes mellitus (10) Sepsis (11) HTN (hypertension) (12) Sinusitis, acute (13) Vertigo, benign positional Status: stable, progressing Recommendations SBP<140 with IV hydralazine to keep this down Q4 Neuro obs Carotid Stenosis with Carotid Doppler Pending for clarification/ description of grade of stenosis Plavix started 75mg PO QD with ASA 81mg Na 135-145 Continue PT as outpatient for balance / dizziness symptoms. MEclizine 25mg PO TID PRN as outpatient Stable for discharge from a neurological perspective pending completion of Carotid Doppler and tolerance of Plavix oral added to regimen. Chantel Escamilla N.P. Mar 05, 2019 20:50
--- NOTE | 2019-03-05 23:45 | NUR ---
NURSE NOTES: New orders per Silvana Escamilla NP. Will continue plan of care
[2019-03-06] VITALS: BP 127/57
[2019-03-06] MEDS: Zolpidem 5mg tab ORAL PRN (00:21)
--- NOTE | 2019-03-06 03:30 | Neurology Progress Note ---
Interim History Interim History ROS Limited/Unobtainable: No Complaints: Dizziness Events: This visit was conducted on March 03, [address] Scott Serrato. Interim History Carotid Doppler showing less stenosis than seen on CTA H/N Review of Systems Neuro Review of Systems Neuro Eval Stable Objective Physical Exam Last Vital Signs Date Time Temp Pulse Resp B/P (MAP) Pulse Ox O2 Delivery O2 Flow Rate FiO2 03/06/19 00:00 65 03/06/19 00:00 96.8 18 127/57 (80) 96 03/05/19 21:00 Room Air Laboratory Tests Test 03/05/19 06:22 White Blood Count 3.7 K/UL (4.8-10.8) L Red Blood Count 3.83 M/UL (4.20-5.40) L Hemoglobin 12.0 G/DL (12.0-16.0) Hematocrit 35.4 % (37.0-47.0) L Mean Corpuscular Volume 92 FL (80-99) Mean Corpuscular Hemoglobin 31.3 PG (27.0-31.0) H Mean Corpuscular Hemoglobin Concent 33.8 G/DL (32.0-36.0) Red Cell Distribution Width 13.4 % (11.6-14.8) Platelet Count 169 K/UL (150-450) Mean Platelet Volume 9.3 FL (6.5-10.1) Neutrophils (%) (Auto) 32.5 % (45.0-75.0) L Lymphocytes (%) (Auto) 50.0 % (20.0-45.0) H Monocytes (%) (Auto) 14.5 % (1.0-10.0) H Eosinophils (%) (Auto) 0.7 % (0.0-3.0) Basophils (%) (Auto) 2.4 % (0.0-2.0) H Sodium Level 139 MMOL/L (136-145) Potassium Level 3.7 MMOL/L (3.5-5.1) Chloride Level 103 MMOL/L (98-107) Carbon Dioxide Level 28 MMOL/L (21-32) Anion Gap 8 mmol/L (5-15) Blood Urea Nitrogen 22 mg/dL (7-18) H Creatinine 0.5 MG/DL (0.55-1.30) L Estimat Glomerular Filtration Rate mL/min (>60) Glucose Level 134 MG/DL (74-106) H Calcium Level 9.6 MG/DL (8.5-10.1) General: well developed, well nourished Head: normocophalic Neck: no rigidity EENT: benign Neurologic Exam Mental Status: awake, alert, oriented x4, normal cognition, good mathematical skills, normal recent memory, normal remote memory, preserved visuospatial function Speech: normal speech, no dysarthia Language: normal language, no aphasia Cranial Nerve II: fundus normal, visual gurrola, no papilledema Cranial Nerves III, IV, : PERRLA, EOMI, pupils Cranial Nerve V: normal facial sensations, temporales function normal, masseters function normal, pterygoids function normal Cranial Nerve VII: no facial asymmetry, normal facial expressions Cranial Nerve VIII: normal hearing, no nystagmus Cranial Nerve IX: normal palate elevation, gag response Cranial Nerve X: no voice hoarseness Cranial Nerve XI: SCM symmetric, trapezii function normal Cranial Nerve XII: tongue midline, no tongue atrophy/fasciculations Motor System: normal muscle tone, no involuntary movement, no muscle wasting Sensory: normal pinprick, normal light touch, normal position sense, normal graphesthesia Coordination: normal finger to nose bilaterally, normal heel to jaeger bilaterally, negative Romberg test Deep Tendon Reflexes: 2+ bicep (L), 2+ bicep (R), 2+ tricep (L), 2+ tricep (R) , 2+ brachioradialis (L), 2+ brachioradialis (R), 2+ knee (L), 2+ knee (R), 2+ ankle (L), 2+ ankle (R) Stance: normal Gait: stable, normal regular, heel + toe gait Objective Her vertigo has resolved, improved with Meclizine. She still has subtle left sided weakness but her facial asymmetry has improved. Impression/Recommendations Problems: (1) Acute encephalopathy (2) Hyperlipidemia (3) History of CVA (cerebrovascular accident) without residual deficits Assessment & Plan: Recent MRI showing Pontine infarct - subacute to acute. This is possibly same as recent stroke with recrudescence of symptoms in present of viral syndrome (4) Right pontine cerebrovascular accident (5) Bacteremia (6) Viral syndrome (7) Unsteady gait (8) UTI (urinary tract infection) (9) Diabetes mellitus (10) Sepsis (11) HTN (hypertension) (12) Sinusitis, acute (13) Vertigo, benign positional Status: stable, progressing Recommendations SBP<140 with IV hydralazine to keep this down Q4 Neuro obs Carotid Stenosis with Carotid Doppler Pending for clarification/ description of grade of stenosis Plavix started 75mg PO QD with ASA 81mg Na 135-145 Continue PT as outpatient for balance / dizziness symptoms. MEclizine 25mg PO TID PRN as outpatient Neurology Follow Up recommended as outpatient Stable for discharge from a neurological perspective pending completion of Carotid Doppler and tolerance of Plavix oral added to regimen. Chantel Escamilla N.P. Mar 06, 2019 03:30
[2019-03-06 04:00] VITALS: BP 130/63
--- NOTE | 2019-03-06 04:36 | NUR ---
NURSE NOTES: Patient in bed asleep with no S/S of distress noted. Will continue to monitor.
[2019-03-06] MEDS: NovoLOG Insulin Flexpen SUBQ SCH ×3 (05:56→16:47)
--- NOTE | 2019-03-06 07:20 | NUR ---
HAND-OFF: Report given to Feliciano Heredia RN. Patient in bed with no S/S of distress noted. Endorsed plan of care.
[2019-03-06 08:35] VITALS: BP 144/60
[2019-03-06] MEDS: Aspirin EC 81mg tab ORAL SCH (08:39)
[2019-03-06] MEDS: Atenolol 25mg tab ORAL SCH (08:39)
[2019-03-06] MEDS: Heparin 5000 units/ml inj SUBQ SCH (08:40)
--- NOTE | 2019-03-06 10:15 | Pulmonology Progress Note ---
Assessment/Plan Problems: (1) Vertigo, benign positional (2) Acute encephalopathy (3) Unsteady gait (4) Diabetes mellitus (5) HTN (hypertension) Assessment/Plan all reviewed doing better telemetry reviewed f/u cardio and neuro recommendations sliding scale diabetic diet pt/ot dvt prophylaxis dc planning Subjective ROS Limited/Unobtainable: No Constitutional: Reports: no symptoms HEENT: Repors: no symptoms Allergies: Coded Allergies: No Known Allergies (Verified Allergy, Unknown, 06/05/11) Objective Last 24 Hour Vital Signs Date Time Temp Pulse Resp B/P (MAP) Pulse Ox O2 Delivery O2 Flow Rate FiO2 03/06/19 09:40 Room Air 03/06/19 08:39 66 144/60 03/06/19 08:39 66 144/60 03/06/19 08:35 97.5 66 19 144/60 (88) 97 03/06/19 04:00 64 03/06/19 04:00 97.1 77 18 130/63 (85) 97 03/06/19 00:00 65 03/06/19 00:00 96.8 65 18 127/57 (80) 96 03/05/19 21:00 Room Air 03/05/19 21:00 67 70 69 03/05/19 20:00 98.0 68 18 125/50 (75) 96 03/05/19 20:00 69 03/05/19 16:00 98.2 63 20 151/62 (91) 96 03/05/19 15:34 67 03/05/19 12:00 99.3 66 18 95/50 (65) 97 03/05/19 11:49 62 Intake and Output 03/05/19 03/06/19 19:00 07:00 Intake Total 860 ml Balance 860 ml Intake Oral 860 ml # Voids 4 4 General Appearance: WD/WN HEENT: normocephalic, atraumatic Respiratory/Chest: chest wall non-tender, normal breath sounds, respiratory distress Cardiovascular: normal peripheral pulses, regular rhythm Abdomen: soft, non tender, no scars Extremities: no cyanosis Current Medications Medications (Trade) Dose Ordered Sig/Elva Route PRN Reason Start Time Stop Time Status Last Admin Dose Admin Acetaminophen (Tylenol) 650 mg Q4H PRN ORAL fever 03/01/19 20:00 03/31/19 19:59 Amlodipine Besylate (Norvasc) 5 mg DAILY ORAL 03/02/19 09:00 04/01/19 08:59 03/06/19 08:39 Aspirin (Ecotrin) 81 mg DAILY ORAL 03/02/19 13:00 04/01/19 12:59 03/06/19 08:39 Atenolol (Tenormin) 25 mg DAILY ORAL 03/02/19 09:00 04/01/19 08:59 03/06/19 08:39 Atorvastatin Calcium (Lipitor) 20 mg BEDTIME ORAL 03/02/19 21:00 04/01/19 20:59 03/05/19 20:47 Dextrose (Dextrose 50%) 25 ml Q30M PRN IV Hypoglycemia 03/01/19 20:00 03/31/19 19:59 Dextrose (Dextrose 50%) 50 ml Q30M PRN IV Hypoglycemia 03/01/19 20:00 03/31/19 19:59 Heparin Sodium (Porcine) (Heparin 5000 units/ml) 5,000 units EVERY 12 HOURS SUBQ 03/01/19 21:00 03/31/19 20:59 03/06/19 08:40 Insulin Aspart (NovoLOG) BEFORE MEALS AND HS SUBQ 03/01/19 21:00 03/31/19 20:59 03/05/19 21:14 Lorazepam (Ativan 2mg/ml 1ml) 0.5 mg Q4H PRN IV For Anxiety 03/01/19 20:00 03/08/19 19:59 Meclizine HCl (Antivert) 25 mg Q8H PRN ORAL for dizziness 03/02/19 19:00 04/01/19 18:59 03/03/19 05:39 Morphine Sulfate (Morphine Sulfate) 1 mg Q4H PRN IVP For Pain 03/01/19 20:00 03/08/19 19:59 03/03/19 10:56 Ondansetron HCl (Zofran) 4 mg Q6H PRN IVP Nausea & Vomiting 03/01/19 20:00 03/31/19 19:59 Polyethylene Glycol (Miralax) 17 gm HSPRN PRN ORAL Constipation 03/01/19 20:00 03/31/19 19:59 Zolpidem Tartrate (Ambien) 5 mg HSPRN PRN ORAL Insomnia 03/01/19 20:00 03/08/19 19:59 03/06/19 00:21 Katie Neal MD Mar 06, 2019 10:15
--- NOTE | 2019-03-06 11:48 | Hematology/Onc Progress Note ---
Assessment/Plan Assessment/Plan ASSESSMENT AND RECOMMENDATIONS # Pancytopenia -- multiple etiologies could be related to underlying liver disease --> peripheral smear has been ordered and does not show significant abnormalities --> Medications have been reviewed --> Continue to monitor for improvement, trend cbc --> Hep panel pending and HIV negative --> US abd: Slightly heterogeneous liver nonspecific. Correlate for chronic disease. CBD slightly prominent but may be normal given prior cholecystectomy and advanced age. Correlate clinically. --> reverse isolation if ANC is <2000 --> Give neupogen if ANC <1000 --> Transfuse if hgb <7, with 1 unit prbc --> consider bone marrow biopsy if no other causes are found --> wbc trend: 3.8-->3.7 # Dizziness/ Vertigo # Weakness # Nausea # Diabetes --> moniotr BS levels. # Hypertension, # Urinary tract infection. THE TIME OF THE NOTE DOES NOT NECESSARILY CORRESPOND TO THE TIME THE PATIENT WAS SEEN. GREATLY APPRECIATE CONSULTATION. Subjective Allergies: Coded Allergies: No Known Allergies (Verified Allergy, Unknown, 06/05/11) Subjective 03/04: Pt awake and alert. No acute events. Hgb stable. 03/05: Pt awake and resting in bed. Pt does not display any signs of distress or SOB. 03/06: Pt resting in bed with no signs of distress Objective Objective Current Medications Medications (Trade) Dose Ordered Sig/Elva Route PRN Reason Start Time Stop Time Status Last Admin Dose Admin Acetaminophen (Tylenol) 650 mg Q4H PRN ORAL fever 03/01/19 20:00 03/31/19 19:59 Amlodipine Besylate (Norvasc) 5 mg DAILY ORAL 03/02/19 09:00 04/01/19 08:59 03/06/19 08:39 Aspirin (Ecotrin) 81 mg DAILY ORAL 03/02/19 13:00 04/01/19 12:59 03/06/19 08:39 Atenolol (Tenormin) 25 mg DAILY ORAL 03/02/19 09:00 04/01/19 08:59 03/06/19 08:39 Atorvastatin Calcium (Lipitor) 20 mg BEDTIME ORAL 03/02/19 21:00 04/01/19 20:59 03/05/19 20:47 Dextrose (Dextrose 50%) 25 ml Q30M PRN IV Hypoglycemia 03/01/19 20:00 03/31/19 19:59 Dextrose (Dextrose 50%) 50 ml Q30M PRN IV Hypoglycemia 03/01/19 20:00 03/31/19 19:59 Heparin Sodium (Porcine) (Heparin 5000 units/ml) 5,000 units EVERY 12 HOURS SUBQ 03/01/19 21:00 03/31/19 20:59 03/06/19 08:40 Insulin Aspart (NovoLOG) BEFORE MEALS AND HS SUBQ 03/01/19 21:00 03/31/19 20:59 03/05/19 21:14 Lorazepam (Ativan 2mg/ml 1ml) 0.5 mg Q4H PRN IV For Anxiety 03/01/19 20:00 03/08/19 19:59 Meclizine HCl (Antivert) 25 mg Q8H PRN ORAL for dizziness 03/02/19 19:00 04/01/19 18:59 03/03/19 05:39 Morphine Sulfate (Morphine Sulfate) 1 mg Q4H PRN IVP For Pain 03/01/19 20:00 03/08/19 19:59 03/03/19 10:56 Ondansetron HCl (Zofran) 4 mg Q6H PRN IVP Nausea & Vomiting 03/01/19 20:00 03/31/19 19:59 Polyethylene Glycol (Miralax) 17 gm HSPRN PRN ORAL Constipation 03/01/19 20:00 03/31/19 19:59 Zolpidem Tartrate (Ambien) 5 mg HSPRN PRN ORAL Insomnia 03/01/19 20:00 03/08/19 19:59 03/06/19 00:21 Last 24 Hour Vital Signs Date Time Temp Pulse Resp B/P (MAP) Pulse Ox O2 Delivery O2 Flow Rate FiO2 03/06/19 09:40 Room Air 03/06/19 08:39 66 144/60 03/06/19 08:39 66 144/60 03/06/19 08:35 97.5 66 19 144/60 (88) 97 03/06/19 04:00 64 03/06/19 04:00 97.1 77 18 130/63 (85) 97 03/06/19 00:00 65 03/06/19 00:00 96.8 65 18 127/57 (80) 96 03/05/19 21:00 Room Air 03/05/19 21:00 67 70 69 03/05/19 20:00 98.0 68 18 125/50 (75) 96 03/05/19 20:00 69 03/05/19 16:00 98.2 63 20 151/62 (91) 96 03/05/19 15:34 67 03/05/19 12:00 99.3 66 18 95/50 (65) 97 03/05/19 11:49 62 03/05/19 09:00 Room Air 03/05/19 09:00 66 63 68 03/05/19 08:56 72 120/61 03/05/19 08:56 72 120/61 03/05/19 08:00 99.6 72 18 120/61 (80) 92 03/05/19 07:56 73 03/05/19 04:00 64 03/05/19 04:00 98.5 59 18 122/60 (80) 97 03/05/19 00:00 98.4 64 18 136/57 (83) 96 03/05/19 00:00 61 03/04/19 21:00 Room Air 03/04/19 21:00 59 68 74 03/04/19 20:00 61 03/04/19 20:00 98.8 74 18 131/55 (80) 96 03/04/19 16:00 65 03/04/19 15:54 97.3 61 18 103/53 (70) 96 03/04/19 12:00 63 03/04/19 11:48 97.8 64 18 100/60 (73) 95 Intake and Output 03/05/19 03/06/19 19:00 07:00 Intake Total 860 ml Balance 860 ml Intake Oral 860 ml # Voids 4 4 Labs Test 03/04/19 05:30 03/05/19 06:22 White Blood Count 3.8 K/UL (4.8-10.8) 3.7 K/UL (4.8-10.8) Red Blood Count 3.85 M/UL (4.20-5.40) 3.83 M/UL (4.20-5.40) Hemoglobin 11.9 G/DL (12.0-16.0) 12.0 G/DL (12.0-16.0) Hematocrit 35.4 % (37.0-47.0) 35.4 % (37.0-47.0) Mean Corpuscular Volume 92 FL (80-99) 92 FL (80-99) Mean Corpuscular Hemoglobin 30.8 PG (27.0-31.0) 31.3 PG (27.0-31.0) Mean Corpuscular Hemoglobin Concent 33.5 G/DL (32.0-36.0) 33.8 G/DL (32.0-36.0) Red Cell Distribution Width 13.0 % (11.6-14.8) 13.4 % (11.6-14.8) Platelet Count 159 K/UL (150-450) 169 K/UL (150-450) Mean Platelet Volume 8.8 FL (6.5-10.1) 9.3 FL (6.5-10.1) Neutrophils (%) (Auto) % (45.0-75.0) 32.5 % (45.0-75.0) Lymphocytes (%) (Auto) % (20.0-45.0) 50.0 % (20.0-45.0) Monocytes (%) (Auto) % (1.0-10.0) 14.5 % (1.0-10.0) Eosinophils (%) (Auto) % (0.0-3.0) 0.7 % (0.0-3.0) Basophils (%) (Auto) % (0.0-2.0) 2.4 % (0.0-2.0) Sodium Level 140 MMOL/L (136-145) 139 MMOL/L (136-145) Potassium Level 3.7 MMOL/L (3.5-5.1) 3.7 MMOL/L (3.5-5.1) Chloride Level 104 MMOL/L (98-107) 103 MMOL/L (98-107) Carbon Dioxide Level 29 MMOL/L (21-32) 28 MMOL/L (21-32) Anion Gap 7 mmol/L (5-15) 8 mmol/L (5-15) Blood Urea Nitrogen 22 mg/dL (7-18) 22 mg/dL (7-18) Creatinine 0.6 MG/DL (0.55-1.30) 0.5 MG/DL (0.55-1.30) Estimat Glomerular Filtration Rate mL/min (>60) mL/min (>60) Glucose Level 101 MG/DL (74-106) 134 MG/DL (74-106) Calcium Level 9.7 MG/DL (8.5-10.1) 9.6 MG/DL (8.5-10.1) Height (Feet): 5 Weight (Pounds): 146 Objective General Appearance: WD/WN HEENT: normocephalic, anicteric Respiratory/Chest: chest wall non-tender, lungs clear Breasts: no masses Cardiovascular: normal rate, regularly irregular Abdomen: normal bowel sounds, non distended, no scars Extremities: no cyanosis Skin: no rash Nakul Tejeda MD Mar 06, 2019 11:48
[2019-03-06 11:55] VITALS: BP 166/89
--- NOTE | 2019-03-06 12:26 | General Progress Note ---
Assessment/Plan Problem List: (1) Unsteady gait ICD Codes: R26.81 - Unsteadiness on feet SNOMED: 05210735, 449120297 (2) UTI (urinary tract infection) ICD Codes: N39.0 - Urinary tract infection, site not specified SNOMED: 17570092 (3) Diabetes mellitus ICD Codes: E11.9 - Type 2 diabetes mellitus without complications SNOMED: 12448378 (4) HTN (hypertension) ICD Codes: I10 - Essential (primary) hypertension SNOMED: 70292368 (5) Vertigo, benign positional ICD Codes: H81.10 - Benign paroxysmal vertigo, unspecified ear SNOMED: 665617441 Status: stable, progressing Assessment/Plan: pt diet abx cardio neuro eval dc w hh if clear Subjective Constitutional: Reports: weakness Allergies: Coded Allergies: No Known Allergies (Verified Allergy, Unknown, 06/05/11) All Systems: reviewed and negative except above Subjective sleepy calm Objective Last 24 Hour Vital Signs Date Time Temp Pulse Resp B/P (MAP) Pulse Ox O2 Delivery O2 Flow Rate FiO2 03/06/19 11:55 98.0 57 19 166/89 (114) 98 03/06/19 09:40 Room Air 03/06/19 08:39 66 144/60 03/06/19 08:39 66 144/60 03/06/19 08:35 97.5 66 19 144/60 (88) 97 03/06/19 04:00 64 03/06/19 04:00 97.1 77 18 130/63 (85) 97 03/06/19 00:00 65 03/06/19 00:00 96.8 65 18 127/57 (80) 96 03/05/19 21:00 Room Air 03/05/19 21:00 67 70 69 03/05/19 20:00 98.0 68 18 125/50 (75) 96 03/05/19 20:00 69 03/05/19 16:00 98.2 63 20 151/62 (91) 96 03/05/19 15:34 67 Intake and Output 03/05/19 03/06/19 19:00 07:00 Intake Total 860 ml Balance 860 ml Intake Oral 860 ml # Voids 4 4 Height (Feet): 5 Weight (Pounds): 146 General Appearance: alert EENT: normal ENT inspection Neck: normal alignment Cardiovascular: normal peripheral pulses, normal rate, regular rhythm Respiratory/Chest: chest wall non-tender, lungs clear, normal breath sounds Abdomen: normal bowel sounds, non tender, soft Extremities: normal inspection Edema: no edema noted Arm (L), no edema noted Arm (R), no edema noted Leg (L), no edema noted Leg (R), no edema noted Pedal (L), no edema noted Pedal (R), no edema noted Generalized Neurologic: responsive, motor weakness Skin: normal pigmentation, warm/dry Cj Degroot DO Mar 06, 2019 12:26
--- NOTE | 2019-03-06 14:11 | NUR ---
NURSE NOTES: patient going to be discharged with home health services RN called and left massages for next of kin (Wilbur, Miriam)and son in law (Caleb) as requested by patient
--- NOTE | 2019-03-06 14:15 | NUR ---
NURSE NOTES: Spoke to Neuro [employer] APPRENTICE, she wanted the results for Carotid Duplex, she cleared the pt, called Md stout, he cleared for discharge
[2019-03-06 16:00] VITALS: BP 114/64
--- NOTE | 2019-03-06 16:36 | NUR ---
NURSE NOTES: discharge order missing medication list called DR. stout x [address] Degroot X1. waiting for call back
[2019-03-06] MEDS ORDERED: D5NS 1000ml IV ONE (18:25)
--- NOTE | 2019-03-06 19:39 | NUR ---
NURSE NOTES: patient discharged with home medications as ordered. all belonging given to patient . vital signs stable.
--- NOTE | 2019-03-06 23:54 | Cardiology Progress Note ---
Assessment/Plan Assessment/Plan 1. Presyncope, normal LV systolic function, however, there is severe pulmonary HTN by echo with no RA/RV dilation, possibly benefit from outpatient right heart catheterization. 2. History of hypertension, continue amlodipine and atenolol. 3. History of diabetes mellitus. Continue ASA and atorvastatin. Subjective Subjective Sinus rhythm at rate of 66. Objective Last 24 Hour Vital Signs Date Time Temp Pulse Resp B/P (MAP) Pulse Ox O2 Delivery O2 Flow Rate FiO2 03/06/19 17:29 98.7 03/06/19 16:00 98.7 66 18 114/64 (81) 98 03/06/19 11:55 98.0 57 19 166/89 (114) 98 03/06/19 09:40 Room Air 03/06/19 08:39 66 144/60 03/06/19 08:39 66 144/60 03/06/19 08:35 97.5 66 19 144/60 (88) 97 03/06/19 08:00 71 03/06/19 04:00 64 03/06/19 04:00 97.1 77 18 130/63 (85) 97 03/06/19 00:00 65 03/06/19 00:00 96.8 65 18 127/57 (80) 96 Intake and Output 03/05/19 03/06/19 19:00 07:00 Intake Total 860 ml Balance 860 ml Intake Oral 860 ml # Voids 4 4 2D Echo: LVEF 65%, Mild LVH, RVSP 66mmHg, Grade I LVDD Objective HEENT: Atraumatic and normocephalic. Anicteric. Pupils are equal, round, and reactive to light and accommodation. Extraocular muscles intact. NECK: JVP less than 5 cm. No carotid bruit. Carotid upstroke is 2+ bilaterally. CARDIOVASCULAR: Normal S1, S2. Regular rate and rhythm. No murmurs, gallops, or rubs. PMI is at fourth intercostal space in the midclavicular line. LUNGS: Clear to auscultation bilaterally. ABDOMEN: Soft, nontender, and nondistended. No hepatosplenomegaly. Positive bowel sounds. EXTREMITIES: No evidence of edema, clubbing, or cyanosis. Irvin Escobar MD Mar 06, 2019 23:54
--- NOTE | 2019-03-07 11:53 | Discharge Summary ---
Discharge Summary Discharge Summary _ DATE OF ADMISSION: 03/01/2019 DATE OF DISCHARGE: 03/06/2019 DISCHARGED BY: Dr. Cj Degroot CONSULTANTS: Dr. Irvin Serrato [facility]: Patient is an 83-year-old female, who lives at home, who presented to ED after increased dizziness. She reported increased nausea and vomiting worsened with head movements. She reported similar episodes in the past and ran out of medication. She had increased nausea as well as vomiting without hematemesis. She denied fever. She has medical history significant for diabetes and hypertension. On evaluation at the ED, vital signs were stable. Blood work showed WBC 3.7. Hemoglobin 11, hematocrit 33. Electrolytes were normal. Troponin was negative. TSH normal. Urinalysis with 2+ leukocyte esterase, negative nitrite , 0-2 RBC, 0-[address] did not show any intracranial hemorrhage, mass- effect or infarct. There was air-fluid level near completely opacified partially imaged right maxillary sinus, possible acute on chronic sinusitis. EKG was in sinus bradycardia without acute ST or T wave changes. She was then admitted for evaluation of dizziness, weakness, vertigo, nausea, possible UTI and pancytopenia. Patient was admitted to telemetry to rule out arrhythmia. She was given symptomatic treatment. He was placed on meclizine as needed. Blood glucose was monitored. She was placed on insulin sliding scale. She was given heparin for DVT prophylaxis. Neurologist was consulted. Patient had bilateral upper extremity and hand numbness. She was ordered MRI and CT spine. She was given physical therapy. MRI of the brain showed a small acute to subacute CVA involving the right karla/ midbrain junction. She was continued on antiplatelet therapy and atorvastatin. CTA of the head and neck showed suspected high-grade stenosis at the origin of the right subclavian artery evaluation was limited by dense calcification of the plaque. Moderate calcific plaque at the origins of both internal carotid arteries were estimated at 50 to 60%. Plavix was added to her regimen. CT of the C-spine did not show any acute injury. Echocardiogram done showed normal LV systolic function. 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 She was given amlodipine and atenolol. Did duplex scan showed irregular plaque in the external carotid arteries, with moderate degree of stenosis in the internal carotid artery bilaterally. Pancytopenia work-up was done. Pancytopenia could be secondary to multiple etiologies. Peripheral smear did not show any abnormalities per bar supervisor. HIV and hepatitis panel negative. Abdominal ultrasound showed heterogenous liver with normal spleen. Vertigo resolved. She still had subtle left-sided weakness, but facial symmetry improved. She was cleared by neurologist for discharge. To continue PT as outpatient. To continue dual antiplatelet therapy and statin. To follow- up with neurologist as outpatient. 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 DISCHARGE MEDICATIONS: Refer to Discharge Medication List. DISCHARGE INSTRUCTIONS: Follow-up in a week. I have been assigned to complete a discharge summary on this account, I was not involved with the patient's management. Shagufta Casiano NP Mar 07, 2019 11:53
--- NOTE | 2019-03-08 09:33 | Diagnostic Imaging Report ---
APPROVED REPORT CPT Code: 91198 Vascular Symptoms Syncope Doppler Spectral Velocity Analysis RightLeft arteries. A high resistive carotid and internal carotid arteries waveform is loss of diastolic flow indicates advanced occlusive distal disease, increased resistance to circulation. The Doppler spectral flow analysis indicates the degree of stenosis is mild in the common carotid artery, moderate (50-60%) in the internal carotid artery, and proximal external carotid artery. VERTEBRAL- The vertebral artery was not well visualized. SUBCLAVIAN- The subclavian artery is within normal limits. arteries. A high resistive carotid and internal carotid arteries waveform is loss of diastolic flow indicates advanced occlusive distal disease, increased resistance to circulation. The Doppler spectral flow analysis indicates the degree of stenosis is mild in the common carotid artery, moderate (50-60%) in the internal carotid artery, and proximal external carotid artery. VERTEBRAL- The vertebral and subclavian arteries are within normal limits.
== END 2019-03-06 18:26 | disposition home health service (06) | DRG 65 ==
LOC: EMR 15:15 → EDBEDREQ 17:25 → 2E 17:52 → EDBEDREQ 18:40 → 2E 03-02 10:05
DX: I63.29 Cerebral infarction due to unspecified occlusion or stenosis of other precerebral arteries (principal); D61.818 Other pancytopenia; N39.0 Urinary tract infection, site not specified; G93.40 Encephalopathy, unspecified; E78.5 Hyperlipidemia, unspecified; R55 Syncope and collapse; I10 Essential (primary) hypertension; J01.90 Acute sinusitis, unspecified; H81.10 Benign paroxysmal vertigo, unspecified ear; I65.23 Occlusion and stenosis of bilateral carotid arteries; E11.9 Type 2 diabetes mellitus without complications; R26.81 Unsteadiness on feet; Z79.82 Long term (current) use of aspirin; Z79.4 Long term (current) use of insulin; I27.20 Pulmonary hypertension, unspecified; B34.9 Viral infection, unspecified
CPT/HCPCS: 36415; 70450; 70496; 70498; 70551; 72125; 76700; 80048; 80053; 80061; 81001; 82962; 83690; 84443; 84484; 85007; 85025; 86703; 86705; 86709; 86803; 87340; 93005; 93306; 93880; 96374; 99285; J1815; J2405

== ENCOUNTER 2019-07-23 10:08 | Emergency (ER) | payer MEDICARE, MEDICAID ==
[~2019-07-23] VITALS: Ht 152.4 cm; Wt 68.0 kg
[~2019-07-23 10:08] MED LIST changes: +UNOBMED
[2019-07-23 10:13] VITALS: BP 146/70
--- NOTE | 2019-07-23 10:20 | NUR ---
ED Nurse Note: Patient walked into ED from home c/o that she cannot hold her bowel movement and urine, she has been having this incontinence for months. patient reports that she wants to she ED doctor for opinions because her primary doctors recommended surgery and she does not want surgery. patient is alert awake x4 ambulatory steady gait, breathing unlabored and even, speaking in full sentences. patient placed in bed, changed into a hospital gown.
[2019-07-23 11:05] LABS: APPEARANCE,URINE CLEAR; BILIRUBIN, URINE NEGATIVE (NEGATIVE); COLOR,URINE PALE YELLOW; GLUCOSE, URINE (UA) NEGATIVE (NEGATIVE); KETONES,URINE NEGATIVE (NEGATIVE); LEUKOCYTE ESTERASE ,URINE 2+ (NEGATIVE); NITRITE,URINE NEGATIVE (NEGATIVE); PH,URINE 6 (4.5-8.0); PROTEIN,URINE 1+ (NEGATIVE); UROBILINOGEN,URINE NORMAL MG/DL (0.0-1.0)
[2019-07-23] MEDS ORDERED: NITROFURANTOIN100 M2 ORAL (11:33)
[2019-07-23] MEDS ORDERED: VOLTAREN100 G1 TP (11:34)
[2019-07-23 11:40] VITALS: BP 142/72
[2019-07-23 11:42] VITALS: BP 142/72
--- NOTE | 2019-07-23 11:42 | NUR ---
ER DISCHARGE NOTE: Patient is cleared to be discharged per ERMD DR RAYA, pt is aox4, on room air, with stable vital signs. pt was given dc and prescription instructions, pt was able to verbalize understanding, pt id band removed without complications. pt is able to ambulate with steady gait. pt took all belongings.
--- NOTE | 2019-07-23 21:39 | Emergency Room Report ---
History of Present Illness General Chief Complaint: General Complaint Source: Patient Present Illness Allergies: Coded Allergies: No Known Allergies (Verified Allergy, Unknown, 06/05/11) Patient History Now: No Nursing Documentation-[facility] Past Medical History: No History, Except For Hx Cardiac Problems: No Hx Hypertension: Yes Hx Diabetes: Yes Hx Cancer: No Hx Gastrointestinal Problems: No Hx Neurological Problems: Yes Hx Dizziness: Yes Hx Weakness: Yes Physical Exam Vital Signs Date Time Temp Pulse Resp B/P (MAP) Pulse Ox O2 Delivery O2 Flow Rate FiO2 07/23/19 10:13 98.4 66 16 146/70 97 Room Air 21 Medical Decision Making Diagnostic Impression: Primary Impression: Back pain Additional Impression: UTI (urinary tract infection) Labs Test 07/23/19 10:55 Urine Color Pale yellow Urine Appearance Clear Urine pH 6 (4.5-8.0) Urine Specific [place] 1.015 (1.005-1.035) Urine Protein 1+ (NEGATIVE) Urine Glucose (UA) Negative (NEGATIVE) Urine Ketones Negative (NEGATIVE) Urine Blood 1+ (NEGATIVE) Urine Nitrite Negative (NEGATIVE) Urine Bilirubin Negative (NEGATIVE) Urine Urobilinogen Normal MG/DL (0.0-1.0) Urine Leukocyte Esterase 2+ (NEGATIVE) Urine RBC 0-2 /HPF (0 - 2) Urine WBC 2-4 /HPF (0 - 2) Urine Squamous Epithelial Cells Few /LPF (NONE/OCC) Urine Bacteria Few /HPF (NONE) Last Vital Signs Date Time Temp Pulse Resp B/P (MAP) Pulse Ox O2 Delivery O2 Flow Rate FiO2 07/23/19 11:42 98.4 82 16 142/72 97 Room Air 21 Status: improved Disposition: HOME, SELF-CARE Condition: Stable Scripts Diclofenac Sodium (VOLTAREN) 100 Gm Gel..gram. 5 GM TP DAILY for pain, #100 GM Prov: Magdaleno Barnes MD 07/23/19 Nitrofurantoin Monohyd/M-Cryst* (MACROBID 100 MG*) 100 Mg Capsule 100 MG ORAL EVERY 12 HOURS, #20 CAP Prov: Magdaleno Barnes MD 07/23/19 Patient Instructions: Back Pain, Adult Additional Instructions: Follow up with spine surgeon for recheck of your back. Return if worse. Magdaleno Barnes MD Jul 23, 2019 21:39
== END 2019-07-23 11:42 | disposition home or self-care (01) ==
LOC: EMR 10:53
DX: N39.0 Urinary tract infection, site not specified (principal); M54.9 Dorsalgia, unspecified; E11.9 Type 2 diabetes mellitus without complications; I10 Essential (primary) hypertension
CPT/HCPCS: 81003; 99282

== ENCOUNTER 2019-11-26 10:50 | Emergency (ER) | payer MEDICARE, MEDICAID ==
[~2019-11-26] VITALS: Ht 152.4 cm; Wt 70.3 kg
[~2019-11-26 10:50] MED LIST changes: +NITROFURANTOIN100 M2 ORAL; +VOLTAREN100 G1 TP
[2019-11-26 10:53] VITALS: BP 147/65
[2019-11-26] MEDS ORDERED: TRAMADOL HCL50 MG ORAL (10:57)
--- NOTE | 2019-11-26 11:00 | NUR ---
ED Nurse Note: patient walked into ED from home c/o chronic leg pain and lower back pain patient is alert awake x4 breathing unlabored and even.
[2019-11-26] MEDS ORDERED: Methocarbamol 500mg tab ORAL ONE (11:15)
[2019-11-26] MEDS ORDERED: Ketorolac 60mg Inj IM ONE (11:15)
--- NOTE | 2019-11-26 11:57 | Emergency Room Report ---
History of Present Illness General Chief Complaint: Back Pain-No Injury Source: Patient Present Illness HPI Patient is an 84-year-old female history of arthritis and chronic lower back pain who presents to the ER complaining of exacerbation of her back pain for the past week. Patient denies any trauma. She states that she just woke up one morning with worsening of pain. She states the pain radiates down both of her legs. Patient states that she has been seen by spinal doctor at [facility] and has been given 2 epidurals. Patient denies any fever or chills. Patient states that for the past year she has had worsening incontinence of her bowels and bladder. She denies any focal weakness. She denies any history of IV drug use. Allergies: Coded Allergies: No Known Allergies (Verified Allergy, Unknown, 06/05/11) Patient History Social History: Denies: smoking, alcohol use, drug use Reviewed Nursing Documentation: PMH: Agreed; PSxH: Agreed Nursing Documentation-PMH Past Medical History: No History, Except For Hx Cardiac Problems: No Hx Hypertension: Yes Hx Diabetes: Yes Hx Cancer: No Hx Gastrointestinal Problems: No Hx Neurological Problems: Yes Hx Dizziness: Yes Hx Weakness: Yes Review of Systems All Other Systems: negative except mentioned in HPI Physical Exam Vital Signs Date Time Temp Pulse Resp B/P (MAP) Pulse Ox O2 Delivery O2 Flow Rate FiO2 11/26/19 10:53 98.4 74 18 147/65 98 Room Air Sp02 EP Interpretation: reviewed, normal General Appearance: no apparent distress, alert, GCS 15, non-toxic Head: normocephalic, atraumatic Eyes: bilateral eye normal inspection, bilateral eye PERRL ENT: hearing grossly normal, normal pharynx, no angioedema, normal voice Neck: full range of motion, supple/symm/no masses Respiratory: chest non-tender, lungs clear, normal breath sounds, speaking full sentences Cardiovascular #1: regular rate, rhythm, no edema Gastrointestinal: normal bowel sounds, non tender, soft, non-distended, no guarding, no rebound Rectal: other - No saddle anesthesia Genitourinary: normal inspection, no CVA tenderness Musculoskeletal: normal range of motion, calf tenderness, other - Patient ambulates with cane, diffuse lumbar tenderness to palpation with no step-offs Neurologic: alert, motor strength/tone normal, oriented x3, sensory intact, responsive, speech normal Psychiatric: judgement/insight normal, memory normal, mood/affect normal, no suicidal/homicidal ideation Skin: no rash Lymphatic: no adenopathy Medical Decision Making Diagnostic Impression: Primary Impression: Lumbar pain ER Course Patient given NSAID as well as Robaxin for pain relief. Patient had MRI of the lumbar spine done due to her history of worsening pain with urinary and fecal incontinence. Will sign out to at 1430 pending MRI results, reevaluation and final disposition. Last Vital Signs Date Time Temp Pulse Resp B/P (MAP) Pulse Ox O2 Delivery O2 Flow Rate FiO2 11/26/19 10:53 98.4 74 18 147/65 (92) 98 Room Air Signed Out To: Dr. Hadley at 1430. Albertina Jo M.D. Nov 26, 2019 11:57
--- NOTE | 2019-11-26 12:48 | NUR ---
ED Nurse Note: patient taken to MRI via wheelchair
--- NOTE | 2019-11-26 14:36 | NUR ---
ED Nurse Note: sandwiches and water provided.
[2019-11-26 15:10] VITALS: BP 142/62
[2019-11-26] MEDS ORDERED: LIDODERM700 M1 TOPIC (15:20)
[2019-11-26] MEDS ORDERED: PREDNISONE20 MG ORAL (15:20)
--- NOTE | 2019-11-26 15:29 | NUR ---
ER DISCHARGE NOTE: Patient is cleared to be discharged per ERMD DR WATERS , pt is aox4, on room air, with stable vital signs. pt was given dc and prescription instructions, pt was able to verbalize understanding, pt id band removed without complications. pt is able to ambulate with steady gait. pt took all belongings.
[2019-11-26 15:31] VITALS: BP 142/62
--- NOTE | 2019-11-26 15:49 | Diagnostic Imaging Report ---
Indication: Back pain. Sensory and motor weakness in the lower extremities Technique: MRI examination of the lumbar spine was performed in a 1.5 Paz magnet. Sequences obtained include sagittal and axial T1 and T2 fast spin echo, and sagittal STIR. Comparison: none Findings: Bone marrow: Normal Alignment: Mild anterolisthesis seen at L4-5. Alignment is otherwise normal. Spinal cord/conus medullaris: No compression of the cord or conus medullaris identified. There is slight abutting of the cord opposite T11-12 due to concentric disc bulge. Soft tissues: No paravertebral or paraspinous edema or hematoma/mass identified. T12-L1: Disc loss of height and concentric disc bulge noted. There is mild bilateral foraminal stenosis. Facet arthropathy demonstrated. L1-2: Moderate loss of disc height demonstrated. Concentric disc bulge demonstrated. There is mild central spinal stenosis. There is moderate to severe ligamentum flavum redundancy and facet arthropathy. Bilateral foraminal stenosis demonstrated. L2-3: Moderate loss of disc height, concentric disc bulge, vertebral endplate osteophytes, facet arthropathy and ligamentum flavum redundancy demonstrated. Moderate to severe stenosis of the central canal lateral recess demonstrated. Moderate to severe bilateral foraminal stenosis demonstrated. L3-4: There is severe loss of disc height, vertebral endplate spurs, concentric disc bulge. Ligament flavum redundancy and facet arthropathy demonstrated. Moderate to severe central stenosis, narrowing the lateral recess and moderate bilateral foraminal stenosis demonstrated. L4-5: Moderate to severe loss of disc height, mild anterolisthesis demonstrated. Severe facet arthropathy and ligamentum flavum redundancy demonstrated. Narrowing of the lateral recess and central canal, moderate to severe bilateral foraminal stenosis demonstrated. L5-S1: Moderate loss of disc height demonstrated. The central canal is patent. There is a moderate bilateral foraminal stenosis. Moderate facet arthropathy noted. 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
--- NOTE | 2019-11-26 17:43 | Emergency Room Report ---
Physical Exam Vital Signs Date Time Temp Pulse Resp B/P (MAP) Pulse Ox O2 Delivery O2 Flow Rate FiO2 11/26/19 10:53 98.4 74 18 147/65 98 Room Air Medical Decision Making Diagnostic Impression: Primary Impression: Lumbar pain ER Course Patient signed out to me pending MRI results See initial note for full history and physical Right shows multilevel stenosis. DJD. No acute process. All chronic. On reassessment pain improved. No focal deficits. I discussed findings with patient. Will discharge to home. Safe for discharge for close outpatient follow-up. Discussed findings with PMD Dr. Degroot and he agreed to plan CT/MRI/US Diagnostic Results CT/MRI/US Diagnostic Results : Imaging Test Ordered: MRI L spine Impression Procedure: MRI L Spine no Contrast Indication: Back pain. Sensory and motor weakness in the lower extremities Technique: MRI examination of the lumbar spine was performed in a 1.5 Paz magnet. Sequences obtained include sagittal and axial T1 and T2 fast spin echo, and sagittal STIR. Comparison: none Findings: Bone marrow: Normal Alignment: Mild anterolisthesis seen at L4-5. Alignment is otherwise normal. Spinal cord/conus medullaris: No compression of the cord or conus medullaris identified. There is slight abutting of the cord opposite T11-12 due to concentric disc bulge. Soft tissues: No paravertebral or paraspinous edema or hematoma/mass identified. T12-L1: Disc loss of height and concentric disc bulge noted. There is mild bilateral foraminal stenosis. Facet arthropathy demonstrated. L1-2: Moderate loss of disc height demonstrated. Concentric disc bulge demonstrated. There is mild central spinal stenosis. There is moderate to severe ligamentum flavum redundancy and facet arthropathy. Bilateral foraminal stenosis demonstrated. L2-3: Moderate loss of disc height, concentric disc bulge, vertebral endplate osteophytes, facet arthropathy and ligamentum flavum redundancy demonstrated. Moderate to severe stenosis of the central canal lateral recess demonstrated. Moderate to severe bilateral foraminal stenosis demonstrated. L3-4: There is severe loss of disc height, vertebral endplate spurs, concentric disc bulge. Ligament flavum redundancy and facet arthropathy demonstrated. Moderate to severe central stenosis, narrowing the lateral recess and moderate bilateral foraminal stenosis demonstrated. L4-5: Moderate to severe loss of disc height, mild anterolisthesis demonstrated. Severe facet arthropathy and ligamentum flavum redundancy demonstrated. Narrowing of the lateral recess and central canal, moderate to severe bilateral foraminal stenosis demonstrated. L5-S1: Moderate loss of disc height demonstrated. The central canal is patent. There is a moderate bilateral foraminal stenosis. Moderate facet arthropathy noted. 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 Last Vital Signs Date Time Temp Pulse Resp B/P (MAP) Pulse Ox O2 Delivery O2 Flow Rate FiO2 11/26/19 15:31 98.4 70 17 142/62 98 Room Air Status: improved Disposition: HOME, SELF-CARE Condition: Stable Scripts Lidocaine Patch* (Lidoderm Patch*) 1 Each Adh..patch 1 PATCH TOPIC DAILY, #7 PATCH 0 Refills Patch(es) may remain in place for up to 12 hours in any 24-hour period. Prov: Scott Hadley MD 11/26/19 Prednisone* (PREDNISONE*) 20 Mg Tablet 40 MG ORAL DAILY, #10 TAB Prov: Scott Hadley MD 11/26/19 Referrals: Cj Degroot DO Patient Instructions: Back Pain, Adult Scott Hadley MD Nov 26, 2019 17:43
== END 2019-11-26 15:31 | disposition home or self-care (01) ==
LOC: EMR 15:31
DX: M54.5 Low back pain (principal); M51.36 Other intervertebral disc degeneration, lumbar region; M48.061 Spinal stenosis, lumbar region without neurogenic claudication; I10 Essential (primary) hypertension; E11.9 Type 2 diabetes mellitus without complications
CPT/HCPCS: 72148; 96372; 99284

== ENCOUNTER 2020-07-17 21:22 | Emergency (ER) | payer MEDICARE, MEDICAID ==
[~2020-07-17] VITALS: Ht 157.5 cm; Wt 70.3 kg
[~2020-07-17 21:22] MED LIST changes: +LIDODERM700 M1 TOPIC; +PREDNISONE20 MG ORAL
[2020-07-17 21:47] VITALS: BP 147/67
--- NOTE | 2020-07-17 21:55 | Emergency Room Report ---
History of Present Illness General Chief Complaint: Pain Source: Patient Present Illness HPI Patient presents with 1 week of right shoulder and neck pain. She also has tingling in her right arm and hand. This began 3 months ago. It was not as severe as now. She has been taking tramadol and ibuprofen 600 mg and the pain is not controlled. Has been taking ibuprofen every 6 hours. She has spinal stenosis in the lower spine but has not had any diagnosis in the cervical region. She denies any fevers or chills. She states that in the mornings she has difficulty walking due to the pain in her neck. This resolves during the day after taking medication for pain. The patient has chronic urinary incontinence and denies dysuria. This proceeded the neck and shoulder pain. Patient is not taking a blood thinner but does take aspirin. Patient denies oncologic problems. The patient has been unable to sleep because of the pain. The patient states she has spinal stenosis involving the lower spine. She had back surgery in 2006. History of pontine CVA. Patient has been keeping herself isolated. No fevers, chills, sore throat, chest pain, palpitations, nausea, vomiting, diarrhea, dysuria, abdominal pain, shortness of breath, rashes, depression, anxiety, visual changes, dizziness, headache. Allergies: Coded Allergies: No Known Allergies (Verified Allergy, Unknown, 06/05/11) COVID-19 Screening Contact w/high risk pt: No Experienced COVID-19 symptoms?: No COVID-19 Testing performed RUBBER PRESS OPERATOR: No Patient History Past Medical History: see triage record Past Surgical History: yoni, , other - Spine surgery 2006, cataract surgery Social History: Denies: smoking, alcohol use, drug use Social History Narrative brought by daughter Reviewed Nursing Documentation: PMH: Agreed; PSxH: Agreed Nursing Documentation-PMH Hx Cardiac Problems: No Hx Hypertension: Yes Hx Diabetes: Yes Hx Cancer: No Hx Gastrointestinal Problems: No Hx Neurological Problems: Yes Hx Dizziness: Yes Hx Weakness: Yes Review of Systems All Other Systems: negative except mentioned in HPI Physical Exam Vital Signs Date Time Temp Pulse Resp B/P (MAP) Pulse Ox O2 Delivery O2 Flow Rate FiO2 07/17/20 21:35 98.4 74 16 165/67 (99) 95 Room Air Sp02 EP Interpretation: reviewed, normal - Interpreted as slightly low General Appearance: no apparent distress, GCS 15, non-toxic, other - Frail Head: normocephalic, atraumatic Eyes: bilateral eye normal inspection, bilateral eye PERRL, bilateral eye EOMI ENT: moist mucus membranes Neck: full range of motion, supple, tender - Right-sided Respiratory: chest non-tender, lungs clear, normal breath sounds Cardiovascular #1: regular rate, rhythm Cardiovascular #2: 2+ radial (R) - Good capillary fill Gastrointestinal: normal bowel sounds, non tender, overweight Genitourinary: no CVA tenderness Musculoskeletal: back normal - See neck, normal range of motion, tender - Right shoulder minimally with passive range of motion good without crepitance Neurologic: motor strength/tone normal, plastics supervisor III-XII nml as tested, DTRs symmetric, oriented x3, sensory intact, cerebellar normal, speech normal Psychiatric: mood/affect normal - Slightly concerned Skin: no rash, warm/dry Medical Decision Making Diagnostic Impression: Primary Impression: Cervical radiculopathy Additional Impressions: Osteoarthritis Qualified Codes: M89.49 - Other hypertrophic osteoarthropathy, multiple sites Thyroid nodule ER Course Patient presents with right-sided neck shoulder pain with tingling of her hand. Differential includes cervical radiculopathy, osteoarthritis, gout, chest and lung abnormalities amongst others. Concern over the history of difficulty walking in the mornings. She has been taking adequate doses of anti- inflammatories and tramadol. Patient evaluated with chest x-ray, shoulder x-ray and CT of the neck along with labs. Patient treated with a dose of Toradol and morphine with Zofran. Patient placed on case monitor. Complicated patient. History is against cardiac cause. EKG no acute changes. Chest x-ray no infiltrates (radiologist suggests opacity in the right upper lobe). Shoulder film with osteoarthritis and calcific tendinitis. CT of the neck with osteoarthritis and foraminal narrowing of several cervical nerve roots. Labs remarkable for pyuria with squamous cells suggesting contaminated specimen. ESR elevated with normal white count. Patient improved with treatment however when she sits up and moves her neck there is increased pain. Morphine is repeated. Pain is improved with treatment. Cervical collar applied with some improvement in symptoms. Discussed findings with patient and daughter. Discussed treatment plan with patient and daughter. Patient stable for outpatient observation and treatment. Laboratory Tests Test 07/17/20 21:55 07/17/20 23:15 White Blood Count 3.9 K/UL (4.8-10.8) L Red Blood Count 4.24 M/UL (4.20-5.40) Hemoglobin 13.0 G/DL (12.0-16.0) Hematocrit 39.9 % (37.0-47.0) Mean Corpuscular Volume 94 FL (80-99) Mean Corpuscular Hemoglobin 30.6 PG (27.0-31.0) Mean Corpuscular Hemoglobin Concent 32.5 G/DL (32.0-36.0) Red Cell Distribution Width 15.1 % (11.6-14.8) H Platelet Count 155 K/UL (150-450) Mean Platelet Volume 9.6 FL (6.5-10.1) Neutrophils (%) (Auto) 31.5 % (45.0-75.0) L Lymphocytes (%) (Auto) 50.5 % (20.0-45.0) H Monocytes (%) (Auto) 14.3 % (1.0-10.0) H Eosinophils (%) (Auto) 0.6 % (0.0-3.0) Basophils (%) (Auto) 3.1 % (0.0-2.0) H Erythrocyte Sedimentation Rate 45 MM/HR (0-30) H Urine Color Pale yellow Urine Appearance Clear Urine pH 8 (4.5-8.0) Urine Specific [place] 1.010 (1.005-1.035) Urine Protein Negative (NEGATIVE) Urine Glucose (UA) Negative (NEGATIVE) Urine Ketones Negative (NEGATIVE) Urine Blood 1+ (NEGATIVE) H Urine Nitrite Negative (NEGATIVE) Urine Bilirubin Negative (NEGATIVE) Urine Urobilinogen Normal MG/DL (0.0-1.0) Urine Leukocyte Esterase 2+ (NEGATIVE) H Urine RBC 2-4 /HPF (0 - 2) H Urine WBC 5-10 /HPF (0 - 2) H Urine Squamous Epithelial Cells Moderate /LPF (NONE/OCC) H Urine Bacteria Few /HPF (NONE) Sodium Level 139 MMOL/L (136-145) Potassium Level 4.1 MMOL/L (3.5-5.1) Chloride Level 101 MMOL/L (98-107) Carbon Dioxide Level 30 MMOL/L (21-32) Anion Gap 8 mmol/L (5-15) Blood Urea Nitrogen 11 mg/dL (7-18) Creatinine 0.8 MG/DL (0.55-1.30) Estimated Glomerular Filtration Rate > 60 mL/min (>60) Glucose Level 113 MG/DL (74-106) H Uric Acid 2.9 MG/DL (2.6-7.2) Calcium Level 9.9 MG/DL (8.5-10.1) Total Bilirubin 0.3 MG/DL (0.2-1.0) Aspartate Amino Transferase (AST) 25 U/L (15-37) Alanine Aminotransferase (ALT) 17 U/L (12-78) Alkaline Phosphatase 62 U/L (46-116) C-Reactive Protein, Quantitative < 0.4 mg/dL (0.00-0.90) Total Protein 8.2 G/DL (6.4-8.2) Albumin 5.1 G/DL (3.4-5.0) H Globulin 3.1 g/dL Albumin/Globulin Ratio 1.6 (1.0-2.7) Prothrombin Time 12.0 SEC (9.30-11.50) H Prothrombin Time INR 1.1 (0.9-1.1) Activated Partial Thromboplast Time 26 SEC (23-33) Rhythm Strip Diag. Results EP Interpretation: yes Rhythm: NSR, no PVC's, no ectopy Chest X-Ray Diagnostic Results Chest X-Ray Diagnostic Results : Chest X-Ray Ordered: Yes # of Views/Limited/Complete: 1 View Indication: Other EP Interpretation: Yes Interpretation: no consolidation, no effusion, no pneumothorax, other - Radiologist suggested opacity of right upper lobe Impression: Other Electronically Signed by: Electronically signed by Jimmy Myers MD Other X-Ray Diagnostic Results Other X-Ray Diagnostic Results : X-Ray ordered: Right shoulder # of Views/Limited Vs Complete: 3 View Indication: Pain Interpretation: no dislocation, no soft tissue swelling, no fractures, other - DJD with calcium most likely in the tendon Impression: Other Electronically Signed by: Electronically signed by Jimmy Myers MD CT/MRI/US Diagnostic Results CT/MRI/US Diagnostic Results : Imaging Test Ordered: Cervical spine Impression 1. Multilevel spondylosis without evidence of acute osseous abnormality or severe canal narrowing. 2. Stable appearing left thyroid lobe nodule. If no thyroid ultrasound imaging has been performed, this should be considered for further evaluation. Last Vital Signs Date Time Temp Pulse Resp B/P (MAP) Pulse Ox O2 Delivery O2 Flow Rate FiO2 07/18/20 00:20 98.4 74 16 147/67 95 Room Air Status: improved Disposition: HOME, SELF-CARE Condition: Improved Scripts Naproxen* (NAPROXEN*) 375 Mg Tablet. 375 MG ORAL TWICE A DAY, #20 TAB Prov: Jimmy Myers MD 07/17/20 Oxycodone/Acetaminophen 5-325* (PERCOCET 5-325 MG TABLET*) 1 Each Tablet 1 TAB ORAL Q6H PRN for For Pain, #10 TAB 0 Refills Prov: Jimmy Myers MD 07/17/20 Jimmy Myers MD Jul 17, 2020 21:55
[2020-07-17] MEDS ORDERED: Ketorolac 30mg Inj IV ONE (22:00)
[2020-07-17] MEDS ORDERED: Morphine Sulfate 4mg/ml Inj (IV USE ONLY) IVP ONE ×2 (22:00→23:45)
[2020-07-17 22:23] LABS: APPEARANCE,URINE CLEAR; BASOPHILS % (AUTO) 3.1 % (0.0-2.0); BILIRUBIN, URINE NEGATIVE (NEGATIVE); COLOR,URINE PALE YELLOW; EOSINOPHILS % (AUTO) 0.6 % (0.0-3.0); GLUCOSE, URINE (UA) NEGATIVE (NEGATIVE); HEMATOCRIT 39.9 % (37.0-47.0); KETONES,URINE NEGATIVE (NEGATIVE); LEUKOCYTE ESTERASE ,URINE 2+ (NEGATIVE); LYMPHOCYTES % (AUTO) 50.5 % (20.0-45.0); MEAN CORPUSCULAR VOLUME 94 FL (80-99); MONOCYTES % (AUTO) 14.3 % (1.0-10.0); NEUTROPHILS % (AUTO) 31.5 % (45.0-75.0); NITRITE,URINE NEGATIVE (NEGATIVE); PH,URINE 8 (4.5-8.0); PLATELET COUNT 155 K/UL (150-450); PROTEIN,URINE NEGATIVE (NEGATIVE); RED BLOOD COUNT 4.24 M/UL (4.20-5.40); RED CELL DISTRIBUTION WIDTH 15.1 % (11.6-14.8); UROBILINOGEN,URINE NORMAL MG/DL (0.0-1.0); WHITE BLOOD COUNT 3.9 K/UL (4.8-10.8)
[2020-07-17 22:34] LABS: ANION GAP 8 mmol/L (5-15); BLOOD UREA NITROGEN 11 mg/dL (7-18); CALCIUM 9.9 MG/DL (8.5-10.1); CARBON DIOXIDE 30 MMOL/L (21-32); CHLORIDE 101 MMOL/L (98-107); CREATININE 0.8 MG/DL (0.55-1.30); POTASSIUM 4.1 MMOL/L (3.5-5.1); SODIUM 139 MMOL/L (136-145)
[2020-07-17 22:41] LABS: ALANINE AMINOTRANSFERASE 17 U/L (12-78); ALBUMIN 5.1 G/DL (3.4-5.0); ALBUMIN/GLOBULIN RATIO 1.6 (1.0-2.7); ALKALINE PHOSPHATASE 62 U/L (46-116); ASPARTATE AMINO TRANSFERASE 25 U/L (15-37); BILIRUBIN,TOTAL 0.3 MG/DL (0.2-1.0)
--- NOTE | 2020-07-17 23:29 | Diagnostic Imaging Report ---
EXAM: XR Chest, 1 View CLINICAL HISTORY: PAIN TECHNIQUE: Frontal view of the chest. COMPARISON: No relevant prior studies available. FINDINGS: Lungs: Increased opacity of the right medial lung apex. Pleural space: Unremarkable. No pneumothorax. Heart: Unremarkable. No cardiomegaly. Mediastinum: Unremarkable. Bones/joints: Unremarkable. Vasculature: Atherosclerotic vascular disease within a mildly tortuous aorta. IMPRESSION: 1. Right lung apex medial soft tissue opacification. Differential includes infection, mass, and atypical scarring. Prior chest imaging is not available for comparison. Recommend correlating with prior imaging if available. CT can be utilized for further evaluation as clinically indicated. 2. Atherosclerotic vascular disease.
--- NOTE | 2020-07-17 23:31 | Diagnostic Imaging Report ---
EXAM: XR Right Shoulder Complete, 2 or More Views CLINICAL HISTORY: PAIN TECHNIQUE: Two or more views of the right shoulder. COMPARISON: No relevant prior studies available. FINDINGS: Bones/joints: Moderate osteophytosis and joint space narrowing at the acromioclavicular joint. No acute fracture. No dislocation. Soft tissues: Calcification adjacent to the lateral humeral head may represent calcific tendinopathy. IMPRESSION: No acute osseous abnormality.
[2020-07-17 23:34] LABS: INR 1.1 (0.9-1.1)
--- NOTE | 2020-07-17 23:35 | Diagnostic Imaging Report ---
EXAM: CT Cervical Spine Without Intravenous Contrast CLINICAL HISTORY: PAIN TECHNIQUE: Axial computed tomography images of the cervical spine without intravenous contrast. CTDI is 20.20 mGy and DLP is 514.20 mGy-cm. One or more of the following dose reduction techniques were used: automated exposure control, adjustment of the mA and/or kV according to patient size, use of iterative reconstruction technique. COMPARISON: Cervical spine CT dated 03/04/2019 FINDINGS: Vertebrae: See below. Discs/spinal canal/neural foramina: Multilevel degenerative changes are demonstrated throughout the cervical spine. There is small posterior disc osteophyte complex mistreated in the mid and lower cervical spine without severe canal narrowing. Scattered endplate osteophytes are noted throughout the visualized cervical and thoracic spine. Soft tissues: Unremarkable. Vasculature: Atherosclerotic vascular disease is present within the neck and visualized upper thorax. Thyroid: 1.9 cm left thyroid nodule, without significant interval changes compared to prior imaging. IMPRESSION: 1. Multilevel spondylosis without evidence of acute osseous abnormality or severe canal narrowing. 2. Stable appearing left thyroid lobe nodule. If no thyroid ultrasound imaging has been performed, this should be considered for further evaluation.
[2020-07-17] MEDS ORDERED: NAPROXEN375 M2 ORAL (23:58)
[2020-07-17] MEDS ORDERED: PERCOCET 5-3251 EACH ORAL (23:58)
[2020-07-18] VITALS: BP 132/69
[2020-07-18 00:20] VITALS: BP 147/67
[2020-07-19] MEDS ORDERED: LIDODERM700 M1 TOPIC (15:49)
[2020-07-19] MEDS ORDERED: PREDNISONE20 MG ORAL (15:49)
== END 2020-07-18 00:20 | disposition home or self-care (01) ==
LOC: EMR 21:52
DX: M54.12 Radiculopathy, cervical region (principal); M89.49 Other hypertrophic osteoarthropathy, multiple sites; E04.1 Nontoxic single thyroid nodule; M25.511 Pain in right shoulder; E11.9 Type 2 diabetes mellitus without complications; Z79.82 Long term (current) use of aspirin; Z90.49 Acquired absence of other specified parts of digestive tract; I10 Essential (primary) hypertension; E66.3 Overweight; Z68.28 Body mass index [BMI] 28.0-28.9, adult; M75.31 Calcific tendinitis of right shoulder; I70.90 Unspecified atherosclerosis
CPT/HCPCS: 36415; 71045; 72125; 73030; 80053; 81001; 84550; 85025; 85610; 85651; 85730; 86140; 96374; 96375; 96376; 99284; J1885; J2270; J2405

== ENCOUNTER 2020-07-19 15:03 | Emergency (ER) | payer MEDICARE, MEDICAID ==
[~2020-07-19] VITALS: Ht 152.4 cm; Wt 70.3 kg
[~2020-07-19 15:03] MED LIST changes: +NAPROXEN375 M2 ORAL; +PERCOCET 5-3251 EACH ORAL
[2020-07-19 15:11] VITALS: BP 147/62
--- NOTE | 2020-07-19 15:11 | NUR ---
ED Nurse Note: Pt ambulated to ed c/o right shoulder arthritic pain x 3 weeks.
--- NOTE | 2020-07-19 15:48 | Emergency Room Report ---
History of Present Illness General Chief Complaint: Pain Source: Patient Present Illness HPI 85 YO female presents to the ED c/o 07/03 in severity right shoulder pain. Pt. reports recent dx of OA, and was seen here in the ED two days ago and given opiate pain medication. Pt. reports she is not getting any relief from her prescribed med. She reports in the past with similar symptoms she received prednisone and "pain patches" which provided her relief. She Denies trauma or fall. She reports having imaging performed two days ago. She reports some intermittent shooting electrical pain down the arm. She denies abdominal pain. Denies numbness tingling or loss of sensation or gross motor movements of the extremities, incontinence of bowel or bladder. Denies CP, Palpitations, LOC, AMS, dizziness, Changes in Vision, weakness or a sudden severe headache. She denies neck pain. Allergies: Coded Allergies: No Known Allergies (Verified Allergy, Unknown, 06/05/11) COVID-19 Screening Contact w/high risk pt: No Experienced COVID-19 symptoms?: No COVID-19 Testing performed ELECTRIC DEICER INSPECTOR: No Patient History Past Medical History: see triage record Past Surgical History: none Pertinent Family History: none Last Menstrual Period: na Now: No Reviewed Nursing Documentation: PMH: Agreed; PSxH: Agreed Nursing Documentation-PMH Past Medical History: No History, Except For Hx Cardiac Problems: No Hx Hypertension: Yes Hx Diabetes: Yes Hx Cancer: No Hx Gastrointestinal Problems: No Hx Neurological Problems: Yes Hx Dizziness: Yes Hx Weakness: Yes Review of Systems All Other Systems: negative except mentioned in HPI Physical Exam Vital Signs Date Time Temp Pulse Resp B/P (MAP) Pulse Ox O2 Delivery O2 Flow Rate FiO2 07/19/20 15:06 98.2 63 17 147/62 (90) 97 Room Air Sp02 EP Interpretation: reviewed, normal General Appearance: no apparent distress, alert, GCS 15, non-toxic Head: normocephalic, atraumatic Eyes: bilateral eye normal inspection, bilateral eye PERRL ENT: hearing grossly normal, normal voice Neck: full range of motion, no bony tend Respiratory: chest non-tender, lungs clear, normal breath sounds, no respiratory distress, no wheezing, speaking full sentences Cardiovascular #1: regular rate, rhythm, no edema, normal capillary refill Cardiovascular #2: 2+ radial (R), 2+ radial (L) Gastrointestinal: non tender, soft Musculoskeletal: back normal, normal range of motion, gait/station normal, tender - Right shoulder, Pain with ROM testing. no obvious step-off. Neurologic: alert, motor strength/tone normal, oriented x3, sensory intact, responsive, speech normal, grossly normal, no focal defects Psychiatric: judgement/insight normal Skin: normal color Medical Decision Making PA Attestation Dr. Frias is my supervising Physician whom patient management has been discussed with. 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 Pt. reports recent dx of OA, and was seen here in the ED two days ago and given opiate pain medication. Pt. reports she is not getting any relief from her prescribed med. She reports in the past with similar symptoms she received prednisone and "pain patches" which provided her relief. She Denies trauma or fall. She reports having imaging performed two days ago. She reports some intermittent shooting electrical pain down the arm. She denies abdominal pain. Denies numbness tingling or loss of sensation or gross motor movements of the extremities, incontinence of bowel or bladder. Denies CP, Palpitations, LOC, AMS, dizziness, Changes in Vision, weakness or a sudden severe headache. She denies neck pain. Ddx considered but are not limited to Fracture, dislocation, contusion, Sprain/Strain/Spasm, cervical radiculopathy, OA, opiate dependence, Epidural abscess, Neoplastic mets. Vital signs: are WNL, pt. is afebrile H&PE are most consistent with OA pain not responding to opiate medication. NO new trauma or fall. ORDERS: - Reviewed chart and imaging results from recent ED visit. ED INTERVENTIONS: - Lidoderm TP -I do not identify an emergent condition at this time. With current presentation, pt. is stable for close outpatient follow up and conservative treatment. D/w pt. to return promptly to ED with worsening or new symptoms.- Pt. verbalizes' understanding and agreement with proposed treatment plan. DISCHARGE: At this time pt. is stable for d/c to home. Will provide printed patient care instructions, and any necessary prescriptions. Care plan and follow up instructions have been discussed with the patient prior to discharge. Last Vital Signs Date Time Temp Pulse Resp B/P (MAP) Pulse Ox O2 Delivery O2 Flow Rate FiO2 07/19/20 15:11 98.2 79 17 147/62 97 Room Air Status: improved Disposition: HOME, SELF-CARE Condition: Stable Scripts Lidocaine Patch* (Lidoderm Patch*) 1 Each Adh..patch 1 PATCH TOPIC DAILY, #30 PATCH 0 Refills Patch(es) may remain in place for up to 12 hours in any 24-hour period. Prov: Leeann Orourke 07/19/20 Prednisone* (PREDNISONE*) 20 Mg Tablet 40 MG ORAL DAILY for 5 Days, #10 TAB Prov: Leeann Orourke 07/19/20 Referrals: Orthopedic Urgent Care Patient Instructions: Osteoarthritis, Shoulder Pain, [id number] Additional Instructions: *Take new and previously prescribed medications as directed. Follow up with an DIESEL POWERPLANT MECHANIC in 3-5 days, even if your symptoms have resolved. May Benefit from Pain Management and/or Cortisone Injection. If symptoms persist MRI may be required at the discretion of your PCP or Ortho Specialist. Return sooner to ED if new symptoms occur, or current symptoms become worse. Do not drink alcohol, drive, or operate heavy machinery while taking [place] as this may cause drowsiness. - Please note that this Emergency Department Report was dictated using [employer] dam pumper technology software, occasionally this can lead to erroneous entry secondary to interpretation by the dictation equipment. Leeann Orourke Jul 19, 2020 15:48
[2020-07-19] MEDS ORDERED: LIDODERM700 M1 TOPIC (15:49)
[2020-07-19] MEDS ORDERED: PREDNISONE20 MG ORAL (15:49)
[2020-07-19 15:57] VITALS: BP 140/65
--- NOTE | 2020-07-19 15:57 | NUR ---
ER DISCHARGE NOTE: Patient is cleared to be discharged per ERMD, pt is aox4, on room air, with stable vital signs. pt was given dc and prescription instructions, pt was able to verbalize understanding, pt id bandremoved. pt is able to ambulate with steady gait. pt took all belongings.
== END 2020-07-19 15:58 | disposition home or self-care (01) ==
LOC: EMR 15:30
DX: M19.211 Secondary osteoarthritis, right shoulder (principal); M25.511 Pain in right shoulder; M54.12 Radiculopathy, cervical region; I10 Essential (primary) hypertension; E11.9 Type 2 diabetes mellitus without complications
CPT/HCPCS: 99282